=== PATIENT | male | born 1950 | race Asian ===

== ENCOUNTER 2023-08-31 14:56 | Inpatient (IN) | payer OTHER ==
[~2023-08-31] VITALS: Ht 170.2 cm; Wt 110.0 kg
[2023-08-31 16:48] LABS: Basophils # (auto) 0.1 10 ^3/uL (0-0.2); Basophils % (auto) 1.2 % (0.0-2.0); Eosinophils # (auto) 0.1 10 ^3/uL (0-0.8); Eosinophils % (auto) 1.6 % (0.0-7.0); Hematocrit 50.7 % (41.0-53.0); Hemoglobin 16.5 g/dL (13.5-17.5); Lymphocytes # (auto) 0.5 10 ^3/uL (0.4-5.4); Lymphocytes % (auto) 8.1 % (10.0-50.0); Mean Corpuscular Hemoglobin 30.2 pg (28.0-32.0); Mean Corpuscular Hgb Conc. 32.5 g/dL (32.0-36.0); Mean Corpuscular Volume 92.9 fL (80.0-100.0); Monocytes # (auto) 0.5 10 ^3/uL (0-1.3); Monocytes % (auto) 9.2 % (0.0-12.0); Neutrophils # (auto) 4.8 10 ^3/uL (1.6-8.6); Neutrophils % (auto) 79.9 % (37.0-80.0); Nucleated Red Blood Cells % 0.2 %; Red Blood Cells 5.46 10^6/uL (4.5-5.90); Red Cell Distribution Width 17.4 % (11.8-14.3)
[2023-08-31 17:05] LABS: Alanine Aminotransferase < 9 U/L (7-40); Albumin 3.6 g/dL (3.2-4.8); Alkaline Phosphatase 63 U/L (46-116); Anion Gap 4 (5-15); Aspartate Aminotransferase 12 U/L (13-40); BUN/Creatinine Ratio 9.2 (10.0-20.0); Blood Urea Nitrogen 16 mg/dL (9-23); Calcium 8.8 mg/dL (8.7-10.4); Carbon Dioxide 30 mmol/L (20-30); Chloride 107 mmol/L (98-107); Glucose 124 mg/dL (74-106); Lipase 43 U/L (12-53); Potassium 4.4 mmol/L (3.5-5.1); Sodium 141 mmol/L (136-145)
[2023-08-31 17:06] LABS: Bilirubin, Total 3.3 mg/dL (0.2-1.0); Total Protein 6.2 g/dL (5.7-8.2)
[2023-08-31 17:08] LABS: Lactic Acid w/Reflex 2.5 mmol/L (0.4-2.0)
[2023-08-31] MEDS ORDERED: FERR325T20 PO (18:42)
[2023-08-31] MEDS ORDERED: APIX5TAB PO (18:42)
[2023-08-31] MEDS ORDERED: LEVO200T7 PO (18:42)
[2023-08-31] MEDS ORDERED: CARV3.1240 PO (18:42)
[2023-08-31] MEDS ORDERED: ATOR20TA50 PO (18:42)
[2023-08-31] MEDS ORDERED: HYDR25TA87 PO (18:42)
[2023-08-31] MEDS ORDERED: ALLO300T2 PO (18:42)
[2023-08-31] MEDS ORDERED: DOCUSATE SOD 100 MG CAP PO PRN (18:45)
[2023-08-31] MEDS ORDERED: ONDANSETRON HCL 4 MG/2 ML VIAL IV PRN (18:45)
[2023-08-31] MEDS ORDERED: NITROGLYCERIN 0.4 MG SL TAB SL PRN (18:45)
[2023-08-31] MEDS ORDERED: MORPHINE SULFATE INJ 2 MG/ml SYRG IV PRN ×2 (18:45)
[2023-08-31] MEDS ORDERED: ACETAMINOPHEN 325 MG TAB PO PRN (18:45)
[2023-09-01] MEDS: CARVEDILOL 3.125 MG TAB PO SCH (01:05)
[2023-09-01] MEDS: hydrALAZINE HCL 25 MG TAB PO SCH (01:05)
[2023-09-01] MEDS: FUROSEMIDE 40 MG/4 ML VIAL IV ONE (01:06)
[2023-09-01] MEDS: PIPERACILLIN-TAZOB 3.375GM 100 ML IV ONE (01:07)
[2023-09-01] MEDS: CLINDAMYCIN 600MG IV 50 ML IV SCH (01:10)
[2023-09-01] MEDS: SODIUM CHLORIDE 0.9% 1,000 ML IV ONE (04:35)
[2023-09-01 06:06] VITALS: BP 111/60; PULSE 68; PULSE 96; RESP 18; TEMP 98; O2SAT 96
[2023-09-01] MEDS: LEVOTHYROXINE SODIUM 100 MCG TAB PO SCH (06:29)
[2023-09-01] MEDS: FUROSEMIDE 40 MG/4 ML VIAL IV SCH (06:29)
[2023-09-01 08:00] VITALS: BP 109/70; PULSE 61; RESP 17; TEMP 98.2; O2SAT 94
[2023-09-01 08:12] LABS: Basophils # (auto) 0.1 10 ^3/uL (0-0.2); Eosinophils # (auto) 0.1 10 ^3/uL (0-0.8); Eosinophils % (auto) 2.5 % (0.0-7.0); Hemoglobin 16.3 g/dL (13.5-17.5); Lymphocytes # (auto) 0.6 10 ^3/uL (0.4-5.4); Lymphocytes % (auto) 10.4 % (10.0-50.0); Mean Corpuscular Volume 93.7 fL (80.0-100.0); Monocytes # (auto) 0.5 10 ^3/uL (0-1.3); Monocytes % (auto) 8.6 % (0.0-12.0); Neutrophils # (auto) 4.5 10 ^3/uL (1.6-8.6); Neutrophils % (auto) 77.5 % (37.0-80.0); Nucleated Red Blood Cells % 0.2 %; Red Blood Cells 5.44 10^6/uL (4.5-5.90); Red Cell Distribution Width 17.9 % (11.8-14.3); White Blood Cell 5.8 10^3/uL (4.4-10.8)
[2023-09-01 08:26] LABS: Albumin 3.5 g/dL (3.2-4.8); Alkaline Phosphatase 57 U/L (46-116); Anion Gap 6 (5-15); Aspartate Aminotransferase 15 U/L (13-40); BUN/Creatinine Ratio 8.5 (10.0-20.0); Bilirubin, Total 3.1 mg/dL (0.2-1.0); Blood Urea Nitrogen 16 mg/dL (9-23); Calcium 9.2 mg/dL (8.5-10.1); Carbon Dioxide 29 mmol/L (20-30); Chloride 106 mmol/L (98-107); Cholesterol 74 mg/dL (< 200); Glucose 92 mg/dL (74-106); HDL Cholesterol 30 mg/dL (40-59); LDL Cholesterol 27 mg/dL (< 100); Potassium 4.9 mmol/L (3.5-5.1); Sodium 141 mmol/L (136-145); Total Protein 5.9 g/dL (5.7-8.2); Triglycerides 76 mg/dL (< 150)
[2023-09-01 08:29] LABS: INR 1.43 (0.9-1.15); Partial Thromboplastin Time 33.7 SEC (24.5-34.5); Prothrombin Time 14.7 sec (9.3-11.8)
[2023-09-01 08:35] LABS: Alanine Aminotransferase < 9 U/L (7-40)
[2023-09-01 09:00] VITALS: BP 109/70; PULSE 61; RESP 17; TEMP 98.2; O2SAT 94
[2023-09-01] MEDS: FERROUS SULFATE 325mg EC TAB PO SCH (09:23)
[2023-09-01] MEDS: HYDROcodone-ACET 5/325MG TAB PO PRN (09:27)
[2023-09-01] MEDS: ENOXAPARIN SOD 40 MG/0.4 ML SYRINGE SC SCH (09:32)
[2023-09-01 12:42] VITALS: BP 101/62; PULSE 65; RESP 17; TEMP 97.4; O2SAT 90
[2023-09-01 17:30] VITALS: BP 104/55; PULSE 64; TEMP 97.4; O2SAT 94
[2023-09-01] MEDS ORDERED: ATORVASTATIN 20 MG TAB PO SCH (22:00)
[2023-09-01] MEDS: ENOXAPARIN SOD 100 MG/1 ML SYRINGE SC SCH (22:00)
[2023-09-01] MEDS: ATORVASTATIN 20 MG TAB PO SCH (22:05)
[2023-09-02 05:00] VITALS: BP 89/55; PULSE 60; RESP 21; TEMP 97.5; O2SAT 94
[2023-09-02 06:51] LABS: Chloride 101 mmol/L (98-107); Sodium 140 mmol/L (136-145)
[2023-09-02 06:52] LABS: Anion Gap 7 (5-15); Carbon Dioxide 32 mmol/L (20-30)
[2023-09-02 06:57] LABS: Glucose 94 mg/dL (74-106)
[2023-09-02 07:00] LABS: Basophils # (auto) 0 10 ^3/uL (0-0.2); Basophils % (auto) 0.7 % (0.0-2.0); Eosinophils # (auto) 0.2 10 ^3/uL (0-0.8); Eosinophils % (auto) 2.8 % (0.0-7.0); Hematocrit 47.6 % (41.0-53.0); Hemoglobin 15.4 g/dL (13.5-17.5); Lymphocytes # (auto) 0.5 10 ^3/uL (0.4-5.4); Lymphocytes % (auto) 8.8 % (10.0-50.0); Mean Corpuscular Hemoglobin 30.3 pg (28.0-32.0); Mean Corpuscular Hgb Conc. 32.4 g/dL (32.0-36.0); Mean Corpuscular Volume 93.3 fL (80.0-100.0); Monocytes # (auto) 0.6 10 ^3/uL (0-1.3); Monocytes % (auto) 10.3 % (0.0-12.0); Neutrophils # (auto) 4.5 10 ^3/uL (1.6-8.6); Neutrophils % (auto) 77.4 % (37.0-80.0); Nucleated Red Blood Cells % 0.2 %; Red Cell Distribution Width 17.4 % (11.8-14.3); White Blood Cell 5.9 10^3/uL (4.4-10.8)
[2023-09-02 08:00] VITALS: PULSE 61; RESP 17; O2SAT 94
[2023-09-02 08:40] VITALS: BP 98/56; PULSE 61; RESP 18; TEMP 98.3; O2SAT 94
[2023-09-02] MEDS: ASPirin 81 mg TAB PO SCH (09:26)
[2023-09-02] MEDS: EMPAGLIFLOZIN 10 MG TAB PO SCH (09:26)
[2023-09-02] MEDS ORDERED: ERGO1CAP12 PO (11:18)
[2023-09-02 12:45] VITALS: BP 100/66; PULSE 64; RESP 18; TEMP 98.3; O2SAT 96
[2023-09-02 16:40] VITALS: BP 95/56; PULSE 64; RESP 18; TEMP 97.4; O2SAT 97
[2023-09-02 22:00] VITALS: BP 106/68; PULSE 64; RESP 17; TEMP 97.9; O2SAT 97
[2023-09-03] VITALS (8 sets, daily range): BP systolic 95–110; BP diastolic 58–66; PULSE 60–75; RESP 17–20; TEMP 97.2–98.1; O2SAT 91–100
[2023-09-04] VITALS (9 sets, daily range): BP systolic 104–125; BP diastolic 58–76; PULSE 57–69; RESP 17–20; TEMP 97.4–98.8; O2SAT 90–96
[2023-09-04 06:01] LABS: Basophils # (auto) 0.1 10 ^3/uL (0-0.2); Eosinophils # (auto) 0.2 10 ^3/uL (0-0.8); Hematocrit 51.4 % (41.0-53.0); Hemoglobin 16.5 g/dL (13.5-17.5); Lymphocytes # (auto) 0.7 10 ^3/uL (0.4-5.4); Lymphocytes % (auto) 10.1 % (10.0-50.0); Mean Corpuscular Hemoglobin 30.1 pg (28.0-32.0); Monocytes # (auto) 0.6 10 ^3/uL (0-1.3); Monocytes % (auto) 8.6 % (0.0-12.0); Neutrophils # (auto) 5.1 10 ^3/uL (1.6-8.6); Neutrophils % (auto) 77.3 % (37.0-80.0); Nucleated Red Blood Cells % 0.1 %; Red Blood Cells 5.47 10^6/uL (4.5-5.90); Red Cell Distribution Width 17.5 % (11.8-14.3); White Blood Cell 6.7 10^3/uL (4.4-10.8)
[2023-09-04 06:18] LABS: Albumin 3.6 g/dL (3.2-4.8); Alkaline Phosphatase 59 U/L (46-116); Anion Gap 7 (5-15); Aspartate Aminotransferase 12 U/L (13-40); BUN/Creatinine Ratio 12.6 (10.0-20.0); Blood Urea Nitrogen 26 mg/dL (9-23); Carbon Dioxide 34 mmol/L (20-30); Chloride 99 mmol/L (98-107); Glucose 106 mg/dL (74-106); Potassium 3.7 mmol/L (3.5-5.1); Sodium 140 mmol/L (136-145)
[2023-09-04 06:19] LABS: Total Protein 6.5 g/dL (5.7-8.2)
[2023-09-04 06:20] LABS: Alanine Aminotransferase < 9 U/L (7-40)
[2023-09-04 06:21] LABS: Bilirubin, Total 2.1 mg/dL (0.2-1.0)
[2023-09-04] MEDS ORDERED: VANCOMYCIN PER PHARMACY 0 MG IV SCH (10:45)
[2023-09-04] MEDS ORDERED: VANCOMYCIN 1GM/200ML 200 ML IV ONE (12:30)
[2023-09-04] MEDS: LINEZOLID 600MG/300ML 300 ML IV SCH (13:23)
[2023-09-04] MEDS: CALCIUM CARB 500 MG CHEW TAB PO PRN (13:26)
[2023-09-04] MEDS: CEFEPIME 1GM/ 50ML 50 ML IV SCH (16:08)
[2023-09-05] VITALS (7 sets, daily range): BP systolic 93–107; BP diastolic 49–66; PULSE 59–67; RESP 17–20; TEMP 97.3–97.9; O2SAT 92–97
[2023-09-05 06:20] LABS: Basophils # (auto) 0 10 ^3/uL (0-0.2); Basophils % (auto) 0.5 % (0.0-2.0); Eosinophils # (auto) 0 10 ^3/uL (0-0.8); Eosinophils % (auto) 0.4 % (0.0-7.0); Hematocrit 52.7 % (41.0-53.0); Hemoglobin 17.2 g/dL (13.5-17.5); Lymphocytes # (auto) 0.5 10 ^3/uL (0.4-5.4); Mean Corpuscular Hemoglobin 29.9 pg (28.0-32.0); Mean Corpuscular Hgb Conc. 32.7 g/dL (32.0-36.0); Mean Corpuscular Volume 91.6 fL (80.0-100.0); Monocytes # (auto) 0.6 10 ^3/uL (0-1.3); Neutrophils # (auto) 7.8 10 ^3/uL (1.6-8.6); Neutrophils % (auto) 87.1 % (37.0-80.0); Nucleated Red Blood Cells % 0.1 %; Red Blood Cells 5.76 10^6/uL (4.5-5.90); Red Cell Distribution Width 17.2 % (11.8-14.3)
[2023-09-05 06:32] LABS: Albumin 3.1 g/dL (3.2-4.8); Alkaline Phosphatase 52 U/L (46-116); Anion Gap 10 (5-15); Aspartate Aminotransferase 17 U/L (13-40); BUN/Creatinine Ratio 12.3 (10.0-20.0); Bilirubin, Total 3.2 mg/dL (0.2-1.0); Blood Urea Nitrogen 33 mg/dL (9-23); Calcium 8.5 mg/dL (8.7-10.4); Carbon Dioxide 31 mmol/L (20-30); Chloride 99 mmol/L (98-107); Glucose 133 mg/dL (74-106); Potassium 3.8 mmol/L (3.5-5.1); Sodium 140 mmol/L (136-145)
[2023-09-05 06:33] LABS: Total Protein 5.6 g/dL (5.7-8.2)
[2023-09-05 06:42] LABS: Alanine Aminotransferase < 9 U/L (7-40)
[2023-09-05] MEDS: CEFEPIME 1GM/ 50ML 50 ML IV SCH (16:28)
[2023-09-05] MEDS: ENOXAPARIN SOD 80 MG/0.8ML SYRINGE SC SCH (22:00)
[2023-09-06] VITALS (7 sets, daily range): BP systolic 99–117; BP diastolic 46–67; PULSE 59–93; RESP 14–22; TEMP 97.9–98.9; O2SAT 92–100
[2023-09-06 07:08] LABS: Alkaline Phosphatase 49 U/L (46-116); Anion Gap 9 (5-15); Aspartate Aminotransferase 26 U/L (13-40); BUN/Creatinine Ratio 9.8 (10.0-20.0); Blood Urea Nitrogen 36 mg/dL (9-23); Calcium 8.3 mg/dL (8.5-10.1); Carbon Dioxide 28 mmol/L (20-30); Chloride 100 mmol/L (98-107); Glucose 110 mg/dL (74-106); Potassium 4.2 mmol/L (3.5-5.1); Sodium 137 mmol/L (136-145)
[2023-09-06 07:09] LABS: Alanine Aminotransferase < 9 U/L (7-40); Bilirubin, Total 2.7 mg/dL (0.2-1.0); Total Protein 5.2 g/dL (5.7-8.2)
[2023-09-06 16:15] LABS: Magnesium 2.2 mg/dL (1.6-2.6)
[2023-09-06 16:17] LABS: Phosphorus 5.6 mg/dL (2.4-5.1)
[2023-09-06 19:03] LABS: Urine Bacteria NONE SEEN /hpf (None Seen); Urine Blood 3+ /uL (Negative); Urine Clarity Clear (Clear); Urine Color Yellow (Yellow); Urine Hyaline Cast FEW /lpf (0 - 2); Urine Protein, UAD Negative (Negative); Urine Urobilinogen Normal (Negative); Urine WBC 14 /hpf (0 - 3)
[2023-09-06 22:10] LABS: Protein, Urine 9.8 mg/dL (0.0-11.9)
[2023-09-06 22:13] LABS: Creatinine, Urine 54.33 mg/dL (30.0-125.0); Urine Protein/Creatinine Ratio 0.18
[2023-09-07] VITALS (7 sets, daily range): BP systolic 100–106; BP diastolic 54–58; PULSE 56–80; RESP 18–20; TEMP 97.6–98.5; O2SAT 91–99
[2023-09-07 06:47] LABS: Calcium 8.2 mg/dL (8.5-10.1); Chloride 100 mmol/L (98-107); Potassium 3.7 mmol/L (3.5-5.1); Sodium 139 mmol/L (136-145)
[2023-09-07 06:48] LABS: Anion Gap 8 (5-15); Basophils # (auto) 0 10 ^3/uL (0-0.2); Basophils % (auto) 0.7 % (0.0-2.0); Carbon Dioxide 31 mmol/L (20-30); Eosinophils # (auto) 0.2 10 ^3/uL (0-0.8); Eosinophils % (auto) 2.2 % (0.0-7.0); Hematocrit 46.5 % (41.0-53.0); Hemoglobin 15.2 g/dL (13.5-17.5); Lymphocytes # (auto) 0.6 10 ^3/uL (0.4-5.4); Lymphocytes % (auto) 7.8 % (10.0-50.0); Mean Corpuscular Hemoglobin 30.1 pg (28.0-32.0); Mean Corpuscular Hgb Conc. 32.8 g/dL (32.0-36.0); Mean Corpuscular Volume 91.7 fL (80.0-100.0); Monocytes # (auto) 0.6 10 ^3/uL (0-1.3); Monocytes % (auto) 8.1 % (0.0-12.0); Neutrophils # (auto) 5.8 10 ^3/uL (1.6-8.6); Neutrophils % (auto) 81.2 % (37.0-80.0); Nucleated Red Blood Cells % 0.2 %; Red Blood Cells 5.07 10^6/uL (4.5-5.90); Red Cell Distribution Width 17.3 % (11.8-14.3); White Blood Cell 7.2 10^3/uL (4.4-10.8)
[2023-09-07 06:53] LABS: BUN/Creatinine Ratio 10.9 (10.0-20.0); Blood Urea Nitrogen 39 mg/dL (9-23); Glucose 88 mg/dL (74-106)
[2023-09-07] MEDS: FUROSEMIDE 40 MG/4 ML VIAL IV SCH (10:00)
[2023-09-07] MEDS: SULFAMETHOX W/TRIMETH(800/160MG) DS TAB PO ONE (19:01)
[2023-09-08] VITALS (7 sets, daily range): BP systolic 97–116; BP diastolic 42–65; PULSE 60–65; RESP 18–21; TEMP 97.5–98.4; O2SAT 93–100
[2023-09-08 06:05] LABS: Basophils # (auto) 0.1 10 ^3/uL (0-0.2); Basophils % (auto) 0.8 % (0.0-2.0); Eosinophils # (auto) 0.2 10 ^3/uL (0-0.8); Eosinophils % (auto) 3.5 % (0.0-7.0); Hematocrit 46.2 % (41.0-53.0); Lymphocytes # (auto) 0.8 10 ^3/uL (0.4-5.4); Lymphocytes % (auto) 12.3 % (10.0-50.0); Mean Corpuscular Hemoglobin 29.8 pg (28.0-32.0); Mean Corpuscular Hgb Conc. 32.5 g/dL (32.0-36.0); Mean Corpuscular Volume 91.5 fL (80.0-100.0); Monocytes # (auto) 0.5 10 ^3/uL (0-1.3); Monocytes % (auto) 7.6 % (0.0-12.0); Neutrophils # (auto) 4.9 10 ^3/uL (1.6-8.6); Neutrophils % (auto) 75.8 % (37.0-80.0); Nucleated Red Blood Cells % 0.1 %; Red Blood Cells 5.05 10^6/uL (4.5-5.90); White Blood Cell 6.5 10^3/uL (4.4-10.8)
[2023-09-08 06:11] LABS: Chloride 102 mmol/L (98-107); Potassium 3.9 mmol/L (3.5-5.1); Sodium 140 mmol/L (136-145)
[2023-09-08 06:12] LABS: Anion Gap 6 (5-15); Calcium 8.3 mg/dL (8.5-10.1); Carbon Dioxide 32 mmol/L (20-30)
[2023-09-08 06:17] LABS: BUN/Creatinine Ratio 11.6 (10.0-20.0); Blood Urea Nitrogen 33 mg/dL (9-23); Glucose 106 mg/dL (74-106)
[2023-09-08 08:06] LABS: PSA Free 1.08 ng/mL; Prostate Specific Antigen 9.8 ng/mL (0.0-4.0)
[2023-09-08] MEDS: SULFAMETHOX W/TRIMETH(800/160MG) DS TAB PO SCH (10:00)
[2023-09-08] MEDS: METOPROLOL TARTRATE 25 MG TAB PO SCH (21:28)
[2023-09-09] VITALS (7 sets, daily range): BP systolic 95–107; BP diastolic 50–61; PULSE 57–69; RESP 17–67; TEMP 97.6–98.7; O2SAT 91–93
[2023-09-09] MEDS: FUROSEMIDE 40 MG/4 ML VIAL IV SCH (10:00)
[2023-09-09] MEDS ORDERED: LORazepam 2MG/ML-1ML VIAL IV ONE (11:00)
[2023-09-09] MEDS: FUROSEMIDE 20 MG TAB PO SCH (16:46)
[2023-09-10 05:00] VITALS: BP 97/41; PULSE 53; RESP 20; TEMP 98.1; O2SAT 92
[2023-09-10 07:19] LABS: Chloride 104 mmol/L (98-107); Potassium 3.7 mmol/L (3.5-5.1); Sodium 141 mmol/L (136-145)
[2023-09-10 07:20] LABS: Anion Gap 6 (5-15); Carbon Dioxide 31 mmol/L (20-30)
[2023-09-10 07:21] LABS: Basophils # (auto) 0.1 10 ^3/uL (0-0.2); Basophils % (auto) 1.1 % (0.0-2.0); Calcium 8.3 mg/dL (8.7-10.4); Eosinophils # (auto) 0.2 10 ^3/uL (0-0.8); Eosinophils % (auto) 2.7 % (0.0-7.0); Hematocrit 46.3 % (41.0-53.0); Lymphocytes # (auto) 1.1 10 ^3/uL (0.4-5.4); Lymphocytes % (auto) 14.1 % (10.0-50.0); Mean Corpuscular Hemoglobin 29.9 pg (28.0-32.0); Mean Corpuscular Hgb Conc. 32.4 g/dL (32.0-36.0); Mean Corpuscular Volume 92.2 fL (80.0-100.0); Monocytes # (auto) 0.5 10 ^3/uL (0-1.3); Monocytes % (auto) 6.3 % (0.0-12.0); Neutrophils # (auto) 5.7 10 ^3/uL (1.6-8.6); Neutrophils % (auto) 75.8 % (37.0-80.0); Nucleated Red Blood Cells % 0.1 %; Red Blood Cells 5.02 10^6/uL (4.5-5.90); Red Cell Distribution Width 16.9 % (11.8-14.3); White Blood Cell 7.5 10^3/uL (4.4-10.8)
[2023-09-10 07:25] LABS: BUN/Creatinine Ratio 13.5 (10.0-20.0); Blood Urea Nitrogen 25 mg/dL (9-23); Glucose 85 mg/dL (74-106)
[2023-09-10 07:26] LABS: Magnesium 1.9 mg/dL (1.6-2.6)
[2023-09-10 08:00] VITALS: BP 108/67; PULSE 60; PULSE 64; RESP 15; TEMP 98.2
[2023-09-10 08:59] VITALS: BP 108/67; PULSE 61; RESP 15; TEMP 98.2; O2SAT 93
[2023-09-10 12:52] VITALS: BP 100/59; PULSE 60; RESP 17; TEMP 97.8; O2SAT 95
[2023-09-10] MEDS ORDERED: BACDST PO (14:20)
[2023-09-10] MEDS ORDERED: SULFAMETHOX W/TRIMETH(800/160MG) DS TAB PO SCH (22:00)
== END 2023-09-10 16:57 | disposition left against medical advice (07) | DRG 871 ==
LOC: ER 14:56 → OVERFLOW 18:40 → WEST WING 09-01 05:45 → TELE-WESTW 09-01 15:58
PROVIDERS: ADMIT Nurse Practitioner Family; ATTEND Nurse Practitioner Acute Care
DX: A41.9 Sepsis, unspecified organism (principal); I50.43 Acute on chronic combined systolic (congestive) and diastolic (congestive) heart failure; N17.0 Acute kidney failure with tubular necrosis; L03.115 Cellulitis of right lower limb; I13.0 Hypertensive heart and chronic kidney disease with heart failure and stage 1 through stage 4 chronic kidney disease, or unspecified chronic kidney disease; E44.0 Moderate protein-calorie malnutrition; N13.30 Unspecified hydronephrosis; Z59.00 Homelessness unspecified; L03.116 Cellulitis of left lower limb; I48.91 Unspecified atrial fibrillation; E78.5 Hyperlipidemia, unspecified; E66.01 Morbid (severe) obesity due to excess calories; D69.6 Thrombocytopenia, unspecified; D50.9 Iron deficiency anemia, unspecified; E11.22 Type 2 diabetes mellitus with diabetic chronic kidney disease; E11.51 Type 2 diabetes mellitus with diabetic peripheral angiopathy without gangrene; N13.9 Obstructive and reflux uropathy, unspecified; N18.9 Chronic kidney disease, unspecified; E03.9 Hypothyroidism, unspecified; C61 Malignant neoplasm of prostate; N40.1 Benign prostatic hyperplasia with lower urinary tract symptoms; R33.8 Other retention of urine; Z53.29 Procedure and treatment not carried out because of patient's decision for other reasons; R31.9 Hematuria, unspecified; Z95.810 Presence of automatic (implantable) cardiac defibrillator; Z79.01 Long term (current) use of anticoagulants; Z85.850 Personal history of malignant neoplasm of thyroid; Z80.3 Family history of malignant neoplasm of breast; Z68.38 Body mass index [BMI] 38.0-38.9, adult
CPT/HCPCS: 36415; 71045; 71046; 73590; 74176; 76775; 80048; 80053; 80061; 81001; 82306; 82570; 83036; 83605; 83690; 83735; 83880; 83970; 84100; 84154; 84156; 84300; 84443; 84484; 85025; 85610; 85730; 87040; 87077; 87186; 87205; 93005; 93306; 93925; 93970; 97110; 97116; 97163; 97530; G0378; J2543; J3490

== ENCOUNTER 2023-09-12 18:28 | Inpatient (IN) | payer OTHER ==
[~2023-09-12] VITALS: Ht 185.4 cm; Wt 37.5 kg
[~2023-09-12 18:28] MED LIST: ALLO300T2 PO; APIX5TAB PO; ATOR20TA50 PO; BACDST PO; CARV3.1240 PO; ERGO1CAP12 PO; FERR325T20 PO; HYDR25TA87 PO; LEVO200T7 PO
[2023-09-12 19:18] LABS: Basophils # (auto) 0.1 10 ^3/uL (0-0.2); Basophils % (auto) 0.9 % (0.0-2.0); Eosinophils # (auto) 0.2 10 ^3/uL (0-0.8); Hematocrit 46.2 % (41.0-53.0); Hemoglobin 14.9 g/dL (13.5-17.5); Lymphocytes # (auto) 0.8 10 ^3/uL (0.4-5.4); Lymphocytes % (auto) 9.4 % (10.0-50.0); Mean Corpuscular Hemoglobin 29.7 pg (28.0-32.0); Mean Corpuscular Hgb Conc. 32.3 g/dL (32.0-36.0); Monocytes # (auto) 0.4 10 ^3/uL (0-1.3); Monocytes % (auto) 4.7 % (0.0-12.0); Neutrophils # (auto) 7.1 10 ^3/uL (1.6-8.6); Nucleated Red Blood Cells % 0.1 %; Red Blood Cells 5.02 10^6/uL (4.5-5.90); Red Cell Distribution Width 16.9 % (11.8-14.3); White Blood Cell 8.6 10^3/uL (4.4-10.8)
[2023-09-12 19:37] LABS: Alanine Aminotransferase 77 U/L (7-40); Albumin 3.3 g/dL (3.2-4.8); Alkaline Phosphatase 67 U/L (46-116); Anion Gap 7 (5-15); Aspartate Aminotransferase 117 U/L (13-40); Blood Urea Nitrogen 25 mg/dL (9-23); Carbon Dioxide 29 mmol/L (20-30); Chloride 107 mmol/L (98-107); Glucose 161 mg/dL (74-106); Lipase 58 U/L (12-53); Potassium 3.7 mmol/L (3.5-5.1); Sodium 143 mmol/L (136-145)
[2023-09-12 19:38] LABS: Bilirubin, Total 1.9 mg/dL (0.2-1.0); Total Protein 5.6 g/dL (5.7-8.2)
[2023-09-12 19:41] LABS: Lactic Acid w/Reflex 3.2 mmol/L (0.4-2.0)
[2023-09-12 19:49] LABS: CRP High Sensitivity 0.78 mg/dL (<1.0)
[2023-09-12] MEDS: HYDROcodone-ACET 5/325MG TAB PO ONE (21:56)
[2023-09-12] MEDS ORDERED: DEXTROSE (50%) 50ML SYRG IV PRN (22:45)
[2023-09-12] MEDS ORDERED: ONDANSETRON HCL 4 MG/2 ML VIAL IV PRN (22:45)
[2023-09-12] MEDS ORDERED: DOCUSATE SOD 100 MG CAP PO PRN (22:45)
[2023-09-12] MEDS ORDERED: IBUPROFEN 600 MG TAB PO PRN (23:00)
[2023-09-12] MEDS ORDERED: MORPHINE SULFATE INJ 2 MG/ml SYRG IV PRN (23:45)
[2023-09-12] MEDS ORDERED: NITROGLYCERIN 0.4 MG SL TAB SL PRN (23:45)
[2023-09-13 00:47] VITALS: PULSE 67; RESP 27; O2SAT 95
[2023-09-13 03:43] LABS: Basophils # (auto) 0.1 10 ^3/uL (0-0.2); Basophils % (auto) 1.2 % (0.0-2.0); Eosinophils # (auto) 0.3 10 ^3/uL (0-0.8); Eosinophils % (auto) 3.4 % (0.0-7.0); Hematocrit 43.2 % (41.0-53.0); Hemoglobin 14.1 g/dL (13.5-17.5); Lymphocytes # (auto) 1.1 10 ^3/uL (0.4-5.4); Lymphocytes % (auto) 13.3 % (10.0-50.0); Mean Corpuscular Hemoglobin 30.2 pg (28.0-32.0); Mean Corpuscular Hgb Conc. 32.7 g/dL (32.0-36.0); Mean Corpuscular Volume 92.3 fL (80.0-100.0); Monocytes # (auto) 0.6 10 ^3/uL (0-1.3); Monocytes % (auto) 6.7 % (0.0-12.0); Neutrophils # (auto) 6.2 10 ^3/uL (1.6-8.6); Neutrophils % (auto) 75.4 % (37.0-80.0); Nucleated Red Blood Cells % 0.1 %; Red Blood Cells 4.68 10^6/uL (4.5-5.90); Red Cell Distribution Width 16.6 % (11.8-14.3); White Blood Cell 8.2 10^3/uL (4.4-10.8)
[2023-09-13 03:52] LABS: Alanine Aminotransferase 65 U/L (7-40); Alkaline Phosphatase 62 U/L (46-116); Anion Gap 4 (5-15); Aspartate Aminotransferase 82 U/L (13-40); BUN/Creatinine Ratio 13.1 (10.0-20.0); Blood Urea Nitrogen 21 mg/dL (9-23); Calcium 7.9 mg/dL (8.7-10.4); Carbon Dioxide 31 mmol/L (20-30); Chloride 108 mmol/L (98-107); Glucose 96 mg/dL (74-106); Potassium 3.6 mmol/L (3.5-5.1); Sodium 143 mmol/L (136-145)
[2023-09-13 03:53] LABS: Albumin 3.2 g/dL (3.2-4.8); Bilirubin, Total 1.3 mg/dL (0.2-1.0); Total Protein 5.6 g/dL (5.7-8.2)
[2023-09-13] MEDS: SODIUM CHLOR 0.9% PF (SALINE LOCK) 10ML VIAL/SYR IV SCH (06:05)
[2023-09-13] MEDS: InsuLIN REG 1unit/0.01ml Soln (100units/ml) SC SCH ×2 (06:30→21:59)
[2023-09-13] MEDS: ACCU-CHEK COMFORT CURVE STRIP VI SCH (06:30)
[2023-09-13] MEDS: LEVOTHYROXINE SODIUM 50 MCG TAB PO SCH (07:02)
[2023-09-13] MEDS: FUROSEMIDE 40 MG/4 ML VIAL IV SCH (09:13)
[2023-09-13] MEDS: CARVEDILOL 3.125 MG TAB PO SCH (09:13)
[2023-09-13] MEDS: FAMOTIDINE (10MG/ML) 2ML VL IV SCH (09:13)
[2023-09-13] MEDS: APIXABAN 5 MG TAB PO SCH (09:14)
[2023-09-13] MEDS ORDERED: VANCOMYCIN PER PHARMACY 0 MG IV SCH (09:45)
[2023-09-13 09:49] LABS: Phosphorus 2.1 mg/dL (2.4-5.1)
[2023-09-13] MEDS: cefTRIAXone 1GM/50ML D5W 50 ML IV ONE (09:55)
[2023-09-13] MEDS: LEVOTHYROXINE SODIUM 50 MCG TAB PO ONE (09:56)
[2023-09-13 10:05] LABS: INR 1.18 (0.9-1.15); Partial Thromboplastin Time 31.2 SEC (24.5-34.5); Prothrombin Time 12.3 sec (9.3-11.8)
[2023-09-13] MEDS: VANCOMYCIN 1GM/200ML 200 ML IV ONE (10:23)
[2023-09-13 10:32] LABS: Magnesium 1.8 mg/dL (1.6-2.6)
[2023-09-13 10:33] LABS: Free T3 1.42 pg/mL (2.3-4.2); Free T4 (Free Thyroxine) 0.64 ng/dL (0.89-1.76)
[2023-09-13] MEDS ORDERED: ACETAMINOPHEN/CODEINE#3 (300/30mg) TAB PO PRN (16:45)
[2023-09-13 19:40] VITALS: PULSE 63; O2SAT 96
[2023-09-13 20:00] VITALS: PULSE 72
[2023-09-13 22:51] VITALS: PULSE 80; RESP 16; O2SAT 95
[2023-09-13 22:58] VITALS: BP_SYST 109; BP_SYST 132; BP_DIAS 68; BP_DIAS 71; PULSE 60; PULSE 81; PULSE 84; RESP 16; RESP 18; TEMP 98.5; TEMP 98.8; O2SAT 95; O2SAT 96
[2023-09-14] VITALS (7 sets, daily range): BP systolic 96–102; BP diastolic 55–64; PULSE 60–66; RESP 16–20; TEMP 98–98.3; O2SAT 93–100
[2023-09-14] MEDS: VANCOMYCIN 750mg/150ml 150 ML IV SCH (00:08)
[2023-09-14] MEDS: LEVOTHYROXINE SODIUM 100 MCG TAB PO SCH (06:29)
[2023-09-14 07:26] LABS: Anion Gap 4 (5-15); Calcium 7.9 mg/dL (8.5-10.1); Carbon Dioxide 30 mmol/L (20-30); Chloride 109 mmol/L (98-107); Potassium 3.6 mmol/L (3.5-5.1); Sodium 143 mmol/L (136-145)
[2023-09-14 07:31] LABS: Glucose 82 mg/dL (74-106)
[2023-09-14 07:32] LABS: Blood Urea Nitrogen 19 mg/dL (9-23)
[2023-09-14] MEDS ORDERED: cefTRIAXone 1GM/50ML D5W 50 ML IV SCH (09:00)
[2023-09-14] MEDS: FUROSEMIDE 20 MG TAB PO SCH (11:06)
[2023-09-14] MEDS: PANTOPRAZOLE 40 MG TAB PO SCH (11:06)
[2023-09-14] MEDS: levoFLOXacin 500 MG TAB PO SCH (11:06)
[2023-09-14] MEDS: AMPICILLIN & SULBACTAM SODIUM 3 GM in SODIUM CHL 0.9% 100 ML IV SCH ×2 (11:07→22:50)
[2023-09-14 17:44] LABS: Amphetamine Screen, Urine Neg (NEGATIVE); Barbiturate Scree,Urine Neg (NEGATIVE); Benzodiazephine Screen, Urine Neg (NEGATIVE)
[2023-09-14 17:45] LABS: Cocaine Screen, Urine Neg (NEGATIVE)
[2023-09-14 17:46] LABS: Cannabinoid Screen, Urine Neg (NEGATIVE); Opiate Scree,Urine Neg (NEGATIVE); Phencyclidine Screen, Urine Neg (NEGATIVE)
[2023-09-14 18:10] LABS: Urine Bacteria NONE SEEN /hpf (None Seen); Urine Blood 1+ /uL (Negative); Urine Clarity Clear (Clear); Urine Color Colorless (Yellow); Urine Protein, UAD Negative (Negative); Urine Specific Gravity 1.008 (1.001-1.035); Urine Urobilinogen Normal (Negative); Urine WBC 1 /hpf (0 - 3)
[2023-09-15] VITALS (7 sets, daily range): BP systolic 98–111; BP diastolic 60–66; PULSE 60–68; RESP 18–24; TEMP 98.1–98.6; O2SAT 95–98
[2023-09-15] MEDS: CALCIUM GLUC 1,000mg/50ml-NS 50 ML IV ONE (13:53)
[2023-09-16 05:00] VITALS: BP 101/60; PULSE 63; RESP 18; TEMP 98.3; O2SAT 93
[2023-09-16 08:00] VITALS: PULSE 61
[2023-09-16 09:00] VITALS: BP 104/63; PULSE 64; RESP 20; TEMP 97.9; O2SAT 92
[2023-09-16 13:00] VITALS: BP 105/67; PULSE 56; RESP 18; TEMP 98; O2SAT 94
[2023-09-16 17:00] VITALS: BP 102/66; PULSE 62; RESP 20; TEMP 98.3; O2SAT 96
== END 2023-09-16 18:15 | DRG 871 ==
LOC: ER 18:28 → TELE 23:40 → TELE-CENTR 09-13 22:42
PROVIDERS: ADMIT Nurse Practitioner Family; ATTEND Nurse Practitioner Acute Care
DX: A41.9 Sepsis, unspecified organism (principal); I50.23 Acute on chronic systolic (congestive) heart failure; N17.0 Acute kidney failure with tubular necrosis; L03.115 Cellulitis of right lower limb; L03.116 Cellulitis of left lower limb; E44.0 Moderate protein-calorie malnutrition; Z68.1 Body mass index [BMI] 19.9 or less, adult; E87.20 Acidosis, unspecified; R74.01 Elevation of levels of liver transaminase levels; D69.6 Thrombocytopenia, unspecified; C61 Malignant neoplasm of prostate; E66.9 Obesity, unspecified; I48.0 Paroxysmal atrial fibrillation; E78.5 Hyperlipidemia, unspecified; I11.0 Hypertensive heart disease with heart failure; N13.9 Obstructive and reflux uropathy, unspecified; B95.7 Other staphylococcus as the cause of diseases classified elsewhere; Z53.29 Procedure and treatment not carried out because of patient's decision for other reasons; B95.2 Enterococcus as the cause of diseases classified elsewhere; E11.51 Type 2 diabetes mellitus with diabetic peripheral angiopathy without gangrene; Z85.46 Personal history of malignant neoplasm of prostate; Z91.199 Patient's noncompliance with other medical treatment and regimen due to unspecified reason; Z95.810 Presence of automatic (implantable) cardiac defibrillator; Z79.2 Long term (current) use of antibiotics; Z79.899 Other long term (current) drug therapy; Z79.01 Long term (current) use of anticoagulants
CPT/HCPCS: 36415; 71045; 78582; 80048; 80053; 80061; 80202; 80307; 81001; 82306; 82607; 82962; 83605; 83690; 83735; 83880; 84100; 84439; 84443; 84481; 84484; 85025; 85379; 85610; 85730; 86141; 87040; 87086; 87088; 87205; 93970; G0378; J1815; J3490

== ENCOUNTER 2023-09-30 11:06 | Emergency (ER) | payer OTHER ==
[~2023-09-30] VITALS: Ht 170.2 cm; Wt 99.6 kg
[2023-09-30 12:23] VITALS: BP 128/86; PULSE 76; RESP 18; TEMP 97; O2SAT 98
[2023-09-30] MEDS ORDERED: PHEN-922 PO (13:13)
[2023-09-30] MEDS ORDERED: BACDST PO (13:13)
[2023-09-30] MEDS: PHENAZOPYRIDINE HCL 100 MG TAB PO ONE (13:20)
== END 2023-09-30 13:21 | disposition home or self-care (01) ==
LOC: ER 11:06
DX: Z46.6 Encounter for fitting and adjustment of urinary device (principal); N39.0 Urinary tract infection, site not specified; E11.9 Type 2 diabetes mellitus without complications; I50.9 Heart failure, unspecified; Z79.899 Other long term (current) drug therapy
CPT/HCPCS: 81002

== ENCOUNTER 2024-08-05 18:44 | Inpatient (IN) | payer OTHER ==
[~2024-08-05] VITALS: Ht 182.9 cm; Wt 71.0 kg
[~2024-08-05 18:44] MED LIST changes: +AMIO200T13 GT; +APIX2.5T PO; +EMPA1TAB PO; +FURO40TA4 PO; +METO-6 PO; +PHEN-922 PO
[2024-08-05 19:06] VITALS: PULSE 91; RESP 16; O2SAT 96
[2024-08-05] MEDS ORDERED: MORPHINE SULFATE INJ 2 MG/ml SYRG IV ONE (19:15)
[2024-08-05 19:30] VITALS: PULSE 98; RESP 16; O2SAT 96
[2024-08-05] MEDS: SODIUM CHLORIDE 0.9% 1,000 ML IV ONE (19:32)
[2024-08-05] MEDS: cefTRIAXone 1GM/50ML D5W 50 ML IV ONE (19:40)
[2024-08-05 19:46] LABS: Basophils # (auto) 0.1 10 ^3/uL (0-0.2); Basophils % (auto) 0.6 % (0.0-2.0); Eosinophils # (auto) 0 10 ^3/uL (0-0.8); Eosinophils % (auto) 0.1 % (0.0-7.0); Hematocrit 34.5 % (41.0-53.0); Hemoglobin 10.9 g/dL (13.5-17.5); Lymphocytes # (auto) 0.7 10 ^3/uL (0.4-5.4); Lymphocytes % (auto) 3.3 % (10.0-50.0); Mean Corpuscular Hemoglobin 25.8 pg (28.0-32.0); Mean Corpuscular Hgb Conc. 31.6 g/dL (32.0-36.0); Mean Corpuscular Volume 81.8 fL (80.0-100.0); Monocytes % (auto) 4.8 % (0.0-12.0); Neutrophils # (auto) 19.5 10 ^3/uL (1.6-8.6); Neutrophils % (auto) 91.2 % (37.0-80.0); Platelet Count (auto) 191 10^3/uL (140-450); Red Blood Cells 4.21 10^6/uL (4.5-5.90); Red Cell Distribution Width 19.5 % (11.8-14.3); White Blood Cell 21.4 10^3/uL (4.4-10.8)
[2024-08-05 20:02] LABS: INR 1.25 (0.9-1.15); Partial Thromboplastin Time 34.9 SEC (24.5-34.5)
[2024-08-05 20:08] LABS: Albumin 3.2 g/dL (3.2-4.8); Alkaline Phosphatase 65 U/L (46-116); Anion Gap 6 (5-15); BUN/Creatinine Ratio 17.1 (10.0-20.0); Bilirubin, Total 0.9 mg/dL (0.2-1.0); Blood Alcohol 4.5 mg/dL (<10); Carbon Dioxide 30 mmol/L (20-31); Chloride 107 mmol/L (98-107); Sodium 143 mmol/L (136-145); Total Protein 6.2 g/dL (5.7-8.2)
[2024-08-05 20:17] LABS: Aspartate Aminotransferase < 8 U/L (13-40); Blood Urea Nitrogen 26 mg/dL (9-23); Glucose 120 mg/dL (74-106); Potassium 3.1 mmol/L (3.5-5.1)
[2024-08-05 20:18] LABS: Alanine Aminotransferase < 9 U/L (7-40); Calcium 11.1 mg/dL (8.7-10.4)
[2024-08-05 20:24] LABS: Lactic Acid w/Reflex 2.3 mmol/L (0.4-2.0)
--- NOTE | 2024-08-05 20:53 | ED.PDOC ---
History of Present Illness HPI Comments 74 y/o M, with a Hx of CHF, DM, HTN, thyroid disease, UTI's, and pacemaker, is BIBA for c/o ALOC w/confusion and generalized weakness, today. Per EMS report, family called, due to patient getting progressively worse following recent UTI diagnosis 1x week ago. Patient was stated to have been placed on and taking antibiotic treatment since being found with a UTI. On scene and en route, patient was also noted by EMS staff to have been found in bradycardia and V- tach, with family endorsing on that being normal for the patient, lately, amidst Hx of pacemaker. Upon arrival to ED, patient's mental status remained unchanged, with no additional symptoms reported by EMS staff at this time. Patient was slow in responding and family arrives to tell me that the patient had been increasingly altered throat for the past few days. Patient's vital signs were stable on arrival. Chief Complaint: ALOC Time Seen by MD: 18:50 Primary Care Provider: UNKNOWN Reviewed Notes: Nurses Notes, Rn Home Health Notes, Medications, Allergies Allergies: Coded Allergies: NO KNOWN ALLERGIES (Unverified , 08/31/23) Home Meds Active Scripts Amiodarone HCl (Amiodarone HCl) 200 Mg Tab, 200 MG GT DAILY for 30 Days, #30 TAB 1 Refill Prov:LAZARO FLOR DO 10/23/23 Empagliflozin (Jardiance) 10 Mg Tab, 10 MG PO DAILY for 30 Days, #30 TAB 1 Refill Prov:LAZARO FLOR DO 10/23/23 Metoprolol Succinate (Toprol Xl) 50 Mg Tab, 25 MG PO DAILY for 30 Days, #15 TAB 1 Refill Prov:LAZARO FLOR DO 10/23/23 Furosemide (Furosemide) 40 Mg Tab, 40 MG PO DAILY for 30 Days, #30 TAB 1 Refill Prov:LAZARO FLOR DO 10/23/23 Phenazopyridine HCl (Phenazopyridine Hydrochlo) 200 Mg Tab, 200 MG PO TID, #6 TAB Prov:FLORENCIA MENON 09/30/23 Sulfamethoxazole W/Trimethopri (Bactrim Ds Tablet) 1 Tab Tb, 1 TAB PO BID, #20 TAB Prov:FLORENCIA MENON 09/30/23 Sulfamethoxazole W/Trimethopri (Bactrim Ds Tablet) 1 Tab Tb, 10 TAB PO BID for 10 Days, #20 TAB Prov:MIREYA ERICKSON CONE FORMER 09/10/23 Reported Medications Ergocalciferol (Vitamin D) 50,000 Unit Cap, 63999 UNIT PO QWEEKLY 09/02/23 Apixaban Base (ELIQUIS) 5 Mg Tab, 1 TAB PO BID 08/31/23 Ferrous Sulfate (Ferosul) 325 Mg Tab, 1 TAB PO DAILY 08/31/23 Hydralazine HCl (Hydralazine HCl) 25 Mg Tab, 1 TAB PO BID 08/31/23 Atorvastatin Calcium (ATORVASTATIN CALCIUM) 20 Mg Tab, 1 TAB PO DAILY 08/31/23 Carvedilol (Carvedilol) 3.125 Mg Tab, 1 TAB PO BID 08/31/23 Allopurinol (Allopurinol) 300 Mg Tab, 1 TAB PO DAILY 08/31/23 Levothyroxine Sodium (Levothyroxine Sodium) 200 Mcg Tab, 1 TAB PO DAILY 08/31/23 Information Source: Patient, Emergency Med Personnel Mode of Arrival: EMS Severity: Moderate Timing: Days Duration: Since onset 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, 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 Past Medical History PAST MEDICAL HISTORY: CHF, DM, HTN, Thyroid Surgical History: Pacemaker Family History Family History: Reviewed,noncontributory to illness Social History Smoker: Non-Smoker Alcohol: Denies ETOH Use Drugs: Denies Drug Use Lives In: Home Constitutional: reports: fatigue, weakness; denies: chills, diaphoresis, fever, malaise, sweats, others EENTM: denies: blurred vision, double vision, ear bleeding, ear discharge, ear drainage, ear pain, ear ringing, eye pain, eye redness, hearing loss, mouth pain, mouth swelling, nasal discharge, nose bleeding, nose congestion, nose pain, photophobia, tearing, throat pain, throat swelling, voice changes, others Respiratory: denies: cough, hemoptysis, orthopnea, SOB at rest, shortness of breath, SOB with excertion, stridor, wheezing, others Cardiovascular: denies: chest pain, dizzy spells, diaphoresis, Dyspnea on exertion, edema, irregular heart beat, left arm pain, lightheadedness, palpitations, PND, syncope, others Gastrointestinal: denies: abdomen distended, abdominal pain, blood streaked bowels, constipated, diarrhea, dysphagia, difficulty swallowing, hematemesis, melena, nausea, poor appetite, poor fluid intake, rectal bleeding, rectal pain, vomiting, others Genitourinary: denies: burning, dysuria, flank pain, frequency, hematuria, incontinence, penile discharge, penile sore, pain, testicle pain, testicle swelling, urgency, others Neurological: reports: dizziness, weakness, others (ALOC w/confusion ); denies: fainting, headache, left sided numbness, left sided weakness, numbness, paresthesia, pre-existing deficit, right sided numbness, right sided weakness, seizure, speech problems, tingling, tremors Musculoskeletal: denies: back pain, gout, joint pain, joint swelling, muscle pain, muscle stiffness, neck pain, others Integumetry: denies: bruises, change in color, change in hair/nails, dryness, laceration, lesions, lumps, rash, wounds, others Allergic/Immunocompromised: denies: Difficulty Healing, Frequent Infections, Hives, Itching, others Hematologic/Lymphatic: denies: anemia, blood clots, easy bleeding, easy bruising, swollen glands, others Endocrine: denies: excessive hunger, excessive sweating, excessive thirst, excessive urination, flushing, intolerance to cold, intolerance to heat, unexplained weight gain, unexplained weight loss, others Psychiatric: denies: anxiety, bipolar disorder, depression, hopeless, panic disorder, schizophrenia, sleepless, suicidal, others Unable to Obtain due to: Altered Mental Status All Other Systems: Reviewed and Negative (negative unless otherwise stated above or in HPI) Physical Exam Exam Comments Patient appears to be in poor overall health. General Appearance: Moderate Distress (Patient is not necessarily in distress but rather, displays altered mental status and slow response to questioning.), Normal HEENT: Normal ENT Inspection, Pharynx Normal, TMs Normal Neck: Full Range of Motion, Non-Tender, Normal, Normal Inspection Respiratory: Chest Non-Tender, Lungs Clear, No Accessory Muscle Use, No Respiratory Distress, Normal Breath Sounds Cardiovascular: Bradycardia, No Edema, No JVD, No Murmur, No Gallop, Normal Peripheral Pulses Breast Exam: Deferred Gastrointestinal: Non Tender, No Pulsatile Mass, Normal Bowel Sounds, Soft Genitalia: Deferred Pelvic: Deferred Rectal: Deferred Extremities: NOT DONE Neurologic: NOT DONE Cerebellar Function: NOT DONE Reflexes: NOT DONE Skin: Dry, Normal Color, Warm Lymphatic: No Adenopathy Was a procedure done? Was a procedure done?: No EKG EKG : Pulse Rate (adult): 96 Ross: Normal Cardiac Rhythm: NSR, VT Block: RBBB Hypertrophy: None ST: Normal Differential Dx Considerations may include: encephalopathy, electrolyte imbalance, UTI, sepsis X-Ray, Labs, Meds, VS Vital Signs Date Time Temp Pulse Resp B/P (MAP) Pulse Ox O2 Delivery O2 Flow Rate FiO2 08/05/24 20:53 96 08/05/24 20:00 88 08/05/24 19:06 98.5 91 16 141/65 (90) 98 98.5 08/05/24 19:06 91 16 96 Nasal Cannula* 2 28 08/05/24 18:52 98.5 43 27 110/57 (74) 95 08/05/24 18:50 96 Lab Test 08/05/24 21:46 08/05/24 21:08 08/05/24 19:22 08/05/24 19:15 Range/Units Lactic Acid Level 1.3 2.3 *H 0.4-2.0 mmol/L Urine Color Yellow Yellow Urine Clarity Turbid H Clear Urine pH 6.0 5.0-9.0 Urine Specific [place] 1.015 1.001-1.035 Urine Protein 1+ H Negative Urine Ketones Negative Negative Urine Blood 2+ H Negative /uL Urine Nitrite 2+ H Negative Urine Bilirubin Negative Negative Urine Urobilinogen Normal Negative mg/dL Urine Leukocyte Esterase 3+ Negative /uL Urine RBC 57 0 - 3 /hpf Urine WBC 32 0 - 3 /hpf Urine Squamous Epithelial Cells Few <5 /hpf Urine Amorphous Crystals Few None Seen /hpf Urine Bacteria Few H None Seen /hpf Urine Mucus Few None Seen Urine Glucose Normal Normal mg/dL POC Glucose 89 70-106 mg/dl White Blood Count 21.4 H 4.4-10.8 10^3/uL Red Blood Count 4.21 L 4.5-5.90 10^6/uL Hemoglobin 10.9 L 13.5-17.5 g/dL Hematocrit 34.5 L 41.0-53.0 % Mean Corpuscular Volume 81.8 80.0-100.0 fL Mean Corpuscular Hemoglobin 25.8 L 28.0-32.0 pg Mean Corpuscular Hemoglobin Concent 31.6 L 32.0-36.0 g/dL Red Cell Distribution Width 19.5 H 11.8-14.3 % Platelet Count 191 140-450 10^3/uL Mean Platelet Volume 9.7 6.9-10.8 fL Neutrophils (%) (Auto) 91.2 H 37.0-80.0 % Lymphocytes (%) (Auto) 3.3 L 10.0-50.0 % Monocytes (%) (Auto) 4.8 0.0-12.0 % Eosinophils (%) (Auto) 0.1 0.0-7.0 % Basophils (%) (Auto) 0.6 0.0-2.0 % Neutrophils # (Auto) 19.5 H 1.6-8.6 10 ^3/uL Lymphocytes # (Auto) 0.7 0.4-5.4 10 ^3/uL Monocytes # (Auto) 1.0 0-1.3 10 ^3/uL Eosinophils # (Auto) 0 0-0.8 10 ^3/uL Basophils # (Auto) 0.1 0-0.2 10 ^3/uL Nucleated Red Blood Cells 0.0 % Prothrombin Time 13.0 H 9.3-11.8 sec Prothrombin Time INR 1.25 H 0.9-1.15 Activated Partial Thromboplast Time 34.9 H 24.5-34.5 SEC Sodium Level 143 136-145 mmol/L Potassium Level 3.1 L 3.5-5.1 mmol/L Chloride Level 107 98-107 mmol/L Carbon Dioxide Level 30 20-31 mmol/L Anion Gap 6 5-15 Blood Urea Nitrogen 26 H 9-23 mg/dL Creatinine 1.52 H 0.700-1.30 mg/dL Glomerular Filtration Rate Calc 48 >90 mL/min BUN/Creatinine Ratio 17.1 10.0-20.0 Serum Glucose 120 H 74-106 mg/dL Calcium Level 11.1 H 8.7-10.4 mg/dL Total Bilirubin 0.9 0.2-1.0 mg/dL Aspartate Amino Transferase (AST) < 8 L 13-40 U/L Alanine Aminotransferase (ALT) < 9 7-40 U/L Alkaline Phosphatase 65 46-116 U/L Troponin I High Sensitivity 21 </=54 ng/L B-Type Natriuretic Peptide 1251.30 0-100 pg/mL Total Protein 6.2 5.7-8.2 g/dL Albumin 3.2 3.2-4.8 g/dL Plasma/Serum Blood Alcohol 4.5 <10 mg/dL Current Medications Medications (Trade) Dose Ordered Sig/Francisco Route Start Time Stop Time Status Last Admin Ondansetron HCl (Zofran) 4 mg ONCE ONCE IV 08/05/24 19:15 08/05/24 19:16 DC 08/05/24 23:57 Sodium Chloride 1,000 ml @ 150 mls/hr Q6H40M ONCE IV 08/05/24 19:15 08/06/24 01:54 08/05/24 19:32 Ceftriaxone Sodium 50 ml @ 100 mls/hr ONCE ONCE IV 08/05/24 19:15 08/05/24 19:44 DC 08/05/24 19:40 Potassium Bicarbonate (Klor-Con/Ef) 25 meq ONCE ONCE PO 08/05/24 21:15 08/05/24 21:16 DC 08/05/24 22:21 Potassium Chloride 100 ml @ 50 mls/hr Q2H IV 08/05/24 21:15 08/06/24 01:14 08/05/24 23:49 Acetaminophen/ Hydrocodone Bitart ([place] 10/325MG Tab) 1 tab ONCE ONCE PO 08/05/24 23:15 08/05/24 23:16 DC 08/05/24 23:57 Albumin Human 100 ml @ 100 mls/hr ONCE ONCE IV 08/05/24 23:15 08/06/24 00:14 DC 08/05/24 23:58 X-Ray, Labs, Meds, VS Comment All studies performed the ED were reviewed by me personally. [place] [address], mild anemia, mild hypokalemia, acute renal injury, elevated PT and INR as well as a substantial urinary tract infection. Imaging was pending at time of this note. Patient will be admitted for IV antibiotics to address the urinary tract infection, cardiology evaluation as I believe the patient's pacemaker may be malfunctioning as he is bound at between sinus b radycardia and ventricular tachycardia, nephrology evaluation for acute renal concerns and neuro evaluation for the altered mental status. Time of 1ST Reevaluation: 00:28 Reevaluation 1ST: Improved Consultation: PCP, Cardiology Patient Education/Counseling: Diagnosis, Treatment, Other (patient is altered ) Family Education/Counseling: Diagnosis, Treatment, No Family Present Departure 1 Departure Time of Disposition: 00:28 Impression: Primary Impression: Altered mental status Additional Impressions: UTI (urinary tract infection) Anemia Hypokalemia Acute renal injury Acute coronary syndrome Pacemaker complications Disposition: ADMITTED INPATIENT Condition: Fair Discharged With: Self, Relative Critical Care Note Critical Care Time?: No Stability Stability form required: No Heart Score Heart Score: Heart Score Response (Comments) Value History Moderate Suspicious 1 EKG Repolarization Disturb 1 Age >65 2 Risk Factors >3 or Hx ASHD 2 Troponin Normal limit 0 Total 6 I personally scribed for JO VASQUEZ PAC ([email or web address]) on 08/05/24 at 20:53. Electronically submitted by Hipolito Pelayo ([email or web address]). JO VASQUEZ PAC Aug 05, 2024 20:53
[2024-08-05] MEDS: POTASSIUM CHL 20MEQ/100ML 100 ML IV SCH (21:48)
--- NOTE | 2024-08-05 21:48 | DVH ---
EXAM: CT HEAD WITHOUT CONTRAST INDICATION: Altered mental status TECHNIQUE: CT of the head without intravenous contrast. Radiation Dose Information: CT Dose: CTDI volume is 63.09 mGy. Dose-length product is 1243.19 mGy*cm The dose indicators for CT are the volume Computed Tomography (CT) Dose Index (CTDIvol) and the Dose Length Product (DLP), and are measured in units of mGy and mGy-cm, respectively. These indicators are not patient dose, but values generated from the CT scanner acquisition factors. The report includes radiation exposure data for exposures received during this examination. COMPARISON: None FINDINGS: There is no evidence of acute intracranial hemorrhage, extra-axial collection, mass effect, midline s hift, herniation or hydrocephalus. Hypodense area in the mid left parietal lobe consistent with old a eagle of ischemia. The ventricles, sulci and cisterns are age appropriate. The cabello-white differentiation is intact. Patchy periventricular and subcortical white matter hypoattenuation is nonspecific but may be related to small vessel ischemic disease. The visualized paranasal sinuses and mastoid air cells are clear. The surrounding soft tissues and osseous structures are unremarkable. IMPRESSION: 1. No acute intracranial hemorrhage. 2. No CT findings of territorial ischemia. HS:Y
[2024-08-05] MEDS: POTASSIUM EFFERVESENT TAB 25 MEQ PO ONE (22:21)
[2024-08-05 22:53] LABS: Urine Amorphous Crystal FEW /hpf (None Seen); Urine Bacteria FEW /hpf (None Seen); Urine Blood 2+ /uL (Negative); Urine Clarity Turbid (Clear); Urine Color Yellow (Yellow); Urine Mucus FEW (None Seen); Urine Protein, UAD 1+ (Negative); Urine Specific Gravity 1.015 (1.001-1.035); Urine Squamous Epithelial Cell FEW /hpf (<5); Urine Urobilinogen Normal (Negative); Urine WBC 32 /hpf (0 - 3)
[2024-08-05] MEDS: HYDROcodone-ACET 10/325MG TAB PO ONE (23:57)
[2024-08-05] MEDS: ONDANSETRON HCL 4 MG/2 ML VIAL IV ONE (23:57)
[2024-08-05] MEDS: ALBUMIN 25% 100 ML IV ONE ×2 (23:58)
[2024-08-06] MEDS ORDERED: HYDROcodone-ACET 5/325MG TAB PO PRN (01:15)
[2024-08-06] MEDS ORDERED: DOCUSATE SOD 100 MG CAP PO PRN (01:15)
[2024-08-06] MEDS ORDERED: VANCOMYCIN PER PHARMACY 0 MG IV SCH (01:30)
--- NOTE | 2024-08-06 02:52 | DVH ---
Examination: CTCAP CLINICAL INDICATION: Altered COMPARISON: None. CONTRAST USED: None. TECHNIQUE: A plain CT study of the chest , abdomen and pelvis is performed. CT scan done according to ALARA (As Low as Reasonably Achievable). Multiplanar reconstructions were obtained. FINDINGS: A large lobulated iso-to slightly hyperdense mass lesion measuring approximately 5.6 x 4.7 cm is note d in the region of neck or right side of the trachea and extending posterior to the trachea. Right-s ided strap muscles are also thickened. Lungs and pleura: Multiple pulmonary nodules are noted in bilateral upper lobes, largest measuring 1 6 mm in right upper lobe, image 28 series 2. Right lower lobe collapse with consolidation is noted. Moderate left pleural effusion is noted with partial passive collapse of lower lobe. Mediastinum and great vessels: The trachea and the mainstem bronchi are normal. No significant medi astinal lymphadenopathy is detected. The mediastinal vasculature appears normal. Aorta appears unremarkable. Atherosclerotic calcifications are noted along the aorta. Coronary arter y calcifications are noted. No aneurysmal dilatation of the ascending aorta is noted. Cardiomegaly i s noted. Mild pericardial effusion is noted. Osseous structures: Moderate degenerative changes are seen in the thoracic spine. Pacemaker device is noted on left side of chest. CT abdomen: Liver: The liver is normal in size. The portal venous radicles are normal. There is no intrahepatic biliary radicle dilatation. Gallbladder: The gallbladder is normal and reveals no intrinsic abnormality. The common bile duct i s not dilated. Pancreas: The pancreas is normal in size and shape. No focal lesion is seen within. The peripancr eatic fat-planes are normal. Spleen: The spleen is normal in size. A 20 mm hypodense nodule is noted in the upper polar region Retroperitoneum: Both adrenal glands are normal in size and morphology. There is no significant ret roperitoneal lymphadenopathy. The kidneys are normal in size with no hydronephrosis or renal calculi . A complex cystic lesion measuring approximately 8.0 x 6.4 cm noted in the upper polar region of ri ght kidney. A complex mass lesion with irregular margins and measuring approximately 4.3 x 5.0 cm al so noted in the upper polar region of left kidney. A 2 cm sized simple renal cortical cyst is noted in the lower polar region of left kidney. Another small hyperdense cystic lesion measuring approxima tely 9 mm noted in the lower polar region of left kidney. Vessels: Aorta, IVC and the mesenteric vessels could not be commented upon plain study. Diffuse ath erosclerotic calcifications are noted along the aorta and its branches. Stomach and Bowel: The bowel loops are unremarkable. There is no ascites. Skeletal System: Moderate degenerative changes are noted along thoracolumbar spine. CT PELVIS: Appendix: The appendix could not be visualized. Colon: The ascending, transverse, descending, sigmoid colon and rectum are unremarkable. Bladder: Urinary bladder is empty. [place] catheter is seen in place. Pelvic Organs: No prostatic mass lesion/enlargement of prostate seen. No pelvic lymphadenopathy is identified. No abnormal fluid collection is seen. IMPRESSION: 1. Complex mass lesions along the upper polar regions of of bilateral kidneys. Postcontrast study is recommended to rule out neoplastic etiology. 2. A small hyperdense lesion in the upper polar region of spleen, likely splenic cyst/metastatic dep osit. 3. Bilateral upper lobe pulmonary nodules. Further evaluation with contrast. PET CT is recommended. 4. Right lower lobe collapse with consolidation. 5. Moderate left pleural effusion with partial passive collapse of left lower lobe. 6. Cardiomegaly with mild pericardial effusion. 7. Large lobulated mass lesion in the neck along right side of trachea and extending posterior to th e trachea with thickened right-sided strap muscles. Further evaluation with contrast-enhanced CT of neck is recommended to rule out neoplastic etiology. Electronically Signed 08/06/2024 02:51 Elias Ware
[2024-08-06] MEDS ORDERED: VANCOMYCIN 1GM/250ML KIT 250 ML IV SCH (03:00)
[2024-08-06] MEDS: FUROSEMIDE 40 MG/4 ML VIAL IV ONE (03:03)
[2024-08-06] MEDS: VANCOMYCIN 1.25gm/250mL PREMIX or KIT IV ONE (03:04)
--- NOTE | 2024-08-06 04:59 | DVHHP2 ---
History of Present Illness Reason for Visit: Acute exacerbation of congestive heart failure History of Present Illness The patient is a 74-year-old male with past medical history of CHF, DM, thyroid disease, and hypertension who presented to [facility] ED for evaluation of altered level of consciousness. Patient's condition progressively get worse with generalized weakness, fatigue, confusion state, getting worse that prompted this visit. Patient was seen and evaluated in the ED, laboratory data shows WBC 21.4, hemoglobin 10.9, hematocrit 34.5, platelets 191, lactic acid 2.1 trending down to 1.3, sodium 143, potassium 3.1, BUN 26, creatinine 1.52, GFR 48, glucose 120, calcium 11.1, alcohol 4.5, troponin 21, BNP 1251.30, PT 13.0, INR 1.25, APTT 34.9. Urinalysis positive for urinary tract infection. Patient was started on IV antibiotic regimen Zosyn, given IV Lasix, please see medication orders section in the computer. On my assessment, patient remains confused, no diaphoresis, currently on oxygen, no diarrhea, no nausea, no vomiting, no fever, no chills. Patient was admitted for further evaluation and medical management. Past Medical History CHF, DM, HTN, Thyroid, UTIs Past Surgical History Pacemaker Family History Reviewed, noncontributory to the management of this case. Past Social History The patient lives at home, denies smoking, alcohol or illicit drugs abuse. Review of Systems Constitutional: Yes: Weakness, Other (Fatigue); No: Fever, Chills, Sweats, Malaise Eyes: No: Pain, Vision change, Conjunctivae inflammation, Eyelid inflammation, Other, Redness ENT: No: Ear pain, Ear discharge, Nose pain, Nose discharge, Nose congestion, Mouth pain, Mouth swelling, Throat pain, Throat swelling, Other Respiratory: Shortness of breath; No: Cough, Dry, SOB with excertion, Wheezing, Hemoptysis, Pleuritic Pain, Sputum, Wheezing, Other Cardiovascular: No: Chest Pain, Palpitations, Orthopnea, Paroxysmal Noc. Dyspnea, Edema, Lt Headedness, Other Gastrointestinal: No: Nausea, Vomiting, Abdominal Pain, Diarrhea, Constipation, Melena, Hematochezia, Other Genitourinary: No Dysuria, No Frequency, No Incontinence, No Hematuria, No Retention, No Other Musculoskeletal: No: other, neck pain, shoulder pain, arm pain, back pain, hand pain, leg pain, foot pain Skin: No: Rash, Lesions, Jaundice, Bruising, Other Neurological: Weakness, Other (Dizziness); No: Numbness, Incoordination, Change in speech, Confusion, Seizures Allergies: Coded Allergies: NO KNOWN ALLERGIES (Unverified , 08/31/23) Medications Current Medications Medications Dose Ordered Sig/Francisco Route Start Time Stop Time Status Last Admin Dose Admin Levothyroxine Sodium 175 mcg QAM@0600 PO 08/06/24 06:00 Ceftriaxone Sodium 50 ml @ 100 mls/hr DAILY@2100 IV 08/06/24 21:00 Furosemide 40 mg DAILY IV 08/06/24 10:00 Atorvastatin Calcium 20 mg HS PO 08/06/24 22:00 Carvedilol 3.125 mg Q12HR PO 08/06/24 10:00 Aspirin 81 mg DAILY PO 08/06/24 10:00 Diagnostic Test (Pha) 1 strip ACHS 08/06/24 07:00 Insulin Human Regular ACHS SC 08/06/24 07:00 Dextrose 50 ml UD PRN IV 08/06/24 01:15 Sodium Chloride 10 ml Q8HR IV 08/06/24 06:00 Acetaminophen/ Hydrocodone Bitart 1 tab Q4HP PRN PO 08/06/24 01:15 Ondansetron HCl 4 mg Q4HP PRN IV 08/06/24 01:15 Docusate Sodium 100 mg BIDPRN PRN PO 08/06/24 01:15 Acetaminophen 650 mg Q6HP PRN PO 08/06/24 01:15 Vancomycin HCl 0 ml @ 0 mls/hr UD IV 08/06/24 01:30 UNV Exam Vital Signs Vital Signs Date Time Temp Pulse Resp B/P (MAP) Pulse Ox O2 Delivery O2 Flow Rate FiO2 08/06/24 04:00 76 08/06/24 03:03 122/26 08/05/24 23:00 26 100 08/05/24 19:30 98.1 98.1 08/05/24 19:06 Nasal Cannula* 2 28 General Appearance: Alert, Cooperative, No acute distress, Other (Oriented x2) HEENT: Atraumatic, PERRLA, EOMI, Mucous membr. moist/pink Respiratory: Normal air movement, Other (Diminished breath sounds) Cardiovascular: Regular rate, Normal S1, Normal S2, No murmurs Abdominal: Normal bowel sounds, Soft, No tenderness, No hepatospenomegaly, No masses Extremities: No clubbing, No cyanosis, No edema, Normal pulses, No tenderness/swelling Skin: No rashes, No breakdown, No significant lesion Neuro: Normal speech, Normal tone, Sensation intact, Cranial nerves 3-12 NL, Reflexes 2+, Other (Generalized weakness) Psych/Mental Status: Mood NL, Other (Altered mental status) Labs/Xrays Labs Test 08/05/24 21:46 08/05/24 21:08 08/05/24 19:22 08/05/24 19:15 Range/Units Lactic Acid Level 1.3 0.4-2.0 mmol/L Urine Color Yellow Yellow Urine Clarity Turbid H Clear Urine pH 6.0 5.0-9.0 Urine Specific [place] 1.015 1.001-1.035 Urine Protein 1+ H Negative Urine Ketones Negative Negative Urine Blood 2+ H Negative /uL Urine Nitrite 2+ H Negative Urine Bilirubin Negative Negative Urine Urobilinogen Normal Negative mg/dL Urine Leukocyte Esterase 3+ Negative /uL Urine RBC 57 0 - 3 /hpf Urine WBC 32 0 - 3 /hpf Urine Squamous Epithelial Cells Few <5 /hpf Urine Amorphous Crystals Few None Seen /hpf Urine Bacteria Few H None Seen /hpf Urine Mucus Few None Seen Urine Glucose Normal Normal mg/dL POC Glucose 89 70-106 mg/dl White Blood Count 21.4 H 4.4-10.8 10^3/uL Red Blood Count 4.21 L 4.5-5.90 10^6/uL Hemoglobin 10.9 L 13.5-17.5 g/dL Hematocrit 34.5 L 41.0-53.0 % Mean Corpuscular Volume 81.8 80.0-100.0 fL Mean Corpuscular Hemoglobin 25.8 L 28.0-32.0 pg Mean Corpuscular Hemoglobin Concent 31.6 L 32.0-36.0 g/dL Red Cell Distribution Width 19.5 H 11.8-14.3 % Platelet Count 191 140-450 10^3/uL Mean Platelet Volume 9.7 6.9-10.8 fL Neutrophils (%) (Auto) 91.2 H 37.0-80.0 % Lymphocytes (%) (Auto) 3.3 L 10.0-50.0 % Monocytes (%) (Auto) 4.8 0.0-12.0 % Eosinophils (%) (Auto) 0.1 0.0-7.0 % Basophils (%) (Auto) 0.6 0.0-2.0 % Neutrophils # (Auto) 19.5 H 1.6-8.6 10 ^3/uL Lymphocytes # (Auto) 0.7 0.4-5.4 10 ^3/uL Monocytes # (Auto) 1.0 0-1.3 10 ^3/uL Eosinophils # (Auto) 0 0-0.8 10 ^3/uL Basophils # (Auto) 0.1 0-0.2 10 ^3/uL Nucleated Red Blood Cells 0.0 % Prothrombin Time 13.0 H 9.3-11.8 sec Prothrombin Time INR 1.25 H 0.9-1.15 Activated Partial Thromboplast Time 34.9 H 24.5-34.5 SEC Sodium Level 143 136-145 mmol/L Potassium Level 3.1 L 3.5-5.1 mmol/L Chloride Level 107 98-107 mmol/L Carbon Dioxide Level 30 20-31 mmol/L Anion Gap 6 5-15 Blood Urea Nitrogen 26 H 9-23 mg/dL Creatinine 1.52 H 0.700-1.30 mg/dL Glomerular Filtration Rate Calc 48 >90 mL/min BUN/Creatinine Ratio 17.1 10.0-20.0 Serum Glucose 120 H 74-106 mg/dL Calcium Level 11.1 H 8.7-10.4 mg/dL Total Bilirubin 0.9 0.2-1.0 mg/dL Aspartate Amino Transferase (AST) < 8 L 13-40 U/L Alanine Aminotransferase (ALT) < 9 7-40 U/L Alkaline Phosphatase 65 46-116 U/L Troponin I High Sensitivity 21 </=54 ng/L B-Type Natriuretic Peptide 1251.30 0-100 pg/mL Total Protein 6.2 5.7-8.2 g/dL Albumin 3.2 3.2-4.8 g/dL Thyroid Stimulating Hormone (TSH) 6.06 H 0.55-4.78 uIU/mL Plasma/Serum Blood Alcohol 4.5 <10 mg/dL PATIENT: PARKERLUKERENATA [id number] UNIT: [id number] : 1950 LOC: ER ROOM / BED: / AGE / SEX: 74 / M ADM STATUS: REG ER SERVICE 08 ORDERING PHYSICIAN: JO VASQUEZ PAC PROCEDURE(s): CTCAP - CHST AB PEL WO CON-NO IV/ORAL REASON: Altered ORDER NUMBER(s): [id number], ACCESSION NUMBER(s): [id number] Examination: CTCAP CLINICAL INDICATION: Altered COMPARISON: None. CONTRAST USED: None. TECHNIQUE: A plain CT study of the chest, abdomen and pelvis is performed. CT scan done according to ALARA (As Low as Reasonably Achievable). Multiplanar reconstructions were obtained. FINDINGS: A large lobulated iso-to slightly hyperdense mass lesion measuring approximately 5.6 x 4.7 cm is noted in the region of neck or right side of the trachea and extending posterior to the trachea. Right-sided strap muscles are also thickened. Lungs and pleura: Multiple pulmonary nodules are noted in bilateral upper lobes, largest measuring 16 mm in right upper lobe, image 28 series 2. Right lower lobe collapse with consolidation is noted. Moderate left pleural effusion is noted with partial passive collapse of lower lobe. Mediastinum and great vessels: The trachea and the mainstem bronchi are normal. No significant mediastinal lymphadenopathy is detected. The mediastinal vasculature appears normal. Aorta appears unremarkable. Atherosclerotic calcifications are noted along the aorta. Coronary artery calcifications are noted. No aneurysmal dilatation of the ascending aorta is noted. Cardiomegaly is noted. Mild pericardial effusion is noted. Osseous structures: Moderate degenerative changes are seen in the thoracic spine. Pacemaker device is noted on left side of chest. CT abdomen: Liver: The liver is normal in size. The portal venous radicles are normal. There is no intrahepatic biliary radicle dilatation. Gallbladder: The gallbladder is normal and reveals no intrinsic abnormality. The common bile duct is not dilated. Pancreas: The pancreas is normal in size and shape. No focal lesion is seen within. The peripancreatic fat-planes are normal. Spleen: The spleen is normal in size. A 20 mm hypodense nodule is noted in the upper polar region Retroperitoneum: Both adrenal glands are normal in size and morphology. There is no significant retroperitoneal lymphadenopathy. The kidneys are normal in size with no hydronephrosis or renal calculi. A complex cystic lesion measuring approximately 8.0 x 6.4 cm noted in the upper polar region of right kidney. A complex mass lesion with irregular margins and measuring approximately 4.3 x 5.0 cm also noted in the upper polar region of left kidney. A 2 cm sized simple renal cortical cyst is noted in the lower polar region of left kidney. Another small hyperdense cystic lesion measuring approximately 9 mm noted in the lower polar region of left kidney. Vessels: Aorta, IVC and the mesenteric vessels could not be commented upon plain study. Diffuse atherosclerotic calcifications are noted along the aorta and its branches. Stomach and Bowel: The bowel loops are unremarkable. There is no ascites. Skeletal System: Moderate degenerative changes are noted along thoracolumbar spine. CT PELVIS: Appendix: The appendix could not be visualized. Colon: The ascending, transverse, descending, sigmoid colon and rectum are unremarkable. Bladder: Urinary bladder is empty. [place] catheter is seen in place. Pelvic Organs: No prostatic mass lesion/enlargement of prostate seen. No pelvic lymphadenopathy is identified. No abnormal fluid collection is seen. IMPRESSION: 1. Complex mass lesions along the upper polar regions of of bilateral kidneys. Postcontrast study is recommended to rule out neoplastic etiology. 2. A small hyperdense lesion in the upper polar region of spleen, likely splenic cyst/metastatic deposit. 3. Bilateral upper lobe pulmonary nodules. Further evaluation with contrast. PET CT is recommended. 4. Right lower lobe collapse with consolidation. 5. Moderate left pleural effusion with partial passive collapse of left lower lobe. 6. Cardiomegaly with mild pericardial effusion. 7. Large lobulated mass lesion in the neck along right side of trachea and extending posterior to the trachea with thickened right-sided strap muscles. Further evaluation with contrast-enhanced CT of neck is recommended to rule out neoplastic etiology. ORDERING PHYSICIAN: JO VASQUEZ PAC PROCEDURE(s): HWOCT - HEAD WITHOUT CONTRAST REASON: Altered mental status ORDER NUMBER(s): [id number], ACCESSION NUMBER(s): [id number] EXAM: CT HEAD WITHOUT CONTRAST INDICATION: Altered mental status TECHNIQUE: CT of the head without intravenous contrast. Radiation Dose Information: CT Dose: CTDI volume is 63.09 mGy. Dose-length product is 1243.19 mGy*cm The dose indicators for CT are the volume Computed Tomography (CT) Dose Index (CTDIvol) and the Dose Length Product (DLP), and are measured in units of mGy and mGy-cm, respectively. These indicators are not patient dose, but values generated from the CT scanner acquisition factors. The report includes radiation exposure data for exposures received during this examination. COMPARISON: None FINDINGS: There is no evidence of acute intracranial hemorrhage, extra-axial collection, mass effect, midline shift, herniation or hydrocephalus. Hypodense area in the mid left parietal lobe consistent with old area of ischemia. The ventricles, sulci and cisterns are age appropriate. The cabello-white differentiation is intact. Patchy periventricular and subcortical white matter hypoattenuation is nonspecific but may be related to small vessel ischemic disease. The visualized paranasal sinuses and mastoid air cells are clear. The surrounding soft tissues and osseous structures are unremarkable. IMPRESSION: 1. No acute intracranial hemorrhage. 2. No CT findings of territorial ischemia. Assessment/Plan Assessment/Plan Altered mental status UTI (urinary tract infection) Anemia, unspecified Hypokalemia Leukocytosis, unspecified Acute renal injury Acute coronary syndrome Pacemaker complications Acute exacerbation of congestive heart failure Plan 1. Admit to telemetry unit 2. Breathing treatment 3. Pain control management 4. IV antibiotic management 5. Management of fluids and electrolytes 6. Consultation for Cardiology 7. Diagnostic test chest x-ray 8. DVT prophylaxis-on aspirin 9. Repeat labs CBC, CMP in a.m. 10. Home medication reviewed and reconciled 11. Continue with current medical management 12. Treatment plan discussed with patient and RN. Patient will need reinsta tement of information given mental status. Plan discussed with: Patient, Other (RN) My Orders Orders - DENVER OLIVA DNP Procedure Category Date Status Time Levothyroxine Tablet PHA 08/06/24 In Process (Synthroid Tablet) 06:00 Ceftriaxone 1gm/50ml PHA 08/06/24 In Process D5w (Rocephin) 21:00 Furosemide Injection PHA 08/06/24 In Process (Lasix Injection) 10:00 Atorvastatin (Lipitor) PHA 08/06/24 In Process 22:00 Carvedilol Tablet PHA 08/06/24 In Process (Coreg Tablet) 10:00 Aspirin Tablet PHA 08/06/24 In Process 10:00 Glucose Blood PHA 08/06/24 In Process (Accu-Chek Comfort 07:00 Insulin R (Human) PHA 08/06/24 In Process (Insulin R) 07:00 Dextrose 50% Syringe PHA 08/06/24 In Process 01:15 Allergies INNA 08/06/24 In Process 01:09 Code Status CODE 08/06/24 Transmitted 01:09 Sodium Chloride Lock PHA 08/06/24 In Process (Saline Lock Ns) 06:00 Oxygen Per Hour RT 08/06/24 Transmitted 01:09 Hydrocodone-Acet PHA 08/06/24 In Process 5/325mg Tab ([place] 01:15 Ondansetron Hcl PHA 08/06/24 In Process (Zofran) 01:15 Docusate Sodium PHA 08/06/24 In Process Capsule (Colace 01:15 Fall Risk Precautions [facility] 08/06/[address] 01:09 Complete Blood Count LAB 08/07/24 Verified 04:00 Comprehensive LAB 08/07/24 Verified Metabolic Panel 04:00 Echo 2d Mode Cardiac US 08/06/24 Logged DOP 01:09 Condition: Serious INNA 08/06/24 In Process 01:09 Acetaminophen Tablet PHA 08/06/24 In Process (Tylenol Tablet) 01:15 Sequential [facility] 08/06/24 In Process Compression Device * Cardiology Consult CONS 08/06/24 Transmitted 01:23 Vancomycin Per PHA 08/06/24 Pending Pharmacy 01:30 Admit ADMIT 08/06/24 Verified 04:56 Nitroglycerin [facility] 08/06/24 Verified Sublingual (Ntrostat 05:00 Morphine Sulfate [facility] 08/06/24 Verified Injection 05:00 Notify Of Changes [facility] 08/06/24 Verified From Base 04:56 Rod Greaser For [facility] 08/06/24 Verified 24 Hours 04:56 Emergency Dysrhythmia [facility] 08/06/24 Verified Protocol 04:56 Rhythm Strips Once [facility] 08/06/24 Verified Every Shift 04:56 Oxygen By Nasal RT 08/06/24 Verified Cannula 04:56 Problem List: (1) Altered mental status (2) Anemia, unspecified (3) Acute renal injury (4) UTI (urinary tract infection) (5) Pacemaker complications (6) Acute coronary syndrome (7) Hypokalemia (8) Leukocytosis, unspecified (9) Acute exacerbation of congestive heart failure Date of Service: Aug 06, 2024 Billing Provider: DENVER OLIVA DNP Common Visit Codes: 44602-[id number] INP/OBS CARE (HIGH) DENVER OLIVA DNP Aug 06, 2024 04:59
[2024-08-06 05:00] VITALS: PULSE 70; O2SAT 98
[2024-08-06] MEDS ORDERED: NITROGLYCERIN 0.4 MG SL TAB SL PRN (05:00)
[2024-08-06] MEDS: SODIUM CHLOR 0.9% PF (SALINE LOCK) 10ML VIAL/SYR IV SCH (05:54)
[2024-08-06] MEDS: LEVOTHYROXINE SODIUM 50 MCG TAB PO SCH (06:04)
[2024-08-06 06:36] LABS: Basophils # (auto) 0 10 ^3/uL (0-0.2); Basophils % (auto) 0.2 % (0.0-2.0); Hemoglobin 10.4 g/dL (13.5-17.5); Lymphocytes # (auto) 0.8 10 ^3/uL (0.4-5.4); Lymphocytes % (auto) 3.6 % (10.0-50.0); Mean Corpuscular Hemoglobin 25.9 pg (28.0-32.0); Neutrophils # (auto) 19.4 10 ^3/uL (1.6-8.6); White Blood Cell 21.4 10^3/uL (4.4-10.8)
[2024-08-06 06:38] LABS: Eosinophils # (auto) 0 10 ^3/uL (0-0.8); Eosinophils % (auto) 0.1 % (0.0-7.0); Mean Corpuscular Hgb Conc. 30.5 g/dL (32.0-36.0); Monocytes # (auto) 1.2 10 ^3/uL (0-1.3); Monocytes % (auto) 5.5 % (0.0-12.0); Neutrophils % (auto) 90.6 % (37.0-80.0); Nucleated Red Blood Cells % 0.1 %; Platelet Count (auto) 148 10^3/uL (140-450); Red Cell Distribution Width 19.2 % (11.8-14.3)
[2024-08-06 06:40] LABS: Alkaline Phosphatase 58 U/L (46-116); Carbon Dioxide 27 mmol/L (20-31)
[2024-08-06 06:41] LABS: Anion Gap 8 (5-15); BUN/Creatinine Ratio 15.8 (10.0-20.0); Blood Urea Nitrogen 22 mg/dL (9-23); Potassium 3.8 mmol/L (3.5-5.1); Sodium 144 mmol/L (136-145); Total Protein 5.7 g/dL (5.7-8.2)
[2024-08-06 06:51] LABS: Alanine Aminotransferase < 9 U/L (7-40); Aspartate Aminotransferase < 8 U/L (13-40); Calcium 10.8 mg/dL (8.7-10.4); Chloride 109 mmol/L (98-107); Glucose 116 mg/dL (74-106)
[2024-08-06] MEDS: ACCU-CHEK COMFORT CURVE STRIP VI SCH (06:52)
[2024-08-06] MEDS: InsuLIN REG 1unit/0.01ml Soln (100units/ml) SC SCH (06:53)
[2024-08-06 07:45] VITALS: PULSE 68; RESP 22; O2SAT 96
[2024-08-06] MEDS: ASPirin 81 mg TAB PO SCH (09:38)
[2024-08-06] MEDS: CARVEDILOL 3.125 MG TAB PO SCH (09:39)
[2024-08-06] MEDS: FUROSEMIDE 40 MG/4 ML VIAL IV SCH (09:42)
--- NOTE | 2024-08-06 11:32 | DVHINCON2 ---
VIVIAN LESLIE [facility] 08/06/24 1132: Date Seen: Aug 06, 2024 Referring Physician HERVE Willett Reason for Consultation CHF exacerbation History of Present Illness This is a 74-year-old man who presented to the emergency room via EMS with a chief complaint of an altered level of consciousness. The patient is somewhat a poor historian. Information mostly obtained from records in childhood friend at bedside. It appears the patient was found with generalized weakness and an altered level of consciousness for an family to call 911. He was recently diagnosed with a UTI. He has been on hospice care for unspecified metastatic disease for the past eight months. EN route to the hospital the patient was found to be bradycardic and with transient nonsustained ventricular tachycardia events. A 12 lead electrocardiogram revealed a sinus rhythm with IVCD and multiple premature ventricular contractions. Unable to report name of primary desolderer. Significant medical history includes paroxysmal atrial fibrillation on low-dose Eliquis and amiodarone, congestive heart failure, status post automatic implantable cardioverter-defibrillator (Biotronik), unspecified metastatic disease with current hospice care, peripheral arterial disease, hypothyroidism, and GERD. Past Medical History Past medical history reviewed. No other significant than mentioned above. Past Surgical History AICD Family History: Other blood disorders G8 MOTHER, , Cause: Leukemia, Onset:50's - 60 Family History Unable to obtain family history at this time. Social History Unable to obtain social history at this time. Allergies: Coded Allergies: NO KNOWN ALLERGIES (Unverified , 08/31/23) Home Meds Active Scripts Amiodarone HCl (Amiodarone HCl) 200 Mg Tab, 200 MG GT DAILY for 30 Days, #30 TAB 1 Refill Prov:FLORLAZARO Joel DO 10/23/23 Empagliflozin (Jardiance) 10 Mg Tab, 10 MG PO DAILY for 30 Days, #30 TAB 1 Refill Prov:FLORLAZARO Kofi DO 10/23/23 Metoprolol Succinate (Toprol Xl) 50 Mg Tab, 25 MG PO DAILY for 30 Days, #15 TAB 1 Refill Prov:FLORLAZARO Joel Kofi DO 10/23/23 Furosemide (Furosemide) 40 Mg Tab, 40 MG PO DAILY for 30 Days, #30 TAB 1 Refill Prov:FLORLAZARO Kofi DO 10/23/23 Phenazopyridine HCl (Phenazopyridine Hydrochlo) 200 Mg Tab, 200 MG PO TID, #6 TAB Prov:FLORENCIA MENON PA 09/30/23 Sulfamethoxazole W/Trimethopri (Bactrim Ds Tablet) 1 Tab Tb, 1 TAB PO BID, #20 TAB Prov:FLORENCIA MENON PA 09/30/23 Sulfamethoxazole W/Trimethopri (Bactrim Ds Tablet) 1 Tab Tb, 10 TAB PO BID for 10 Days, #20 TAB Prov:MIREYA ERICKSON [employer] 09/10/23 Reported Medications Ergocalciferol (Vitamin D) 50,000 Unit Cap, 73167 UNIT PO QWEEKLY 09/02/23 Apixaban Base (ELIQUIS) 5 Mg Tab, 1 TAB PO BID 08/31/23 Ferrous Sulfate (Ferosul) 325 Mg Tab, 1 TAB PO DAILY 08/31/23 Hydralazine HCl (Hydralazine HCl) 25 Mg Tab, 1 TAB PO BID 08/31/23 Atorvastatin Calcium (ATORVASTATIN CALCIUM) 20 Mg Tab, 1 TAB PO DAILY 08/31/23 Carvedilol (Carvedilol) 3.125 Mg Tab, 1 TAB PO BID 08/31/23 Allopurinol (Allopurinol) 300 Mg Tab, 1 TAB PO DAILY 08/31/23 Levothyroxine Sodium (Levothyroxine Sodium) 200 Mcg Tab, 1 TAB PO DAILY 08/31/23 Home Meds Home medications reviewed. Current Medications Current Medications Medications (Trade) Dose Ordered Sig/Francisco Route PRN Reason Start Time Stop Time Status Last Admin Potassium Chloride 100 ml @ 50 mls/hr Q2H IV 08/05/24 21:15 08/06/24 01:14 DC 08/05/24 23:49 Levothyroxine Sodium (Synthroid Tablet) 175 mcg QAM@0600 PO 08/06/24 06:00 08/06/24 06:04 Ceftriaxone Sodium 50 ml @ 100 mls/hr DAILY@2100 IV 08/06/24 21:00 Furosemide (Lasix Injection) 40 mg DAILY IV 08/06/24 10:00 Atorvastatin Calcium (Lipitor) 20 mg HS PO 08/06/24 22:00 Carvedilol (Coreg Tablet) 3.125 mg Q12HR PO 08/06/24 10:00 08/06/24 09:39 Aspirin 81 mg DAILY PO 08/06/24 10:00 08/06/24 09:38 Diagnostic Test (Pha) (Accu-Chek Comfort Curve T) 1 strip ACHS 08/06/24 07:00 08/06/24 10:51 Insulin Human Regular (InsuLIN R) ACHS SC 08/06/24 07:00 Dextrose 50 ml UD PRN IV Blood Sugar LESS THAN 60 08/06/24 01:15 Sodium Chloride (Saline Lock Ns) 10 ml Q8HR IV 08/06/24 06:00 Acetaminophen/ Hydrocodone Bitart ([place] 5/325MG Tab) 1 tab Q4HP PRN PO MODERATE PAIN (4-6 PAIN SCALE) 08/06/24 01:15 Ondansetron HCl (Zofran) 4 mg Q4HP PRN IV NAUSEA / VOMITING 08/06/24 01:15 Docusate Sodium (Colace Capsule) 100 mg BIDPRN PRN PO FOR CONSTIPATION 08/06/24 01:15 Acetaminophen (Tylenol Tablet) 650 mg Q6HP PRN PO PAIN SCALE 1-3 OR TEMP>100.4 08/06/24 01:15 Vancomycin HCl 0 ml @ 0 mls/hr UD IV 08/06/24 01:30 Nitroglycerin (Ntrostat Sublingual) 0.4 mg Q5MINP PRN SL FOR CHEST PAIN 08/06/24 05:00 Morphine Sulfate 2 mg Q30M PRN IV FOR CHEST PAIN 08/06/24 05:00 Vancomycin HCl 250 ml @ 250 mls/hr Q24H IV 08/06/24 03:00 08/06/24 10:46 DC Vancomycin HCl 250 ml @ 250 mls/hr Q24H IV 08/07/24 03:00 Review of Systems Constitutional: Generalized weakness Ears, Nose, & Throat: No symptom reported Eyes: No symptom reported Neurological: ALOC Pulmonary/Respiratory: No symptom reported Cardiovascular: No symptom reported Gastrointestinal: No symptom reported Genitourinary: No symptom reported Musculoskeletal: No symptom reported Skin: No symptom reported Psychiatric: No symptom reported Endocrine: No symptom reported Hemotologic/Lymphatic: No symptom reported Vital Signs Vital Signs Date Time Temp Pulse Resp B/P (MAP) Pulse Ox O2 Delivery O2 Flow Rate FiO2 08/06/24 11:00 67 23 115/46 (69 94 08/06/24 07:45 Room Air* 0 21 1/19/25 07:45 97.7 97.7 Physical Exam General Appearance: A&O x2. Poor historian. Chronically ill. Cachectic. Head Exam: Normal inspection Neck Exam: Normal inspection. Non-tender. Normal alignment Pulmonary/Respiratory: Chest non-tender. Clear bilateral breath sounds Cardiovascular/Chest: Regular rate and rhythm. S1, S2. Sinus rhythm with IVCD and multiple PVCs. Peripheral Pulses: 2+ Radial (R). 2+ Radial (L). 2+ Pedal (R). 2+ Pedal (L) Abdominal Exam: Normal bowel sounds. Soft. Nontender. No hepatospenomegaly. No masses Ankle Exam: Negative ankle edema Lower extremities: Negative lower extremity edema Neuro/Mental Status: A&O x2. Somewhat confused, alert Thoughts/Psych: Unable to assess at this time Appearance: Chronically ill Skin Exam: Normal inspection. Normal color. Warm. Dry Labs/Diagnostic Data Labs Test 08/06/24 10:49 08/06/24 06:06 08/05/24 21:46 08/05/24 21:08 Range/Units POC Glucose 72 70-106 mg/dl White Blood Count 21.4 H 4.4-10.8 10^3/uL Red Blood Count 4.00 L 4.5-5.90 10^6/uL Hemoglobin 10.4 L 13.5-17.5 g/dL Hematocrit 34.0 L 41.0-53.0 % Mean Corpuscular Volume 85.0 80.0-100.0 fL Mean Corpuscular Hemoglobin 25.9 L 28.0-32.0 pg Mean Corpuscular Hemoglobin Concent 30.5 L 32.0-36.0 g/dL Red Cell Distribution Width 19.2 H 11.8-14.3 % Platelet Count 148 140-450 10^3/uL Mean Platelet Volume 9.5 6.9-10.8 fL Neutrophils (%) (Auto) 90.6 H 37.0-80.0 % Lymphocytes (%) (Auto) 3.6 L 10.0-50.0 % Monocytes (%) (Auto) 5.5 0.0-12.0 % Eosinophils (%) (Auto) 0.1 0.0-7.0 % Basophils (%) (Auto) 0.2 0.0-2.0 % Neutrophils # (Auto) 19.4 H 1.6-8.6 10 ^3/uL Lymphocytes # (Auto) 0.8 0.4-5.4 10 ^3/uL Monocytes # (Auto) 1.2 0-1.3 10 ^3/uL Eosinophils # (Auto) 0 0-0.8 10 ^3/uL Basophils # (Auto) 0 0-0.2 10 ^3/uL Nucleated Red Blood Cells 0.1 % Sodium Level 144 136-145 mmol/L Potassium Level 3.8 3.5-5.1 mmol/L Chloride Level 109 H 98-107 mmol/L Carbon Dioxide Level 27 20-31 mmol/L Anion Gap 8 5-15 Blood Urea Nitrogen 22 9-23 mg/dL Creatinine 1.39 H 0.700-1.30 mg/dL Glomerular Filtration Rate Calc 54 >90 mL/min BUN/Creatinine Ratio 15.8 10.0-20.0 Serum Glucose 116 H 74-106 mg/dL Calcium Level 10.8 H 8.7-10.4 mg/dL Total Bilirubin 1.0 0.2-1.0 mg/dL Aspartate Amino Transferase (AST) < 8 L 13-40 U/L Alanine Aminotransferase (ALT) < 9 7-40 U/L Alkaline Phosphatase 58 46-116 U/L Total Protein 5.7 5.7-8.2 g/dL Albumin 3.0 L 3.2-4.8 g/dL Lactic Acid Level 1.3 0.4-2.0 mmol/L Urine Color Yellow Yellow Urine Clarity Turbid H Clear Urine pH 6.0 5.0-9.0 Urine Specific [place] 1.015 1.001-1.035 Urine Protein 1+ H Negative Urine Ketones Negative Negative Urine Blood 2+ H Negative /uL Urine Nitrite 2+ H Negative Urine Bilirubin Negative Negative Urine Urobilinogen Normal Negative mg/dL Urine Leukocyte Esterase 3+ Negative /uL Urine RBC 57 0 - 3 /hpf Urine WBC 32 0 - 3 /hpf Urine Squamous Epithelial Cells Few <5 /hpf Urine Amorphous Crystals Few None Seen /hpf Urine Bacteria Few H None Seen /hpf Urine Mucus Few None Seen Urine Glucose Normal Normal mg/dL Test 08/05/24 19:15 Range/Units Prothrombin Time 13.0 H 9.3-11.8 sec Prothrombin Time INR 1.25 H 0.9-1.15 Activated Partial Thromboplast Time 34.9 H 24.5-34.5 SEC Troponin I High Sensitivity 21 </=54 ng/L B-Type Natriuretic Peptide 1251.30 0-100 pg/mL Thyroid Stimulating Hormone (TSH) 6.06 H 0.55-4.78 uIU/mL Plasma/Serum Blood Alcohol 4.5 <10 mg/dL Assessment Sepsis with UTI Acute on chronic decompensated HFrEF, NYHA Class IV End-stage cardiomyopathy Paroxysmal atrial fibrillation, on low-dose Eliquis Peripheral arterial disease, severe degree Presence of AICD COCO on CKD Unspecified metastatic disease with hospice care Metabolic encephalopathy Thyroid disease Plan/Recommendation (Dr. Lipscomb) We will continue conservative management for the patient with metastatic disease with hospice care, end-stage cardiomyopathy, and paroxysmal atrial fibrillation. Latest echocardiogram revealed EF 15% with anterior anteroseptal and anteroapical wall akinesia as well as grade 2 diastolic dysfunction. Initiate GDMT for CHF and uptitrate as tolerated. Strict I&Os, daily weight, fluid restrictions. Continue low-dose Eliquis and amiodarone therapy. Antibiotics and thyroid management per primary care team. Monitor ECG changes and notify. Consider reinstitution of hospice care. Thank you for allowing us to participate in this patient's care. Please call if you have any questions or concerns. This medical document was created using an electronic medical record system with voice recognition software and computerized dictation system. Although this document has been carefully reviewed, there might still be some phonetic and typographical errors. Occasional wrong-word or ``sound-alike substitutions may have occurred due to the inherent limitations of voice recognition software. These areas are purely typographical due to imperfections of the software programs and do not reflect any compromise in the patient's medical care. Please read the chart carefully and recognize, using context, where these substitutions have occurred. Plan discussed with: Patient, Other NYHA Physical activity limitations: Class4(Severe)discomfort (w any activit,symptoms at rest) Date of Service: Aug 06, 2024 Billing Provider: [facility] Common Codes: [id number] INP/OBS CARE (High) KARLOS LIPSCOMB MD 08/06/24 0605: Family History: Other blood disorders G8 MOTHER, , Cause: Leukemia, Onset:50's - 60 Allergies: Coded Allergies: NO KNOWN ALLERGIES (Unverified , 08/31/23) Home Meds Active Scripts Amiodarone HCl (Amiodarone HCl) 200 Mg Tab, 200 MG GT DAILY for 30 Days, #30 TAB 1 Refill Prov:LAZARO FLOR DO 10/23/23 Empagliflozin (Jardiance) 10 Mg Tab, 10 MG PO DAILY for 30 Days, #30 TAB 1 Refill Prov:LAZARO FLOR DO 10/23/23 Metoprolol Succinate (Toprol Xl) 50 Mg Tab, 25 MG PO DAILY for 30 Days, #15 TAB 1 Refill Prov:LAZARO FLOR DO 10/23/23 Furosemide (Furosemide) 40 Mg Tab, 40 MG PO DAILY for 30 Days, #30 TAB 1 Refill Prov:LAZARO FLOR DO 10/23/23 Phenazopyridine HCl (Phenazopyridine Hydrochlo) 200 Mg Tab, 200 MG PO TID, #6 TAB Prov:FLORENCIA MENON PA 09/30/23 Sulfamethoxazole W/Trimethopri (Bactrim Ds Tablet) 1 Tab Tb, 1 TAB PO BID, #20 TAB Prov:FLORENCIA MENON PA 09/30/23 Sulfamethoxazole W/Trimethopri (Bactrim Ds Tablet) 1 Tab Tb, 10 TAB PO BID for 10 Days, #20 TAB Prov:MIREYA ERICKSON [employer] 09/10/23 Reported Medications Ergocalciferol (Vitamin D) 50,000 Unit Cap, 60930 UNIT PO QWEEKLY 09/02/23 Apixaban Base (ELIQUIS) 5 Mg Tab, 1 TAB PO BID 08/31/23 Ferrous Sulfate (Ferosul) 325 Mg Tab, 1 TAB PO DAILY 08/31/23 Hydralazine HCl (Hydralazine HCl) 25 Mg Tab, 1 TAB PO BID 08/31/23 Atorvastatin Calcium (ATORVASTATIN CALCIUM) 20 Mg Tab, 1 TAB PO DAILY 08/31/23 Carvedilol (Carvedilol) 3.125 Mg Tab, 1 TAB PO BID 08/31/23 Allopurinol (Allopurinol) 300 Mg Tab, 1 TAB PO DAILY 08/31/23 Levothyroxine Sodium (Levothyroxine Sodium) 200 Mcg Tab, 1 TAB PO DAILY 08/31/23 Plan/Recommendation end stage HF , grim prognosis pt was on hospice conservative management, Plan discussed with: Other (rn) VIVIAN LESLIE Aug 06, 2024 11:32 KARLOS LIPSCOMB MD Aug 06, 2024 14:15
[2024-08-06] MEDS: AMIODARONE HCL 200 MG TAB PO ONE (12:55)
--- NOTE | 2024-08-06 13:39 | DVHPN2 ---
Reviewed: Care Plan, H&P, Labs, Medications, Previous Orders, Radiology Changes from previous H/P or p: No Changes Eyes: No Pain, No Vision change, No Conjunctivae inflammation, No Eyelid inflammation, No Other, No Redness ENT: No Ear pain, No Ear discharge, No Nose pain, No Nose discharge, No Nose congestion, No Mouth pain, No Mouth swelling, No Throat pain, No Throat swelling, No Other Cardiovascular: No Chest Pain, No Palpitations, No Orthopnea, No Paroxysmal Noc. Dyspnea, No Edema, No Lt Headedness, No Other Respiratory: No Cough, No Dry; Shortness of breath; No SOB with excertion, No Wheezing, No Hemoptysis, No Pleuritic Pain, No Sputum, No Other Gastrointestinal: No Nausea, No Vomiting, No Abdominal Pain, No Diarrhea, No Constipation, No Melena, No Hematochezia, No Other Genitourinary: No Dysuria, No Frequency, No Incontinence, No Hematuria, No Retention, No Other Musculoskeletal: No other, No neck pain, No shoulder pain, No arm pain, No back pain, No hand pain, No leg pain, No foot pain Skin: No Rash, No Lesions, No Jaundice, No Bruising, No Other Objective Vitals Vital Signs Date Time Temp Pulse Resp B/P (MAP) Pulse Ox O2 Delivery O2 Flow Rate FiO2 08/06/24 12:09 62 08/06/24 11:00 23 115/46 (69) 94 08/06/24 07:45 Room Air* 0 21 08/06/24 07:45 97.7 97.7 Intake/Output Intake and Output 08/06/24 07:00 Intake Total 700 ml Balance 700 ml Intake IV Total 700 ml Medications Current Medications Medications Dose Ordered Sig/Francisco Route Start Time Stop Time Status Last Admin Dose Admin Levothyroxine Sodium 175 mcg QAM@0600 PO 08/06/24 06:00 08/06/24 06:04 175 MCG Ceftriaxone Sodium 50 ml @ 100 mls/hr DAILY@2100 IV 08/06/24 21:00 Furosemide 40 mg DAILY IV 08/06/24 10:00 Atorvastatin Calcium 20 mg HS PO 08/06/24 22:00 Carvedilol 3.125 mg Q12HR PO 08/06/24 10:00 08/06/24 09:39 3.125 MG Diagnostic Test (Pha) 1 strip ACHS 08/06/24 07:00 08/06/24 10:51 1 STRIP Insulin Human Regular ACHS SC 08/06/24 07:00 Dextrose 50 ml UD PRN IV 08/06/24 01:15 Sodium Chloride 10 ml Q8HR IV 08/06/24 06:00 Acetaminophen/ Hydrocodone Bitart 1 tab Q4HP PRN PO 08/06/24 01:15 Ondansetron HCl 4 mg Q4HP PRN IV 08/06/24 01:15 Docusate Sodium 100 mg BIDPRN PRN PO 08/06/24 01:15 Acetaminophen 650 mg Q6HP PRN PO 08/06/24 01:15 Vancomycin HCl 0 ml @ 0 mls/hr UD IV 08/06/24 01:30 Nitroglycerin 0.4 mg Q5MINP PRN SL 08/06/24 05:00 Morphine Sulfate 2 mg Q30M PRN IV 08/06/24 05:00 Vancomycin HCl 250 ml @ 250 mls/hr Q24H IV 08/07/24 03:00 Apixaban 2.5 mg BID PO 08/06/24 22:00 Amiodarone HCl 200 mg Q12HR PO 08/06/24 22:00 Lisinopril 5 mg DAILY PO 08/07/24 10:00 Spironolactone 12.5 mg DAILY PO 08/07/24 10:00 Laboratory Results Laboratory Tests 08/06/24 06:06 Chemistry Test 08/05/24 19:15 08/06/24 06:06 Albumin 3.2 g/dL (3.2-4.8) 3.0 g/dL (3.2-4.8) L Calcium Level 11.1 mg/dL (8.7-10.4) H 10.8 mg/dL (8.7-10.4) H Total Protein 6.2 g/dL (5.7-8.2) 5.7 g/dL (5.7-8.2) Coagulation Test 08/05/24 19:15 Prothrombin Time 13.0 sec (9.3-11.8) H Prothrombin Time INR 1.25 (0.9-1.15) H Activated Partial Thromboplast Time 34.9 SEC (24.5-34.5) H Cardiac Markers Test 08/05/24 19:15 B-Type Natriuretic Peptide 1251.30 pg/mL (0-100) LFT Test 08/05/24 19:15 08/06/24 06:06 Alanine Aminotransferase (ALT) < 9 U/L (7-40) < 9 U/L (7-40) Alkaline Phosphatase 65 U/L (46-116) 58 U/L (46-116) Aspartate Amino Transferase (AST) < 8 U/L (13-40) L < 8 U/L (13-40) L Total Bilirubin 0.9 mg/dL (0.2-1.0) 1.0 mg/dL (0.2-1.0) HgA1c, TSH Test 08/05/24 19:15 Thyroid Stimulating Hormone (TSH) 6.06 uIU/mL (0.55-4.78) H Urinalysis Test 08/05/24 21:08 Urine Color Yellow (Yellow) Urine Clarity Turbid (Clear) H Urine pH 6.0 (5.0-9.0) Urine Specific [place] 1.015 (1.001-1.035) Urine Protein 1+ (Negative) H Urine Ketones Negative (Negative) Urine Blood 2+ /uL (Negative) H Urine Nitrite 2+ (Negative) H Urine Bilirubin Negative (Negative) Urine Urobilinogen Normal mg/dL (Negative) Urine Leukocyte Esterase 3+ /uL (Negative) Urine RBC 57 /hpf (0 - 3) Urine WBC 32 /hpf (0 - 3) Urine Squamous Epithelial Cells Few /hpf (<5) Urine Amorphous Crystals Few /hpf (None Seen) Urine Bacteria Few /hpf (None Seen) H Urine Mucus Few (None Seen) Urine Glucose Normal mg/dL (Normal) Labs and/or images reviewed: Labs reviewed by me, Image(s) reviewed by me Assessment/Plan Assessment/Plan Septic shock secondary to urinary tract infection: Blood cultures urine cultures Rocephin vancomycin Acute on chronic decompensated systolic congestive heart failure NYHA class IV : Ejection fraction 15 percent, cardiology consult appreciated advised conservative management End-stage cardiomyopathy Paroxysmal atrial fibrillation, on low-dose Eliquis Peripheral arterial disease, severe degree Presence of AICD COCO on CKD Prostate cancer with Mets Acute Metabolic encephalopathy Hypothyroidism Hyperlipidemia Hypertension Patient is hospice revoked Condition serious Time spent 65 minutes Patient is full code Advanced care planning time 20 mts Patient is hospice revoked Plan discussed with: Patient Date of Service: Aug 06, 2024 Billing Provider: MCKINLEY THURMAN MD Common Visit Codes: [id number] CARE 30-74 MIN MCKINLEY THURMNA MD Aug 06, 2024 13:39
--- NOTE | 2024-08-06 14:36 | DVHSR ---
APPROVED REPORT EXAM: Two-dimensional and M-mode echocardiogram with Doppler and color Doppler. Blood Pressure: 106/46 mmHg INDICATION CHF Exacerbation RISK FACTORS Height: 6', Weight: 140 DIMENSIONS LVDd6.2 (3.8-5.7cm)LA (2D)4.5 (1.9-4.0cm)Aortic Root3.5 (2.0-3.7cm) LVDs5.8 (2.5-4.0cm)LA (MM) (1.9-4.0cm)Aortic Cusp Exc2.1 (1.5-2.0cm) EF (%) 13.0 (55-70%)Rt. Atrium4.2 (1.9-4.0cm)Asc. Aorta cm IVSd0.9 (0.7-1.1cm)RV (D) (1.8-2.4cm) PWd1.0 (0.7-1.1cm) Mitral Valve MitralMitral Stenosis E wave0.60m/sMV Mean GR.mmHg A wave0.80m/sMV Peak GR.mmHg E/A ratio0.82D MVAcm2 Aortic Valve Aortic ValveAortic Stenosis V10.50m/Lam Mean GR.5mmHg V21.50m/Lam Peak GR.9mmHg LVOT Diameter2.5 (1.8-2.4cm)Doppler AVA1.64cm2 AI P 1/2 [id number] Pulmonic Valve V20.80m/s Tricuspid Valve TR Velocity2.50m/s [id number] Conclusion dilated LV, severe lv dysfunction LVE F <20% rv pacing lead present moderate MAC pleural effusion noted, L sided small posterior pericardial effusion noted, no hemodynamic compromise
[2024-08-06] MEDS: D5W/SOD CHLO 0.9% 1,000 ML IV SCH (15:32)
[2024-08-06 19:58] VITALS: PULSE 67; RESP 12; O2SAT 98
[2024-08-06] MEDS: cefTRIAXone 1GM/50ML D5W 50 ML IV SCH (20:52)
[2024-08-06] MEDS: AMIODARONE HCL 200 MG TAB PO SCH (21:54)
[2024-08-06] MEDS: APIXABAN 2.5 MG TAB PO SCH (21:58)
[2024-08-06] MEDS: ATORVASTATIN 20 MG TAB PO SCH (21:58)
[2024-08-07] VITALS (19 sets, daily range): BP systolic 84–127; BP diastolic 50–76; PULSE 83–119; RESP 14–32; TEMP 98.4; O2SAT 100
[2024-08-07] MEDS: VANCOMYCIN 1GM/250ML KIT 250 ML IV SCH (02:30)
[2024-08-07 07:56] LABS: Basophils # (auto) 0.1 10 ^3/uL (0-0.2); Basophils % (auto) 0.3 % (0.0-2.0); Eosinophils # (auto) 0.1 10 ^3/uL (0-0.8); Eosinophils % (auto) 0.5 % (0.0-7.0); Hematocrit 37.1 % (41.0-53.0); Hemoglobin 11.5 g/dL (13.5-17.5); Lymphocytes # (auto) 0.6 10 ^3/uL (0.4-5.4); Lymphocytes % (auto) 2.9 % (10.0-50.0); Mean Corpuscular Hemoglobin 25.6 pg (28.0-32.0); Mean Corpuscular Volume 82.8 fL (80.0-100.0); Monocytes # (auto) 0.9 10 ^3/uL (0-1.3); Monocytes % (auto) 4.2 % (0.0-12.0); Neutrophils # (auto) 20.4 10 ^3/uL (1.6-8.6); Neutrophils % (auto) 92.1 % (37.0-80.0); Nucleated Red Blood Cells % 0.1 %; Platelet Count (auto) 167 10^3/uL (140-450); Red Blood Cells 4.47 10^6/uL (4.5-5.90); Red Cell Distribution Width 19.3 % (11.8-14.3); White Blood Cell 22.2 10^3/uL (4.4-10.8)
--- NOTE | 2024-08-07 08:16 | DVHPN2 ---
Reviewed: Care Plan, H&P, Labs, Medications, Previous Orders, Radiology Changes from previous H/P or p: No Changes Eyes: No Pain, No Vision change, No Conjunctivae inflammation, No Eyelid inflammation, No Other, No Redness ENT: No Ear pain, No Ear discharge, No Nose pain, No Nose discharge, No Nose congestion, No Mouth pain, No Mouth swelling, No Throat pain, No Throat swelling, No Other Cardiovascular: No Chest Pain, No Palpitations, No Orthopnea, No Paroxysmal Noc. Dyspnea, No Edema, No Lt Headedness, No Other Respiratory: No Cough, No Dry; Shortness of breath; No SOB with excertion, No Wheezing, No Hemoptysis, No Pleuritic Pain, No Sputum, No Other Gastrointestinal: No Nausea, No Vomiting, No Abdominal Pain, No Diarrhea, No Constipation, No Melena, No Hematochezia, No Other Genitourinary: No Dysuria, No Frequency, No Incontinence, No Hematuria, No Retention, No Other Musculoskeletal: No other, No neck pain, No shoulder pain, No arm pain, No back pain, No hand pain, No leg pain, No foot pain Skin: No Rash, No Lesions, No Jaundice, No Bruising, No Other Objective Vitals Vital Signs Date Time Temp Pulse Resp B/P (MAP) Pulse Ox O2 Delivery O2 Flow Rate FiO2 08/07/24 08:04 77 08/07/24 06:00 97.4 11 118/57 (77) 99 97.4 08/06/24 19:58 Nasal Cannula* 2 28 Intake/Output Intake and Output 08/07/24 07:00 Intake Total 1800 ml Output Total 1450 ml Balance 350 ml Intake IV Total 1800 ml Output Urine Total 1450 ml Medications Current Medications Medications Dose Ordered Sig/Francisco Route Start Time Stop Time Status Last Admin Dose Admin Levothyroxine Sodium 175 mcg QAM@0600 PO 08/06/24 06:00 08/07/24 05:42 175 MCG Ceftriaxone Sodium 50 ml @ 100 mls/hr DAILY@2100 IV 08/06/24 21:00 08/06/24 20:52 100 MLS/HR Furosemide 40 mg DAILY IV 08/06/24 10:00 Atorvastatin Calcium 20 mg HS PO 08/06/24 22:00 08/06/24 21:58 20 MG Carvedilol 3.125 mg Q12HR PO 08/06/24 10:00 08/06/24 09:39 3.125 MG Diagnostic Test (Pha) 1 strip ACHS 08/06/24 07:00 08/07/24 06:57 1 STRIP Insulin Human Regular ACHS SC 08/06/24 07:00 08/07/24 07:07 2 UNITS Dextrose 50 ml UD PRN IV 08/06/24 01:15 Sodium Chloride 10 ml Q8HR IV 08/06/24 06:00 08/07/24 05:39 10 ML Acetaminophen/ Hydrocodone Bitart 1 tab Q4HP PRN PO 08/06/24 01:15 Ondansetron HCl 4 mg Q4HP PRN IV 08/06/24 01:15 Docusate Sodium 100 mg BIDPRN PRN PO 08/06/24 01:15 Acetaminophen 650 mg Q6HP PRN PO 08/06/24 01:15 Vancomycin HCl 0 ml @ 0 mls/hr UD IV 08/06/24 01:30 Nitroglycerin 0.4 mg Q5MINP PRN SL 08/06/24 05:00 Morphine Sulfate 2 mg Q30M PRN IV 08/06/24 05:00 Vancomycin HCl 250 ml @ 250 mls/hr Q24H IV 08/07/24 03:00 08/07/24 02:30 250 MLS/HR Apixaban 2.5 mg BID PO 08/06/24 22:00 08/06/24 21:58 2.5 MG Amiodarone HCl 200 mg Q12HR PO 08/06/24 22:00 Lisinopril 5 mg DAILY PO 08/07/24 10:00 Spironolactone 12.5 mg DAILY PO 08/07/24 10:00 Dextrose/Sodium Chloride 1,000 ml @ 125 mls/hr Q8H IV 08/06/24 14:15 08/07/24 05:54 125 MLS/HR Laboratory Results Laboratory Tests 08/07/24 07:38 Chemistry Test 08/07/24 07:38 Albumin Pending Calcium Level Pending Total Protein Pending LFT Test 08/07/24 07:38 Alanine Aminotransferase (ALT) Pending Alkaline Phosphatase Pending Aspartate Amino Transferase (AST) Pending Total Bilirubin Pending Urinalysis Test 08/05/24 21:08 Urine Color Yellow (Yellow) Urine Clarity Turbid (Clear) H Urine pH 6.0 (5.0-9.0) Urine Specific [place] 1.015 (1.001-1.035) Urine Protein 1+ (Negative) H Urine Ketones Negative (Negative) Urine Blood 2+ /uL (Negative) H Urine Nitrite 2+ (Negative) H Urine Bilirubin Negative (Negative) Urine Urobilinogen Normal mg/dL (Negative) Urine Leukocyte Esterase 3+ /uL (Negative) Urine RBC 57 /hpf (0 - 3) Urine WBC 32 /hpf (0 - 3) Urine Squamous Epithelial Cells Few /hpf (<5) Urine Amorphous Crystals Few /hpf (None Seen) Urine Bacteria Few /hpf (None Seen) H Urine Mucus Few (None Seen) Urine Glucose Normal mg/dL (Normal) Microbiology Microbiology Date/Time Source Procedure Growth Status 08/05/24 19:15 Blood Blood Culture - Preliminary NO GROWTH AFTER 24 HOURS OF INCUBATION. Resulted Labs and/or images reviewed: Labs reviewed by me, Image(s) reviewed by me Assessment/Plan Assessment/Plan Septic shock secondary to urinary tract infection: Blood cultures negative, urine cultures pending, continue Rocephin vancomycin Acute on chronic decompensated systolic congestive heart failure NYHA class IV : Ejection fraction 15 percent, cardiology consult appreciated advised conservative management End-stage cardiomyopathy Paroxysmal atrial fibrillation, on low-dose Eliquis Peripheral arterial disease, severe degree Presence of AICD: Interrogated by campaign associate, shows nonsustained ventricular tachycardia COCO on CKD Prostate cancer with Mets Acute Metabolic encephalopathy Hypothyroidism Hyperlipidemia Hypertension Patient is hospice revoked Condition serious Time spent 65 minutes Patient is full code Patient is hospice revoked; was with [facility] Patient's son Keegan [phone] and his Iliana [phone] were at the bedside on 08-06-24 Spoke with healthcare receptionist Hazel on the phone [phone] and advised the seriousness of the patient's condition Plan discussed with: Patient My Orders Orders - MCKINLEY THURMAN MD Procedure Category Date Status Time * Swallow Request ST 08/06/24 Transmitted 13:43 D5w/Sod Chlo 0.9% PHA 08/06/24 In Process (D5w Ns 0.9%) 14:15 Mechanical Soft Diet DIET 08/06/24 Transmitted Dinner Date of Service: Aug 07, 2024 Billing Provider: MCKINLEY THURMAN MD Common Visit Codes: [id number] CARE 30-74 MIN MCKINLEY THURMAN MD Aug 07, 2024 08:16
[2024-08-07 08:21] LABS: Alkaline Phosphatase 69 U/L (46-116); Anion Gap 8 (5-15); Bilirubin, Total 0.7 mg/dL (0.2-1.0); Blood Urea Nitrogen 23 mg/dL (9-23); Carbon Dioxide 28 mmol/L (20-31); Sodium 143 mmol/L (136-145)
[2024-08-07 08:24] LABS: Alanine Aminotransferase < 9 U/L (7-40); Albumin 3.2 g/dL (3.2-4.8); Aspartate Aminotransferase < 8 U/L (13-40); Calcium 10.5 mg/dL (8.7-10.4); Chloride 107 mmol/L (98-107); Glucose 145 mg/dL (74-106); Potassium 3.5 mmol/L (3.5-5.1)
--- NOTE | 2024-08-07 09:43 | ECG ---
[facility] Test Date: 2024-08-05 Test Time: 18:50:42 Pat Name: RENATA PEREA Department: er Room: [address] [place] [address] A Gender: M Chief Deputy: andrez : 1950 Requested By: JO VASQUEZ Order Number: [id number] Reading MD: Florencio Coronado Measurements Intervals [place] Rate: 96 P: 44 NE: 224 QRS: -121 QRSD: 174 T: 34 QT: 432 QTc: 546 Interpretive Statements Sinus rhythm Ventricular bigeminy Prolonged NE interval Right bundle branch block Electronically Signed On 08-10-2024 15:05:23 PST by Florencio Coronado Please click the below link to view image of tracing.
[2024-08-07] MEDS: LISINOPRIL 5 MG TAB PO SCH (11:09)
[2024-08-07] MEDS: SPIRONOLACTONE 25 MG TAB PO SCH (11:10)
[2024-08-07] MEDS: NOREPINEPHRINE 8 MG/250ML KIT 250 ML IV SCH (15:15)
[2024-08-08] VITALS (76 sets, daily range): BP systolic 70–147; BP diastolic 30–77; PULSE 94–125; RESP 11–33; TEMP 98.2–98.7; O2SAT 94–100
--- NOTE | 2024-08-08 04:24 | ED.PDOC ---
Was a procedure done? 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: Attending Physician, Name of lay out machine operator (Nancy Dey MD) Indication: Hypotension, Inability to obtain IV Room prepared for procedure: Yes Manager Report performed hand hygien: Yes Maximal sterile barrier precau: Mask/Eye shield, Sterlie gloves, Large sterlie drape Skin Preparation: Chlorhexidine gluconate Skin preparation completely dr: Yes Insertion site: Right, Femoral Central line catheter type: [id number] dialysis Number of lumens: 3 Central line exchanged over a: Yes Antiseptic ointment applied to: Yes Post Assessment: Proper placement Informed consent obtained: Yes Risks/benefits/alt described: Yes NANCY DEY MD Aug 08, 2024 04:24
[2024-08-08 05:22] LABS: Mean Corpuscular Hemoglobin 25.6 pg (28.0-32.0); Red Blood Cells 4.58 10^6/uL (4.5-5.90)
[2024-08-08 05:25] LABS: Hematocrit 36.9 % (41.0-53.0); Hemoglobin 11.7 g/dL (13.5-17.5); Mean Corpuscular Hgb Conc. 31.8 g/dL (32.0-36.0); Mean Corpuscular Volume 80.4 fL (80.0-100.0); Platelet Count (auto) 315 10^3/uL (140-450); Red Cell Distribution Width 19.1 % (11.8-14.3)
[2024-08-08 05:33] LABS: Basophils % (manual) 0 (0.0-2.0); Blast Cells 0; Metamyelocytes % 0; Myelocytes % 0; Promyelocytes % 0; Reactive Lymphocytes 0; White Blood Cell 32.4 10^3/uL (4.4-10.8)
[2024-08-08 05:38] LABS: Sodium 143 mmol/L (136-145)
[2024-08-08 05:39] LABS: Anion Gap 5 (5-15); Calcium 9.5 mg/dL (8.7-10.4); Carbon Dioxide 30 mmol/L (20-31)
[2024-08-08 05:44] LABS: BUN/Creatinine Ratio 15.3 (10.0-20.0)
[2024-08-08 05:45] LABS: Blood Urea Nitrogen 23 mg/dL (9-23); Chloride 108 mmol/L (98-107); Glucose 216 mg/dL (74-106)
[2024-08-08 07:40] LABS: Band Neutrophils % (manual) 1; Eosinophils % (manual) 1 (0-7); Lymphocytes % (manual) 3 (10.0-50.0); Monocytes % (manual) 7 (0-12); Platelet Estimate Adequate
--- NOTE | 2024-08-08 08:19 | DVHPN2 ---
Reviewed: Care Plan, H&P, Labs, Medications, Previous Orders, Radiology Changes from previous H/P or p: No Changes Eyes: No Pain, No Vision change, No Conjunctivae inflammation, No Eyelid inflammation, No Other, No Redness ENT: No Ear pain, No Ear discharge, No Nose pain, No Nose discharge, No Nose congestion, No Mouth pain, No Mouth swelling, No Throat pain, No Throat swelling, No Other Cardiovascular: No Chest Pain, No Palpitations, No Orthopnea, No Paroxysmal Noc. Dyspnea, No Edema, No Lt Headedness, No Other Respiratory: No Cough, No Dry; Shortness of breath; No SOB with excertion, No Wheezing, No Hemoptysis, No Pleuritic Pain, No Sputum, No Other Gastrointestinal: No Nausea, No Vomiting, No Abdominal Pain, No Diarrhea, No Constipation, No Melena, No Hematochezia, No Other Genitourinary: No Dysuria, No Frequency, No Incontinence, No Hematuria, No Retention, No Other Musculoskeletal: No other, No neck pain, No shoulder pain, No arm pain, No back pain, No hand pain, No leg pain, No foot pain Skin: No Rash, No Lesions, No Jaundice, No Bruising, No Other Objective Vitals Vital Signs Date Time Temp Pulse Resp B/P (MAP) Pulse Ox O2 Delivery O2 Flow Rate FiO2 08/08/24 06:15 118 18 84/63 (70) 98 08/08/24 06:00 Room Air* 0 21 08/08/24 04:00 98.4 98.4 Intake/Output Intake and Output 08/08/24 07:00 Intake Total 3094.995 ml Output Total 3175 ml Balance -80.005 ml Intake Oral 120 ml IV Total 2974.995 ml Output Urine Total 3175 ml Medications Current Medications Medications Dose Ordered Sig/Francisco Route Start Time Stop Time Status Last Admin Dose Admin Levothyroxine Sodium 175 mcg QAM@0600 PO 08/06/24 06:00 08/08/24 05:58 175 MCG Ceftriaxone Sodium 50 ml @ 100 mls/hr DAILY@2100 IV 08/06/24 21:00 08/07/24 23:03 100 MLS/HR Furosemide 40 mg DAILY IV 08/06/24 10:00 08/07/24 11:08 40 MG Atorvastatin Calcium 20 mg HS PO 08/06/24 22:00 08/07/24 23:04 20 MG Carvedilol 3.125 mg Q12HR PO 08/06/24 10:00 08/07/24 23:10 3.125 MG Diagnostic Test (Pha) 1 strip ACHS 08/06/24 07:00 08/08/24 06:59 1 STRIP Insulin Human Regular ACHS SC 08/06/24 07:00 08/08/24 06:59 3 UNITS Dextrose 50 ml UD PRN IV 08/06/24 01:15 Sodium Chloride 10 ml Q8HR IV 08/06/24 06:00 08/08/24 05:57 10 ML Acetaminophen/ Hydrocodone Bitart 1 tab Q4HP PRN PO 08/06/24 01:15 Ondansetron HCl 4 mg Q4HP PRN IV 08/06/24 01:15 Docusate Sodium 100 mg BIDPRN PRN PO 08/06/24 01:15 Acetaminophen 650 mg Q6HP PRN PO 08/06/24 01:15 Vancomycin HCl 0 ml @ 0 mls/hr UD IV 08/06/24 01:30 Nitroglycerin 0.4 mg Q5MINP PRN SL 08/06/24 05:00 Morphine Sulfate 2 mg Q30M PRN IV 08/06/24 05:00 Vancomycin HCl 250 ml @ 250 mls/hr Q24H IV 08/07/24 03:00 08/08/24 02:49 250 MLS/HR Apixaban 2.5 mg BID PO 08/06/24 22:00 08/07/24 23:09 2.5 MG Amiodarone HCl 200 mg Q12HR PO 08/06/24 22:00 08/07/24 23:04 200 MG Lisinopril 5 mg DAILY PO 08/07/24 10:00 08/07/24 11:09 5 MG Spironolactone 12.5 mg DAILY PO 08/07/24 10:00 08/07/24 11:10 12.5 MG Dextrose/Sodium Chloride 1,000 ml @ 125 mls/hr Q8H IV 08/06/24 14:15 08/08/24 05:59 125 MLS/HR Norepinephrine Bitartrate 250 ml @ 3.75 mls/hr Q24H IV 08/07/24 14:45 08/08/24 06:04 18.75 MLS/HR Laboratory Results Laboratory Tests 08/08/24 05:10 Chemistry Test 08/08/24 05:10 Calcium Level 9.5 mg/dL (8.7-10.4) Magnesium Level 1.9 mg/dL (1.6-2.6) Urinalysis Test 08/05/24 21:08 Urine Color Yellow (Yellow) Urine Clarity Turbid (Clear) H Urine pH 6.0 (5.0-9.0) Urine Specific [place] 1.015 (1.001-1.035) Urine Protein 1+ (Negative) H Urine Ketones Negative (Negative) Urine Blood 2+ /uL (Negative) H Urine Nitrite 2+ (Negative) H Urine Bilirubin Negative (Negative) Urine Urobilinogen Normal mg/dL (Negative) Urine Leukocyte Esterase 3+ /uL (Negative) Urine RBC 57 /hpf (0 - 3) Urine WBC 32 /hpf (0 - 3) Urine Squamous Epithelial Cells Few /hpf (<5) Urine Amorphous Crystals Few /hpf (None Seen) Urine Bacteria Few /hpf (None Seen) H Urine Mucus Few (None Seen) Urine Glucose Normal mg/dL (Normal) Microbiology Microbiology Date/Time Source Procedure Growth Status 08/05/24 21:08 Voided Urine Urine Culture - Preliminary Resulted 08/05/24 19:15 Blood Blood Culture - Preliminary NO GROWTH AFTER 48 HOURS OF INCUBATION. Resulted Labs and/or images reviewed: Labs reviewed by me, Image(s) reviewed by me Assessment/Plan Assessment/Plan Septic shock secondary to urinary tract infection: Blood cultures negative, urine cultures pending, continue Rocephin vancomycin Acute on chronic decompensated systolic congestive heart failure NYHA class IV : Ejection fraction 15 % , cardiology consult appreciated advised conservative management End-stage cardiomyopathy EF 15% Paroxysmal atrial fibrillation, on low-dose Eliquis Severe PAD Presence of AICD: Interrogated by sports therapist, shows nonsustained ventricular tachycardia COCO on CKD Prostate cancer with Mets Acute Metabolic encephalopathy Hypothyroidism Hyperlipidemia Hypertension Hypotension: Levophed drip Patient is hospice revoked Condition serious Time spent 65 minutes Patient is full code Patient is hospice revoked; was with [facility] Patient's son Keegan [phone] and his Iliana [phone] were at the bedside on 08-06-24 Spoke with personal care aide Hazel on the phone [phone] and advised the seriousness of the patient's condition Plan discussed with: Patient My Orders Orders - MCKINLEY THURMAN MD Procedure Category Date Status Time Transfer Orders XFER 08/07/24 Transmitted 08:46 Norepinephrine 8 PHA 08/07/24 In Process Mg/250ml Kit 14:45 Central Line Insertion BD 08/07/24 Transmitted 14:34 Transfer Orders XFER 08/07/24 Transmitted 15:58 Stat Ekg For Chest INNA 08/07/24 In Process Pain 16:58 * Brass Buffer CONS 08/08/24 Transmitted Consult 01:34 Mrsa Screen AL 08/08/24 In Process 02:58 Date of Service: Aug 08, 2024 Billing Provider: MCKINLEY THURMAN MD Common Visit Codes: [id number] CARE 30-74 MIN MCKINLEY THURMAN MD Aug 08, 2024 08:19
[2024-08-08] MEDS ORDERED: ENOXAPARIN SOD 30 MG/0.3 ML SYRINGE SC SCH (10:00)
[2024-08-08] MEDS: ENOXAPARIN SOD 40 MG/0.4 ML SYRINGE SC SCH (10:00)
[2024-08-08] MEDS: POTASSIUM CHL 20MEQ/100ML 100 ML IV SCH (10:27)
[2024-08-08] MEDS: ACETAMINOPHEN 325 MG TAB PO PRN (10:30)
--- NOTE | 2024-08-08 11:30 | ECG ---
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
[2024-08-08] MEDS: Glucerna Carbsteady SHAKE Vanilla 8oz PO SCH (12:00)
--- NOTE | 2024-08-08 13:46 | ECG ---
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
[2024-08-08] MEDS: ERTAPENEM SOD INJ 1 GM in SODIUM CHL 0.9% 50 ML IV ONE (14:53)
[2024-08-08] MEDS: NOREPINEPHRINE 8 MG/250ML KIT 250 ML IV SCH (18:31)
[2024-08-09 05:30] LABS: Hematocrit 37.6 % (41.0-53.0)
[2024-08-09 05:33] LABS: Mean Corpuscular Hemoglobin 25.4 pg (28.0-32.0); Mean Corpuscular Volume 79.4 fL (80.0-100.0); Platelet Count (auto) 363 10^3/uL (140-450); Red Blood Cells 4.73 10^6/uL (4.5-5.90); Red Cell Distribution Width 19.3 % (11.8-14.3)
[2024-08-09 05:49] LABS: Alanine Aminotransferase < 9 U/L (7-40); Alkaline Phosphatase 94 U/L (46-116); Anion Gap 9 (5-15); Aspartate Aminotransferase 12 U/L (13-40); BUN/Creatinine Ratio 16.7 (10.0-20.0); Bilirubin, Total 1.1 mg/dL (0.2-1.0); Blood Urea Nitrogen 25 mg/dL (9-23); Calcium 10.1 mg/dL (8.7-10.4); Carbon Dioxide 28 mmol/L (20-31); Chloride 108 mmol/L (98-107); Glucose 140 mg/dL (74-106); Potassium 3.3 mmol/L (3.5-5.1); Sodium 145 mmol/L (136-145); Total Protein 5.9 g/dL (5.7-8.2)
[2024-08-09 05:52] LABS: White Blood Cell 30.2 10^3/uL (4.4-10.8)
[2024-08-09 05:53] LABS: Band Neutrophils % (manual) 0; Basophils % (manual) 0 (0.0-2.0); Blast Cells 0; Eosinophils % (manual) 0 (0-7); Metamyelocytes % 0; Myelocytes % 0; Promyelocytes % 0; Reactive Lymphocytes 0
[2024-08-09 07:30] VITALS: PULSE 118; RESP 34; O2SAT 99
--- NOTE | 2024-08-09 08:07 | DVHPN2 ---
Reviewed: Care Plan, H&P, Labs, Medications, Previous Orders, Radiology Changes from previous H/P or p: No Changes Eyes: No Pain, No Vision change, No Conjunctivae inflammation, No Eyelid inflammation, No Other, No Redness ENT: No Ear pain, No Ear discharge, No Nose pain, No Nose discharge, No Nose congestion, No Mouth pain, No Mouth swelling, No Throat pain, No Throat swelling, No Other Cardiovascular: No Chest Pain, No Palpitations, No Orthopnea, No Paroxysmal Noc. Dyspnea, No Edema, No Lt Headedness, No Other Respiratory: No Cough, No Dry; Shortness of breath; No SOB with excertion, No Wheezing, No Hemoptysis, No Pleuritic Pain, No Sputum, No Other Gastrointestinal: No Nausea, No Vomiting, No Abdominal Pain, No Diarrhea, No Constipation, No Melena, No Hematochezia, No Other Genitourinary: No Dysuria, No Frequency, No Incontinence, No Hematuria, No Retention, No Other Musculoskeletal: No other, No neck pain, No shoulder pain, No arm pain, No back pain, No hand pain, No leg pain, No foot pain Skin: No Rash, No Lesions, No Jaundice, No Bruising, No Other Objective Vitals Vital Signs Date Time Temp Pulse Resp B/P (MAP) Pulse Ox O2 Delivery O2 Flow Rate FiO2 08/09/24 07:30 103/55 08/09/24 07:00 117 28 98 08/09/24 06:45 98.1 98.1 08/08/24 19:30 Room Air* 0 21 Intake/Output Intake and Output 08/09/24 07:00 Intake Total 1597.680 ml Output Total 1500 ml Balance 97.680 ml Intake Oral 180 ml IV Total 1417.680 ml Output Urine Total 1500 ml Medications Current Medications Medications Dose Ordered Sig/Francisco Route Start Time Stop Time Status Last Admin Dose Admin Levothyroxine Sodium 175 mcg QAM@0600 PO 08/06/24 06:00 08/08/24 05:58 175 MCG Furosemide 40 mg DAILY IV 08/06/24 10:00 08/08/24 10:27 40 MG Atorvastatin Calcium 20 mg HS PO 08/06/24 22:00 08/07/24 23:04 20 MG Carvedilol 3.125 mg Q12HR PO 08/06/24 10:00 08/07/24 23:10 3.125 MG Diagnostic Test (Pha) 1 strip ACHS 08/06/24 07:00 08/09/24 06:56 1 STRIP Insulin Human Regular ACHS SC 08/06/24 07:00 08/08/24 06:59 3 UNITS Dextrose 50 ml UD PRN IV 08/06/24 01:15 Sodium Chloride 10 ml Q8HR IV 08/06/24 06:00 08/09/24 05:30 10 ML Acetaminophen/ Hydrocodone Bitart 1 tab Q4HP PRN PO 08/06/24 01:15 Ondansetron HCl 4 mg Q4HP PRN IV 08/06/24 01:15 Docusate Sodium 100 mg BIDPRN PRN PO 08/06/24 01:15 Acetaminophen 650 mg Q6HP PRN PO 08/06/24 01:15 08/08/24 10:30 650 MG Vancomycin HCl 0 ml @ 0 mls/hr UD IV 08/06/24 01:30 Nitroglycerin 0.4 mg Q5MINP PRN SL 08/06/24 05:00 Morphine Sulfate 2 mg Q30M PRN IV 08/06/24 05:00 Vancomycin HCl 250 ml @ 250 mls/hr Q24H IV 08/07/24 03:00 08/09/24 02:50 250 MLS/HR Apixaban 2.5 mg BID PO 08/06/24 22:00 08/08/24 10:28 2.5 MG Amiodarone HCl 200 mg Q12HR PO 08/06/24 22:00 08/08/24 10:28 200 MG Lisinopril 5 mg DAILY PO 08/07/24 10:00 08/07/24 11:09 5 MG Spironolactone 12.5 mg DAILY PO 08/07/24 10:00 08/08/24 10:28 12.5 MG Enoxaparin Sodium 30 mg DAILY SC 08/08/24 10:00 UNV Enteral Nutritional Formula 240 ml TIDWM PO 08/08/24 12:00 Ertapenem 1 gm/ Sodium Chloride 50 ml @ 100 mls/hr DAILY IV 08/09/24 10:00 Norepinephrine Bitartrate 250 ml @ 1.875 mls/ hr Q24H IV 08/08/24 18:30 08/09/24 04:25 26.25 MLS/HR Potassium Chloride 100 ml @ 50 mls/hr Q2H IV 08/09/24 07:30 08/09/24 11:29 Laboratory Results Laboratory Tests 08/09/24 05:10 Chemistry Test 08/09/24 05:10 Albumin 3.0 g/dL (3.2-4.8) L Calcium Level 10.1 mg/dL (8.7-10.4) Magnesium Level 1.8 mg/dL (1.6-2.6) Total Protein 5.9 g/dL (5.7-8.2) LFT Test 08/09/24 05:10 Alanine Aminotransferase (ALT) < 9 U/L (7-40) Alkaline Phosphatase 94 U/L (46-116) Aspartate Amino Transferase (AST) 12 U/L (13-40) L Total Bilirubin 1.1 mg/dL (0.2-1.0) H Urinalysis Test 08/05/24 21:08 Urine Color Yellow (Yellow) Urine Clarity Turbid (Clear) H Urine pH 6.0 (5.0-9.0) Urine Specific [place] 1.015 (1.001-1.035) Urine Protein 1+ (Negative) H Urine Ketones Negative (Negative) Urine Blood 2+ /uL (Negative) H Urine Nitrite 2+ (Negative) H Urine Bilirubin Negative (Negative) Urine Urobilinogen Normal mg/dL (Negative) Urine Leukocyte Esterase 3+ /uL (Negative) Urine RBC 57 /hpf (0 - 3) Urine WBC 32 /hpf (0 - 3) Urine Squamous Epithelial Cells Few /hpf (<5) Urine Amorphous Crystals Few /hpf (None Seen) Urine Bacteria Few /hpf (None Seen) H Urine Mucus Few (None Seen) Urine Glucose Normal mg/dL (Normal) Microbiology Microbiology Date/Time Source Procedure Growth Status 08/08/24 02:57 Nose MRSA Screen - Final Complete 08/05/24 21:08 Voided Urine Urine Culture - Final Escherichia coli - ESBL Complete 08/05/24 19:15 Blood Blood Culture - Preliminary NO GROWTH AFTER 72 HOURS OF INCUBATION. 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% Paroxysmal atrial fibrillation, on low-dose Eliquis Severe PAD Presence of AICD: Interrogated by lehr stripper, shows nonsustained ventricular tachycardia COCO on CKD Prostate cancer with Mets Acute Metabolic encephalopathy Hypothyroidism Hyperlipidemia Hypertension Hypotension: Levophed drip Patient is hospice revoked Condition serious Prognosis very poor Time spent 65 minutes Patient is full code Patient is hospice revoked; was with [facility] Patient's son Keegan [phone] and his Iliana [phone] were at the bedside on 08-06-24 Spoke with healthcare applications analyst Hazel on the phone [phone] and advised the seriousness of the patient's condition Plan discussed with: Patient My Orders Orders - MCKINLEY THURMAN MD Procedure Category Date Status Time Initiate Vte INNA 08/08/24 In Process Prophylaxis 08:41 Complete Blood Count LAB 08/09/24 In Process 04:00 Mechanical Soft Diet DIET 08/08/24 Transmitted Lunch Nutritional PHA 08/08/24 In Process Supplements (Glucerna 12:00 * Swallow Request ST 08/08/24 Transmitted 11:05 Ertapenem Sod Inj PHA 08/09/24 In Process (Invanz) 10:00 Npo (Nothing By DIET 08/08/24 Transmitted Mouth) Diet Dinner Apply Barrier Cream INNA 08/08/24 In Process 12:00 * Dietary Consult CONS 08/08/24 Transmitted 15:26 Norepinephrine 8 PHA 08/08/24 In Process Mg/250ml Kit 18:30 Manual Differential LAB 08/09/24 In Process 05:10 Date of Service: Aug 09, 2024 Billing Provider: MCKINLEY THURMAN MD Common Visit Codes: [id number] CARE 30-74 MIN MCKINLEY THURMAN MD Aug 09, 2024 08:07
[2024-08-09 08:42] LABS: Lymphocytes % (manual) 4 (10.0-50.0); Monocytes % (manual) 5 (0-12); Ovalocytes FEW
[2024-08-09 08:43] LABS: Platelet Estimate Adequate
[2024-08-09] MEDS: ERTAPENEM SOD INJ 1 GM in SODIUM CHL 0.9% 50 ML IV SCH (10:45)
[2024-08-09] MEDS: POTASSIUM CHL 20MEQ/100ML 100 ML IV SCH (11:06)
[2024-08-09 19:25] VITALS: PULSE 111; RESP 29; O2SAT 99
[2024-08-10] VITALS (20 sets, daily range): BP systolic 93–111; BP diastolic 46–65; PULSE 90–111; RESP 14–46; TEMP 97.9; O2SAT 97–99
[2024-08-10] MEDS: AMIODARONE BOLUS KIT 100 ML IV ONE (01:55)
[2024-08-10] MEDS: AMIODARONE 360mg/200mL PREMIX 200 ML IV SCH ×2 (02:24→08:00)
[2024-08-10 06:46] LABS: Basophils # (auto) 0.1 10 ^3/uL (0-0.2); Basophils % (auto) 0.5 % (0.0-2.0); Eosinophils # (auto) 0.4 10 ^3/uL (0-0.8); Eosinophils % (auto) 1.6 % (0.0-7.0); Hematocrit 34.7 % (41.0-53.0); Hemoglobin 11.1 g/dL (13.5-17.5); Lymphocytes # (auto) 0.5 10 ^3/uL (0.4-5.4); Lymphocytes % (auto) 2.5 % (10.0-50.0); Mean Corpuscular Hemoglobin 25.5 pg (28.0-32.0); Mean Corpuscular Hgb Conc. 31.9 g/dL (32.0-36.0); Monocytes # (auto) 0.5 10 ^3/uL (0-1.3); Monocytes % (auto) 2.3 % (0.0-12.0); Neutrophils % (auto) 93.1 % (37.0-80.0); Platelet Count (auto) 263 10^3/uL (140-450); Red Blood Cells 4.34 10^6/uL (4.5-5.90); Red Cell Distribution Width 19.4 % (11.8-14.3); White Blood Cell 21.5 10^3/uL (4.4-10.8)
[2024-08-10 07:05] LABS: Alkaline Phosphatase 99 U/L (46-116); Anion Gap 10 (5-15); BUN/Creatinine Ratio 18.2 (10.0-20.0); Bilirubin, Total 0.5 mg/dL (0.2-1.0); Calcium 9.4 mg/dL (8.7-10.4); Carbon Dioxide 26 mmol/L (20-31); Sodium 145 mmol/L (136-145)
[2024-08-10 07:07] LABS: Alanine Aminotransferase < 9 U/L (7-40); Albumin 2.8 g/dL (3.2-4.8); Aspartate Aminotransferase 12 U/L (13-40); Blood Urea Nitrogen 30 mg/dL (9-23); Chloride 109 mmol/L (98-107); Glucose 170 mg/dL (74-106); Total Protein 5.4 g/dL (5.7-8.2)
--- NOTE | 2024-08-10 08:10 | DVHPN2 ---
Reviewed: Care Plan, H&P, Labs, Medications, Previous Orders, Radiology Changes from previous H/P or p: No Changes Eyes: No Pain, No Vision change, No Conjunctivae inflammation, No Eyelid inflammation, No Other, No Redness ENT: No Ear pain, No Ear discharge, No Nose pain, No Nose discharge, No Nose congestion, No Mouth pain, No Mouth swelling, No Throat pain, No Throat swelling, No Other Cardiovascular: No Chest Pain, No Palpitations, No Orthopnea, No Paroxysmal Noc. Dyspnea, No Edema, No Lt Headedness, No Other Respiratory: No Cough, No Dry; Shortness of breath; No SOB with excertion, No Wheezing, No Hemoptysis, No Pleuritic Pain, No Sputum, No Other Gastrointestinal: No Nausea, No Vomiting, No Abdominal Pain, No Diarrhea, No Constipation, No Melena, No Hematochezia, No Other Genitourinary: No Dysuria, No Frequency, No Incontinence, No Hematuria, No Retention, No Other Musculoskeletal: No other, No neck pain, No shoulder pain, No arm pain, No back pain, No hand pain, No leg pain, No foot pain Skin: No Rash, No Lesions, No Jaundice, No Bruising, No Other Objective Vitals Vital Signs Date Time Temp Pulse Resp B/P (MAP) Pulse Ox O2 Delivery O2 Flow Rate FiO2 08/10/24 07:00 99/48 08/10/24 07:00 99 29 100 08/09/24 21:00 99.4 99.4 08/09/24 19:25 Nasal Cannula* 1 24 Intake/Output Intake and Output 08/10/24 06:59 Intake Total 777.040 ml Output Total 200 ml Balance 577.040 ml IV Total 777.040 ml Output Urine Total 200 ml Medications Current Medications Medications Dose Ordered Sig/Francisco Route Start Time Stop Time Status Last Admin Dose Admin Levothyroxine Sodium 175 mcg QAM@0600 PO 08/06/24 06:00 08/10/24 06:55 175 MCG Furosemide 40 mg DAILY IV 08/06/24 10:00 08/08/24 10:27 40 MG Atorvastatin Calcium 20 mg HS PO 08/06/24 22:00 08/09/24 21:45 20 MG Carvedilol 3.125 mg Q12HR PO 08/06/24 10:00 08/09/24 21:45 3.125 MG Diagnostic Test (Pha) 1 strip ACHS 08/06/24 07:00 08/10/24 06:46 1 STRIP Insulin Human Regular ACHS SC 08/06/24 07:00 08/10/24 06:48 2 UNITS Dextrose 50 ml UD PRN IV 08/06/24 01:15 Sodium Chloride 10 ml Q8HR IV 08/06/24 06:00 08/10/24 05:47 10 ML Acetaminophen/ Hydrocodone Bitart 1 tab Q4HP PRN PO 08/06/24 01:15 Ondansetron HCl 4 mg Q4HP PRN IV 08/06/24 01:15 Docusate Sodium 100 mg BIDPRN PRN PO 08/06/24 01:15 Acetaminophen 650 mg Q6HP PRN PO 08/06/24 01:15 08/08/24 10:30 650 MG Vancomycin HCl 0 ml @ 0 mls/hr UD IV 08/06/24 01:30 Nitroglycerin 0.4 mg Q5MINP PRN SL 08/06/24 05:00 Morphine Sulfate 2 mg Q30M PRN IV 08/06/24 05:00 Apixaban 2.5 mg BID PO 08/06/24 22:00 08/09/24 21:45 2.5 MG Lisinopril 5 mg DAILY PO 08/07/24 10:00 08/07/24 11:09 5 MG Spironolactone 12.5 mg DAILY PO 08/07/24 10:00 08/08/24 10:28 12.5 MG Enoxaparin Sodium 30 mg DAILY SC 08/08/24 10:00 UNV Enteral Nutritional Formula 240 ml TIDWM PO 08/08/24 12:00 08/09/24 18:00 240 ML Ertapenem 1 gm/ Sodium Chloride 50 ml @ 100 mls/hr DAILY IV 08/09/24 10:00 08/09/24 10:45 100 MLS/HR Norepinephrine Bitartrate 250 ml @ 1.875 mls/ hr Q24H IV 08/08/24 18:30 08/10/24 00:50 24.375 MLS/HR Laboratory Results Laboratory Tests 08/10/24 05:58 Chemistry Test 08/10/24 05:58 Albumin 2.8 g/dL (3.2-4.8) L Calcium Level 9.4 mg/dL (8.7-10.4) Total Protein 5.4 g/dL (5.7-8.2) L LFT Test 08/10/24 05:58 Alanine Aminotransferase (ALT) < 9 U/L (7-40) Alkaline Phosphatase 99 U/L (46-116) Aspartate Amino Transferase (AST) 12 U/L (13-40) L Total Bilirubin 0.5 mg/dL (0.2-1.0) Urinalysis Test 08/05/24 21:08 Urine Color Yellow (Yellow) Urine Clarity Turbid (Clear) H Urine pH 6.0 (5.0-9.0) Urine Specific [place] 1.015 (1.001-1.035) Urine Protein 1+ (Negative) H Urine Ketones Negative (Negative) Urine Blood 2+ /uL (Negative) H Urine Nitrite 2+ (Negative) H Urine Bilirubin Negative (Negative) Urine Urobilinogen Normal mg/dL (Negative) Urine Leukocyte Esterase 3+ /uL (Negative) Urine RBC 57 /hpf (0 - 3) Urine WBC 32 /hpf (0 - 3) Urine Squamous Epithelial Cells Few /hpf (<5) Urine Amorphous Crystals Few /hpf (None Seen) Urine Bacteria Few /hpf (None Seen) H Urine Mucus Few (None Seen) Urine Glucose Normal mg/dL (Normal) Microbiology Microbiology Date/Time Source Procedure Growth Status 08/08/24 02:57 Nose MRSA Screen - Final Complete 08/05/24 21:08 Voided Urine Urine Culture - Final Escherichia coli - ESBL Complete 08/05/24 19:15 Blood Blood Culture - Preliminary NO GROWTH AFTER 72 HOURS OF INCUBATION. 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% Paroxysmal atrial fibrillation, on low-dose Eliquis Severe PAD Presence of AICD: Interrogated by [email or web address] armor crewman, shows nonsustained ventricular tachycardia COCO on CKD improving Prostate cancer with Mets Acute Metabolic encephalopathy Hypothyroidism Hyperlipidemia Hypertension Hypotension: Levophed drip Condition serious Prognosis very poor Time spent 65 minutes Patient is full code Patient is hospice revoked; was with [facility] Patient's son Keegan [phone] and his Iliana [phone] were at the bedside on 08-06-24 Spoke with care center manager Hazel on the phone [phone] and advised the seriousness of the patient's condition PICC line consult placed Plan discussed with: Patient Date of Service: Aug 10, 2024 Billing Provider: MCKINLEY THURMAN MD Common Visit Codes: [id number] CARE 30-74 MIN MCKINLEY THURMAN MD Aug 10, 2024 08:10
[2024-08-10] MEDS: ACETAMINOPHEN 650 MG RECT SUPP PR PRN (09:44)
[2024-08-10] MEDS: NOREPINEPHRINE 8 MG/250ML KIT 250 ML IV SCH (10:30)
--- NOTE | 2024-08-10 10:47 | DVHINCON2 ---
Date of service: Aug 10, [address] Freeman Reason for Consultation Acute kidney injury History of Present Illness Patient is a 74-year-old male with past medical history significant for CHF, DM, HTN, metastatic prostate cancer and hypothyroidism who was in home hospice is admitted for generalized weakness and confusion. On admission patient found to have elevated BUN creatinine nephrology is consulted for acute kidney injury. Past Medical History PAST MEDICAL HISTORY: CHF, DM, HTN, CVA, Thyroid, metastatic prostate cancer Past Surgical History Surgical History: Pacemaker Allergies: Coded Allergies: NO KNOWN ALLERGIES (Unverified , 08/31/23) Home Meds Active Scripts Amiodarone HCl (Amiodarone HCl) 200 Mg Tab, 200 MG GT DAILY for 30 Days, #30 TAB 1 Refill Prov:LAZARO FLOR DO 10/23/23 Metoprolol Succinate (Toprol Xl) 50 Mg Tab, 25 MG PO DAILY for 30 Days, #15 TAB 1 Refill Prov:FLORLAZARO Kofi DO 10/23/23 Furosemide (Furosemide) 40 Mg Tab, 40 MG PO DAILY for 30 Days, #30 TAB 1 Refill Prov:LAZARO FLOR DO 10/23/23 Reported Medications Empagliflozin (Jardiance) 10 Mg Tab, 1 TAB PO DAILY for 30 Days, #30 08/08/24 Apixaban Base (ELIQUIS) 2.5 Mg Tab, 1 TAB PO BID for 30 Days, #60 08/08/24 Ergocalciferol (Vitamin D) 50,000 Unit Cap, 04917 UNIT PO QWEEKLY 09/02/23 Ferrous Sulfate (Ferosul) 325 Mg Tab, 1 TAB PO DAILY 08/31/23 Hydralazine HCl (Hydralazine HCl) 25 Mg Tab, 1 TAB PO BID 08/31/23 Atorvastatin Calcium (ATORVASTATIN CALCIUM) 20 Mg Tab, 1 TAB PO DAILY 08/31/23 Carvedilol (Carvedilol) 3.125 Mg Tab, 1 TAB PO BID 08/31/23 Allopurinol (Allopurinol) 300 Mg Tab, 1 TAB PO DAILY 08/31/23 Levothyroxine Sodium (Levothyroxine Sodium) 200 Mcg Tab, 1 TAB PO DAILY 08/31/23 Discontinued Reported Medications Apixaban Base (ELIQUIS) 5 Mg Tab, 1 TAB PO BID 2/13/24 Current Medications Current Medications Medications (Trade) Dose Ordered Sig/Francisco Route PRN Reason Start Time Stop Time Status Last Admin Acetaminophen (Tylenol Suppository) 650 mg Q6HP PRN DE PAIN SCALE 1-3 OR TEMP>100.4 08/10/24 09:00 08/10/24 09:44 Norepinephrine Bitartrate 250 ml @ 3.75 mls/hr Q24H IV 08/10/24 10:30 08/10/24 10:30 Sodium Chloride 1,000 ml @ 75 mls/hr [id number] IV 08/10/24 13:15 UNV Family History: Other blood disorders G8 MOTHER, , Cause: Leukemia, Onset:50's - 60 Review of Systems Can not be obtained H&P Exam Vital Signs/I&O Vital Sign Date Time Temp Pulse Resp B/P (MAP) Pulse Ox O2 Delivery O2 Flow Rate FiO2 08/10/24 12:51 98 118/52 08/10/24 11:09 99.9 08/10/24 10:00 43 99 08/10/24 07:30 Nasal Cannula* 2 28 Intake and Output 08/09/24 08/10/24 19:00 07:00 Intake Total 224.970 ml 525.820 ml Output Total 200 ml Balance 24.970 ml 525.820 ml IV Total 224.970 ml 525.820 ml Output Urine Total 200 ml Physical Exam Patient lying in bed noncommunicating Lungs clear to auscultation bilaterally Cardiac exam bradycardia GI soft nontender Sheffield catheter Extremity no clubbing cyanosis or edema Neuro patient is altered Labs/Diagnostic Data Labs/Diagnostic Data Laboratory Tests Test 08/10/24 11:52 08/10/24 06:44 08/10/24 05:58 08/09/24 21:51 Range/Units POC Glucose 127 H 136 H 130 H 70-106 mg/dl White Blood Count 21.5 #H 4.4-10.8 10^3/uL Red Blood Count 4.34 L 4.5-5.90 10^6/uL Hemoglobin 11.1 L 13.5-17.5 g/dL Hematocrit 34.7 L 41.0-53.0 % Mean Corpuscular Volume 80.0 80.0-100.0 fL Mean Corpuscular Hemoglobin 25.5 L 28.0-32.0 pg Mean Corpuscular Hemoglobin Concent 31.9 L 32.0-36.0 g/dL Red Cell Distribution Width 19.4 H 11.8-14.3 % Platelet Count 263 140-450 10^3/uL Mean Platelet Volume 8.2 6.9-10.8 fL Neutrophils (%) (Auto) 93.1 H 37.0-80.0 % Lymphocytes (%) (Auto) 2.5 L 10.0-50.0 % Monocytes (%) (Auto) 2.3 0.0-12.0 % Eosinophils (%) (Auto) 1.6 0.0-7.0 % Basophils (%) (Auto) 0.5 0.0-2.0 % Neutrophils # (Auto) 20.0 H 1.6-8.6 10 ^3/uL Lymphocytes # (Auto) 0.5 0.4-5.4 10 ^3/uL Monocytes # (Auto) 0.5 0-1.3 10 ^3/uL Eosinophils # (Auto) 0.4 0-0.8 10 ^3/uL Basophils # (Auto) 0.1 0-0.2 10 ^3/uL Nucleated Red Blood Cells 0.0 % Sodium Level 145 136-145 mmol/L Potassium Level 4.0 3.5-5.1 mmol/L Chloride Level 109 H 98-107 mmol/L Carbon Dioxide Level 26 20-31 mmol/L Anion Gap 10 5-15 Blood Urea Nitrogen 30 H 9-23 mg/dL Creatinine 1.65 H 0.700-1.30 mg/dL Glomerular Filtration Rate Calc 44 >90 mL/min BUN/Creatinine Ratio 18.2 10.0-20.0 Serum Glucose 170 H 74-106 mg/dL Calcium Level 9.4 8.7-10.4 mg/dL Phosphorus Level 2.5 2.4-5.1 mg/dL Magnesium Level 2.0 1.6-2.6 mg/dL Total Bilirubin 0.5 0.2-1.0 mg/dL Aspartate Amino Transferase (AST) 12 L 13-40 U/L Alanine Aminotransferase (ALT) < 9 7-40 U/L Alkaline Phosphatase 99 46-116 U/L Total Protein 5.4 L 5.7-8.2 g/dL Albumin 2.8 L 3.2-4.8 g/dL Vitamin D 25-Hydroxy 209.8 H 30.0-100 ng/mL Parathyroid Hormone (Intact) 7.7 L 18.4-80.1 pg/mL Random Vancomycin Level 22.4 H 5-10 ug/mL Test 08/09/24 16:38 08/09/24 11:39 08/09/24 05:10 08/09/24 02:03 Range/Units POC Glucose 144 H 108 H 70-106 mg/dl White Blood Count 30.2 *H 4.4-10.8 10^3/uL Red Blood Count 4.73 4.5-5.90 10^6/uL Hemoglobin 12.0 L 13.5-17.5 g/dL Hematocrit 37.6 L 41.0-53.0 % Mean Corpuscular Volume 79.4 L 80.0-100.0 fL Mean Corpuscular Hemoglobin 25.4 L 28.0-32.0 pg Mean Corpuscular Hemoglobin Concent 32.0 32.0-36.0 g/dL Red Cell Distribution Width 19.3 H 11.8-14.3 % Platelet Count 363 140-450 10^3/uL Mean Platelet Volume 8.7 6.9-10.8 fL Neutrophils (%) (Auto) 37.0-80.0 % Lymphocytes (%) (Auto) 10.0-50.0 % Monocytes (%) (Auto) 0.0-12.0 % Basophils (%) (Auto) 0.0-2.0 % Neutrophils # (Auto) 1.6-8.6 10 ^3/uL Lymphocytes # (Auto) 0.4-5.4 10 ^3/uL Monocytes # (Auto) 0-1.3 10 ^3/uL Differential Total Cells Counted 100.0 100 Neutrophils % (Manual) 91 H 37.0-80.0 Band Neutrophils % (Manual) 0 Lymphocytes % (Manual) 4 L 10.0-50.0 Monocytes % (Manual) 5 0-12 Eosinophils % (Manual) 0 0-7 Basophils % (Manual) 0 0.0-2.0 Metamyelocytes % (manual) 0 Myelocytes % (Manual) 0 Promyelocytes % (Manual) 0 Blast Cells % (Manual) 0 Reactive Lymphocytes 0 Platelet Estimate Adequate Ovalocytes Few Sodium Level 145 136-145 mmol/L Potassium Level 3.3 L 3.5-5.1 mmol/L Chloride Level 108 H 98-107 mmol/L Carbon Dioxide Level 28 20-31 mmol/L Anion Gap 9 5-15 Blood Urea Nitrogen 25 H 9-23 mg/dL Creatinine 1.50 H 0.700-1.30 mg/dL Glomerular Filtration Rate Calc 49 >90 mL/min BUN/Creatinine Ratio 16.7 10.0-20.0 Serum Glucose 140 H 74-106 mg/dL Calcium Level 10.1 8.7-10.4 mg/dL Magnesium Level 1.8 1.6-2.6 mg/dL Total Bilirubin 1.1 H 0.2-1.0 mg/dL Aspartate Amino Transferase (AST) 12 L 13-40 U/L Alanine Aminotransferase (ALT) < 9 7-40 U/L Alkaline Phosphatase 94 46-116 U/L Total Protein 5.9 5.7-8.2 g/dL Albumin 3.0 L 3.2-4.8 g/dL Vancomycin Level Trough 19.2 H 5-10 ug/mL Test 08/08/24 18:34 08/08/24 12:53 08/08/24 06:56 08/08/24 05:10 Range/Units POC Glucose 105 103 177 H 70-106 mg/dl White Blood Count 32.4 #*H 4.4-10.8 10^3/uL Red Blood Count 4.58 4.5-5.90 10^6/uL Hemoglobin 11.7 L 13.5-17.5 g/dL Hematocrit 36.9 L 41.0-53.0 % Mean Corpuscular Volume 80.4 80.0-100.0 fL Mean Corpuscular Hemoglobin 25.6 L 28.0-32.0 pg Mean Corpuscular Hemoglobin Concent 31.8 L 32.0-36.0 g/dL Red Cell Distribution Width 19.1 H 11.8-14.3 % Platelet Count 315 # 140-450 10^3/uL Mean Platelet Volume 8.7 6.9-10.8 fL Neutrophils (%) (Auto) 37.0-80.0 % Lymphocytes (%) (Auto) 10.0-50.0 % Monocytes (%) (Auto) 0.0-12.0 % Basophils (%) (Auto) 0.0-2.0 % Neutrophils # (Auto) 1.6-8.6 10 ^3/uL Lymphocytes # (Auto) 0.4-5.4 10 ^3/uL Monocytes # (Auto) 0-1.3 10 ^3/uL Differential Total Cells Counted 100.0 100 Neutrophils % (Manual) 88 H 37.0-80.0 Band Neutrophils % (Manual) 1 Lymphocytes % (Manual) 3 L 10.0-50.0 Monocytes % (Manual) 7 0-12 Eosinophils % (Manual) 1 0-7 Basophils % (Manual) 0 0.0-2.0 Metamyelocytes % (manual) 0 Myelocytes % (Manual) 0 Promyelocytes % (Manual) 0 Blast Cells % (Manual) 0 Reactive Lymphocytes 0 Platelet Estimate Adequate Sodium Level 143 136-145 mmol/L Potassium Level 3.0 L 3.5-5.1 mmol/L Chloride Level 108 H 98-107 mmol/L Carbon Dioxide Level 30 20-31 mmol/L Anion Gap 5 5-15 Blood Urea Nitrogen 23 9-23 mg/dL Creatinine 1.50 H 0.700-1.30 mg/dL Glomerular Filtration Rate Calc 49 >90 mL/min BUN/Creatinine Ratio 15.3 10.0-20.0 Serum Glucose 216 H 74-106 mg/dL Calcium Level 9.5 8.7-10.4 mg/dL Magnesium Level 1.9 1.6-2.6 mg/dL Test 08/07/24 22:57 08/07/24 21:55 08/07/24 19:35 08/07/24 18:34 Range/Units POC Glucose 199 H 70-106 mg/dl Troponin I High Sensitivity 27 20 17 </=54 ng/L Test 08/07/24 16:56 08/07/24 07:38 08/07/24 06:56 08/06/24 21:49 Range/Units POC Glucose 122 H 151 H 154 H 70-106 mg/dl White Blood Count 22.2 H 4.4-10.8 10^3/uL Red Blood Count 4.47 L 4.5-5.90 10^6/uL Hemoglobin 11.5 L 13.5-17.5 g/dL Hematocrit 37.1 L 41.0-53.0 % Mean Corpuscular Volume 82.8 80.0-100.0 fL Mean Corpuscular Hemoglobin 25.6 L 28.0-32.0 pg Mean Corpuscular Hemoglobin Concent 31.0 L 32.0-36.0 g/dL Red Cell Distribution Width 19.3 H 11.8-14.3 % Platelet Count 167 140-450 10^3/uL Mean Platelet Volume 9.8 6.9-10.8 fL Neutrophils (%) (Auto) 92.1 H 37.0-80.0 % Lymphocytes (%) (Auto) 2.9 L 10.0-50.0 % Monocytes (%) (Auto) 4.2 0.0-12.0 % Eosinophils (%) (Auto) 0.5 0.0-7.0 % Basophils (%) (Auto) 0.3 0.0-2.0 % Neutrophils # (Auto) 20.4 H 1.6-8.6 10 ^3/uL Lymphocytes # (Auto) 0.6 0.4-5.4 10 ^3/uL Monocytes # (Auto) 0.9 0-1.3 10 ^3/uL Eosinophils # (Auto) 0.1 0-0.8 10 ^3/uL Basophils # (Auto) 0.1 0-0.2 10 ^3/uL Nucleated Red Blood Cells 0.1 % Sodium Level 143 136-145 mmol/L Potassium Level 3.5 3.5-5.1 mmol/L Chloride Level 107 98-107 mmol/L Carbon Dioxide Level 28 20-31 mmol/L Anion Gap 8 5-15 Blood Urea Nitrogen 23 9-23 mg/dL Creatinine 1.53 H 0.700-1.30 mg/dL Glomerular Filtration Rate Calc 48 >90 mL/min BUN/Creatinine Ratio 15.0 10.0-20.0 Serum Glucose 145 H 74-106 mg/dL Calcium Level 10.5 H 8.7-10.4 mg/dL Total Bilirubin 0.7 0.2-1.0 mg/dL Aspartate Amino Transferase (AST) < 8 L 13-40 U/L Alanine Aminotransferase (ALT) < 9 7-40 U/L Alkaline Phosphatase 69 46-116 U/L Total Protein 6.0 5.7-8.2 g/dL Albumin 3.2 3.2-4.8 g/dL Test 08/06/24 17:22 08/06/24 14:56 08/06/24 12:41 08/06/24 10:49 Range/Units POC Glucose 115 H 108 H 82 72 70-106 mg/dl Test 08/06/24 06:41 08/06/24 06:06 08/05/24 21:46 08/05/24 21:08 Range/Units POC Glucose 76 70-106 mg/dl White Blood Count 21.4 H 4.4-10.8 10^3/uL Red Blood Count 4.00 L 4.5-5.90 10^6/uL Hemoglobin 10.4 L 13.5-17.5 g/dL Hematocrit 34.0 L 41.0-53.0 % Mean Corpuscular Volume 85.0 80.0-100.0 fL Mean Corpuscular Hemoglobin 25.9 L 28.0-32.0 pg Mean Corpuscular Hemoglobin Concent 30.5 L 32.0-36.0 g/dL Red Cell Distribution Width 19.2 H 11.8-14.3 % Platelet Count 148 140-450 10^3/uL Mean Platelet Volume 9.5 6.9-10.8 fL Neutrophils (%) (Auto) 90.6 H 37.0-80.0 % Lymphocytes (%) (Auto) 3.6 L 10.0-50.0 % Monocytes (%) (Auto) 5.5 0.0-12.0 % Eosinophils (%) (Auto) 0.1 0.0-7.0 % Basophils (%) (Auto) 0.2 0.0-2.0 % Neutrophils # (Auto) 19.4 H 1.6-8.6 10 ^3/uL Lymphocytes # (Auto) 0.8 0.4-5.4 10 ^3/uL Monocytes # (Auto) 1.2 0-1.3 10 ^3/uL Eosinophils # (Auto) 0 0-0.8 10 ^3/uL Basophils # (Auto) 0 0-0.2 10 ^3/uL Nucleated Red Blood Cells 0.1 % Sodium Level 144 136-145 mmol/L Potassium Level 3.8 3.5-5.1 mmol/L Chloride Level 109 H 98-107 mmol/L Carbon Dioxide Level 27 20-31 mmol/L Anion Gap 8 5-15 Blood Urea Nitrogen 22 9-23 mg/dL Creatinine 1.39 H 0.700-1.30 mg/dL Glomerular Filtration Rate Calc 54 >90 mL/min BUN/Creatinine Ratio 15.8 10.0-20.0 Serum Glucose 116 H 74-106 mg/dL Calcium Level 10.8 H 8.7-10.4 mg/dL Total Bilirubin 1.0 0.2-1.0 mg/dL Aspartate Amino Transferase (AST) < 8 L 13-40 U/L Alanine Aminotransferase (ALT) < 9 7-40 U/L Alkaline Phosphatase 58 46-116 U/L Total Protein 5.7 5.7-8.2 g/dL Albumin 3.0 L 3.2-4.8 g/dL Lactic Acid Level 1.3 0.4-2.0 mmol/L Urine Color Yellow Yellow Urine Clarity Turbid H Clear Urine pH 6.0 5.0-9.0 Urine Specific [place] 1.015 1.001-1.035 Urine Protein 1+ H Negative Urine Ketones Negative Negative Urine Blood 2+ H Negative /uL Urine Nitrite 2+ H Negative Urine Bilirubin Negative Negative Urine Urobilinogen Normal Negative mg/dL Urine Leukocyte Esterase 3+ Negative /uL Urine RBC 57 0 - 3 /hpf Urine WBC 32 0 - 3 /hpf Urine Squamous Epithelial Cells Few <5 /hpf Urine Amorphous Crystals Few None Seen /hpf Urine Bacteria Few H None Seen /hpf Urine Mucus Few None Seen Urine Glucose Normal Normal mg/dL Test 08/05/24 19:22 08/05/24 19:15 Range/Units POC Glucose 89 70-106 mg/dl White Blood Count 21.4 H 4.4-10.8 10^3/uL Red Blood Count 4.21 L 4.5-5.90 10^6/uL Hemoglobin 10.9 L 13.5-17.5 g/dL Hematocrit 34.5 L 41.0-53.0 % Mean Corpuscular Volume 81.8 80.0-100.0 fL Mean Corpuscular Hemoglobin 25.8 L 28.0-32.0 pg Mean Corpuscular Hemoglobin Concent 31.6 L 32.0-36.0 g/dL Red Cell Distribution Width 19.5 H 11.8-14.3 % Platelet Count 191 140-450 10^3/uL Mean Platelet Volume 9.7 6.9-10.8 fL Neutrophils (%) (Auto) 91.2 H 37.0-80.0 % Lymphocytes (%) (Auto) 3.3 L 10.0-50.0 % Monocytes (%) (Auto) 4.8 0.0-12.0 % Eosinophils (%) (Auto) 0.1 0.0-7.0 % Basophils (%) (Auto) 0.6 0.0-2.0 % Neutrophils # (Auto) 19.5 H 1.6-8.6 10 ^3/uL Lymphocytes # (Auto) 0.7 0.4-5.4 10 ^3/uL Monocytes # (Auto) 1.0 0-1.3 10 ^3/uL Eosinophils # (Auto) 0 0-0.8 10 ^3/uL Basophils # (Auto) 0.1 0-0.2 10 ^3/uL Nucleated Red Blood Cells 0.0 % Prothrombin Time 13.0 H 9.3-11.8 sec Prothrombin Time INR 1.25 H 0.9-1.15 Activated Partial Thromboplast Time 34.9 H 24.5-34.5 SEC Sodium Level 143 136-145 mmol/L Potassium Level 3.1 L 3.5-5.1 mmol/L Chloride Level 107 98-107 mmol/L Carbon Dioxide Level 30 20-31 mmol/L Anion Gap 6 5-15 Blood Urea Nitrogen 26 H 9-23 mg/dL Creatinine 1.52 H 0.700-1.30 mg/dL Glomerular Filtration Rate Calc 48 >90 mL/min BUN/Creatinine Ratio 17.1 10.0-20.0 Serum Glucose 120 H 74-106 mg/dL Lactic Acid Level 2.3 *H 0.4-2.0 mmol/L Calcium Level 11.1 H 8.7-10.4 mg/dL Total Bilirubin 0.9 0.2-1.0 mg/dL Aspartate Amino Transferase (AST) < 8 L 13-40 U/L Alanine Aminotransferase (ALT) < 9 7-40 U/L Alkaline Phosphatase 65 46-116 U/L Troponin I High Sensitivity 21 </=54 ng/L B-Type Natriuretic Peptide 1251.30 0-100 pg/mL Total Protein 6.2 5.7-8.2 g/dL Albumin 3.2 3.2-4.8 g/dL Thyroid Stimulating Hormone (TSH) 6.06 H 0.55-4.78 uIU/mL Plasma/Serum Blood Alcohol 4.5 <10 mg/dL Microbiology Date/Time Source Procedure Growth Status 08/08/24 02:57 Nose MRSA Screen - Final Complete 08/05/24 21:08 Voided Urine Urine Culture - Final Escherichia coli - ESBL Complete Assessment Acute kidney injury superimposed Chronic Kidney Disease secondary Generalized weakness Sepsis Urinary tract infection, ESBL Metastatic prostate cancer Congestive heart failure, ejection fraction 20% Bradycardia CVA Hypercalcemia of malignancy Vancomycin toxicity Diabetes mellitus type 2 Anemia of chronic kidney disease Recommendations Closely monitor fluid and electrolytes Avoid nephrotoxic medications Sheffield catheter Strict I&Os DC vancomycin Invanz 1 g IV q.day Check urine electrolytes and urine protein excretion Check kidney ultrasound Check phosphorus 25 hydroxyvitamin D and PTH Cardiology consult Insulin sliding scale We will continue to follow Patient seen and examined by myself. I discussed my plan of care with Dr. Freeman and primary nurse at the bedside I would like to thank Dr. Freeman for the consult, will follow up Plan discussed with: Other (Nurse) DARIN LEROY MD Aug 10, 2024 10:47
[2024-08-10 10:53] LABS: Phosphorus 2.5 mg/dL (2.4-5.1)
--- NOTE | 2024-08-10 11:07 | DVH ---
RENAL ULTRASOUND CLINICAL HISTORY: sohail TECHNIQUE: Multiple ultrasound images of the kidneys and bladder were obtained. COMPARISON: CT abdomen and pelvis 08/05/2024 FINDINGS: The right kidney measures 9.8 cm in length. The left kidney measures 8.1 cm. There is a 6.2 x 5.8 cm complex cystic structure with nodular mural wall thickening in the midpole of the right kidney. Ther e are multiple small benign-appearing cysts in the left kidney, largest in the midpole measuring 2.1 cm there is no sonographic evidence of nephrolithiasis or hydronephrosis. Incidentally noted is a 9.5 x 6.2 cm complex cystic structure in the posterior right hepatic lobe. There is a Sheffield catheter in the bladder which is collapsed. IMPRESSION: 1. 6.2 x 5.8 cm complex cystic structure with nodular mural wall thickening in the midpole of the rig ht kidney. Further evaluation with multiphase CT or MRI abdomen with contrast is recommended. 2. There are small benign-appearing left renal cysts measuring up to 2.1 cm. 3. Incidentally noted is a 9.5 by 6.2 cm complex cystic structure in the posterior right hepatic lobe . This can also be further assessed on postcontrast CT / MRI. HS:Y
--- NOTE | 2024-08-10 13:02 | ECG ---
[facility] Test Date: 2024-08-10 Test Time: 01:23:54 Pat Name: RENATA PEREA Department: ER Room: [address] [place] [address] A Gender: M [employer]: HERVE : 1950 Requested By: JO VASQUEZ Order Number: [id number] Reading MD: Florencio Coronado Measurements Intervals [place] Rate: 144 P: 0 AK: 0 QRS: -100 QRSD: 141 T: 65 QT: 353 QTc: 547 Interpretive Statements Atrial fibrillation, Rapid ventricular response Ventricular premature complex Right bundle branch block Inferior infarct, old Anterolateral infarct, age indeterminate Electronically Signed On 08-11-2024 17:11:54 PST by Florencio Coronado Please click the below link to view image of tracing.
[2024-08-10] MEDS: SODIUM CHLORIDE 0.9% 1,000 ML IV SCH (13:30)
[2024-08-10 16:42] LABS: Protein, Urine 73.7 mg/dL (1-14)
[2024-08-10 16:44] LABS: Creatinine, Urine 93.06 mg/dL (30.0-125.0); Urine Protein/Creatinine Ratio 0.79
[2024-08-10 16:45] LABS: Creatinine, Urine 92.41 mg/dL (30.0-125.0)
[2024-08-10] MEDS: MORPHINE SULFATE INJ 2 MG/ml SYRG IV PRN (18:45)
[2024-08-10] MEDS: ONDANSETRON HCL 4 MG/2 ML VIAL IV PRN (18:47)
[2024-08-11] VITALS (48 sets, daily range): BP systolic 72–120; BP diastolic 36–97; PULSE 81–120; RESP 21–43; TEMP 98.3; O2SAT 80–100
[2024-08-11 05:30] LABS: Eosinophils # (auto) 0.3 10 ^3/uL (0-0.8); Eosinophils % (auto) 1.8 % (0.0-7.0); Monocytes # (auto) 0.5 10 ^3/uL (0-1.3)
[2024-08-11 05:32] LABS: Basophils # (auto) 0.1 10 ^3/uL (0-0.2); Hemoglobin 10.2 g/dL (13.5-17.5); Lymphocytes # (auto) 0.6 10 ^3/uL (0.4-5.4); Lymphocytes % (auto) 3.5 % (10.0-50.0); Mean Corpuscular Hemoglobin 25.3 pg (28.0-32.0); Mean Corpuscular Volume 79.1 fL (80.0-100.0); Monocytes % (auto) 3.5 % (0.0-12.0); Neutrophils # (auto) 14.1 10 ^3/uL (1.6-8.6); Neutrophils % (auto) 90.2 % (37.0-80.0); Platelet Count (auto) 255 10^3/uL (140-450); Red Blood Cells 4.05 10^6/uL (4.5-5.90); Red Cell Distribution Width 19.1 % (11.8-14.3); White Blood Cell 15.7 10^3/uL (4.4-10.8)
[2024-08-11 05:47] LABS: Alkaline Phosphatase 90 U/L (46-116); Anion Gap 8 (5-15); Calcium 9.1 mg/dL (8.7-10.4); Carbon Dioxide 27 mmol/L (20-31)
[2024-08-11 05:48] LABS: Aspartate Aminotransferase 16 U/L (13-40); Bilirubin, Total 0.5 mg/dL (0.2-1.0); Blood Urea Nitrogen 25 mg/dL (9-23); Chloride 111 mmol/L (98-107); Glucose 146 mg/dL (74-106); Potassium 3.4 mmol/L (3.5-5.1); Sodium 146 mmol/L (136-145)
[2024-08-11 05:49] LABS: Alanine Aminotransferase < 9 U/L (7-40); Albumin 2.6 g/dL (3.2-4.8); Total Protein 5.2 g/dL (5.7-8.2)
--- NOTE | 2024-08-11 11:37 | DVHPN2 ---
Reviewed: Care Plan, H&P, Labs, Medications, Previous Orders, Radiology Changes from previous H/P or p: No Changes Eyes: No Pain, No Vision change, No Conjunctivae inflammation, No Eyelid inflammation, No Other, No Redness ENT: No Ear pain, No Ear discharge, No Nose pain, No Nose discharge, No Nose congestion, No Mouth pain, No Mouth swelling, No Throat pain, No Throat swelling, No Other Cardiovascular: No Chest Pain, No Palpitations, No Orthopnea, No Paroxysmal Noc. Dyspnea, No Edema, No Lt Headedness, No Other Respiratory: No Cough, No Dry; Shortness of breath; No SOB with excertion, No Wheezing, No Hemoptysis, No Pleuritic Pain, No Sputum, No Other Gastrointestinal: No Nausea, No Vomiting, No Abdominal Pain, No Diarrhea, No Constipation, No Melena, No Hematochezia, No Other Genitourinary: No Dysuria, No Frequency, No Incontinence, No Hematuria, No Retention, No Other Musculoskeletal: No other, No neck pain, No shoulder pain, No arm pain, No back pain, No hand pain, No leg pain, No foot pain Skin: No Rash, No Lesions, No Jaundice, No Bruising, No Other Objective Vitals Vital Signs Date Time Temp Pulse Resp B/P (MAP) Pulse Ox O2 Delivery O2 Flow Rate FiO2 08/11/24 08:28 83/59 08/11/24 08:00 120 08/11/24 07:00 30 98 08/11/24 02:45 98.8 98.8 08/11/24 02:45 Nasal Cannula* 4 36 Intake/Output Intake and Output 08/11/24 07:00 Intake Total 1988.526 ml Output Total 200 ml Balance 1789.526 ml IV Total 1988.526 ml Output Urine Total 200 ml Medications Current Medications Medications Dose Ordered Sig/Francisco Route Start Time Stop Time Status Last Admin Dose Admin Levothyroxine Sodium 175 mcg QAM@0600 PO 08/06/24 06:00 08/10/24 06:55 175 MCG Furosemide 40 mg DAILY IV 08/06/24 10:00 08/10/24 11:07 40 MG Atorvastatin Calcium 20 mg HS PO 08/06/24 22:00 08/09/24 21:45 20 MG Carvedilol 3.125 mg Q12HR PO 08/06/24 10:00 08/10/24 11:08 3.125 MG Diagnostic Test (Pha) 1 strip ACHS 08/06/24 07:00 08/11/24 06:37 1 STRIP Insulin Human Regular ACHS SC 08/06/24 07:00 08/10/24 06:48 2 UNITS Dextrose 50 ml UD PRN IV 08/06/24 01:15 Sodium Chloride 10 ml Q8HR IV 08/06/24 06:00 08/11/24 06:03 10 ML Acetaminophen/ Hydrocodone Bitart 1 tab Q4HP PRN PO 08/06/24 01:15 Hold Ondansetron HCl 4 mg Q4HP PRN IV 08/06/24 01:15 08/10/24 18:47 4 MG Docusate Sodium 100 mg BIDPRN PRN PO 08/06/24 01:15 Acetaminophen 650 mg Q6HP PRN PO 08/06/24 01:15 Hold 08/08/24 10:30 650 MG Nitroglycerin 0.4 mg Q5MINP PRN SL 08/06/24 05:00 Morphine Sulfate 2 mg Q30M PRN IV 08/06/24 05:00 Apixaban 2.5 mg BID PO 08/06/24 22:00 08/10/24 11:08 2.5 MG Lisinopril 5 mg DAILY PO 08/07/24 10:00 08/10/24 11:07 5 MG Spironolactone 12.5 mg DAILY PO 08/07/24 10:00 08/10/24 11:08 12.5 MG Enoxaparin Sodium 30 mg DAILY SC 08/08/24 10:00 UNV Enteral Nutritional Formula 240 ml TIDWM PO 08/08/24 12:00 08/09/24 18:00 240 ML Ertapenem 1 gm/ Sodium Chloride 50 ml @ 100 mls/hr DAILY IV 08/09/24 10:00 08/11/24 09:44 100 MLS/HR Norepinephrine Bitartrate 250 ml @ 1.875 mls/ hr Q24H IV 08/08/24 18:30 Hold 08/10/24 00:50 24.375 MLS/HR Acetaminophen 650 mg Q6HP PRN [place] 08/10/24 09:00 08/10/24 09:44 650 MG Norepinephrine Bitartrate 250 ml @ 3.75 mls/hr Q24H IV 08/10/24 10:30 08/11/24 08:28 30 MLS/HR Sodium Chloride 1,000 ml @ 75 mls/hr [id number] IV 08/10/24 13:15 08/11/24 03:00 75 MLS/HR Morphine Sulfate 2 mg Q6HPRN PRN IV 08/10/24 18:30 08/10/24 18:45 2 MG Laboratory Results Laboratory Tests 08/11/24 05:05 Chemistry Test 08/11/24 05:05 Albumin 2.6 g/dL (3.2-4.8) L Calcium Level 9.1 mg/dL (8.7-10.4) Total Protein 5.2 g/dL (5.7-8.2) L LFT Test 08/11/24 05:05 Alanine Aminotransferase (ALT) < 9 U/L (7-40) Alkaline Phosphatase 90 U/L (46-116) Aspartate Amino Transferase (AST) 16 U/L (13-40) Total Bilirubin 0.5 mg/dL (0.2-1.0) Urinalysis Test 08/05/24 21:08 08/10/24 16:00 Urine Color Yellow (Yellow) Urine Clarity Turbid (Clear) H Urine pH 6.0 (5.0-9.0) Urine Specific [place] 1.015 (1.001-1.035) Urine Protein 1+ (Negative) H Urine Ketones Negative (Negative) Urine Blood 2+ /uL (Negative) H Urine Nitrite 2+ (Negative) H Urine Bilirubin Negative (Negative) Urine Urobilinogen Normal mg/dL (Negative) Urine Leukocyte Esterase 3+ /uL (Negative) Urine RBC 57 /hpf (0 - 3) Urine WBC 32 /hpf (0 - 3) Urine Squamous Epithelial Cells Few /hpf (<5) Urine Amorphous Crystals Few /hpf (None Seen) Urine Bacteria Few /hpf (None Seen) H Urine Mucus Few (None Seen) Urine Glucose Normal mg/dL (Normal) Urine Creatinine 93.06 mg/dL (30.0-125.0) Urine Protein/Creatinine Ratio 0.79 Urine Sodium 46 mmol/L (40-220) Urine Total Protein 73.7 mg/dL (1-14) H Microbiology Microbiology Date/Time Source Procedure Growth Status 08/08/24 02:57 Nose MRSA Screen - Final Complete 08/05/24 21:08 Voided Urine Urine Culture - Final Escherichia coli - ESBL Complete 08/05/24 19:15 Blood Blood Culture - Final NO GROWTH AFTER 5 DAYS OF INCUBATION. 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% Paroxysmal atrial fibrillation, on low-dose Eliquis Severe PAD Presence of AICD: Interrogated by barrel straightener, shows nonsustained ventricular tachycardia COCO on CKD improving Prostate cancer with Mets Acute Metabolic encephalopathy Hypothyroidism Hyperlipidemia Hypertension Hypotension: Levophed drip Condition serious Prognosis very poor Time spent 65 minutes Patient is full code Patient is hospice revoked; was with [facility] Patient's son Keegan [phone] and his Iliana [phone] were at the bedside on 08-06-24 Spoke with certified caregiver Hazel on the phone [phone] and advised the seriousness of the patient's condition PICC line placed Plan discussed with: Patient My Orders Orders - MCKINLEY THURMAN MD Procedure Category Date Status Time Insert Midline ORDERS 08/10/24 Transmitted 14:52 Communication Order ORDERS 08/10/24 Transmitted 14:52 Date of Service: Aug 11, 2024 Billing Provider: MCKINLEY THURMAN MD Common Visit Codes: [id number] CARE 30-74 MIN MCKINLEY THURMAN MD Aug 11, 2024 11:36
--- NOTE | 2024-08-11 12:14 | DVHPN2 ---
Progress Note Date Seen: Aug 11, 2024 Medical Necessity Reason Pt with a Central, PICC or Fol: No Subjective Review of Systems: NEURO:Abnormal Other Systems: Patient seen and examined by myself today in follow-up patient remained altered noncommunicating Objective vital signs Vital Sign Date Time Temp Pulse Resp B/P (MAP) Pulse Ox O2 Delivery O2 Flow Rate FiO2 08/11/24 08:28 83/59 08/11/24 08:00 120 08/11/24 07:00 30 98 08/11/24 02:45 98.8 98.8 08/11/24 02:45 Nasal Cannula* 4 36 Total Intake and Output 08/10/24 08/10/24 08/11/24 15:00 23:00 07:00 Intake Total 330.370 ml 904.155 ml 755.001 ml Output Total 200 ml Balance 330.370 ml 904.155 ml 555.001 ml medications Current Medications Medications Dose Ordered Sig/Francisco Route Start Time Stop Time Status Last Admin Dose Admin Levothyroxine Sodium 175 mcg QAM@0600 PO 08/06/24 06:00 08/10/24 06:55 175 MCG Furosemide 40 mg DAILY IV 08/06/24 10:00 08/10/24 11:07 40 MG Atorvastatin Calcium 20 mg HS PO 08/06/24 22:00 08/09/24 21:45 20 MG Carvedilol 3.125 mg Q12HR PO 08/06/24 10:00 08/10/24 11:08 3.125 MG Diagnostic Test (Pha) 1 strip ACHS 08/06/24 07:00 08/11/24 11:39 1 STRIP Insulin Human Regular ACHS SC 08/06/24 07:00 08/10/24 06:48 2 UNITS Dextrose 50 ml UD PRN IV 08/06/24 01:15 Sodium Chloride 10 ml Q8HR IV 08/06/24 06:00 08/11/24 06:03 10 ML Acetaminophen/ Hydrocodone Bitart 1 tab Q4HP PRN PO 08/06/24 01:15 Hold Ondansetron HCl 4 mg Q4HP PRN IV 08/06/24 01:15 08/10/24 18:47 4 MG Docusate Sodium 100 mg BIDPRN PRN PO 08/06/24 01:15 Acetaminophen 650 mg Q6HP PRN PO 08/06/24 01:15 Hold 08/08/24 10:30 650 MG Nitroglycerin 0.4 mg Q5MINP PRN SL 08/06/24 05:00 Morphine Sulfate 2 mg Q30M PRN IV 08/06/24 05:00 Apixaban 2.5 mg BID PO 08/06/24 22:00 08/10/24 11:08 2.5 MG Lisinopril 5 mg DAILY PO 08/07/24 10:00 08/10/24 11:07 5 MG Spironolactone 12.5 mg DAILY PO 08/07/24 10:00 08/10/24 11:08 12.5 MG Enoxaparin Sodium 30 mg DAILY SC 08/08/24 10:00 UNV Enteral Nutritional Formula 240 ml TIDWM PO 08/08/24 12:00 08/09/24 18:00 240 ML Ertapenem 1 gm/ Sodium Chloride 50 ml @ 100 mls/hr DAILY IV 08/09/24 10:00 08/11/24 09:44 100 MLS/HR Norepinephrine Bitartrate 250 ml @ 1.875 mls/ hr Q24H IV 08/08/24 18:30 Hold 08/10/24 00:50 24.375 MLS/HR Acetaminophen 650 mg Q6HP PRN [place] 08/10/24 09:00 08/10/24 09:44 650 MG Norepinephrine Bitartrate 250 ml @ 3.75 mls/hr Q24H IV 08/10/24 10:30 08/11/24 08:28 30 MLS/HR Sodium Chloride 1,000 ml @ 75 mls/hr [id number] IV 08/10/24 13:15 08/11/24 03:00 75 MLS/HR Morphine Sulfate 2 mg Q6HPRN PRN IV 08/10/24 18:30 08/10/24 18:45 2 MG Potassium Chloride 100 ml @ 50 mls/hr Q2H IV 08/11/24 11:45 08/11/24 15:44 Examination: LUNGS:Normal, CVS:Normal, MSK:Abnormal laboratory and microbiology Laboratory Tests 08/11/24 05:05 Test 08/11/24 05:05 Range/Units Serum Glucose 146 H 74-106 mg/dL Microbiology Date/Time Source Procedure Growth Status 08/08/24 02:57 Nose MRSA Screen - Final Complete 08/05/24 21:08 Voided Urine Urine Culture - Final Escherichia coli - ESBL Complete 08/05/24 19:15 Blood Blood Culture - Final NO GROWTH AFTER 5 DAYS OF INCUBATION. Complete Problem List/Assessment/Plan Problem List/Assessment/Plan Acute kidney injury superimposed Chronic Kidney Disease secondary Generalized weakness Sepsis Urinary tract infection, ESBL Metastatic prostate cancer Congestive heart failure, ejection fraction 20% Right kidney mass, 6.2 cm Bradycardia CVA Hypercalcemia of malignancy Vancomycin toxicity Diabetes mellitus type 2 Anemia of chronic kidney disease Hyponatremia due to insensible H2O loss Hypokalemia Vitamin-D intoxication Recommendations Closely monitor fluid and electrolytes Avoid nephrotoxic medications [place] catheter Strict I&Os DC vancomycin Invanz 1 g IV q.day IVF half NS at 75 cc/hour KCL replacement kidney ultrasound reported 6 cm mass right kidney Cardiology consult Urology consult Insulin sliding scale We will continue to follow Plan discussed with: Other (Nurse) My Orders My Orders Orders - DARIN LEROY MD Procedure Category Date Status Time Sodium Chloride 0.9% PHA 08/10/24 In Process 13:15 Dietary Evaluation Review Comments: Encourage a 2 gNa CCHO-60 diet with gluccern BID supplementation after off NPO Expected Outcomes/Goals: maintain MARIAA STANLEY HOSAMELDIN H MD Aug 11, 2024 12:14
[2024-08-11] MEDS: POTASSIUM CHL 20MEQ/100ML 100 ML IV SCH (12:20)
[2024-08-11] MEDS: SOD CHL 0.45% 1,000 ML IV SCH (12:45)
--- NOTE | 2024-08-11 13:34 | ECG ---
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
[2024-08-11] MEDS: DEXTROSE (50%) 50ML SYRG IV PRN (16:20)
[2024-08-11] MEDS: D5W/SOD CHL 0.45% 1,000 ML IV SCH (22:35)
[2024-08-12] VITALS (72 sets, daily range): BP systolic 60–136; BP diastolic 19–98; PULSE 96–145; RESP 14–47; TEMP 98.1–100.8; O2SAT 88–100
[2024-08-12] MEDS: MORPHINE SULFATE INJ 2 MG/ml SYRG IV PRN (01:23)
[2024-08-12 05:52] LABS: Basophils # (auto) 0.1 10 ^3/uL (0-0.2); Basophils % (auto) 0.7 % (0.0-2.0); Eosinophils # (auto) 0.1 10 ^3/uL (0-0.8); Eosinophils % (auto) 0.8 % (0.0-7.0); Hematocrit 42.7 % (41.0-53.0); Hemoglobin 12.9 g/dL (13.5-17.5); Mean Corpuscular Hemoglobin 24.9 pg (28.0-32.0); Mean Corpuscular Hgb Conc. 30.2 g/dL (32.0-36.0); Mean Corpuscular Volume 82.4 fL (80.0-100.0); Monocytes # (auto) 0.9 10 ^3/uL (0-1.3); Monocytes % (auto) 5.1 % (0.0-12.0); Neutrophils # (auto) 14.9 10 ^3/uL (1.6-8.6); Neutrophils % (auto) 87.4 % (37.0-80.0); Nucleated Red Blood Cells % 0.1 %; Platelet Count (auto) 275 10^3/uL (140-450); Red Blood Cells 5.19 10^6/uL (4.5-5.90); Red Cell Distribution Width 20.1 % (11.8-14.3)
[2024-08-12 06:02] LABS: Alkaline Phosphatase 84 U/L (46-116); Anion Gap 8 (5-15); Aspartate Aminotransferase 18 U/L (13-40); Blood Urea Nitrogen 20 mg/dL (9-23); Calcium 8.8 mg/dL (8.7-10.4); Sodium 139 mmol/L (136-145)
[2024-08-12 06:03] LABS: Bilirubin, Total 0.5 mg/dL (0.2-1.0)
[2024-08-12 06:05] LABS: Alanine Aminotransferase < 9 U/L (7-40); Albumin 2.6 g/dL (3.2-4.8); Carbon Dioxide 20 mmol/L (20-31); Chloride 111 mmol/L (98-107); Glucose 178 mg/dL (74-106); Total Protein 5.6 g/dL (5.7-8.2)
--- NOTE | 2024-08-12 10:45 | DVHPN2 ---
Reviewed: Care Plan, H&P, Labs, Medications, Previous Orders, Radiology Changes from previous H/P or p: No Changes Eyes: No Pain, No Vision change, No Conjunctivae inflammation, No Eyelid inflammation, No Other, No Redness ENT: No Ear pain, No Ear discharge, No Nose pain, No Nose discharge, No Nose congestion, No Mouth pain, No Mouth swelling, No Throat pain, No Throat swelling, No Other Cardiovascular: No Chest Pain, No Palpitations, No Orthopnea, No Paroxysmal Noc. Dyspnea, No Edema, No Lt Headedness, No Other Respiratory: No Cough, No Dry; Shortness of breath; No SOB with excertion, No Wheezing, No Hemoptysis, No Pleuritic Pain, No Sputum, No Other Gastrointestinal: No Nausea, No Vomiting, No Abdominal Pain, No Diarrhea, No Constipation, No Melena, No Hematochezia, No Other Genitourinary: No Dysuria, No Frequency, No Incontinence, No Hematuria, No Retention, No Other Musculoskeletal: No other, No neck pain, No shoulder pain, No arm pain, No back pain, No hand pain, No leg pain, No foot pain Skin: No Rash, No Lesions, No Jaundice, No Bruising, No Other Objective Vitals Vital Signs Date Time Temp Pulse Resp B/P (MAP) Pulse Ox O2 Delivery O2 Flow Rate FiO2 08/12/24 08:30 113 19 103/64 (77) 93 08/12/24 08:00 98.1 98.1 08/11/24 19:30 Simple Mask* 6 50 Intake/Output Intake and Output 08/12/24 07:00 Intake Total 2198.75 ml Output Total 975 ml Balance 1223.75 ml IV Total 2198.75 ml Output Urine Total 975 ml Medications Current Medications Medications Dose Ordered Sig/Francisco Route Start Time Stop Time Status Last Admin Dose Admin Levothyroxine Sodium 175 mcg QAM@0600 PO 08/06/24 06:00 08/10/24 06:55 175 MCG Furosemide 40 mg DAILY IV 08/06/24 10:00 08/11/24 12:09 40 MG Atorvastatin Calcium 20 mg HS PO 08/06/24 22:00 08/09/24 21:45 20 MG Carvedilol 3.125 mg Q12HR PO 08/06/24 10:00 08/10/24 11:08 3.125 MG Diagnostic Test (Pha) 1 strip ACHS 08/06/24 07:00 08/12/24 06:22 1 STRIP Insulin Human Regular ACHS SC 08/06/24 07:00 08/12/24 06:26 3 UNITS Dextrose 50 ml UD PRN IV 08/06/24 01:15 08/11/24 21:54 50 ML Sodium Chloride 10 ml Q8HR IV 08/06/24 06:00 08/12/24 05:48 10 ML Acetaminophen/ Hydrocodone Bitart 1 tab Q4HP PRN PO 08/06/24 01:15 Hold Ondansetron HCl 4 mg Q4HP PRN IV 08/06/24 01:15 08/10/24 18:47 4 MG Docusate Sodium 100 mg BIDPRN PRN PO 08/06/24 01:15 Acetaminophen 650 mg Q6HP PRN PO 08/06/24 01:15 Hold 08/08/24 10:30 650 MG Nitroglycerin 0.4 mg Q5MINP PRN SL 08/06/24 05:00 Morphine Sulfate 2 mg Q30M PRN IV 08/06/24 05:00 08/12/24 01:23 2 MG Apixaban 2.5 mg BID PO 08/06/24 22:00 08/10/24 11:08 2.5 MG Lisinopril 5 mg DAILY PO 08/07/24 10:00 08/10/24 11:07 5 MG Spironolactone 12.5 mg DAILY PO 08/07/24 10:00 08/10/24 11:08 12.5 MG Enoxaparin Sodium 30 mg DAILY SC 08/08/24 10:00 UNV Enteral Nutritional Formula 240 ml TIDWM PO 08/08/24 12:00 08/09/24 18:00 240 ML Ertapenem 1 gm/ Sodium Chloride 50 ml @ 100 mls/hr DAILY IV 08/09/24 10:00 08/12/24 09:59 100 MLS/HR Norepinephrine Bitartrate 250 ml @ 1.875 mls/ hr Q24H IV 08/08/24 18:30 Hold 08/10/24 00:50 24.375 MLS/HR Acetaminophen 650 mg Q6HP PRN [place] 08/10/24 09:00 08/12/24 06:34 650 MG Norepinephrine Bitartrate 250 ml @ 3.75 mls/hr Q24H IV 08/10/24 10:30 08/11/24 17:28 26.25 MLS/HR Morphine Sulfate 2 mg Q6HPRN PRN IV 08/10/24 18:30 08/11/24 13:37 2 MG Sodium Chloride 1,000 ml @ 50 mls/hr Q20H IV 08/12/24 10:15 Laboratory Results Laboratory Tests 08/12/24 04:51 Chemistry Test 08/12/24 04:51 Albumin 2.6 g/dL (3.2-4.8) L Calcium Level 8.8 mg/dL (8.7-10.4) Total Protein 5.6 g/dL (5.7-8.2) L LFT Test 08/12/24 04:51 Alanine Aminotransferase (ALT) < 9 U/L (7-40) Alkaline Phosphatase 84 U/L (46-116) Aspartate Amino Transferase (AST) 18 U/L (13-40) Total Bilirubin 0.5 mg/dL (0.2-1.0) Urinalysis Test 08/05/24 21:08 08/10/24 16:00 Urine Color Yellow (Yellow) Urine Clarity Turbid (Clear) H Urine pH 6.0 (5.0-9.0) Urine Specific [place] 1.015 (1.001-1.035) Urine Protein 1+ (Negative) H Urine Ketones Negative (Negative) Urine Blood 2+ /uL (Negative) H Urine Nitrite 2+ (Negative) H Urine Bilirubin Negative (Negative) Urine Urobilinogen Normal mg/dL (Negative) Urine Leukocyte Esterase 3+ /uL (Negative) Urine RBC 57 /hpf (0 - 3) Urine WBC 32 /hpf (0 - 3) Urine Squamous Epithelial Cells Few /hpf (<5) Urine Amorphous Crystals Few /hpf (None Seen) Urine Bacteria Few /hpf (None Seen) H Urine Mucus Few (None Seen) Urine Glucose Normal mg/dL (Normal) Urine Creatinine 93.06 mg/dL (30.0-125.0) Urine Protein/Creatinine Ratio 0.79 Urine Sodium 46 mmol/L (40-220) Urine Total Protein 73.7 mg/dL (1-14) H Microbiology Microbiology Date/Time Source Procedure Growth Status 08/08/24 02:57 Nose MRSA Screen - Final Complete 08/05/24 21:08 Voided Urine Urine Culture - Final Escherichia coli - ESBL Complete 08/05/24 19:15 Blood Blood Culture - Final NO GROWTH AFTER 5 DAYS OF INCUBATION. Complete Labs and/or images reviewed: Labs reviewed by me, Image(s) reviewed by me Assessment/Plan Assessment/Plan Septic shock secondary to urinary tract infection: Blood cultures negative, urine cultures growing ESBL E coli, continue Invanz and vancomycin Acute on chronic decompensated systolic congestive heart failure NYHA class IV : Ejection fraction 15 % , cardiology consult appreciated advised conservative management Acute hypoxic respiratory failure: Oxygen by simple mask End-stage cardiomyopathy EF 15% Paroxysmal atrial fibrillation, on low-dose Eliquis Severe PAD Presence of AICD: Interrogated by acid splicer, shows nonsustained ventricular tachycardia COCO on CKD improving Prostate cancer with Mets Acute Metabolic encephalopathy Hypothyroidism Hyperlipidemia Hypertension Hypotension: Levophed drip Condition serious Prognosis very poor Time spent 65 minutes Patient is full code Patient is hospice revoked; was with [facility] Patient's son Keegan [phone] and his Iliana [phone] were at the bedside on 08-06-24 Spoke with complex care nurse practitioner Hazel on the phone [phone] and advised the seriousness of the patient's condition PICC line placed Plan discussed with: Patient Date of Service: Aug 12, 2024 Billing Provider: MCKINLEY THURMAN MD Common Visit Codes: [id number] CARE 30-74 MIN MCKINLEY THURMAN MD Aug 12, 2024 10:45
[2024-08-12] MEDS: SOD CHL 0.45% 1,000 ML IV SCH (11:00)
--- NOTE | 2024-08-12 11:33 | DVHPN2 ---
Progress Note Date Seen: Aug 12, 2024 Medical Necessity Reason Pt with a Central, PICC or Fol: No Subjective Review of Systems: NEURO:Abnormal Other Systems: Patient seen and examined by myself today in follow-up, patient remained altered noncommunicating Objective vital signs Vital Sign Date Time Temp Pulse Resp B/P (MAP) Pulse Ox O2 Delivery O2 Flow Rate FiO2 08/12/24 11:23 102 08/12/24 11:01 127/67 08/12/24 10:46 16 08/12/24 08:30 93 08/12/24 08:00 98.1 98.1 08/11/24 19:30 Simple Mask* 6 50 Total Intake and Output 08/11/24 08/11/24 08/12/24 15:00 23:00 07:00 Intake Total 1032.5 ml 596.25 ml 570.00 ml Output Total 750 ml 225 ml Balance 1032.5 ml -153.75 ml 345.00 ml medications Current Medications Medications Dose Ordered Sig/Francisco Route Start Time Stop Time Status Last Admin Dose Admin Levothyroxine Sodium 175 mcg QAM@0600 PO 08/06/24 06:00 08/10/24 06:55 175 MCG Furosemide 40 mg DAILY IV 08/06/24 10:00 08/12/24 10:46 40 MG Atorvastatin Calcium 20 mg HS PO 08/06/24 22:00 08/09/24 21:45 20 MG Diagnostic Test (Pha) 1 strip ACHS 08/06/24 07:00 08/12/24 06:22 1 STRIP Insulin Human Regular ACHS SC 08/06/24 07:00 08/12/24 06:26 3 UNITS Dextrose 50 ml UD PRN IV 08/06/24 01:15 08/11/24 21:54 50 ML Sodium Chloride 10 ml Q8HR IV 08/06/24 06:00 08/12/24 05:48 10 ML Acetaminophen/ Hydrocodone Bitart 1 tab Q4HP PRN PO 08/06/24 01:15 Hold Ondansetron HCl 4 mg Q4HP PRN IV 08/06/24 01:15 08/10/24 18:47 4 MG Docusate Sodium 100 mg BIDPRN PRN PO 08/06/24 01:15 Acetaminophen 650 mg Q6HP PRN PO 08/06/24 01:15 Hold 08/08/24 10:30 650 MG Nitroglycerin 0.4 mg Q5MINP PRN SL 08/06/24 05:00 Morphine Sulfate 2 mg Q30M PRN IV 08/06/24 05:00 08/12/24 01:23 2 MG Enoxaparin Sodium 30 mg DAILY SC 08/08/24 10:00 UNV Enteral Nutritional Formula 240 ml TIDWM PO 08/08/24 12:00 08/09/24 18:00 240 ML Ertapenem 1 gm/ Sodium Chloride 50 ml @ 100 mls/hr DAILY IV 08/09/24 10:00 08/12/24 09:59 100 MLS/HR Norepinephrine Bitartrate 250 ml @ 1.875 mls/ hr Q24H IV 08/08/24 18:30 Hold 08/10/24 00:50 24.375 MLS/HR Acetaminophen 650 mg Q6HP PRN [place] 08/10/24 09:00 08/12/24 06:34 650 MG Norepinephrine Bitartrate 250 ml @ 3.75 mls/hr Q24H IV 08/10/24 10:30 08/12/24 11:01 33.75 MLS/HR Morphine Sulfate 2 mg Q6HPRN PRN IV 08/10/24 18:30 08/12/24 10:46 2 MG Sodium Chloride 1,000 ml @ 50 mls/hr Q20H IV 08/12/24 10:15 08/12/24 11:00 50 MLS/HR Enoxaparin Sodium 30 mg DAILY SC 08/13/24 10:00 UNV Examination: LUNGS:Normal, CVS:Normal, MSK:Normal laboratory and microbiology Laboratory Tests 08/12/24 04:51 Test 08/12/24 04:51 Range/Units Serum Glucose 178 H 74-106 mg/dL Microbiology Date/Time Source Procedure Growth Status 08/08/24 02:57 Nose MRSA Screen - Final Complete 08/05/24 21:08 Voided Urine Urine Culture - Final Escherichia coli - ESBL Complete 08/05/24 19:15 Blood Blood Culture - Final NO GROWTH AFTER 5 DAYS OF INCUBATION. Complete Problem List/Assessment/Plan Problem List/Assessment/Plan Acute kidney injury superimposed Chronic Kidney Disease secondary Generalized weakness Sepsis Urinary tract infection, ESBL Metastatic prostate cancer Congestive heart failure, ejection fraction 20% Right kidney mass, 6.2 cm Bradycardia CVA Hypercalcemia of malignancy Vancomycin toxicity Diabetes mellitus type 2 Anemia of chronic kidney disease Hyponatremia due to insensible H2O loss Hypokalemia Vitamin-D intoxication Recommendations Kidney function slightly worsened today Increased urine output [place] catheter Strict I&Os DC vancomycin Invanz 1 g IV q.day IVF half NS at 50 cc/hour Furosemide 40 mg IV q.day KCL replacement kidney ultrasound reported 6 cm mass right kidney Cardiology consult Urology consult Insulin sliding scale We will continue to follow Plan discussed with: Other (Nurse) My Orders My Orders Orders - DARIN LEROY MD Procedure Category Date Status Time Sod Chl 0.45% (Sodium PHA 08/12/24 In Process Chloride 0.45% Via 10:15 Dietary Evaluation Review Comments: Encourage a 2 gNa CCHO-60 diet with gluccern BID supplementation after off NPO Expected Outcomes/Goals: maintain MARIAA STANLEY HOSAMELDIN H MD Aug 12, 2024 11:33
--- NOTE | 2024-08-12 12:40 | DVH ---
EXAM: XR Chest, 1 View CLINICAL INDICATION: SOB TECHNIQUE: Frontal view of the chest. COMPARISON: XY CHEST PORTABLE on DOS: 10/19/23, XY CHEST PORTABLE on DOS: 10/18/23, XY CHEST PORTABLE o n DOS: 10/17/23, XY CHEST PORTABLE on DOS: 10/15/23, XY CHEST PORTABLE on DOS: 10/14/23 FINDINGS: LUNGS AND PLEURAL SPACES: Left pleural effusion. HEART: Cardiomegaly with mild congestion. MEDIASTINUM: Unremarkable. Normal mediastinal contour. BONES/JOINTS: Unremarkable. No acute fracture. TUBES, LINES AND DEVICES: Left-sided cardiac pacemaker. OTHER FINDINGS: . IMPRESSION: Cardiomegaly with mild congestion.
[2024-08-12 13:36] LABS: Base Excess -1.8 mmol/L (-2.0-3.0)
[2024-08-12] MEDS ORDERED: TPN PER PHARMACY 0 ML IV SCH (15:00)
--- NOTE | 2024-08-12 15:02 | DVHPN2 ---
Consult Progress Note Subjective Other Systems: No cardiac complaints at time of assessment Objective vital signs Vital Sign Date Time Temp Pulse Resp B/P (MAP) Pulse Ox O2 Delivery O2 Flow Rate FiO2 08/12/24 12:53 117/65 08/12/24 11:23 102 08/12/24 11:16 36 08/12/24 08:30 93 08/12/24 08:00 98.1 98.1 08/12/24 08:00 Simple Mask* 6 50 Total Intake and Output 08/11/24 08/11/24 08/12/24 15:00 23:00 07:00 Intake Total 1032.5 ml 596.25 ml 570.00 ml Output Total 750 ml 225 ml Balance 1032.5 ml -153.75 ml 345.00 ml medications Current Medications Medications Dose Ordered Sig/Francisco Route Start Time Stop Time Status Last Admin Dose Admin Levothyroxine Sodium 175 mcg QAM@0600 PO 08/06/24 06:00 08/10/24 06:55 175 MCG Furosemide 40 mg DAILY IV 08/06/24 10:00 08/12/24 10:46 40 MG Atorvastatin Calcium 20 mg HS PO 08/06/24 22:00 08/09/24 21:45 20 MG Diagnostic Test (Pha) 1 strip ACHS 08/06/24 07:00 08/12/24 11:30 1 STRIP Insulin Human Regular ACHS SC 08/06/24 07:00 08/12/24 06:26 3 UNITS Dextrose 50 ml UD PRN IV 08/06/24 01:15 08/11/24 21:54 50 ML Sodium Chloride 10 ml Q8HR IV 08/06/24 06:00 08/12/24 05:48 10 ML Acetaminophen/ Hydrocodone Bitart 1 tab Q4HP PRN PO 08/06/24 01:15 Hold Ondansetron HCl 4 mg Q4HP PRN IV 08/06/24 01:15 08/10/24 18:47 4 MG Docusate Sodium 100 mg BIDPRN PRN PO 08/06/24 01:15 Acetaminophen 650 mg Q6HP PRN PO 08/06/24 01:15 Hold 08/08/24 10:30 650 MG Nitroglycerin 0.4 mg Q5MINP PRN SL 08/06/24 05:00 Morphine Sulfate 2 mg Q30M PRN IV 08/06/24 05:00 08/12/24 01:23 2 MG Enoxaparin Sodium 30 mg DAILY SC 08/08/24 10:00 UNV Enteral Nutritional Formula 240 ml TIDWM PO 08/08/24 12:00 08/09/24 18:00 240 ML Ertapenem 1 gm/ Sodium Chloride 50 ml @ 100 mls/hr DAILY IV 08/09/24 10:00 08/12/24 09:59 100 MLS/HR Acetaminophen 650 mg Q6HP PRN AL 08/10/24 09:00 08/12/24 06:34 650 MG Morphine Sulfate 2 mg Q6HPRN PRN IV 08/10/24 18:30 08/12/24 10:46 2 MG Sodium Chloride 1,000 ml @ 50 mls/hr Q20H IV 08/12/24 10:15 08/12/24 11:00 50 MLS/HR Enoxaparin Sodium 30 mg DAILY SC 08/13/24 10:00 Norepinephrine Bitartrate 32 mg/ Sodium Chloride 250 ml @ 0.938 mls/ hr Q24H IV 08/12/24 12:15 Pantoprazole Sodium 40 mg DAILY IV 08/13/24 10:00 Examination: GENERAL:Abnormal (Generalized weakness), LUNGS:Abnormal (Coarse throughout), CVS:Normal, NEURO:Abnormal (Confused) laboratory and microbiology Laboratory Tests 08/12/24 04:51 Test 08/12/24 04:51 Range/Units Serum Glucose 178 H 74-106 mg/dL Problem List/Assessment/Plan Problem List/Assessment/Plan Sepsis with UTI Acute on chronic decompensated HFrEF, NYHA Class IV End-stage cardiomyopathy Paroxysmal atrial fibrillation, on low-dose Eliquis Peripheral arterial disease, severe degree Presence of AICD History of hypertension COCO on CKD Unspecified metastatic disease with hospice care Metabolic encephalopathy Thyroid disease Plan/Recommendation (): Patient seen and examined at bedside with . A follow up was requested by primary RN regarding cardiology plan of care. Transthoracic echocardiogram from this admission reveals an EF <20%. Unable to initiate guideline directed medical therapy for CHF at this time given that the patient is on vasopressor therapy. [id number] VASc score: 4 points. The patient takes low- dose Eliquis therapy at home. Patient unable to swallow at this time, we will initiate therapeutic Lovenox in the meantime. Obtain chest x-ray. Change vasopressor to quad concentration. Continue with strict intake and output, daily weights, and maintain fluid restriction. Antibiotics per primary care team. Monitor notify for any ECG changes. Consider goals of care with family. Thank you for allowing us to care for this patient. Please call with any questions or concerns. Critical care time spent: 38 minutes This medical document was created using an electronic medical record system with voice recognition software and computerized dictation system. Although this document has been carefully reviewed, there might still be some phonetic and typographical errors. Occasional wrong-word or ``sound-alike substitutions may have occurred due to the inherent limitations of voice recognition software. These areas are purely typographical due to imperfections of the software programs and do not reflect any compromise in the patient's medical care. Please read the chart carefully and recognize, using context, where these substitutions have occurred. Plan discussed with: Patient, Other (Bedside RN) Dietary Evaluation Review Comments: Encourage a 2 gNa CCHO-60 diet with gluccern BID supplementation after off NPO Expected Outcomes/Goals: maintain BW, Date of Service: Aug 12, 2024 Billing Provider: PATY RODRIGUEZ MD Common Visit Codes: [id number] CARE 30-74 MIN LADAN TOWNSEND Aug 12, 2024 15:01
[2024-08-12] MEDS: NOREPINEPHRINE BITARTRATE 32 MG in SODIUM CHL 0.9% 218 ML IV SCH (15:05)
[2024-08-12] MEDS: PANTOPRAZOLE 40 MG/10 ML VIAL INJ IV ONE (16:34)
[2024-08-12] MEDS: AMINO ACID INFUSION IN D10W 1,000 ML IV SCH (17:07)
[2024-08-12] MEDS: ACCU-CHEK COMFORT CURVE STRIP VI SCH (17:59)
[2024-08-12] MEDS: InsuLIN REG 1unit/0.01ml Soln (100units/ml) SC SCH (17:59)
[2024-08-12] MEDS: AMIODARONE BOLUS KIT 100 ML IV ONE ×2 (21:09→21:10)
[2024-08-12] MEDS: AMIODARONE 360mg/200mL PREMIX 200 ML IV ONE ×2 (21:09→21:24)
[2024-08-12 21:12] LABS: Anion Gap 8 (5-15); Carbon Dioxide 24 mmol/L (20-31); Potassium 3.9 mmol/L (3.5-5.1); Sodium 141 mmol/L (136-145)
[2024-08-12 21:13] LABS: Calcium 8.8 mg/dL (8.7-10.4)
[2024-08-12] MEDS ORDERED: AMIODARONE 360mg/200mL PREMIX 200 ML IV SCH (21:15)
[2024-08-12 21:18] LABS: BUN/Creatinine Ratio 14.6 (10.0-20.0); Magnesium 1.9 mg/dL (1.6-2.6)
[2024-08-12 21:39] LABS: Blood Urea Nitrogen 27 mg/dL (9-23); Chloride 109 mmol/L (98-107); Glucose 147 mg/dL (74-106)
--- NOTE | 2024-08-12 23:06 | DVHINCON2 ---
Date of service: Aug 12, 2024 Referring Physician Bandar Freeman MD Reason for Consultation Acute hypoxic respiratory failure History of Present Illness A 74-year-old man with past medical history of CHF, DM, thyroid disease, and hypertension who presented to ED on 08/06/24 for evaluation of altered level of consciousness. Patient's condition progressively get worse with generalized weakness, fatigue, confusion state, getting worse that prompted this visit. ED workup shows WBC 21.4, hemoglobin 10.9, hematocrit 34.5, platelets 191, lactic acid 2.1 trending down to 1.3, sodium 143, potassium 3.1, BUN 26, creatinine 1.52, GFR 48, glucose 120, calcium 11.1, alcohol 4.5, troponin 21, BNP 1251.30, PT 13.0, INR 1.25, APTT 34.9. Urinalysis positive for urinary tract infection. Patient was admitted for further care and pulmonary consultation is requested for evaluation and management of acute hypoxic respiratory failure. Review of Systems: 14-point review of systems negative unless otherwise noted above. Past Medical History: CHF, DM, HTN, Thyroid, UTIs Past Surgical History: Pacemaker Medications: Reviewed. Allergies: No known drug allergies. Family History: Leukemia. Social History: Nonsmoker. No alcohol or illicit drug use. Family History: Other blood disorders G8 MOTHER, , Cause: Leukemia, Onset:50s - 60 Allergies: Coded Allergies: NO KNOWN ALLERGIES (Unverified , 08/31/23) Home Meds Active Scripts Amiodarone HCl (Amiodarone HCl) 200 Mg Tab, 200 MG GT DAILY for 30 Days, #30 TAB 1 Refill Prov:FLORLAZARO Kofi DO 10/23/23 Metoprolol Succinate (Toprol Xl) 50 Mg Tab, 25 MG PO DAILY for 30 Days, #15 TAB 1 Refill Prov:BACILIO LFORMY Kofi DO 10/23/23 Furosemide (Furosemide) 40 Mg Tab, 40 MG PO DAILY for 30 Days, #30 TAB 1 Refill Prov:BACILIO FLORMY Kofi DO 10/23/23 Reported Medications Empagliflozin (Jardiance) 10 Mg Tab, 1 TAB PO DAILY for 30 Days, #30 08/08/24 Apixaban Base (ELIQUIS) 2.5 Mg Tab, 1 TAB PO BID for 30 Days, #60 08/08/24 Ergocalciferol (Vitamin D) 50,000 Unit Cap, 06964 UNIT PO QWEEKLY 09/02/23 Ferrous Sulfate (Ferosul) 325 Mg Tab, 1 TAB PO DAILY 08/31/23 Hydralazine HCl (Hydralazine HCl) 25 Mg Tab, 1 TAB PO BID 08/31/23 Atorvastatin Calcium (ATORVASTATIN CALCIUM) 20 Mg Tab, 1 TAB PO DAILY 08/31/23 Carvedilol (Carvedilol) 3.125 Mg Tab, 1 TAB PO BID 08/31/23 Allopurinol (Allopurinol) 300 Mg Tab, 1 TAB PO DAILY 08/31/23 Levothyroxine Sodium (Levothyroxine Sodium) 200 Mcg Tab, 1 TAB PO DAILY 08/31/23 Discontinued Reported Medications Apixaban Base (ELIQUIS) 5 Mg Tab, 1 TAB PO BID 08/31/23 Current Medications Current Medications Medications (Trade) Dose Ordered Sig/Francisco Route PRN Reason Start Time Stop Time Status Last Admin Sodium Chloride 1,000 ml @ 50 mls/hr Q20H IV 08/12/24 10:15 08/12/24 19:23 DC 08/12/24 11:00 Enoxaparin Sodium (Lovenox) 30 mg DAILY SC 08/13/24 10:00 Norepinephrine Bitartrate 32 mg/ Sodium Chloride 250 ml @ 0.938 mls/ hr Q24H IV 08/12/24 12:15 08/12/24 15:05 Pantoprazole Sodium (Protonix) 40 mg DAILY IV 08/13/24 10:00 Amino Acids 0 ml @ 0 mls/hr PER PHARMACY IV 08/12/24 15:00 Diagnostic Test (Pha) (Accu-Chek Comfort Curve T) 1 strip Q6HR 08/12/24 18:00 08/12/24 17:59 Insulin Human Regular (InsuLIN R) FOLLOW SLIDING SCALE Q6HR SC 08/12/24 18:00 Dextrose 50 ml UD IV 08/12/24 18:00 Amino Acids/ Electrolytes/ Dextrose 1,000 ml @ 41 mls/hr Q24H IV 08/12/24 15:15 08/13/24 21:59 08/12/24 17:07 Vital Signs Vital Signs Date Time Temp Pulse Resp B/P (MAP) Pulse Ox O2 Delivery O2 Flow Rate FiO2 08/12/24 22:15 125 26 124/98 (107) 88 08/12/24 22:00 Bi-Pap+ 60 60 08/12/24 19:30 99.1 99.1 08/12/24 16:24 6.0 Physical Exam Gen.: Patient lying in bed in no apparent distress. On BiPAP Head: Normocephalic, atraumatic. Eyes: EOMI/PERRLA. Ears: Normal hearing. Normal anatomy. Neck/trachea: Trachea midline, supple. Nose: Normal external anatomy. Mouth: Moist mucous membranes. Chest: Decreased air entry bilaterally. No wheezing or rhonchi. Cardiovascular: Positive S1, positive S2. Regular rate and rhythm. Abdomen: Positive bowel sounds in all 4 quadrants. Soft, non-tender, non- distended. : Deferred. Rectal: Deferred. Skin: Warm, dry. Intact. Extremities: 2+ radial pulses bilaterally. No lower extremity edema. Neuro: Awake, alert, oriented x3. No gross motor or sensory deficits. Cranial nerves II through XII intact. Gait not assessed. Labs/Diagnostic Data Labs Test 08/12/24 20:57 08/12/24 19:52 08/12/24 17:56 08/12/24 13:30 Range/Units Sodium Level 141 136-145 mmol/L Potassium Level 3.9 3.5-5.1 mmol/L Chloride Level 109 H 98-107 mmol/L Carbon Dioxide Level 24 20-31 mmol/L Anion Gap 8 5-15 Blood Urea Nitrogen 27 H 9-23 mg/dL Creatinine 1.85 H 0.700-1.30 mg/dL Glomerular Filtration Rate Calc 38 >90 mL/min BUN/Creatinine Ratio 14.6 10.0-20.0 Serum Glucose 147 H 74-106 mg/dL Calcium Level 8.8 8.7-10.4 mg/dL Magnesium Level 1.9 1.6-2.6 mg/dL Blood Gas Specimen Type Arterial Blood Gas Sample Site Right radial Blood Gas Patient Temperature 37.0 Arterial Blood Date Drawn Arterial Blood pH 7.397 7.350-7.450 Arterial Blood Partial Pressure CO2 37.4 35.0-48.0 mmHg Arterial Blood Partial Pressure O2 75.5 L 83.0-108.0 mmHg Arterial Blood HCO3 22.5 21.0-28.0 mmol/L Arterial Blood Oxygen Saturation 94.1 94.0-98.0 % Arterial Blood Base Excess -2.0 -2.0-3.0 mmol/L Arterial Blood Oxyhemoglobin 93.3 L 94.0-98.0 % Arterial Blood Carboxyhemoglobin 0.6 0.5-1.5 % Arterial Blood Methemoglobin 0.2 0.0-1.5 % Phu Test Modified Blood Gas Total Hemoglobin 12.40 L 13.5-17.5 g/dL Blood Gas Set Respiration Rate 12.0 Blood Gas Modality Mask - bipap Blood Gas Spontaneous Rate 33 FiO2 % 60.0 Blood Gas Spontaneous Tidal Volume 403 Blood Gas EPAP 5 Blood Gas IPAP 12 Specimen Drawn By Kera ward rt POC Glucose 95 70-106 mg/dl Blood Gas Liter Flow 6.00 Test 08/12/24 04:51 08/10/24 16:00 08/10/24 05:58 08/09/24 05:10 Range/Units White Blood Count 17.0 H 4.4-10.8 10^3/uL Red Blood Count 5.19 4.5-5.90 10^6/uL Hemoglobin 12.9 #L 13.5-17.5 g/dL Hematocrit 42.7 # 41.0-53.0 % Mean Corpuscular Volume 82.4 # 80.0-100.0 fL Mean Corpuscular Hemoglobin 24.9 L 28.0-32.0 pg Mean Corpuscular Hemoglobin Concent 30.2 L 32.0-36.0 g/dL Red Cell Distribution Width 20.1 H 11.8-14.3 % Platelet Count 275 140-450 10^3/uL Mean Platelet Volume 8.4 6.9-10.8 fL Neutrophils (%) (Auto) 87.4 H 37.0-80.0 % Lymphocytes (%) (Auto) 6.0 L 10.0-50.0 % Monocytes (%) (Auto) 5.1 0.0-12.0 % Eosinophils (%) (Auto) 0.8 0.0-7.0 % Basophils (%) (Auto) 0.7 0.0-2.0 % Neutrophils # (Auto) 14.9 H 1.6-8.6 10 ^3/uL Lymphocytes # (Auto) 1.0 0.4-5.4 10 ^3/uL Monocytes # (Auto) 0.9 0-1.3 10 ^3/uL Eosinophils # (Auto) 0.1 0-0.8 10 ^3/uL Basophils # (Auto) 0.1 0-0.2 10 ^3/uL Nucleated Red Blood Cells 0.1 % Total Bilirubin 0.5 0.2-1.0 mg/dL Aspartate Amino Transferase (AST) 18 13-40 U/L Alanine Aminotransferase (ALT) < 9 7-40 U/L Alkaline Phosphatase 84 46-116 U/L Total Protein 5.6 L 5.7-8.2 g/dL Albumin 2.6 L 3.2-4.8 g/dL Urine Creatinine 93.06 30.0-125.0 mg/dL Urine Protein/Creatinine Ratio 0.79 Urine Sodium 46 40-220 mmol/L Urine Total Protein 73.7 H 1-14 mg/dL Phosphorus Level 2.5 2.4-5.1 mg/dL Vitamin D 25-Hydroxy 209.8 H 30.0-100 ng/mL Parathyroid Hormone (Intact) 7.7 L 18.4-80.1 pg/mL Random Vancomycin Level 22.4 H 5-10 ug/mL Differential Total Cells Counted 100.0 100 Neutrophils % (Manual) 91 H 37.0-80.0 Band Neutrophils % (Manual) 0 Lymphocytes % (Manual) 4 L 10.0-50.0 Monocytes % (Manual) 5 0-12 Eosinophils % (Manual) 0 0-7 Basophils % (Manual) 0 0.0-2.0 Metamyelocytes % (manual) 0 Myelocytes % (Manual) 0 Promyelocytes % (Manual) 0 Blast Cells % (Manual) 0 Reactive Lymphocytes 0 Platelet Estimate Adequate Ovalocytes Few Test 08/09/24 02:03 08/07/24 21:55 08/05/24 21:46 08/05/24 21:08 Range/Units Vancomycin Level Trough 19.2 H 5-10 ug/mL Troponin I High Sensitivity 27 </=54 ng/L Lactic Acid Level 1.3 0.4-2.0 mmol/L Urine Color Yellow Yellow Urine Clarity Turbid H Clear Urine pH 6.0 5.0-9.0 Urine Specific [place] 1.015 1.001-1.035 Urine Protein 1+ H Negative Urine Ketones Negative Negative Urine Blood 2+ H Negative /uL Urine Nitrite 2+ H Negative Urine Bilirubin Negative Negative Urine Urobilinogen Normal Negative mg/dL Urine Leukocyte Esterase 3+ Negative /uL Urine RBC 57 0 - 3 /hpf Urine WBC 32 0 - 3 /hpf Urine Squamous Epithelial Cells Few <5 /hpf Urine Amorphous Crystals Few None Seen /hpf Urine Bacteria Few H None Seen /hpf Urine Mucus Few None Seen Urine Glucose Normal Normal mg/dL Test 08/05/24 19:15 Range/Units Prothrombin Time 13.0 H 9.3-11.8 sec Prothrombin Time INR 1.25 H 0.9-1.15 Activated Partial Thromboplast Time 34.9 H 24.5-34.5 SEC B-Type Natriuretic Peptide 1251.30 0-100 pg/mL Thyroid Stimulating Hormone (TSH) 6.06 H 0.55-4.78 uIU/mL Plasma/Serum Blood Alcohol 4.5 <10 mg/dL Microbiology Date/Time Source Procedure Growth Status 08/08/24 02:57 Nose MRSA Screen - Final Complete 08/05/24 21:08 Voided Urine Urine Culture - Final Escherichia coli - ESBL Complete 08/05/24 19:15 Blood Blood Culture - Final NO GROWTH AFTER 5 DAYS OF INCUBATION. Complete Assessment Impression: Acute hypoxic respiratory failure Shock Congestive heart failure Coronary artery disease S/p AICD Prostate cancer with mets Bradycardia Sepsis Acute metabolic encephalopathy Plan: On BiPAP /w IPAP 12, EPAP 5, FiO2 60% Titrate to keep O2 sats above 92%. Consult Cardiology On pressors for hemodynamic support Levophed 21.9 mcg/min Titrate to keep mean arterial pressure greater than 65 mmHg. ABG reviewed, compensated. Stop IV fluids Continue antibiotics Pain control Avoid oversedation Diurese as tolerated w/ Lasix Monitor renal function. Monitor electrolytes. Supplement as necessary. Monitor ins and outs. DVT prophylaxis. Poor prognosis. Monitor respiratory status closely Patient may require emergent intubation. Prognosis: Poor given patient's multiple co-morbidities. Condition: Critical Rest of plan per hospitalist and other consultants. A total of 35 minutes of critical care time was spent reviewing the patient record, examining the patient, making a diagnostic and therapeutic plan, discussing this plan with the medical personnel, following up on diagnostic studies and following the patient for clinical stability excluding any and all procedures. At least 50% of this time was spent in direct, [id number] conta ct. Thank you Dr. Freeman for allowing me to participate in this patient's care. Further recommendations will depend on the patient's clinical course. Please do not hesitate to contact me if you have any questions or concerns. This medical document was created using an electronic medical record system with [employer] dictation system. Although these documentations are being carefully reviewed, there may still be some phonetic and typographical changes. The errors are purely typographical, due to imperfection on the software program, and do not reflect any compromise in the patient's medical care. Plan discussed with: Patient, Other (CHATO Branham/MD Freeman) MAYA GÓMEZ MD Aug 12, 2024 23:06
[2024-08-12] MEDS: DEXTROSE (50%) 50ML SYRG IV SCH (23:40)
[2024-08-12] MEDS: DEXTROSE 50% SYRINGE 50 ML IV ONE (23:40)
[2024-08-13] VITALS (103 sets, daily range): BP systolic 85–128; BP diastolic 49–75; PULSE 90–104; RESP 17–36; TEMP 97.9–100; O2SAT 90–100
[2024-08-13] MEDS: AMIODARONE 360mg/200mL PREMIX 200 ML IV SCH (03:12)
[2024-08-13 06:13] LABS: Hematocrit 37.1 % (41.0-53.0); Hemoglobin 11.4 g/dL (13.5-17.5); Mean Corpuscular Hemoglobin 24.7 pg (28.0-32.0); Mean Corpuscular Hgb Conc. 30.7 g/dL (32.0-36.0); Mean Corpuscular Volume 80.3 fL (80.0-100.0); Platelet Count (auto) 263 10^3/uL (140-450); Red Blood Cells 4.62 10^6/uL (4.5-5.90); Red Cell Distribution Width 19.8 % (11.8-14.3)
[2024-08-13 06:17] LABS: Band Neutrophils % (manual) 0; Basophils % (manual) 0 (0.0-2.0); Blast Cells 0; Eosinophils % (manual) 0 (0-7); Metamyelocytes % 0; Myelocytes % 0; Promyelocytes % 0; Reactive Lymphocytes 0
[2024-08-13 06:26] LABS: Alkaline Phosphatase 85 U/L (46-116); Anion Gap 9 (5-15); Aspartate Aminotransferase 17 U/L (13-40); BUN/Creatinine Ratio 12.2 (10.0-20.0); Calcium 8.7 mg/dL (8.7-10.4); Carbon Dioxide 23 mmol/L (20-31); Chloride 107 mmol/L (98-107); Magnesium 1.9 mg/dL (1.6-2.6); Potassium 3.9 mmol/L (3.5-5.1); Sodium 139 mmol/L (136-145)
[2024-08-13 06:27] LABS: Alanine Aminotransferase < 9 U/L (7-40); Albumin 2.7 g/dL (3.2-4.8); Bilirubin, Total 0.4 mg/dL (0.2-1.0); Blood Urea Nitrogen 23 mg/dL (9-23); Glucose 218 mg/dL (74-106); Phosphorus 2.6 mg/dL (2.4-5.1); Total Protein 5.6 g/dL (5.7-8.2); Triglycerides 175 mg/dL (< 150)
[2024-08-13 06:47] LABS: Lymphocytes % (manual) 3 (10.0-50.0); Monocytes % (manual) 1 (0-12); Platelet Estimate Adequate
--- NOTE | 2024-08-13 08:21 | DVHPN2 ---
Reviewed: Care Plan, H&P, Labs, Medications, Previous Orders, Radiology Changes from previous H/P or p: No Changes Eyes: No Pain, No Vision change, No Conjunctivae inflammation, No Eyelid inflammation, No Other, No Redness ENT: No Ear pain, No Ear discharge, No Nose pain, No Nose discharge, No Nose congestion, No Mouth pain, No Mouth swelling, No Throat pain, No Throat swelling, No Other Cardiovascular: No Chest Pain, No Palpitations, No Orthopnea, No Paroxysmal Noc. Dyspnea, No Edema, No Lt Headedness, No Other Respiratory: No Cough, No Dry; Shortness of breath; No SOB with excertion, No Wheezing, No Hemoptysis, No Pleuritic Pain, No Sputum, No Other Gastrointestinal: No Nausea, No Vomiting, No Abdominal Pain, No Diarrhea, No Constipation, No Melena, No Hematochezia, No Other Genitourinary: No Dysuria, No Frequency, No Incontinence, No Hematuria, No Retention, No Other Musculoskeletal: No other, No neck pain, No shoulder pain, No arm pain, No back pain, No hand pain, No leg pain, No foot pain Skin: No Rash, No Lesions, No Jaundice, No Bruising, No Other Objective Vitals Vital Signs Date Time Temp Pulse Resp B/P (MAP) Pulse Ox O2 Delivery O2 Flow Rate FiO2 08/13/24 06:45 93 24 114/57 (76) 93 08/13/24 06:39 Facial BiPAP Mask 30 08/13/24 04:00 99.8 99.8 08/12/24 16:24 6.0 Intake/Output Intake and Output 08/13/24 07:00 Intake Total 1501.939 ml Output Total 975 ml Balance 526.939 ml Intake Oral 0 ml IV Total 1501.939 ml Output Urine Total 975 ml Medications Current Medications Medications Dose Ordered Sig/Francisco Route Start Time Stop Time Status Last Admin Dose Admin Levothyroxine Sodium 175 mcg QAM@0600 PO 08/06/24 06:00 08/10/24 06:55 175 MCG Furosemide 40 mg DAILY IV 08/06/24 10:00 08/12/24 10:46 40 MG Atorvastatin Calcium 20 mg HS PO 08/06/24 22:00 08/09/24 21:45 20 MG Sodium Chloride 10 ml Q8HR IV 08/06/24 06:00 08/13/24 06:00 10 ML Acetaminophen/ Hydrocodone Bitart 1 tab Q4HP PRN PO 08/06/24 01:15 Hold Ondansetron HCl 4 mg Q4HP PRN IV 08/06/24 01:15 08/10/24 18:47 4 MG Docusate Sodium 100 mg BIDPRN PRN PO 08/06/24 01:15 Acetaminophen 650 mg Q6HP PRN PO 08/06/24 01:15 Hold 08/08/24 10:30 650 MG Nitroglycerin 0.4 mg Q5MINP PRN SL 08/06/24 05:00 Morphine Sulfate 2 mg Q30M PRN IV 08/06/24 05:00 08/12/24 01:23 2 MG Enoxaparin Sodium 30 mg DAILY SC 08/08/24 10:00 UNV Enteral Nutritional Formula 240 ml TIDWM PO 08/08/24 12:00 08/09/24 18:00 240 ML Ertapenem 1 gm/ Sodium Chloride 50 ml @ 100 mls/hr DAILY IV 08/09/24 10:00 08/12/24 09:59 100 MLS/HR Acetaminophen 650 mg Q6HP PRN KS 08/10/24 09:00 08/12/24 16:17 650 MG Morphine Sulfate 2 mg Q6HPRN PRN IV 08/10/24 18:30 08/13/24 01:01 2 MG Enoxaparin Sodium 30 mg DAILY SC 08/13/24 10:00 Norepinephrine Bitartrate 32 mg/ Sodium Chloride 250 ml @ 0.938 mls/ hr Q24H IV 08/12/24 12:15 08/12/24 15:05 6.563 MLS/HR Pantoprazole Sodium 40 mg DAILY IV 08/13/24 10:00 Amino Acids 0 ml @ 0 mls/hr PER PHARMACY IV 08/12/24 15:00 Diagnostic Test (Pha) 1 strip Q6HR 08/12/24 18:00 08/13/24 06:00 1 STRIP Insulin Human Regular FOLLOW SLIDING SCALE Q6HR SC 08/12/24 18:00 Dextrose 50 ml UD IV 08/12/24 18:00 08/12/24 23:40 50 ML Amino Acids/ Electrolytes/ Dextrose 1,000 ml @ 41 mls/hr Q24H IV 08/12/24 15:15 08/13/24 21:59 08/12/24 17:07 41 MLS/HR Laboratory Results Laboratory Tests 08/13/24 05:37 Chemistry Test 08/12/24 20:57 08/13/24 05:37 Calcium Level 8.8 mg/dL (8.7-10.4) 8.7 mg/dL (8.7-10.4) Magnesium Level 1.9 mg/dL (1.6-2.6) 1.9 mg/dL (1.6-2.6) Albumin 2.7 g/dL (3.2-4.8) L Phosphorus Level 2.6 mg/dL (2.4-5.1) Total Protein 5.6 g/dL (5.7-8.2) L Lipid panel Test 08/13/24 05:37 Triglycerides Level 175 mg/dL (< 150) H LFT Test 08/13/24 05:37 Alanine Aminotransferase (ALT) < 9 U/L (7-40) Alkaline Phosphatase 85 U/L (46-116) Aspartate Amino Transferase (AST) 17 U/L (13-40) Total Bilirubin 0.4 mg/dL (0.2-1.0) Urinalysis Test 08/05/24 21:08 08/10/24 16:00 Urine Color Yellow (Yellow) Urine Clarity Turbid (Clear) H Urine pH 6.0 (5.0-9.0) Urine Specific [place] 1.015 (1.001-1.035) Urine Protein 1+ (Negative) H Urine Ketones Negative (Negative) Urine Blood 2+ /uL (Negative) H Urine Nitrite 2+ (Negative) H Urine Bilirubin Negative (Negative) Urine Urobilinogen Normal mg/dL (Negative) Urine Leukocyte Esterase 3+ /uL (Negative) Urine RBC 57 /hpf (0 - 3) Urine WBC 32 /hpf (0 - 3) Urine Squamous Epithelial Cells Few /hpf (<5) Urine Amorphous Crystals Few /hpf (None Seen) Urine Bacteria Few /hpf (None Seen) H Urine Mucus Few (None Seen) Urine Glucose Normal mg/dL (Normal) Urine Creatinine 93.06 mg/dL (30.0-125.0) Urine Protein/Creatinine Ratio 0.79 Urine Sodium 46 mmol/L (40-220) Urine Total Protein 73.7 mg/dL (1-14) H Blood Gas Results Test 08/12/24 13:30 08/12/24 19:52 Arterial Blood pH 7.386 (7.350-7.450) 7.397 (7.350-7.450) FiO2 % 40.0 60.0 Microbiology Microbiology Date/Time Source Procedure Growth Status 08/08/24 02:57 Nose MRSA Screen - Final Complete 08/05/24 21:08 Voided Urine Urine Culture - Final Escherichia coli - ESBL Complete 08/05/24 19:15 Blood Blood Culture - Final NO GROWTH AFTER 5 DAYS OF INCUBATION. Complete Labs and/or images reviewed: Labs reviewed by me, Image(s) reviewed by me Assessment/Plan Assessment/Plan Septic shock secondary to urinary tract infection: Blood cultures negative, urine cultures growing ESBL E coli, continue Invanz Acute on chronic decompensated systolic congestive heart failure NYHA class IV : Ejection fraction 15 % , cardiology consult appreciated advised conservative management Acute hypoxic respiratory failure: Oxygen by simple mask 30 percent FiO2, pulmonary consult by Dr. Santos appreciated End-stage cardiomyopathy EF 15% Paroxysmal atrial fibrillation, on low-dose Eliquis at home, placed on Lovenox Severe PAD Presence of AICD: Interrogated by selling underwriter, shows nonsustained ventricular tachycardia COCO on CKD improving Prostate cancer with Mets: Consult for Oncology Dr. Jo 6 Cm mass right kidney: Consult for Urology Acute Metabolic encephalopathy Hypothyroidism Hyperlipidemia Hypertension Hypotension: Levophed drip Condition serious Prognosis very poor Time spent 65 minutes Patient is full code Patient is hospice revoked; was with [facility] Patient's son Keegan [phone] and his Iliana [phone] were at the bedside on 08-12-24 Spoke with skin care consultant Hazel on the phone [phone] and advised the seriousness of the patient's condition PICC line placed Discussed with the family about discharge the patient back to hospice because of very poor prognosis Family requesting full code including intubation if necessary Plan discussed with: Patient My Orders Orders - MCKINLEY THURMAN MD Procedure Category Date Status Time Clinimix Per Pharmacy [facility] 08/12/24 In Process 11:03 Enoxaparin Sodium [facility] 08/13/24 In Process (Lovenox) 10:00 Abg W/ Co-Ox RT 08/12/24 Logged 12:30 * Wound Consult CONS 08/12/24 Transmitted Pantoprazole [facility] 08/13/24 In Process (Protonix) 10:00 Tpn Per Pharmacy [facility] 08/12/24 In Process 14:10 * Hematology/Oncology CONS 08/12/24 Transmitted Consult 14:10 *Consult CONS 08/12/24 Transmitted / 14:10 Tpn Per Pharmacy [facility] 08/12/24 In Process 15:00 Glucose Blood [facility] 08/12/24 In Process (Accu-Chek Comfort 18:00 Insulin R (Human) [facility] 08/12/24 In Process (Insulin R) 18:00 Dextrose 50% Syringe [facility] 08/12/24 In Process 18:00 Amino Acid Infusion [facility] 08/12/24 In Process In D10w (Clinimix 4. 15:15 * Urology Consult CONS 08/13/24 Transmitted 08:16 Date of Service: Aug 13, 2024 Billing Provider: MCKINLEY THURMAN MD Common Visit Codes: [id number] CARE 30-74 MIN MCKINLEY THURMAN MD Aug 13, 2024 08:20
[2024-08-13 08:56] LABS: Base Excess -1.6 mmol/L (-2.0-3.0)
[2024-08-13] MEDS: MAGNESIUM SULFATE 1GM/100ML 100 ML IV ONE (10:22)
[2024-08-13] MEDS: ENOXAPARIN SOD 30 MG/0.3 ML SYRINGE SC SCH (10:23)
[2024-08-13] MEDS: PANTOPRAZOLE 40 MG/10 ML VIAL INJ IV SCH (10:23)
--- NOTE | 2024-08-13 10:43 | DVHPN2 ---
Progress Note Date Seen: Aug 13, 2024 Medical Necessity Reason Pt with a Central, PICC or Fol: No Subjective Review of Systems: RESPIRATORY:Abnormal Other Systems: Patient seen and examined by myself today in follow-up Patient transferred to the ICU on BiPAP Objective vital signs Vital Sign Date Time Temp Pulse Resp B/P (MAP) Pulse Ox O2 Delivery O2 Flow Rate FiO2 08/13/24 10:23 112/62 08/13/24 10:22 96 95 Facial BiPAP Mask 30 08/13/24 06:45 24 08/13/24 04:00 99.8 99.8 08/12/24 16:24 6.0 Total Intake and Output 08/12/24 08/12/24 08/13/24 15:00 23:00 07:00 Intake Total 470.00 ml 395.039 ml 636.9 ml Output Total 600 ml 375 ml Balance 470.00 ml -204.961 ml 261.9 ml medications Current Medications Medications Dose Ordered Sig/Francisco Route Start Time Stop Time Status Last Admin Dose Admin Levothyroxine Sodium 175 mcg QAM@0600 PO 08/06/24 06:00 08/10/24 06:55 175 MCG Furosemide 40 mg DAILY IV 08/06/24 10:00 08/13/24 10:23 40 MG Atorvastatin Calcium 20 mg HS PO 08/06/24 22:00 08/09/24 21:45 20 MG Sodium Chloride 10 ml Q8HR IV 08/06/24 06:00 08/13/24 06:00 10 ML Acetaminophen/ Hydrocodone Bitart 1 tab Q4HP PRN PO 08/06/24 01:15 Hold Ondansetron HCl 4 mg Q4HP PRN IV 08/06/24 01:15 08/10/24 18:47 4 MG Docusate Sodium 100 mg BIDPRN PRN PO 08/06/24 01:15 Acetaminophen 650 mg Q6HP PRN PO 08/06/24 01:15 Hold 08/08/24 10:30 650 MG Nitroglycerin 0.4 mg Q5MINP PRN SL 08/06/24 05:00 Morphine Sulfate 2 mg Q30M PRN IV 08/06/24 05:00 08/12/24 01:23 2 MG Enoxaparin Sodium 30 mg DAILY SC 08/08/24 10:00 UNV Enteral Nutritional Formula 240 ml TIDWM PO 08/08/24 12:00 08/09/24 18:00 240 ML Ertapenem 1 gm/ Sodium Chloride 50 ml @ 100 mls/hr DAILY IV 08/09/24 10:00 08/13/24 10:25 100 MLS/HR Acetaminophen 650 mg Q6HP PRN MA 08/10/24 09:00 08/12/24 16:17 650 MG Morphine Sulfate 2 mg Q6HPRN PRN IV 08/10/24 18:30 08/13/24 01:01 2 MG Enoxaparin Sodium 30 mg DAILY SC 08/13/24 10:00 08/13/24 10:23 30 MG Norepinephrine Bitartrate 32 mg/ Sodium Chloride 250 ml @ 0.938 mls/ hr Q24H IV 08/12/24 12:15 08/12/24 15:05 6.563 MLS/HR Pantoprazole Sodium 40 mg DAILY IV 08/13/24 10:00 08/13/24 10:23 40 MG Amino Acids 0 ml @ 0 mls/hr PER PHARMACY IV 08/12/24 15:00 Diagnostic Test (Pha) 1 strip Q6HR 08/12/24 18:00 08/13/24 06:00 1 STRIP Insulin Human Regular FOLLOW SLIDING SCALE Q6HR SC 08/12/24 18:00 Dextrose 50 ml UD IV 08/12/24 18:00 08/12/24 23:40 50 ML Amino Acids/ Electrolytes/ Dextrose 1,000 ml @ 41 mls/hr Q24H IV 08/12/24 15:15 08/13/24 21:59 08/12/24 17:07 41 MLS/HR Fat Emulsion Intravenous 50 ml/ Sodium Acetate 20 meq/Potassium Acetate 20 meq/ Potassium Phosphate 44 meq/ Magnesium Sulfate 8 meq/ Multivitamins 10 ml/Chromium/ Copper/Manganese/ Zinc 1 ml/Amino Acids/Dextrose 1,093 ml @ 45 mls/hr [id number] IV 08/13/24 22:00 08/14/24 21:59 Examination: LUNGS:Normal, CVS:Normal, MSK:Normal laboratory and microbiology Laboratory Tests 08/13/24 05:37 Test 08/13/24 05:37 Range/Units Serum Glucose 218 H 74-106 mg/dL Microbiology Date/Time Source Procedure Growth Status 08/08/24 02:57 Nose MRSA Screen - Final Complete 08/05/24 21:08 Voided Urine Urine Culture - Final Escherichia coli - ESBL Complete 08/05/24 19:15 Blood Blood Culture - Final NO GROWTH AFTER 5 DAYS OF INCUBATION. Complete Problem List/Assessment/Plan Problem List/Assessment/Plan Acute kidney injury superimposed Chronic Kidney Disease secondary to ATN, FeNa > 2% Acute respiratory failure, on BiPAP Generalized weakness Sepsis Urinary tract infection, ESBL Metastatic prostate cancer Congestive heart failure, ejection fraction 20% Right kidney mass, 6.2 cm Bradycardia CVA Hypercalcemia of malignancy Vancomycin toxicity Diabetes mellitus type 2 Anemia of chronic kidney disease Hyponatremia due to insensible H2O loss Hypokalemia Vitamin-D intoxication Recommendations Kidney function slightly worsened today Increased urine output [place] catheter Strict I&Os DC vancomycin Invanz 1 g IV q.day IVF half NS at 50 cc/hour Furosemide 40 mg IV q.day KCL replacement kidney ultrasound reported 6 cm mass right kidney Cardiology consult Urology consult Insulin sliding scale We will continue to follow Plan discussed with: Patient, Other Dietary Evaluation Review Comments: Encourage a 2 gNa CCHO-60 diet with gluccern BID supplementation after off NPO Expected Outcomes/Goals: maintain BW, DARIN LEROY MD Aug 13, 2024 10:42
--- NOTE | 2024-08-13 11:09 | DVH ---
CHEST RADIOGRAPH Indication: re evaluate chest congestion Technique: Single frontal view of the chest was obtained COMPARISON: XY CHEST PORTABLE on DOS: 08/12/24, XY CHEST PORTABLE on DOS: 10/19/23, XY CHEST PORTABLE on DOS: 10/18/23, XY CHEST PORTABLE on DOS: 10/17/23, XY CHEST PORTABLE on DOS: 10/15/23 FINDINGS: Lines and Tubes: Left chest wall AICD Lungs: Low lung volumes. Bilateral airspace opacities. Pleura: Trace left pleural effusion. No pneumothorax. Cardiomediastinal contours: Unremarkable Bones: Unremarkable IMPRESSION: Low lung volumes. Patchy bilateral airspace disease. Trace left pleural effusion.
--- NOTE | 2024-08-13 17:22 | DVHPN2 ---
Consult Progress Note Subjective Other Systems: Patient in normal sinus rhythm with PVCs on child monitor. Patient on BiPAP at time of assessment. Objective vital signs Vital Sign Date Time Temp Pulse Resp B/P (MAP) Pulse Ox O2 Delivery O2 Flow Rate FiO2 08/13/24 16:13 96 99/59 95 Facial BiPAP Mask 30 08/13/24 14:30 98.9 24 98.9 08/12/24 16:24 6.0 Total Intake and Output 08/12/24 08/12/24 08/13/24 15:00 23:00 07:00 Intake Total 470.00 ml 395.039 ml 636.9 ml Output Total 600 ml 375 ml Balance 470.00 ml -204.961 ml 261.9 ml medications Current Medications Medications Dose Ordered Sig/Francisco Route Start Time Stop Time Status Last Admin Dose Admin Levothyroxine Sodium 175 mcg QAM@0600 PO 08/06/24 06:00 08/10/24 06:55 175 MCG Furosemide 40 mg DAILY IV 08/06/24 10:00 08/13/24 10:23 40 MG Atorvastatin Calcium 20 mg HS PO 08/06/24 22:00 08/09/24 21:45 20 MG Sodium Chloride 10 ml Q8HR IV 08/06/24 06:00 08/13/24 13:09 10 ML Acetaminophen/ Hydrocodone Bitart 1 tab Q4HP PRN PO 08/06/24 01:15 Hold Ondansetron HCl 4 mg Q4HP PRN IV 08/06/24 01:15 08/10/24 18:47 4 MG Docusate Sodium 100 mg BIDPRN PRN PO 08/06/24 01:15 Acetaminophen 650 mg Q6HP PRN PO 08/06/24 01:15 Hold 08/08/24 10:30 650 MG Nitroglycerin 0.4 mg Q5MINP PRN SL 08/06/24 05:00 Morphine Sulfate 2 mg Q30M PRN IV 08/06/24 05:00 08/12/24 01:23 2 MG Enoxaparin Sodium 30 mg DAILY SC 08/08/24 10:00 UNV Enteral Nutritional Formula 240 ml TIDWM PO 08/08/24 12:00 08/09/24 18:00 240 ML Ertapenem 1 gm/ Sodium Chloride 50 ml @ 100 mls/hr DAILY IV 08/09/24 10:00 08/13/24 10:25 100 MLS/HR Acetaminophen 650 mg Q6HP PRN [place] 08/10/24 09:00 08/12/24 16:17 650 MG Morphine Sulfate 2 mg Q6HPRN PRN IV 08/10/24 18:30 08/13/24 12:26 2 MG Enoxaparin Sodium 30 mg DAILY SC 08/13/24 10:00 08/13/24 10:23 30 MG Norepinephrine Bitartrate 32 mg/ Sodium Chloride 250 ml @ 0.938 mls/ hr Q24H IV 08/12/24 12:15 08/13/24 13:09 10.313 MLS/HR Pantoprazole Sodium 40 mg DAILY IV 08/13/24 10:00 08/13/24 10:23 40 MG Amino Acids 0 ml @ 0 mls/hr PER PHARMACY IV 08/12/24 15:00 Diagnostic Test (Pha) 1 strip Q6HR 08/12/24 18:00 08/13/24 12:00 1 STRIP Insulin Human Regular FOLLOW SLIDING SCALE Q6HR SC 08/12/24 18:00 08/13/24 12:39 4 UNITS Dextrose 50 ml UD IV 08/12/24 18:00 08/12/24 23:40 50 ML Amino Acids/ Electrolytes/ Dextrose 1,000 ml @ 41 mls/hr Q24H IV 08/12/24 15:15 08/13/24 21:59 08/12/24 17:07 41 MLS/HR Fat Emulsion Intravenous 50 ml/ Sodium Acetate 20 meq/Potassium Acetate 20 meq/ Potassium Phosphate 44 meq/ Magnesium Sulfate 8 meq/ Multivitamins 10 ml/Chromium/ Copper/Manganese/ Zinc 1 ml/Amino Acids/Dextrose 1,093 ml @ 45 mls/hr [id number] IV 08/13/24 22:00 08/14/24 21:59 Examination: GENERAL:Abnormal (Generalized weakness), LUNGS:Abnormal (Diminished bilateral bases), CVS:Normal, NEURO:Abnormal (Confused) laboratory and microbiology Laboratory Tests 08/13/24 05:37 Test 08/13/24 05:37 Range/Units Serum Glucose 218 H 74-106 mg/dL Problem List/Assessment/Plan Problem List/Assessment/Plan Sepsis with UTI Acute on chronic decompensated HFrEF, NYHA Class IV End-stage cardiomyopathy Paroxysmal atrial fibrillation, on low-dose Eliquis Peripheral arterial disease, severe degree Presence of AICD History of hypertension COCO on CKD Unspecified metastatic disease with hospice care Right renal mass Metabolic encephalopathy Thyroid disease Plan/Recommendation (): Case discussed with with . Overnight, the patient was noted to go into arrhythmias by primary RN. A device interrogation was ordered and obtained. Per [employer] system support technician, the patient was having multiple episodes of atrial fibrillation overnight. No episodes of V-tach captured overnight on (08/12/24). At time of assessment, patient now on amiodarone drip. alarm security or surveillance monitor shows patient in normal sinus rhythm with PVCs. Transthoracic echocardiogram from this admission reveals an EF <20%. Unable to initiate guideline directed medical therapy for CHF at this time given that the patient is on vasopressor therapy. Continue with strict intake and output, daily weights, and maintain fluid restriction. [id number] VASc score: 4 points. The patient takes low-dose Eliquis therapy at home. Patient unable to swallow at this time. Continue with daily Lovenox given poor renal function/low GFR. Continue amiodarone drip for the time being. Monitor notify for any ECG changes. Consider goals of care with family. Thank you for allowing us to care for this patient. Please call with any questions or concerns. Critical care time spent: 38 minutes This medical document was created using an electronic medical record system with voice recognition software and computerized dictation system. Although this document has been carefully reviewed, there might still be some phonetic and typographical errors. Occasional wrong-word or ``sound-alike substitutions may have occurred due to the inherent limitations of voice recognition software. These areas are purely typographical due to imperfections of the software programs and do not reflect any compromise in the patient's medical care. Please read the chart carefully and recognize, using context, where these substitutions have occurred. Plan discussed with: Other (Bedside RN) Dietary Evaluation Review Recommendations by RD: Increase Calorie Intake, PPN/TPN Comments: 1. Increase TPN rate to provide at least 75% of daily estimated energy needs. 2. Monitor I&O, weight, and labs. 3. Advance to when CCHO 60g cardiac diet medically feasible, pending [employer] MACHINE approval. Expected Outcomes/Goals: 1. Increase TPN rate to provide at least 75% of daily estimated energy needs. 2. Monitor I&O, weight, and labs. 3. Advance to when CCHO 60g cardiac diet medically feasible, pending [employer] MACH[employer] approval. Date of Service: Aug 13, 2024 Billing Provider: PATY RODRIGUEZ MD Common Visit Codes: [id number] CARE 30-74 MIN LADAN TOWNSEND Aug 13, 2024 17:22
[2024-08-13] MEDS: MORPHINE SULFATE INJ 2 MG/ml SYRG IV PRN (17:30)
[2024-08-13] MEDS: TPN PER PHARMACY IV NR (21:34)
--- NOTE | 2024-08-13 23:00 | DVHPN2 ---
Progress Note - Dictate Date Seen: Aug 13, 2024 Medical Necessity Reason Pt with a Central, PICC or Fol: Yes The following are medically ne: Chang Catheter Reason for chang catheter: Strict I&O Subjective Patient seen and examined at bedside. Remains on BiPAP Overnight events reviewed. vital signs Vital Sign Date Time Temp Pulse Resp B/P (MAP) Pulse Ox O2 Delivery O2 Flow Rate FiO2 08/13/24 22:30 98 31 122/71 (88) 95 08/13/24 22:00 Bi-Pap+ 30 30 08/13/24 19:45 100.0 100.0 08/12/24 16:24 6.0 Total Intake and Output 08/12/24 08/12/24 08/13/24 15:00 23:00 07:00 Intake Total 470.00 ml 395.039 ml 636.9 ml Output Total 600 ml 375 ml Balance 470.00 ml -204.961 ml 261.9 ml medications Current Medications Medications Dose Ordered Sig/Francisco Route Start Time Stop Time Status Last Admin Dose Admin Levothyroxine Sodium 175 mcg QAM@0600 PO 08/06/24 06:00 08/10/24 06:55 175 MCG Furosemide 40 mg DAILY IV 08/06/24 10:00 08/13/24 10:23 40 MG Atorvastatin Calcium 20 mg HS PO 08/06/24 22:00 08/09/24 21:45 20 MG Sodium Chloride 10 ml Q8HR IV 08/06/24 06:00 08/13/24 21:41 10 ML Acetaminophen/ Hydrocodone Bitart 1 tab Q4HP PRN PO 08/06/24 01:15 Hold Ondansetron HCl 4 mg Q4HP PRN IV 08/06/24 01:15 08/10/24 18:47 4 MG Docusate Sodium 100 mg BIDPRN PRN PO 08/06/24 01:15 Acetaminophen 650 mg Q6HP PRN PO 08/06/24 01:15 Hold 08/08/24 10:30 650 MG Nitroglycerin 0.4 mg Q5MINP PRN SL 08/06/24 05:00 Morphine Sulfate 2 mg Q30M PRN IV 08/06/24 05:00 08/12/24 01:23 2 MG Enoxaparin Sodium 30 mg DAILY SC 08/08/24 10:00 UNV Enteral Nutritional Formula 240 ml TIDWM PO 08/08/24 12:00 08/09/24 18:00 240 ML Ertapenem 1 gm/ Sodium Chloride 50 ml @ 100 mls/hr DAILY IV 08/09/24 10:00 08/13/24 10:25 100 MLS/HR Acetaminophen 650 mg Q6HP PRN [place] 08/10/24 09:00 08/12/24 16:17 650 MG Enoxaparin Sodium 30 mg DAILY SC 08/13/24 10:00 08/13/24 10:23 30 MG Norepinephrine Bitartrate 32 mg/ Sodium Chloride 250 ml @ 0.938 mls/ hr Q24H IV 08/12/24 12:15 08/13/24 13:09 10.313 MLS/HR Pantoprazole Sodium 40 mg DAILY IV 08/13/24 10:00 08/13/24 10:23 40 MG Amino Acids 0 ml @ 0 mls/hr PER PHARMACY IV 08/12/24 15:00 Diagnostic Test (Pha) 1 strip Q6HR 08/12/24 18:00 08/13/24 17:31 1 STRIP Insulin Human Regular FOLLOW SLIDING SCALE Q6HR SC 08/12/24 18:00 08/13/24 12:39 4 UNITS Dextrose 50 ml UD IV 08/12/24 18:00 08/12/24 23:40 50 ML Fat Emulsion Intravenous 50 ml/ Sodium Acetate 20 meq/Potassium Acetate 20 meq/ Potassium Phosphate 44 meq/ Magnesium Sulfate 8 meq/ Multivitamins 10 ml/Chromium/ Copper/Manganese/ Zinc 1 ml/Amino Acids/Dextrose 1,093 ml @ 45 mls/hr [id number] IV 08/13/24 22:00 08/14/24 21:59 08/13/24 21:34 45 MLS/HR Morphine Sulfate 2 mg Q4HPRN PRN IV 08/13/24 17:15 08/13/24 21:32 2 MG objective Gen.: Patient lying in bed in no apparent distress. On BiPAP Head: Normocephalic, atraumatic. Eyes: EOMI/PERRLA. Ears: Normal hearing. Normal anatomy. Neck/trachea: Trachea midline, supple. Nose: Normal external anatomy. Mouth: Moist mucous membranes. Chest: Decreased air entry bilaterally. No wheezing or rhonchi. Cardiovascular: Positive S1, positive S2. Regular rate and rhythm. Abdomen: Positive bowel sounds in all 4 quadrants. Soft, non-tender, non- distended. : Deferred. Rectal: Deferred. Skin: Warm, dry. Intact. Extremities: 2+ radial pulses bilaterally. No lower extremity edema. Neuro: Awake, alert, oriented x3. No gross motor or sensory deficits. Cranial nerves II through XII intact. Gait not assessed. laboratory and microbiology Laboratory Tests 08/13/24 05:37 Test 08/13/24 05:37 Range/Units Serum Glucose 218 H 74-106 mg/dL Assessment/Plan Impression: Acute hypoxic respiratory failure Shock Congestive heart failure Coronary artery disease S/p AICD Prostate cancer with mets Bradycardia Sepsis Acute metabolic encephalopathy Plan: On BiPAP /w IPAP 12, EPAP 5, FiO2 60 -->30% Titrate to keep O2 sats above 92%. CXR demonstrates pulmonary edema, improving. Cardiology recs appreciated Amio drip AFib - interrogated AICD On pressors for hemodynamic support Levophed 22 mcg/min Titrate to keep mean arterial pressure greater than 65 mmHg. Monitor respiratory status closely - high risk of requiring mechanical vent. HOB elevation Aspiration precautions Continue antibiotics F/u cultures ESBL in urine Pain control Avoid oversedation Diurese as tolerated w/ Lasix Monitor renal function. Monitor electrolytes. Supplement as necessary. Monitor ins and outs. Clinimix for nutritional support DVT prophylaxis. Poor prognosis. Monitor respiratory status closely Patient may require emergent intubation. Prognosis: Poor given patient's multiple co-morbidities. Condition: Critical Rest of plan per hospitalist and other consultants. A total of 35 minutes of critical care time was spent reviewing the patient record, examining the patient, making a diagnostic and therapeutic plan, discussing this plan with the medical personnel, following up on diagnostic studies and following the patient for clinical stability excluding any and all procedures. At least 50% of this time was spent in direct, [id number] contact. Thank you Dr. Freeman for allowing me to participate in this patient's care. Further recommendations will depend on the patient's clinical course. Please do not hesitate to contact me if you have any questions or concerns. This medical document was created using an electronic medical record system with [employer] system. Although these documentations are being carefully reviewed, there may still be some phonetic and typographical changes. The errors are purely typographical, due to imperfection on the software program, and do not reflect any compromise in the patient's medical care. Dietary Evaluation Review Recommendations by RD: Increase Calorie Intake, PPN/TPN Comments: 1. Increase TPN rate to provide at least 75% of daily estimated energy needs. 2. Monitor I&O, weight, and labs. 3. Advance to when CCHO 60g cardiac diet medically feasible, pending [employer] approval. Expected Outcomes/Goals: 1. Increase TPN rate to provide at least 75% of daily estimated energy needs. 2. Monitor I&O, weight, and labs. 3. Advance to when CCHO 60g cardiac diet medically feasible, pending [employer]CH[employer] approval. Plan discussed with: Other (CHATO Sánchez/Bee) Critical Care Time(min): 35 MAYA GÓMEZ MD Aug 13, 2024 23:00
[2024-08-14] VITALS (107 sets, daily range): BP systolic 82–130; BP diastolic 46–90; PULSE 78–114; RESP 14–91; TEMP 97.7–100.1; O2SAT 90–100
[2024-08-14 03:46] LABS: Basophils # (auto) 0.1 10 ^3/uL (0-0.2); Basophils % (auto) 0.4 % (0.0-2.0); Eosinophils # (auto) 0.1 10 ^3/uL (0-0.8); Eosinophils % (auto) 0.5 % (0.0-7.0); Hematocrit 31.7 % (41.0-53.0); Hemoglobin 10.2 g/dL (13.5-17.5); Lymphocytes # (auto) 0.9 10 ^3/uL (0.4-5.4); Lymphocytes % (auto) 4.5 % (10.0-50.0); Mean Corpuscular Hemoglobin 24.7 pg (28.0-32.0); Mean Corpuscular Hgb Conc. 32.2 g/dL (32.0-36.0); Mean Corpuscular Volume 76.8 fL (80.0-100.0); Monocytes # (auto) 0.5 10 ^3/uL (0-1.3); Monocytes % (auto) 2.4 % (0.0-12.0); Neutrophils # (auto) 18.2 10 ^3/uL (1.6-8.6); Neutrophils % (auto) 92.2 % (37.0-80.0); Platelet Count (auto) 207 10^3/uL (140-450); Red Blood Cells 4.12 10^6/uL (4.5-5.90); Red Cell Distribution Width 19.7 % (11.8-14.3); White Blood Cell 19.8 10^3/uL (4.4-10.8)
[2024-08-14 04:14] LABS: Alkaline Phosphatase 75 U/L (46-116); Anion Gap 11 (5-15); Bilirubin, Total 0.4 mg/dL (0.2-1.0); Calcium 8.8 mg/dL (8.7-10.4); Carbon Dioxide 25 mmol/L (20-31); Chloride 105 mmol/L (98-107); Magnesium 1.9 mg/dL (1.6-2.6); Potassium 3.5 mmol/L (3.5-5.1); Sodium 141 mmol/L (136-145)
[2024-08-14 04:22] LABS: Aspartate Aminotransferase 18 U/L (13-40)
[2024-08-14 04:28] LABS: Alanine Aminotransferase < 9 U/L (7-40); Blood Urea Nitrogen 32 mg/dL (9-23); Glucose 190 mg/dL (74-106)
[2024-08-14 04:29] LABS: Albumin 2.6 g/dL (3.2-4.8); Total Protein 5.4 g/dL (5.7-8.2)
--- NOTE | 2024-08-14 05:28 | DVH ---
EXAM: XR Chest, 1 View CLINICAL INDICATION: per protocol TECHNIQUE: Frontal view of the chest. COMPARISON: XY CHEST PORTABLE on DOS: 08/13/24, XY CHEST PORTABLE on DOS: 08/12/24, XY CHEST PORTABLE on DOS: 10/19/23, XY CHEST PORTABLE on DOS: 10/18/23, XY CHEST PORTABLE on DOS: 10/17/23 FINDINGS: LUNGS AND PLEURAL SPACES: See below. HEART: Cardiomegaly with pulmonary congestion and edema. Superimposed pneumonia cannot be excluded. MEDIASTINUM: Unremarkable. Normal mediastinal contour. BONES/JOINTS: Unremarkable. No acute fracture. TUBES, LINES AND DEVICES: Left-sided cardiac pacemaker. OTHER FINDINGS: . . IMPRESSION: Cardiomegaly with pulmonary congestion and edema. Superimposed pneumonia cannot be excluded.
[2024-08-14 08:18] LABS: Base Excess -2.3 mmol/L (-2.0-3.0)
--- NOTE | 2024-08-14 08:31 | DVHPN2 ---
Reviewed: Care Plan, H&P, Labs, Medications, Previous Orders, Radiology Changes from previous H/P or p: No Changes Eyes: No Pain, No Vision change, No Conjunctivae inflammation, No Eyelid inflammation, No Other, No Redness ENT: No Ear pain, No Ear discharge, No Nose pain, No Nose discharge, No Nose congestion, No Mouth pain, No Mouth swelling, No Throat pain, No Throat swelling, No Other Cardiovascular: No Chest Pain, No Palpitations, No Orthopnea, No Paroxysmal Noc. Dyspnea, No Edema, No Lt Headedness, No Other Respiratory: No Cough, No Dry; Shortness of breath; No SOB with excertion, No Wheezing, No Hemoptysis, No Pleuritic Pain, No Sputum, No Other Gastrointestinal: No Nausea, No Vomiting, No Abdominal Pain, No Diarrhea, No Constipation, No Melena, No Hematochezia, No Other Genitourinary: No Dysuria, No Frequency, No Incontinence, No Hematuria, No Retention, No Other Musculoskeletal: No other, No neck pain, No shoulder pain, No arm pain, No back pain, No hand pain, No leg pain, No foot pain Skin: No Rash, No Lesions, No Jaundice, No Bruising, No Other Objective Vitals Vital Signs Date Time Temp Pulse Resp B/P (MAP) Pulse Ox O2 Delivery O2 Flow Rate FiO2 08/14/24 07:39 92 109/64 99 Facial BiPAP Mask 30 08/14/24 07:15 28 08/14/24 04:30 100.0 100.0 08/12/24 16:24 6.0 Intake/Output Intake and Output 08/14/24 07:00 Intake Total 1581.016 ml Output Total 1700 ml Balance -118.984 ml Intake Oral 0 ml IV Total 1581.016 ml Output Urine Total 1700 ml Medications Current Medications Medications Dose Ordered Sig/Francisco Route Start Time Stop Time Status Last Admin Dose Admin Levothyroxine Sodium 175 mcg QAM@0600 PO 08/06/24 06:00 08/10/24 06:55 175 MCG Furosemide 40 mg DAILY IV 08/06/24 10:00 08/13/24 10:23 40 MG Atorvastatin Calcium 20 mg HS PO 08/06/24 22:00 08/09/24 21:45 20 MG Sodium Chloride 10 ml Q8HR IV 08/06/24 06:00 08/14/24 05:31 10 ML Acetaminophen/ Hydrocodone Bitart 1 tab Q4HP PRN PO 08/06/24 01:15 Hold Ondansetron HCl 4 mg Q4HP PRN IV 08/06/24 01:15 08/10/24 18:47 4 MG Docusate Sodium 100 mg BIDPRN PRN PO 08/06/24 01:15 Acetaminophen 650 mg Q6HP PRN PO 08/06/24 01:15 Hold 08/08/24 10:30 650 MG Nitroglycerin 0.4 mg Q5MINP PRN SL 08/06/24 05:00 Morphine Sulfate 2 mg Q30M PRN IV 08/06/24 05:00 08/12/24 01:23 2 MG Enoxaparin Sodium 30 mg DAILY SC 08/08/24 10:00 UNV Enteral Nutritional Formula 240 ml TIDWM PO 08/08/24 12:00 08/09/24 18:00 240 ML Ertapenem 1 gm/ Sodium Chloride 50 ml @ 100 mls/hr DAILY IV 08/09/24 10:00 08/13/24 10:25 100 MLS/HR Acetaminophen [address] 08/10/24 09:00 08/12/24 16:17 650 MG Enoxaparin Sodium 30 mg DAILY SC 08/13/24 10:00 08/13/24 10:23 30 MG Norepinephrine Bitartrate 32 mg/ Sodium Chloride 250 ml @ 0.938 mls/ hr Q24H IV 08/12/24 12:15 08/13/24 13:09 10.313 MLS/HR Pantoprazole Sodium 40 mg DAILY IV 08/13/24 10:00 08/13/24 10:23 40 MG Amino Acids 0 ml @ 0 mls/hr PER PHARMACY IV 08/12/24 15:00 Diagnostic Test (Pha) 1 strip Q6HR 08/12/24 18:00 08/14/24 05:36 1 STRIP Insulin Human Regular FOLLOW SLIDING SCALE Q6HR SC 08/12/24 18:00 08/13/24 12:39 4 UNITS Dextrose 50 ml UD IV 08/12/24 18:00 08/12/24 23:40 50 ML Fat Emulsion Intravenous 50 ml/ Sodium Acetate 20 meq/Potassium Acetate 20 meq/ Potassium Phosphate 44 meq/ Magnesium Sulfate 8 meq/ Multivitamins 10 ml/Chromium/ Copper/Manganese/ Zinc 1 ml/Amino Acids/Dextrose 1,093 ml @ 45 mls/hr [id number] IV 08/13/24 22:00 08/14/24 21:59 08/13/24 21:34 45 MLS/HR Morphine Sulfate 2 mg Q4HPRN PRN IV 08/13/24 17:15 08/14/24 05:37 2 MG Laboratory Results Laboratory Tests 08/14/24 03:15 Chemistry Test 08/14/24 03:15 Albumin 2.6 g/dL (3.2-4.8) L Calcium Level 8.8 mg/dL (8.7-10.4) Magnesium Level 1.9 mg/dL (1.6-2.6) Phosphorus Level 2.0 mg/dL (2.4-5.1) L Total Protein 5.4 g/dL (5.7-8.2) L LFT Test 08/14/24 03:15 Alanine Aminotransferase (ALT) < 9 U/L (7-40) Alkaline Phosphatase 75 U/L (46-116) Aspartate Amino Transferase (AST) 18 U/L (13-40) Total Bilirubin 0.4 mg/dL (0.2-1.0) Urinalysis Test 08/05/24 21:08 08/10/24 16:00 Urine Color Yellow (Yellow) Urine Clarity Turbid (Clear) H Urine pH 6.0 (5.0-9.0) Urine Specific [place] 1.015 (1.001-1.035) Urine Protein 1+ (Negative) H Urine Ketones Negative (Negative) Urine Blood 2+ /uL (Negative) H Urine Nitrite 2+ (Negative) H Urine Bilirubin Negative (Negative) Urine Urobilinogen Normal mg/dL (Negative) Urine Leukocyte Esterase 3+ /uL (Negative) Urine RBC 57 /hpf (0 - 3) Urine WBC 32 /hpf (0 - 3) Urine Squamous Epithelial Cells Few /hpf (<5) Urine Amorphous Crystals Few /hpf (None Seen) Urine Bacteria Few /hpf (None Seen) H Urine Mucus Few (None Seen) Urine Glucose Normal mg/dL (Normal) Urine Creatinine 93.06 mg/dL (30.0-125.0) Urine Protein/Creatinine Ratio 0.79 Urine Sodium 46 mmol/L (40-220) Urine Total Protein 73.7 mg/dL (1-14) H Blood Gas Results Test 08/13/24 08:48 08/14/24 07:50 Arterial Blood pH 7.394 (7.350-7.450) 7.428 (7.350-7.450) FiO2 % 30.0 30.0 Microbiology Microbiology Date/Time Source Procedure Growth Status 08/08/24 02:57 Nose MRSA Screen - Final Complete 08/05/24 21:08 Voided Urine Urine Culture - Final Escherichia coli - ESBL Complete 08/05/24 19:15 Blood Blood Culture - Final NO GROWTH AFTER 5 DAYS OF INCUBATION. Complete Labs and/or images reviewed: Labs reviewed by me, Image(s) reviewed by me Assessment/Plan Assessment/Plan Septic shock secondary to urinary tract infection: Blood cultures negative, urine cultures growing ESBL E coli, continue Invanz Acute on chronic decompensated systolic congestive heart failure NYHA class IV : Ejection fraction 15 % , cardiology consult appreciated advised conservative management Acute hypoxic respiratory failure: Oxygen by simple mask 30 percent FiO2, pulmonary consult by Dr. 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 Jo 6 Cm mass right kidney: Consult for Urology Acute Metabolic encephalopathy Hypothyroidism Hyperlipidemia Hypertension Hypotension: Levophed drip Condition serious Prognosis very poor Time spent 65 minutes Patient is full code Patient is hospice revoked; was with [facility] Patient's son Keegan [phone] and his Iliana [phone] were at the bedside on 08-12-24 Spoke with progressive care manager Hazel on the phone [phone] and advised the seriousness of the patient's condition PICC line placed Discussed with the family about discharge the patient back to hospice because of very poor prognosis Family requesting full code including intubation if necessary PATIENT IS SEEN IN ICU BED 11. Plan discussed with: Patient My Orders Orders - MCKINLEY THURMAN MD Procedure Category Date Status Time Mrsa Screen AL 08/13/24 In Process 08:51 Amino Acid PHA 08/13/24 In Process Infusion... W/Fat 22:00 Tpn Per Pharmacy [facility] 08/13/24 In Process 22:00 Notify Provider NOTICE 08/13/24 Transmitted Malnutrition 11:01 Increase Calorie NOURISH 08/13/24 Transmitted Intake 11:01 Abg W/ Co-Ox RT 08/14/24 Logged 04:00 Chest Portable XY 08/14/24 Resulted 04:00 * Urology Consult CONS 08/13/24 Transmitted 20:26 Date of Service: Aug 14, 2024 Billing Provider: MCKINLEY THURMAN MD Common Visit Codes: 22817-[id number] CARE 30-74 MIN MCKINLEY THURMAN MD Aug 14, 2024 08:30
--- NOTE | 2024-08-14 09:08 | DVHINCON2 ---
Date of service: Aug 14, 2024 Referring Physician Hospitalist Reason for Consultation renal mass History of Present Illness History Source: Old Records HPI 74 yo male know to urology service for prostate cancer (alphonse 6) dx 2019. Pt has not followed up with our office since. Apparently he has metastatic prostate cancer and is on home hospice. additional past medical history of CHF, DM, thyroid disease, and hypertension. He presented to ED on 08/06/24 for evaluation of altered level of consciousness. Patient's condition progressively get worse with generalized weakness, fatigue, confusion state, getting worse that prompted this visit. Urology consulted for renal mass vs complex cysts. Home Meds Active Scripts Amiodarone HCl (Amiodarone HCl) 200 Mg Tab, 200 MG GT DAILY for 30 Days, #30 TAB 1 Refill Prov:FLORLAZARO Kofi DO 10/23/23 Metoprolol Succinate (Toprol Xl) 50 Mg Tab, 25 MG PO DAILY for 30 Days, #15 TAB 1 Refill Prov:FLORBACILIOLAZARO Kofi DO 10/23/23 Furosemide (Furosemide) 40 Mg Tab, 40 MG PO DAILY for 30 Days, #30 TAB 1 Refill Prov:LAZARO FLOR Kofi DO 10/23/23 Reported Medications Baer's Yeast (Saccharomyces Boulardii) 250 Mg Cap, 250 MG PO DAILY, CAP 08/16/24 Pantoprazole Sodium (PANTOPRAZOLE SODIUM) 40 Mg Inj, 40 MG PO DAILY, INJ 08/16/24 Senna (Senokot) 8.6 Mg Tab, 8.6 MG PO HS, TAB 08/16/24 Morphine Sulfate (Morphine Sulfate Er) 60 Mg Tab, 15 MG PO BID, TAB 08/16/24 Melatonin (KP MELATONIN) 3 Mg Tab, 5 MG PO QHSP PRN for FOR INSOMNIA, TAB 08/16/24 Lactulose (Lactulose) 10 Gm Mukesh, 10 GM PO TID, PACK 08/16/24 Empagliflozin (Jardiance) 10 Mg Tab, 10 MG PO DAILY, TAB 08/16/24 Hydrocodone-Acetaminophen (Hydrocodone Bitartrate/AC 10-325 mg) 1 Tab Tab, 1 TAB PO Q6HPRN PRN for PAIN SCALE 7 THRU 10, TAB 08/16/24 Cyclobenzaprine Hcl (Cyclobenzaprine Hcl) 10 Mg Tab, 10 MG PO BID for 30 Days, MG 08/16/24 Docusate Sodium (Colace) 100 Mg Cap, 1 CAP PO TID, #30 CAP 08/16/24 Bisacodyl (Dulcolax) 10 Mg Sup, 10 MG RE q3days PRN for FOR CONSTIPATION, SUPP 08/16/24 Lisinopril (Lisinopril) 5 Mg Tab, 5 MG PO DAILY for 30 Days, MG 08/16/24 Ergocalciferol (VITAMIN D2) 400 Unit Tab, 1.25 MG PO DAILY, TAB 08/16/24 Empagliflozin (Jardiance) 10 Mg Tab, 1 TAB PO DAILY for 30 Days, #30 08/08/24 Apixaban Base (ELIQUIS) 2.5 Mg Tab, 1 TAB PO BID for 30 Days, #60 08/08/24 Ergocalciferol (Vitamin D) 50,000 Unit Cap, 56964 UNIT PO QWEEKLY 09/02/23 Ferrous Sulfate (Ferosul) 325 Mg Tab, 1 TAB PO DAILY 08/31/23 Hydralazine HCl (Hydralazine HCl) 25 Mg Tab, 1 TAB PO BID 08/31/23 Atorvastatin Calcium (ATORVASTATIN CALCIUM) 20 Mg Tab, 1 TAB PO DAILY 08/31/23 Carvedilol (Carvedilol) 3.125 Mg Tab, 1 TAB PO BID 08/31/23 Allopurinol (Allopurinol) 300 Mg Tab, 1 TAB PO DAILY 08/31/23 Levothyroxine Sodium (Levothyroxine Sodium) 200 Mcg Tab, 1 TAB PO DAILY 08/31/23 Past Medical History Renal/: Prostate cancer Patient Family History: Other blood disorders G8 MOTHER, , Cause: Leukemia, Onset:50's - 60 Review of Systems Constitutional: Weakness Pulmonary/Respiratory: Dyspnea H&P Exam Vital Signs Vital Signs Date Time Temp Pulse Resp B/P (MAP) Pulse Ox O2 Delivery O2 Flow Rate FiO2 08/14/24 07:39 92 109/64 99 Facial BiPAP Mask 30 08/14/24 07:15 28 08/14/24 04:30 100.0 100.0 08/12/24 16:24 6.0 Labs/Xrays [address] [address] Ph: [phone] DIAGNOSTIC IMAGING Diagnostic Imaging Report : [id number] Signed PATIENT: RENATA PEREAACCT: [id number] UNIT: [id number] : 1950 LOC: ER ROOM / BED: / AGE / SEX: 74 / M ADM STATUS: REG ER SERVICE 08 ORDERING PHYSICIAN: JO VASQUEZ PAC PROCEDURE(s): CTCAP - CHST AB PEL WO CON-NO IV/ORAL REASON: Altered ORDER NUMBER(s): [id number], ACCESSION NUMBER(s): [id number] Examination: CTCAP CLINICAL INDICATION: Altered COMPARISON: None. CONTRAST USED: None. TECHNIQUE: A plain CT study of the chest , abdomen and pelvis is performed. CT scan done according to ALARA (As Low as Reasonably Achievable). Multiplanar reconstructions were obtained. FINDINGS: A large lobulated iso-to slightly hyperdense mass lesion measuring approximately 5.6 x 4.7 cm is noted in the region of neck or right side of the trachea and extending posterior to the trachea. Right-sided strap muscles are also thickened. Lungs and pleura: Multiple pulmonary nodules are noted in bilateral upper lobes, largest measuring 16 mm in right upper lobe, image 28 series 2. Right lower lobe collapse with consolidation is noted. Moderate left pleural effusion is noted with partial passive collapse of lower lobe. Mediastinum and great vessels: The trachea and the mainstem bronchi are normal. No significant mediastinal lymphadenopathy is detected. The mediastinal vasculature appears normal. Aorta appears unremarkable. Atherosclerotic calcifications are noted along the aorta. Coronary artery calcifications are noted. No aneurysmal dilatation of the ascending aorta is noted. Cardiomegaly is noted. Mild pericardial effusion is noted. Osseous structures: Moderate degenerative changes are seen in the thoracic spine. Pacemaker device is noted on left side of chest. CT abdomen: Liver: The liver is normal in size. The portal venous radicles are normal. There is no intrahepatic biliary radicle dilatation. Gallbladder: The gallbladder is normal and reveals no intrinsic abnormality. The common bile duct is not dilated. Pancreas: The pancreas is normal in size and shape. No focal lesion is seen within. The peripancreatic fat-planes are normal. Spleen: The spleen is normal in size. A 20 mm hypodense nodule is noted in the upper polar region Retroperitoneum: Both adrenal glands are normal in size and morphology. There is no significant retroperitoneal lymphadenopathy. The kidneys are normal in size with no hydronephrosis or renal calculi. A complex cystic lesion measuring approximately 8.0 x 6.4 cm noted in the upper polar region of right kidney. A complex mass lesion with irregular margins and measuring approximately 4.3 x 5.0 cm also noted in the upper polar region of left kidney. A 2 cm sized simple renal cortical cyst is noted in the lower polar region of left kidney. Another small hyperdense cystic lesion measuring approximately 9 mm noted in the lower polar region of left kidney. Vessels: Aorta, IVC and the mesenteric vessels could not be commented upon plain study. Diffuse atherosclerotic calcifications are noted along the aorta and its branches. Stomach and Bowel: The bowel loops are unremarkable. There is no ascites. Skeletal System: Moderate degenerative changes are noted along thoracolumbar spine. CT PELVIS: Appendix: The appendix could not be visualized. Colon: The ascending, transverse, descending, sigmoid colon and rectum are unremarkable. Bladder: Urinary bladder is empty. [place] catheter is seen in place. Pelvic Organs: No prostatic mass lesion/enlargement of prostate seen. No pelvic lymphadenopathy is identified. No abnormal fluid collection is seen. IMPRESSION: 1. Complex mass lesions along the upper polar regions of of bilateral kidneys. Postcontrast study is recommended to rule out neoplastic etiology. 2. A small hyperdense lesion in the upper polar region of spleen, likely splenic cyst/metastatic deposit. 3. Bilateral upper lobe pulmonary nodules. Further evaluation with contrast. PET CT is recommended. 4. Right lower lobe collapse with consolidation. 5. Moderate left pleural effusion with partial passive collapse of left lower lobe. 6. Cardiomegaly with mild pericardial effusion. 7. Large lobulated mass lesion in the neck along right side of trachea and extending posterior to the trachea with thickened right-sided strap muscles. Further evaluation with contrast-enhanced CT of neck is recommended to rule out neoplastic etiology. Electronically Signed 08/06/2024 02:51 Elias Ware ATED BY: YOLANDA BURNS MD DICTATED DATE/TIME: 08/06/24250 SIGNED BY: YOLANDA BURNS MD SIGNED DATE/TIME: 08/06/24250 CC: [place] [id number] Ph: [phone] DIAGNOSTIC IMAGING Diagnostic Imaging Report : [id number] Signed PATIENT: RENATA PEREAACCT: [id number] UNIT: [id number] : 1950 LOC: [facility] ROOM / BED: [address] [place] [address] AGE / SEX: 74 / M ADM STATUS: ADM IN SERVICE 1007 ORDERING PHYSICIAN: DARIN LEROY MD PROCEDURE(s): KIDUS - KIDNEY REASON: sohail ORDER NUMBER(s): [id number], ACCESSION NUMBER(s): [id number] RENAL ULTRASOUND CLINICAL HISTORY: sohail TECHNIQUE: Multiple ultrasound images of the kidneys and bladder were obtained. COMPARISON: CT abdomen and pelvis 08/05/2024 FINDINGS: The right kidney measures 9.8 cm in length. The left kidney measures 8.1 cm. There is a 6.2 x 5.8 cm complex cystic structure with nodular mural wall th ickening in the midpole of the right kidney. There are multiple small benign- appearing cysts in the left kidney, largest in the midpole measuring 2.1 cm there is no sonographic evidence of nephrolithiasis or hydronephrosis. Incidentally noted is a 9.5 x 6.2 cm complex cystic structure in the posterior right hepatic lobe. There is a Sheffield catheter in the bladder which is collapsed. IMPRESSION: 1. 6.2 x 5.8 cm complex cystic structure with nodular mural wall thickening in the midpole of the right kidney. Further evaluation with multiphase CT or MRI abdomen with contrast is recommended. 2. There are small benign-appearing left renal cysts measuring up to 2.1 cm. 3. Incidentally noted is a 9.5 by 6.2 cm complex cystic structure in the posterior right hepatic lobe. This can also be further assessed on postcontrast CT / MRI. HS:Y ATED BY: YEFRI GARCIA MD DICTATED DATE/TIME: 08/10/24 110 SIGNED BY: YEFRI GARCIA MD SIGNED DATE/TIME: 08/10/24 1105 CC: Labs Test 08/14/24 07:50 08/14/24 05:35 08/14/24 03:15 08/13/24 05:37 Range/Units Blood Gas Specimen Type Arterial Blood Gas Sample Site Right radial Blood Gas Patient Temperature 37.0 Arterial Blood Date Drawn [id number] Arterial Blood pH 7.428 7.350-7.450 Arterial Blood Partial Pressure CO2 33.1 L 35.0-48.0 mmHg Arterial Blood Partial Pressure O2 58.5 L 83.0-108.0 mmHg Arterial Blood HCO3 21.4 21.0-28.0 mmol/L Arterial Blood Oxygen Saturation 90.0 L 94.0-98.0 % Arterial Blood Base Excess -2.3 L -2.0-3.0 mmol/L Arterial Blood Oxyhemoglobin 89.4 L 94.0-98.0 % Arterial Blood Carboxyhemoglobin 0.3 L 0.5-1.5 % Arterial Blood Methemoglobin 0.4 0.0-1.5 % Phu Test Yes Blood Gas Total Hemoglobin 12.20 L 13.5-17.5 g/dL Blood Gas Set Respiration Rate 12.0 Blood Gas Modality Mask - bipap Blood Gas Spontaneous Rate 20 FiO2 % 30.0 Blood Gas Spontaneous Tidal Volume 400 Blood Gas EPAP 5 Blood Gas IPAP 12 POC Glucose 91 70-106 mg/dl White Blood Count 19.8 #H 4.4-10.8 10^3/uL Red Blood Count 4.12 L 4.5-5.90 10^6/uL Hemoglobin 10.2 L 13.5-17.5 g/dL Hematocrit 31.7 #L 41.0-53.0 % Mean Corpuscular Volume 76.8 #L 80.0-100.0 fL Mean Corpuscular Hemoglobin 24.7 L 28.0-32.0 pg Mean Corpuscular Hemoglobin Concent 32.2 32.0-36.0 g/dL Red Cell Distribution Width 19.7 H 11.8-14.3 % Platelet Count 207 140-450 10^3/uL Mean Platelet Volume 8.5 6.9-10.8 fL Neutrophils (%) (Auto) 92.2 H 37.0-80.0 % Lymphocytes (%) (Auto) 4.5 L 10.0-50.0 % Monocytes (%) (Auto) 2.4 0.0-12.0 % Eosinophils (%) (Auto) 0.5 0.0-7.0 % Basophils (%) (Auto) 0.4 0.0-2.0 % Neutrophils # (Auto) 18.2 H 1.6-8.6 10 ^3/uL Lymphocytes # (Auto) 0.9 0.4-5.4 10 ^3/uL Monocytes # (Auto) 0.5 0-1.3 10 ^3/uL Eosinophils # (Auto) 0.1 0-0.8 10 ^3/uL Basophils # (Auto) 0.1 0-0.2 10 ^3/uL Nucleated Red Blood Cells 0.0 % Sodium Level 141 136-145 mmol/L Potassium Level 3.5 3.5-5.1 mmol/L Chloride Level 105 98-107 mmol/L Carbon Dioxide Level 25 20-31 mmol/L Anion Gap 11 5-15 Blood Urea Nitrogen 32 H 9-23 mg/dL Creatinine 1.78 H 0.700-1.30 mg/dL Glomerular Filtration Rate Calc 40 >90 mL/min BUN/Creatinine Ratio 18.0 10.0-20.0 Serum Glucose 190 H 74-106 mg/dL Calcium Level 8.8 8.7-10.4 mg/dL Phosphorus Level 2.0 L 2.4-5.1 mg/dL Magnesium Level 1.9 1.6-2.6 mg/dL Total Bilirubin 0.4 0.2-1.0 mg/dL Aspartate Amino Transferase (AST) 18 13-40 U/L Alanine Aminotransferase (ALT) < 9 7-40 U/L Alkaline Phosphatase 75 46-116 U/L Total Protein 5.4 L 5.7-8.2 g/dL Albumin 2.6 L 3.2-4.8 g/dL Differential Total Cells Counted 100.0 100 Neutrophils % (Manual) 96 H 37.0-80.0 Band Neutrophils % (Manual) 0 Lymphocytes % (Manual) 3 L 10.0-50.0 Monocytes % (Manual) 1 0-12 Eosinophils % (Manual) 0 0-7 Basophils % (Manual) 0 0.0-2.0 Metamyelocytes % (manual) 0 Myelocytes % (Manual) 0 Promyelocytes % (Manual) 0 Blast Cells % (Manual) 0 Reactive Lymphocytes 0 Platelet Estimate Adequate Triglycerides Level 175 H < 150 mg/dL Test 08/12/24 19:52 08/12/24 13:30 08/10/24 16:00 08/10/24 05:58 Range/Units Specimen Drawn By Kera ward rt Blood Gas Liter Flow 6.00 Urine Creatinine 93.06 30.0-125.0 mg/dL Urine Protein/Creatinine Ratio 0.79 Urine Sodium 46 40-220 mmol/L Urine Total Protein 73.7 H 1-14 mg/dL Vitamin D 25-Hydroxy 209.8 H 30.0-100 ng/mL Parathyroid Hormone (Intact) 7.7 L 18.4-80.1 pg/mL Random Vancomycin Level 22.4 H 5-10 ug/mL Test 08/09/24 05:10 08/09/24 02:03 08/07/24 21:55 08/05/24 21:46 Range/Units Ovalocytes Few Vancomycin Level Trough 19.2 H 5-10 ug/mL Troponin I High Sensitivity 27 </=54 ng/L Lactic Acid Level 1.3 0.4-2.0 mmol/L Test 08/05/24 21:08 08/05/24 19:15 Range/Units Urine Color Yellow Yellow Urine Clarity Turbid H Clear Urine pH 6.0 5.0-9.0 Urine Specific [place] 1.015 1.001-1.035 Urine Protein 1+ H Negative Urine Ketones Negative Negative Urine Blood 2+ H Negative /uL Urine Nitrite 2+ H Negative Urine Bilirubin Negative Negative Urine Urobilinogen Normal Negative mg/dL Urine Leukocyte Esterase 3+ Negative /uL Urine RBC 57 0 - 3 /hpf Urine WBC 32 0 - 3 /hpf Urine Squamous Epithelial Cells Few <5 /hpf Urine Amorphous Crystals Few None Seen /hpf Urine Bacteria Few H None Seen /hpf Urine Mucus Few None Seen Urine Glucose Normal Normal mg/dL Prothrombin Time 13.0 H 9.3-11.8 sec Prothrombin Time INR 1.25 H 0.9-1.15 Activated Partial Thromboplast Time 34.9 H 24.5-34.5 SEC B-Type Natriuretic Peptide 1251.30 0-100 pg/mL Thyroid Stimulating Hormone (TSH) 6.06 H 0.55-4.78 uIU/mL Plasma/Serum Blood Alcohol 4.5 <10 mg/dL Microbiology Date/Time Source Procedure Growth Status 08/08/24 02:57 Nose MRSA Screen - Final Complete 08/05/24 21:08 Voided Urine Urine Culture - Final Escherichia coli - ESBL Complete 08/05/24 19:15 Blood Blood Culture - Final NO GROWTH AFTER 5 DAYS OF INCUBATION. Complete Assessment/Plan Problem List: (1) Altered mental status (2) Prostate cancer (3) Acute renal injury (4) Renal mass Plan palliative care/hospice care Plan discussed with: CHINMAY Ryan NP Aug 14, 2024 09:07
[2024-08-14] MEDS: POTASSIUM PHOSPHATE 26.4 MEQ in SODIUM CHL 0.9% 100 ML IV ONE (10:33)
--- NOTE | 2024-08-14 12:11 | DVHPN2 ---
Progress Note Date Seen: Aug 14, 2024 Medical Necessity Reason Pt with a Central, PICC or Fol: Yes The following are medically ne: Chang Catheter Reason for chang catheter: Strict I&O Subjective Patient reports: Feels worse Review of Systems: RESPIRATORY:Abnormal Objective vital signs Vital Sign Date Time Temp Pulse Resp B/P (MAP) Pulse Ox O2 Delivery O2 Flow Rate FiO2 08/14/24 10:42 88 109/64 99 Facial BiPAP Mask 30 08/14/24 10:29 19 08/14/24 04:30 100.0 100.0 08/12/24 16:24 6.0 Total Intake and Output 08/13/24 08/13/24 08/14/24 15:00 23:00 07:00 Intake Total 593.364 ml 475.343 ml 512.309 ml Output Total 950 ml 750 ml Balance 593.364 ml -474.657 ml -237.691 ml medications Current Medications Medications Dose Ordered Sig/Francisco Route Start Time Stop Time Status Last Admin Dose Admin Levothyroxine Sodium 175 mcg QAM@0600 PO 08/06/24 06:00 08/10/24 06:55 175 MCG Furosemide 40 mg DAILY IV 08/06/24 10:00 08/14/24 09:35 40 MG Atorvastatin Calcium 20 mg HS PO 08/06/24 22:00 08/09/24 21:45 20 MG Sodium Chloride 10 ml Q8HR IV 08/06/24 06:00 08/14/24 05:31 10 ML Acetaminophen/ Hydrocodone Bitart 1 tab Q4HP PRN PO 08/06/24 01:15 Hold Ondansetron HCl 4 mg Q4HP PRN IV 08/06/24 01:15 08/10/24 18:47 4 MG Docusate Sodium 100 mg BIDPRN PRN PO 08/06/24 01:15 Acetaminophen 650 mg Q6HP PRN PO 08/06/24 01:15 Hold 08/08/24 10:30 650 MG Nitroglycerin 0.4 mg Q5MINP PRN SL 08/06/24 05:00 Morphine Sulfate 2 mg Q30M PRN IV 08/06/24 05:00 08/14/24 09:59 2 MG Enoxaparin Sodium 30 mg DAILY SC 08/08/24 10:00 UNV Ertapenem 1 gm/ Sodium Chloride 50 ml @ 100 mls/hr DAILY IV 08/09/24 10:00 08/14/24 09:37 100 MLS/HR Acetaminophen 650 mg Q6HP PRN AL 08/10/24 09:00 08/12/24 16:17 650 MG Enoxaparin Sodium 30 mg DAILY SC 08/13/24 10:00 08/14/24 09:40 30 MG Norepinephrine Bitartrate 32 mg/ Sodium Chloride 250 ml @ 0.938 mls/ hr Q24H IV 08/12/24 12:15 08/13/24 13:09 10.313 MLS/HR Pantoprazole Sodium 40 mg DAILY IV 08/13/24 10:00 08/14/24 09:34 40 MG Amino Acids 0 ml @ 0 mls/hr PER PHARMACY IV 08/12/24 15:00 Diagnostic Test (Pha) 1 strip Q6HR 08/12/24 18:00 08/14/24 11:57 1 STRIP Insulin Human Regular FOLLOW SLIDING SCALE Q6HR SC 08/12/24 18:00 08/13/24 12:39 4 UNITS Dextrose 50 ml UD IV 08/12/24 18:00 08/12/24 23:40 50 ML Fat Emulsion Intravenous 50 ml/ Sodium Acetate 20 meq/Potassium Acetate 20 meq/ Potassium Phosphate 44 meq/ Magnesium Sulfate 8 meq/ Multivitamins 10 ml/Chromium/ Copper/Manganese/ Zinc 1 ml/Amino Acids/Dextrose 1,093 ml @ 45 mls/hr [id number] IV 08/13/24 22:00 08/14/24 21:59 08/13/24 21:34 45 MLS/HR Morphine Sulfate 2 mg Q4HPRN PRN IV 08/13/24 17:15 08/14/24 05:37 2 MG Fat Emulsion Intravenous 50 ml/ Sodium Acetate 20 meq/Potassium Acetate 30 meq/ Potassium Phosphate 52.8 meq/Magnesium Sulfate 12 meq/ Multivitamins 10 ml/Chromium/ Copper/Manganese/ Zinc 1 ml/Amino Acids/Dextrose/ Purified Water 1,301 ml @ 54 mls/hr Q24H6M IV 08/14/24 22:00 08/15/24 21:59 Examination: GENERAL:Abnormal, LUNGS:Abnormal, ABDOMEN:Abnormal laboratory and microbiology Laboratory Tests 08/14/24 03:15 Test 08/14/24 03:15 Range/Units Serum Glucose 190 H 74-106 mg/dL Microbiology Date/Time Source Procedure Growth Status 08/08/24 02:57 Nose MRSA Screen - Final Complete 08/05/24 21:08 Voided Urine Urine Culture - Final Escherichia coli - ESBL Complete 08/05/24 19:15 Blood Blood Culture - Final NO GROWTH AFTER 5 DAYS OF INCUBATION. Complete Problem List/Assessment/Plan Problem List/Assessment/Plan Acute kidney injury superimposed Chronic Kidney Disease secondary to ATN, FeNa > 2% Acute respiratory failure, on BiPAP Sepsis Urinary tract infection, ESBL Metastatic prostate cancer Congestive heart failure, ejection fraction 20% Right kidney mass, 6.2 cm CVA Hypercalcemia of malignancy Vancomycin toxicity Anemia of chronic kidney disease Chang catheter Strict I&Os Invanz 1 g IV q.day Furosemide 40 mg IV q.day KCL replacement kidney ultrasound reported 6 cm mass right kidney Cardiology consult Urology consult Insulin sliding scale Plan discussed with: Patient Dietary Evaluation Review Recommendations by RD: Increase Calorie Intake, PPN/TPN Comments: 1. Increase TPN rate to provide at least 75% of daily estimated energy needs. 2. Monitor I&O, weight, and labs. 3. Advance to when CCHO 60g cardiac diet medically feasible, pending FISH HATCHERY ASSISTANT approval. Expected Outcomes/Goals: 1. Increase TPN rate to provide at least 75% of daily estimated energy needs. 2. Monitor I&O, weight, and labs. 3. Advance to when CCHO 60g cardiac diet medically feasible, pending FISH HATCHERY ASSISTANT approval. SWAPNIL MELTON MD Aug 14, 2024 12:11
--- NOTE | 2024-08-14 13:18 | DVHPN2 ---
Consult Progress Note Date Seen: Aug 14, 2024 Objective vital signs Vital Sign Date Time Temp Pulse Resp B/P (MAP) Pulse Ox O2 Delivery O2 Flow Rate FiO2 08/14/24 12:00 22 97 Nasal Cannula* 4 36 08/14/24 12:00 87 08/14/24 10:42 109/64 08/14/24 04:30 100.0 100.0 Total Intake and Output 08/13/24 08/13/24 08/14/24 14:59 22:59 06:59 Intake Total 593.291 ml 470.656 ml 584.969 ml Output Total 950 ml 750 ml Balance 593.291 ml -479.344 ml -165.031 ml medications Current Medications Medications Dose Ordered Sig/Francisco Route Start Time Stop Time Status Last Admin Dose Admin Levothyroxine Sodium 175 mcg QAM@0600 PO 08/06/24 06:00 08/10/24 06:55 175 MCG Atorvastatin Calcium 20 mg HS PO 08/06/24 22:00 08/09/24 21:45 20 MG Sodium Chloride 10 ml Q8HR IV 08/06/24 06:00 08/14/24 12:33 10 ML Acetaminophen/ Hydrocodone Bitart 1 tab Q4HP PRN PO 08/06/24 01:15 Hold Ondansetron HCl 4 mg Q4HP PRN IV 08/06/24 01:15 08/10/24 18:47 4 MG Docusate Sodium 100 mg BIDPRN PRN PO 08/06/24 01:15 Acetaminophen 650 mg Q6HP PRN PO 08/06/24 01:15 Hold 08/08/24 10:30 650 MG Nitroglycerin 0.4 mg Q5MINP PRN SL 08/06/24 05:00 Morphine Sulfate 2 mg Q30M PRN IV 08/06/24 05:00 08/14/24 09:59 2 MG Enoxaparin Sodium 30 mg DAILY SC 08/08/24 10:00 UNV Ertapenem 1 gm/ Sodium Chloride 50 ml @ 100 mls/hr DAILY IV 08/09/24 10:00 08/14/24 09:37 100 MLS/HR Acetaminophen 650 mg Q6HP PRN [place] 08/10/24 09:00 08/12/24 16:17 650 MG Enoxaparin Sodium 30 mg DAILY SC 08/13/24 10:00 08/14/24 09:40 30 MG Norepinephrine Bitartrate 32 mg/ Sodium Chloride 250 ml @ 0.938 mls/ hr Q24H IV 08/12/24 12:15 08/14/24 12:32 7.5 MLS/HR Pantoprazole Sodium 40 mg DAILY IV 08/13/24 10:00 08/14/24 09:34 40 MG Amino Acids 0 ml @ 0 mls/hr PER PHARMACY IV 08/12/24 15:00 Diagnostic Test (Pha) 1 strip Q6HR 08/12/24 18:00 08/14/24 11:57 1 STRIP Insulin Human Regular FOLLOW SLIDING SCALE Q6HR SC 08/12/24 18:00 08/13/24 12:39 4 UNITS Dextrose 50 ml UD IV 08/12/24 18:00 08/12/24 23:40 50 ML Fat Emulsion Intravenous 50 ml/ Sodium Acetate 20 meq/Potassium Acetate 20 meq/ Potassium Phosphate 44 meq/ Magnesium Sulfate 8 meq/ Multivitamins 10 ml/Chromium/ Copper/Manganese/ Zinc 1 ml/Amino Acids/Dextrose 1,093 ml @ 45 mls/hr [id number] IV 08/13/24 22:00 08/14/24 21:59 08/13/24 21:34 45 MLS/HR Morphine Sulfate 2 mg Q4HPRN PRN IV 08/13/24 17:15 08/14/24 05:37 2 MG Fat Emulsion Intravenous 50 ml/ Sodium Acetate 20 meq/Potassium Acetate 30 meq/ Potassium Phosphate 52.8 meq/Magnesium Sulfate 12 meq/ Multivitamins 10 ml/Chromium/ Copper/Manganese/ Zinc 1 ml/Amino Acids/Dextrose/ Purified Water 1,301 ml @ 54 mls/hr Q24H6M IV 08/14/24 22:00 08/15/24 21:59 Furosemide 40 mg BIDD IV 08/14/24 18:00 Examination: GENERAL:Abnormal, LUNGS:Abnormal, CVS:Abnormal, NEURO:Abnormal laboratory and microbiology Laboratory Tests 08/14/24 03:15 Test 08/14/24 03:15 Range/Units Serum Glucose 190 H 74-106 mg/dL Problem List/Assessment/Plan Problem List/Assessment/Plan Sepsis with UTI Acute on chronic decompensated HFrEF, NYHA Class IV End-stage cardiomyopathy Paroxysmal atrial fibrillation, on low-dose Eliquis Peripheral arterial disease, severe degree Presence of AICD (Biotronik) COCO on CKD Prostate CA with METS and recent hospice care Metabolic encephalopathy Thyroid disease Plan/Recommendation () Transthoracic echocardiogram from this admission reveals an EF <20%. Unable to initiate guideline directed medical therapy for CHF at this time given that the patient is on vasopressor therapy. Continue strict intake and output, daily weights, and maintain fluid restriction. On low-dose Eliquis therapy at home ([id number] VASc score: 4 points). Patient unable to swallow, continue daily Lovenox given poor renal function/low GFR. Continue amiodarone drip and transition to oral form once patient able to swallow. ICD interrogated x 2 revealing episodes of atrial fibrillation and NSVT. Consider goals of care with family. Strongly recommended for an ethic committee evaluation given the patient's very poor prognosis. Please call if in need to re-consult. Thank you for allowing us to care for this patient. Critical care time: 30 min. This medical document was created using an electronic medical record system with voice recognition software and computerized dictation system. Although this document has been carefully reviewed, there might still be some phonetic and typographical errors. Occasional wrong-word or ``sound-alike substitutions may have occurred due to the inherent limitations of voice recognition software. These areas are purely typographical due to imperfections of the software programs and do not reflect any compromise in the patient's medical care. Please read the chart carefully and recognize, using context, where these substitutions have occurred. Plan discussed with: Other Dietary Evaluation Review Recommendations by RD: Increase Calorie Intake, PPN/TPN Comments: 1. Increase TPN rate to provide at least 75% of daily estimated energy needs. 2. Monitor I&O, weight, and labs. 3. Advance to when CCHO 60g cardiac diet medically feasible, pending ELECTRICIAN TECHNICIAN approval. Expected Outcomes/Goals: 1. Increase TPN rate to provide at least 75% of daily estimated energy needs. 2. Monitor I&O, weight, and labs. 3. Advance to when CCHO 60g cardiac diet medically feasible, pending ELECTRICIAN TECHNICIAN approval. Date of Service: Aug 14, 2024 Billing Provider: VIVIAN LESLIE Cardiology Common Codes: 88915-YBPBFPKV CARE 30-74 MIN VIVIAN LESLIE Aug 14, 2024 13:18
[2024-08-14] MEDS: FUROSEMIDE 40 MG/4 ML VIAL IV SCH (18:06)
[2024-08-14 20:40] LABS: Potassium 3.8 mmol/L (3.5-5.1)
[2024-08-14 20:49] LABS: Phosphorus 3.5 mg/dL (2.4-5.1)
[2024-08-14] MEDS: TPN PER PHARMACY IV NR (21:32)
--- NOTE | 2024-08-14 23:41 | DVHPN2 ---
Progress Note - Dictate Date Seen: Aug 14, 2024 Medical Necessity Reason Pt with a Central, PICC or Fol: Yes The following are medically ne: Chang Catheter Reason for chang catheter: Strict I&O Subjective Patient seen and examined at bedside. Remains on BiPAP alternating with high flow oxygen Overnight events reviewed. vital signs Vital Sign Date Time Temp Pulse Resp B/P (MAP) Pulse Ox O2 Delivery O2 Flow Rate FiO2 08/14/24 22:11 83 22 94 20.0 21 08/14/24 21:33 110/55 08/14/24 20:00 Bi-Pap+ 08/14/24 16:00 97.7 97.7 Total Intake and Output 08/13/24 08/13/24 08/14/24 15:00 23:00 07:00 Intake Total 593.364 ml 475.343 ml 582.407 ml Output Total 950 ml 750 ml Balance 593.364 ml -474.657 ml -167.593 ml medications Current Medications Medications Dose Ordered Sig/Francisco Route Start Time Stop Time Status Last Admin Dose Admin Levothyroxine Sodium 175 mcg QAM@0600 PO 08/06/24 06:00 08/10/24 06:55 175 MCG Atorvastatin Calcium 20 mg HS PO 08/06/24 22:00 08/09/24 21:45 20 MG Sodium Chloride 10 ml Q8HR IV 08/06/24 06:00 08/14/24 21:47 10 ML Acetaminophen/ Hydrocodone Bitart 1 tab Q4HP PRN PO 08/06/24 01:15 Hold Ondansetron HCl 4 mg Q4HP PRN IV 08/06/24 01:15 08/10/24 18:47 4 MG Docusate Sodium 100 mg BIDPRN PRN PO 08/06/24 01:15 Acetaminophen 650 mg Q6HP PRN PO 08/06/24 01:15 Hold 08/08/24 10:30 650 MG Nitroglycerin 0.4 mg Q5MINP PRN SL 08/06/24 05:00 Morphine Sulfate 2 mg Q30M PRN IV 08/06/24 05:00 08/14/24 09:59 2 MG Enoxaparin Sodium 30 mg DAILY SC 08/08/24 10:00 UNV Ertapenem 1 gm/ Sodium Chloride 50 ml @ 100 mls/hr DAILY IV 08/09/24 10:00 08/14/24 09:37 100 MLS/HR Acetaminophen 650 mg Q6HP PRN ID 08/10/24 09:00 08/12/24 16:17 650 MG Enoxaparin Sodium 30 mg DAILY SC 08/13/24 10:00 08/14/24 09:40 30 MG Norepinephrine Bitartrate 32 mg/ Sodium Chloride 250 ml @ 0.938 mls/ hr Q24H IV 08/12/24 12:15 08/14/24 12:32 7.5 MLS/HR Pantoprazole Sodium 40 mg DAILY IV 08/13/24 10:00 08/14/24 09:34 40 MG Amino Acids 0 ml @ 0 mls/hr PER PHARMACY IV 08/12/24 15:00 Diagnostic Test (Pha) 1 strip Q6HR 08/12/24 18:00 08/14/24 18:22 1 STRIP Insulin Human Regular FOLLOW SLIDING SCALE Q6HR SC 08/12/24 18:00 08/13/24 12:39 4 UNITS Dextrose 50 ml UD IV 08/12/24 18:00 08/12/24 23:40 50 ML Morphine Sulfate 2 mg Q4HPRN PRN IV 08/13/24 17:15 08/14/24 21:33 2 MG Fat Emulsion Intravenous 50 ml/ Sodium Acetate 20 meq/Potassium Acetate 30 meq/ Potassium Phosphate 52.8 meq/Magnesium Sulfate 12 meq/ Multivitamins 10 ml/Chromium/ Copper/Manganese/ Zinc 1 ml/Amino Acids/Dextrose/ Purified Water 1,301 ml @ 54 mls/hr Q24H6M IV 08/14/24 22:00 08/15/24 21:59 08/14/24 21:32 54 MLS/HR Furosemide 40 mg BIDD IV 08/14/24 18:00 08/14/24 18:06 40 MG objective Gen.: Patient lying in bed in no apparent distress. On BiPAP alternating with high flow o2 Head: Normocephalic, atraumatic. Eyes: EOMI/PERRLA. Ears: Normal hearing. Normal anatomy. Neck/trachea: Trachea midline, supple. Nose: Normal external anatomy. Mouth: Moist mucous membranes. Chest: Decreased air entry bilaterally. No wheezing or rhonchi. Cardiovascular: Positive S1, positive S2. Regular rate and rhythm. Abdomen: Positive bowel sounds in all 4 quadrants. Soft, non-tender, non- distended. : Deferred. Rectal: Deferred. Skin: Warm, dry. Intact. Extremities: 2+ radial pulses bilaterally. No lower extremity edema. Neuro: Awake, alert, oriented x3. No gross motor or sensory deficits. Cranial nerves II through XII intact. Gait not assessed. laboratory and microbiology Laboratory Tests 08/14/24 20:10 08/14/24 03:15 Test 08/14/24 03:15 Range/Units Serum Glucose 190 H 74-106 mg/dL Assessment/Plan Impression: Acute hypoxic respiratory failure Shock Congestive heart failure Coronary artery disease S/p AICD Prostate cancer with mets Bradycardia Sepsis Acute metabolic encephalopathy Events: Alternating between BiPAP and high flow oxygen HFO2 with flow rate 40 LPM, FiO2 30% Taper O2 as tolerated On pressors for hemodynamic support Levophed 14 mcg/min Titrate to keep mean arterial pressure greater than 65 mmHg. Improving pressor requirements HOB elevation Aspiration precautions Oncology eval. Pain control Avoid oversedation Amiodarone drip Continue antibiotics TPN for nutritional support Diurese w/ Lasix as tolerated Monitor renal function. Monitor electrolytes. Supplement as necessary. K/phos supplementation Labs and imaging reviewed. Rest of plan as noted below. Plan: Alternating between BiPAP and high flow oxygen HFO2 with flow rate 40 LPM, FiO2 30% Titrate to keep O2 sats above 92%. CXR demonstrates pulmonary edema, improving. Cardiology recs appreciated Amio drip AFib - interrogated AICD On pressors for hemodynamic support Titrate to keep mean arterial pressure greater than 65 mmHg. Monitor respiratory status closely - high risk of requiring mechanical vent. HOB elevation Aspiration precautions Continue antibiotics F/u cultures ESBL in urine Pain control Avoid oversedation Diurese as tolerated w/ Lasix Monitor renal function. Monitor electrolytes. Supplement as necessary. Monitor ins and outs. Clinimix for nutritional support DVT prophylaxis. Poor prognosis. Monitor respiratory status closely Patient may require emergent intubation. Prognosis: Poor given patient's multiple co-morbidities. Condition: Critical Rest of plan per hospitalist and other consultants. A total of 35 minutes of critical care time was spent reviewing the patient record, examining the patient, making a diagnostic and therapeutic plan, discussing this plan with the medical personnel, following up on diagnostic studies and following the patient for clinical stability excluding any and all procedures. At least 50% of this time was spent in direct, [id number] contact. Thank you Dr. Freeman for allowing me to participate in this patient's care. Further recommendations will depend on the patient's clinical course. Please do not hesitate to contact me if you have any questions or concerns. This medical document was created using an electronic medical record system with AddThis dictation system. Although these documentations are being carefully reviewed, there may still be some phonetic and typographical changes. The errors are purely typographical, due to imperfection on the software program, and do not reflect any compromise in the patient's medical care. Dietary Evaluation Review Recommendations by RD: Increase Calorie Intake, PPN/TPN Comments: 1. Increase TPN rate to provide at least 75% of daily estimated energy needs. 2. Monitor I&O, weight, and labs. 3. Advance to when CCHO 60g cardiac diet medically feasible, pending MAINTENANCE CHIEF approval. Expected Outcomes/Goals: 1. Increase TPN rate to provide at least 75% of daily estimated energy needs. 2. Monitor I&O, weight, and labs. 3. Advance to when CCHO 60g cardiac diet medically feasible, pending MAINTENANCE CHIEF approval. Plan discussed with: Other (CHATO Arteaga) Critical Care Time(min): 35 MAYA GÓMEZ MD Aug 14, 2024 23:41
[2024-08-15] VITALS (98 sets, daily range): BP systolic 72–127; BP diastolic 44–72; PULSE 76–98; RESP 13–37; TEMP 97.7–98.4; O2SAT 85–100
[2024-08-15 04:07] LABS: Alkaline Phosphatase 69 U/L (46-116); Anion Gap 11 (5-15); Aspartate Aminotransferase 22 U/L (13-40); BUN/Creatinine Ratio 21.7 (10.0-20.0); Calcium 8.8 mg/dL (8.7-10.4); Carbon Dioxide 28 mmol/L (20-31); Chloride 103 mmol/L (98-107); Potassium 3.6 mmol/L (3.5-5.1); Sodium 142 mmol/L (136-145)
[2024-08-15 04:08] LABS: Bilirubin, Total 0.3 mg/dL (0.2-1.0); Phosphorus 3.3 mg/dL (2.4-5.1)
[2024-08-15 04:12] LABS: Alanine Aminotransferase < 9 U/L (7-40); Albumin 2.6 g/dL (3.2-4.8); Blood Urea Nitrogen 35 mg/dL (9-23); Glucose 191 mg/dL (74-106); Total Protein 5.6 g/dL (5.7-8.2)
[2024-08-15 07:24] LABS: Basophils # (auto) 0.1 10 ^3/uL (0-0.2); Eosinophils # (auto) 0.3 10 ^3/uL (0-0.8); Hemoglobin 9.8 g/dL (13.5-17.5); Lymphocytes # (auto) 1.1 10 ^3/uL (0.4-5.4); Monocytes # (auto) 0.4 10 ^3/uL (0-1.3); Neutrophils # (auto) 14.5 10 ^3/uL (1.6-8.6); Nucleated Red Blood Cells % 0.1 %; Red Blood Cells 3.93 10^6/uL (4.5-5.90); White Blood Cell 16.4 10^3/uL (4.4-10.8)
[2024-08-15 07:26] LABS: Basophils % (auto) 0.6 % (0.0-2.0); Eosinophils % (auto) 2.1 % (0.0-7.0); Hematocrit 29.7 % (41.0-53.0); Lymphocytes % (auto) 6.4 % (10.0-50.0); Mean Corpuscular Hemoglobin 24.8 pg (28.0-32.0); Mean Corpuscular Hgb Conc. 32.8 g/dL (32.0-36.0); Mean Corpuscular Volume 75.6 fL (80.0-100.0); Monocytes % (auto) 2.4 % (0.0-12.0); Neutrophils % (auto) 88.5 % (37.0-80.0); Platelet Count (auto) 210 10^3/uL (140-450); Red Cell Distribution Width 19.1 % (11.8-14.3)
--- NOTE | 2024-08-15 11:24 | DVHPN2 ---
Progress Note Date Seen: Aug 15, 2024 Medical Necessity Reason Pt with a Central, PICC or Fol: Yes The following are medically ne: Chang Catheter Reason for chang catheter: Strict I&O Subjective Patient reports: No new complaints Objective vital signs Vital Sign Date Time Temp Pulse Resp B/P (MAP) Pulse Ox O2 Delivery O2 Flow Rate FiO2 08/15/24 10:00 22 100 Nasal Cannula* 3 32 08/15/24 10:00 87 08/15/24 07:45 111/59 (76) 08/15/24 06:00 98.0 98.0 Total Intake and Output 08/14/24 08/14/24 08/15/24 15:00 23:00 07:00 Intake Total 778.442 ml 465.669 ml 701.223 ml Output Total 1760 ml 1800 ml Balance 778.442 ml -1294.331 ml -1098.777 ml medications Current Medications Medications Dose Ordered Sig/Francisco Route Start Time Stop Time Status Last Admin Dose Admin Levothyroxine Sodium 175 mcg QAM@0600 PO 08/06/24 06:00 08/10/24 06:55 175 MCG Atorvastatin Calcium 20 mg HS PO 08/06/24 22:00 08/09/24 21:45 20 MG Sodium Chloride 10 ml Q8HR IV 08/06/24 06:00 08/15/24 06:04 10 ML Acetaminophen/ Hydrocodone Bitart 1 tab Q4HP PRN PO 08/06/24 01:15 Hold Ondansetron HCl 4 mg Q4HP PRN IV 08/06/24 01:15 08/10/24 18:47 4 MG Docusate Sodium 100 mg BIDPRN PRN PO 08/06/24 01:15 Acetaminophen 650 mg Q6HP PRN PO 08/06/24 01:15 Hold 08/08/24 10:30 650 MG Nitroglycerin 0.4 mg Q5MINP PRN SL 08/06/24 05:00 Morphine Sulfate 2 mg Q30M PRN IV 08/06/24 05:00 08/14/24 09:59 2 MG Enoxaparin Sodium 30 mg DAILY SC 08/08/24 10:00 UNV Ertapenem 1 gm/ Sodium Chloride 50 ml @ 100 mls/hr DAILY IV 08/09/24 10:00 08/15/24 09:31 100 MLS/HR Acetaminophen 650 mg Q6HP PRN DC 08/10/24 09:00 08/12/24 16:17 650 MG Enoxaparin Sodium 30 mg DAILY SC 08/13/24 10:00 08/15/24 09:31 30 MG Norepinephrine Bitartrate 32 mg/ Sodium Chloride 250 ml @ 0.938 mls/ hr Q24H IV 08/12/24 12:15 08/14/24 12:32 7.5 MLS/HR Pantoprazole Sodium 40 mg DAILY IV 08/13/24 10:00 08/15/24 09:30 40 MG Amino Acids 0 ml @ 0 mls/hr PER PHARMACY IV 08/12/24 15:00 Diagnostic Test (Pha) 1 strip Q6HR 08/12/24 18:00 08/15/24 05:20 1 STRIP Insulin Human Regular FOLLOW SLIDING SCALE Q6HR SC 08/12/24 18:00 08/15/24 05:23 2 UNITS Dextrose 50 ml UD IV 08/12/24 18:00 08/12/24 23:40 50 ML Morphine Sulfate 2 mg Q4HPRN PRN IV 08/13/24 17:15 08/15/24 03:20 2 MG Fat Emulsion Intravenous 50 ml/ Sodium Acetate 20 meq/Potassium Acetate 30 meq/ Potassium Phosphate 52.8 meq/Magnesium Sulfate 12 meq/ Multivitamins 10 ml/Chromium/ Copper/Manganese/ Zinc 1 ml/Amino Acids/Dextrose/ Purified Water 1,301 ml @ 54 mls/hr Q24H6M IV 08/14/24 22:00 08/15/24 21:59 08/14/24 21:32 54 MLS/HR Furosemide 40 mg BIDD IV 08/14/24 18:00 08/15/24 05:20 40 MG Fat Emulsion Intravenous 50 ml/ Sodium Phosphate 20 meq/Potassium Chloride 50 meq/ Potassium Acetate 10 meq/Potassium Phosphate 22 meq/ Magnesium Sulfate 16 meq/ Multivitamins 10 ml/Chromium/ Copper/Manganese/ Zinc 1 ml/Amino Acids/Dextrose/ Purified Water 1,455 ml @ 60 mls/hr [id number] IV 08/15/24 22:00 08/16/24 21:59 laboratory and microbiology Laboratory Tests 08/15/24 03:00 Test 08/15/24 03:00 Range/Units Serum Glucose 191 H 74-106 mg/dL Microbiology Date/Time Source Procedure Growth Status 08/13/24 08:10 Nose MRSA Screen - Final Complete 08/05/24 21:08 Voided Urine Urine Culture - Final Escherichia coli - ESBL Complete 08/05/24 19:15 Blood Blood Culture - Final NO GROWTH AFTER 5 DAYS OF INCUBATION. Complete Problem List/Assessment/Plan Problem List/Assessment/Plan Acute kidney injury superimposed Chronic Kidney Disease secondary to ATN, FeNa > 2% Acute respiratory failure, on BiPAP Sepsis Urinary tract infection, ESBL Metastatic prostate cancer Congestive heart failure, ejection fraction 20% Right kidney mass, 6.2 cm CVA Hypercalcemia of malignancy Vancomycin toxicity Anemia of chronic kidney disease Chang catheter Strict I&Os Invanz 1 g IV q.day Furosemide 40 mg IV q 12 tolerated well KCL replacement kidney ultrasound reported 6 cm mass right kidney Cardiology consult Urology consult Insulin sliding scale no new renal recs at this time. prison goals per primary team Plan discussed with: Patient My Orders My Orders Orders - SWAPNIL MELTON MD Procedure Category Date Status Time Furosemide Injection PHA 08/14/24 In Process (Lasix Injection) 18:00 Dietary Evaluation Review Recommendations by RD: Increase Calorie Intake, PPN/TPN Comments: 1. Increase TPN rate to provide at least 75% of daily estimated energy needs. 2. Monitor I&O, weight, and labs. 3. Advance to when CCHO 60g cardiac diet medically feasible, pending AGENCY SERVICE REPRESENTATIVE approval. Expected Outcomes/Goals: 1. Increase TPN rate to provide at least 75% of daily estimated energy needs. 2. Monitor I&O, weight, and labs. 3. Advance to when CCHO 60g cardiac diet medically feasible, pending AGENCY SERVICE REPRESENTATIVE approval. SWAPNIL MELTON MD Aug 15, 2024 11:24
[2024-08-15] MEDS: POTASSIUM CHL 20MEQ/100ML 100 ML IV ONE (12:05)
--- NOTE | 2024-08-15 12:13 | DVH ---
EXAM: XY CHEST PORTABLE Indication: sob Technique: Single frontal view of the chest was obtained Comparison: XY CHEST PORTABLE on DOS: 08/14/24, XY CHEST PORTABLE on DOS: 08/13/24, XY CHEST PORTABLE o n DOS: 08/12/24, XY CHEST PORTABLE on DOS: 10/19/23, XY CHEST PORTABLE on DOS: 10/18/23 FINDINGS: Lines and Tubes: Cardiac pacemaker projects over left chest wall. Lungs: Multifocal consolidative opacities. Low lung volumes. Pleura: No effusion. No pneumothorax. Cardiomediastinal contours: Cardiomegaly. Bones: No acute osseous abnormality. IMPRESSION: Low lung volumes with multifocal consolidative opacities.
[2024-08-15 12:21] LABS: Lactic Acid w/Reflex 2.5 mmol/L (0.4-2.0)
[2024-08-15 12:22] LABS: % Iron Saturation 16.4 % (20-55)
[2024-08-15 12:37] LABS: Free T4 (Free Thyroxine) 0.3 ng/dL (0.89-1.76); T3 Total 0.29 ng/mL (0.60-1.81)
[2024-08-15 12:41] LABS: Urine Bacteria FEW /hpf (None Seen); Urine Blood Negative /uL (Negative); Urine Clarity Clear (Clear); Urine Color Colorless (Yellow); Urine Protein, UAD Negative (Negative); Urine Specific Gravity 1.009 (1.001-1.035); Urine Squamous Epithelial Cell None Seen /hpf (<5); Urine Urobilinogen Normal (Negative); Urine WBC 10 /HPF (0-3); Urine pH 6.5 (5.0-9.0)
[2024-08-15 13:13] LABS: Folate (Folic Acid) 19.67 ng/mL (>5.38)
[2024-08-15 13:25] LABS: Base Excess 4.8 mmol/L (-2.0-3.0)
[2024-08-15 13:36] LABS: Rapid Influenza A Positive (Negative); Rapid Influenza B Negative (Negative)
[2024-08-15 13:37] LABS: COVID19 ANTIGEN SOFIA FIA NEGATIVE (NEGATIVE)
[2024-08-15] MEDS: DOXYCYCLINE 100MG/100ML 100 ML IV SCH (13:37)
[2024-08-15 14:46] LABS: INR 1.18 (0.9-1.15); Partial Thromboplastin Time 44.4 SEC (24.5-34.5); Prothrombin Time 12.3 sec (9.3-11.8)
[2024-08-15] MEDS: LIDOCAINE 1% (LOCAL ANESTH.) PF 5ml SDV ID ONE (15:15)
--- NOTE | 2024-08-15 16:06 | DVH ---
EXAM: XY CHEST PORTABLE TECHNIQUE: Single frontal chest radiograph CLINICAL HISTORY: FOR PICC TIP PLACEMENT COMPARISON: XY CHEST PORTABLE on DOS: 08/15/24, XY CHEST PORTABLE on DOS: 08/14/24, XY CHEST PORTABLE o n DOS: 08/13/24 Findings/Impression: Frontal chest radiograph demonstrates no acute osseous or superficial soft tissue abnormalities. Left chest wall dual chamber ICD. Right upper extremity PICC terminates near the superior cavoatrial junction. The trachea is midline. The cardiac silhouette and mediastinum are within normal limits. Multifocal pneumonia, similar to prior. No pneumothorax or pleural effusions.
--- NOTE | 2024-08-15 17:24 | DVHPNRES ---
Progress Note Date Seen: Aug 15, 2024 Resident Creating Document: ZELDA ROACH RESIDENT Medical Necessity Reason Pt with a Central, PICC or Fol: Yes The following are medically ne: PICC Line, Chang Catheter Reason for chang catheter: Strict I&O Subjective Review of Systems RENATA PEREA is a 74-year-old man With a PMH of paroxysmal atrial fibrillation on low-dose Eliquis and amiodarone, congestive heart failure, status post automatic implantable cardioverter-defibrillator (Biotronik), unspecified metastatic disease with current hospice care, peripheral arterial disease, hypothyroidism, and GERD, who presented to the emergency room via EMS with a chief complaint of an altered level of consciousness. The patient is somewhat a poor historian. Information mostly obtained from records in childhood friend at bedside. It appears the patient was found with generalized weakness and an altered level of consciousness for an family to call 911. He was recently diagnosed with a UTI. He has been on hospice care for unspecified metastatic disease for the past eight months. EN route to the hospital the patient was found to be bradycardic and with transient nonsustained ventricular tachycardia events. Patient was initially on BiPAP, switched to high-flow and currently on 2 L NC Patient seen and examined at the bedside. Patient reported no new complaints. Continuously monitoring, downgraded to ABIODUN. Patient reports: Feels better Objective vital signs Vital Sign Date Time Temp Pulse Resp B/P (MAP) Pulse Ox O2 Delivery O2 Flow Rate FiO2 08/15/24 16:45 88 32 115/67 (83) 99 08/15/24 16:01 98.4 98.4 08/15/24 16:00 Nasal Cannula* 5 40 Total Intake and Output 08/14/24 08/14/24 08/15/24 15:00 23:00 07:00 Intake Total 778.442 ml 465.669 ml 701.223 ml Output Total 1760 ml 1800 ml Balance 778.442 ml -1294.331 ml -1098.777 ml medications Current Medications Medications Dose Ordered Sig/Francisco Route Start Time Stop Time Status Last Admin Dose Admin Levothyroxine Sodium 175 mcg QAM@0600 PO 08/06/24 06:00 08/10/24 06:55 175 MCG Sodium Chloride 10 ml Q8HR IV 08/06/24 06:00 08/15/24 12:05 10 ML Acetaminophen/ Hydrocodone Bitart 1 tab Q4HP PRN PO 08/06/24 01:15 Hold Ondansetron HCl 4 mg Q4HP PRN IV 08/06/24 01:15 08/10/24 18:47 4 MG Acetaminophen 650 mg Q6HP PRN PO 08/06/24 01:15 Hold 08/08/24 10:30 650 MG Enoxaparin Sodium 30 mg DAILY SC 08/08/24 10:00 UNV Ertapenem 1 gm/ Sodium Chloride 50 ml @ 100 mls/hr DAILY IV 08/09/24 10:00 08/15/24 09:31 100 MLS/HR Acetaminophen 650 mg Q6HP PRN GA 08/10/24 09:00 08/12/24 16:17 650 MG Enoxaparin Sodium 30 mg DAILY SC 08/13/24 10:00 08/15/24 09:31 30 MG Norepinephrine Bitartrate 32 mg/ Sodium Chloride 250 ml @ 0.938 mls/ hr Q24H IV 08/12/24 12:15 08/14/24 12:32 7.5 MLS/HR Pantoprazole Sodium 40 mg DAILY IV 08/13/24 10:00 08/15/24 09:30 40 MG Diagnostic Test (Pha) 1 strip Q6HR 08/12/24 18:00 08/15/24 17:10 1 STRIP Insulin Human Regular FOLLOW SLIDING SCALE Q6HR SC 08/12/24 18:00 08/15/24 12:24 2 UNITS Dextrose 50 ml UD IV 08/12/24 18:00 08/12/24 23:40 50 ML Doxycycline Hyclate 100 ml @ 50 mls/hr Q12H IV 08/15/24 11:45 08/15/24 13:37 50 MLS/HR Morphine Sulfate 2 mg Q4HPRN PRN IV 08/15/24 12:00 Sodium Chloride 10 ml QSHIFT@10,22 IV 08/15/24 22:00 Furosemide 40 mg DAILY IV 08/16/24 10:00 Examination Pt is lying on bed General Appearance: Alert, Oriented X2, Cooperative, following commands HEENT: Atraumatic, Mucous membranes dry Respiratory: Clear to auscultation, Normal air movement, on NC 2 L Cardiovascular: Regular rate, Normal S1, Normal S2, Abdominal: Active bowel sounds, Soft, no distention, no tenderness Extremities: 1+ edema BLE, weak pulses BLE, Skin: stress 3 sacral decubitus ulcer. skin discoloration in BLE likely due to vascular disorders Neuro: Normal speech, sensorimotor deficits none Psych/Mental Status: Mental status NL, Mood NL Nurse was there as sharperone during examination laboratory and microbiology Laboratory Tests 08/15/24 03:00 Test 08/15/24 03:00 Range/Units Serum Glucose 191 H 74-106 mg/dL Microbiology Date/Time Source Procedure Growth Status 08/13/24 08:10 Nose MRSA Screen - Final Complete 08/05/24 21:08 Voided Urine Urine Culture - Final Escherichia coli - ESBL Complete 08/05/24 19:15 Blood Blood Culture - Final NO GROWTH AFTER 5 DAYS OF INCUBATION. Complete Labs and/or images reviewed: Labs reviewed by me, Image(s) reviewed by me Problem List/Assessment/Plan Problem List/Assessment/Plan NEUROLOGY # acute metabolic or toxic encephalopathy # history of CVA - CT showed no acute changes CARDIOLOGY # acute on chronic HFrEF EF less than 20% with AICD NYHA 4 # end-stage cardiomyopathy # Paroxysmal atrial fibrillation, on low-dose Eliquis # Peripheral arterial disease, severe degree # Presence of AICD (Biotronik) # septic shock likely due to UTI - EF showed less than 20% - cardiology on board - currently on Lasix 40 daily - amiodarone drip for AFib - monitor continuously - reviewed EKG RESPIRATORY # Acute hypoxic respiratory failure likely due to heart failure # possible aspiration pneumonia # multiple pulmonary nodules likely Mets # pleural effusion - Downgrade to ABIODUN - currently on oxygen NC 2 L (initially on BiPAP and high-flow) - ordered pancultures - currently on Invanz and doxycycline - continuously monitoring # influenza type A - currently on Tamiflu GI/LIVER # GERD - Protonix /KIDNEY/METABOLIC # COCO on CKD stage 3 A/B - continuously monitoring # acute complicated UTI ESBL - evident on urinalysis - and cultures growing ESBL - currently on Invanz # prostatic cancer with possible metastasis - following up with the Urology # Right kidney mass - evident on CT abdominal pelvis # hypercalcemia likely due to malignancy- resolved # hyponatremia- resolved # Hypokalemia - Repleting - Monitor lab ENDO # uncontrolled type 2 diabetes mellitus - Accu-Cheks and sliding scale # hypothyroidism - currently on levothyroxine MSK # Severe PAD # Severe right knee osteoarthritis - Pain management as needed - No surgical intervention for now - Monitoring HEME # Anemia of chronic disease likely due to malignancy - monitor lab ID # acute complicated UTI ESBL # septic shock due to UTI - evident on urinalysis - and cultures growing ESBL - currently on Invanz SKIN # stage III sacral decubitus ulcer - wound consult LINES Right femoral vein catheter DC 08/15 PICC 08/15 Chang catheter DRIPS Currently Off from Levophed 08/15 NUTRITION JEVITY 30ml/hr PUD prophylaxis: Pantoprazole DVT prophylaxis: Lovenox Goals of care has been discussed with the son for more than 27 minutes, full code status Critical care time including chart review, discussing with the patient's family excluding procedures: 54 minutes Case discussed with Dr. Raymond Plan discussed with: Patient, Son My Orders My Orders Orders - ZELDA ROACH Procedure Category Date Status Time Furosemide Injection PHA 08/16/24 In Process (Lasix Injection) 10:00 Transfer Orders XFER 08/15/24 Transmitted 17:05 Place Ng ORDERS 08/15/24 Transmitted 17:05 Thyroid Stimulating LAB 08/16/24 Verified Hormone 04:00 Magnesium LAB 08/16/24 Verified 04:00 Complete Blood Count LAB 08/16/24 Verified 04:00 Comprehensive LAB 08/16/24 Verified Metabolic Panel 04:00 Oseltamivir 75mg PHA 08/15/24 Verified Capsule (Tamiflu 75mg 22:00 Dietary Evaluation Review Recommendations by RD: Increase Calorie Intake, PPN/TPN Comments: 1. Increase TPN rate to provide at least 75% of daily estimated energy needs. 2. Monitor I&O, weight, and labs. 3. Advance to when CCHO 60g cardiac diet medically feasible, pending LACQUERER approval. Expected Outcomes/Goals: 1. Increase TPN rate to provide at least 75% of daily estimated energy needs. 2. Monitor I&O, weight, and labs. 3. Advance to when CCHO 60g cardiac diet medically feasible, pending LACQUERER approval. Date of Service: Aug 15, 2024 Billing Provider: PATRICAI RAYMOND MD Common Visit Codes: [id number] CARE 30-74 MIN ZELDA ROACH Aug 15, 2024 17:24 PATRICIA RAYMOND MD Aug 16, 2024 16:15
[2024-08-15] MEDS ORDERED: Jevity 1.2 Cal/Fiber 1 Liter GT SCH (18:00)
[2024-08-15] MEDS: OSELTAMIVIR 30 MG CAP PO SCH (20:00)
[2024-08-15] MEDS: MORPHINE SULFATE INJ 2 MG/ml SYRG IV PRN (20:02)
[2024-08-15] MEDS: SODIUM CHLOR 0.9% PF (SALINE LOCK) 10ML VIAL/SYR IV SCH (21:57)
[2024-08-15] MEDS ORDERED: TPN PER PHARMACY IV NR (22:00)
[2024-08-16] VITALS (93 sets, daily range): BP systolic 87–119; BP diastolic 50–76; PULSE 78–123; RESP 13–31; TEMP 97.5–98.9; O2SAT 83–100
[2024-08-16 04:05] LABS: Basophils # (auto) 0.1 10 ^3/uL (0-0.2); Basophils % (auto) 0.7 % (0.0-2.0); Eosinophils # (auto) 0.3 10 ^3/uL (0-0.8); Eosinophils % (auto) 2.6 % (0.0-7.0); Hematocrit 29.9 % (41.0-53.0); Hemoglobin 9.8 g/dL (13.5-17.5); Lymphocytes # (auto) 1.2 10 ^3/uL (0.4-5.4); Lymphocytes % (auto) 9.3 % (10.0-50.0); Mean Corpuscular Hgb Conc. 32.7 g/dL (32.0-36.0); Mean Corpuscular Volume 76.5 fL (80.0-100.0); Monocytes # (auto) 0.5 10 ^3/uL (0-1.3); Monocytes % (auto) 3.6 % (0.0-12.0); Neutrophils # (auto) 10.7 10 ^3/uL (1.6-8.6); Neutrophils % (auto) 83.8 % (37.0-80.0); Platelet Count (auto) 235 10^3/uL (140-450); Red Cell Distribution Width 19.4 % (11.8-14.3); White Blood Cell 12.7 10^3/uL (4.4-10.8)
[2024-08-16 04:24] LABS: Alkaline Phosphatase 74 U/L (46-116); Anion Gap 11 (5-15); Aspartate Aminotransferase 30 U/L (13-40); Bilirubin, Total 0.6 mg/dL (0.2-1.0); Calcium 9.2 mg/dL (8.7-10.4); Carbon Dioxide 29 mmol/L (20-31); Chloride 102 mmol/L (98-107); Glucose 92 mg/dL (74-106); Magnesium 1.9 mg/dL (1.6-2.6); Potassium 3.8 mmol/L (3.5-5.1); Sodium 142 mmol/L (136-145)
[2024-08-16 04:30] LABS: Alanine Aminotransferase < 9 U/L (7-40); Albumin 2.7 g/dL (3.2-4.8); Blood Urea Nitrogen 36 mg/dL (9-23)
--- NOTE | 2024-08-16 05:11 | DVH ---
CHEST RADIOGRAPH Indication: PROTOCOL Technique: Single frontal view of the chest was obtained COMPARISON: XY CHEST PORTABLE on DOS: 08/15/24, XY CHEST PORTABLE on DOS: 08/15/24, XY CHEST PORTABLE o n DOS: 08/14/24, XY CHEST PORTABLE on DOS: 08/13/24, XY CHEST PORTABLE on DOS: 08/12/24 FINDINGS: Lines and Tubes: Enteric catheter and right PICC in satisfactory position. Left chest wall AICD. Lungs: Patchy bilateral airspace disease. Pleura: No effusion. No pneumothorax. Cardiomediastinal contours: Cardiomegaly Bones: Unremarkable IMPRESSION: Lines and tubes in satisfactory position. No significant interval change.
[2024-08-16] MEDS: FUROSEMIDE 40 MG/4 ML VIAL IV SCH (08:43)
--- NOTE | 2024-08-16 10:18 | DVHPN2 ---
Progress Note Date Seen: Aug 16, 2024 Medical Necessity Reason Pt with a Central, PICC or Fol: Yes The following are medically ne: PICC Line, Chang Catheter Reason for chang catheter: Strict I&O Subjective Review of Systems: RESPIRATORY:Abnormal Objective vital signs Vital Sign Date Time Temp Pulse Resp B/P (MAP) Pulse Ox O2 Delivery O2 Flow Rate FiO2 08/16/24 09:18 82 22 102/63 08/16/24 06:15 96 08/16/24 06:00 Nasal Cannula* 4 36 08/16/24 02:00 98.9 98.9 Total Intake and Output 08/15/24 08/15/24 08/16/24 15:00 23:00 07:00 Intake Total 505.784 ml 288.892 ml 498 ml Output Total 2000 ml 1600 ml Balance 505.784 ml -1711.108 ml -1102 ml medications Current Medications Medications Dose Ordered Sig/Francisco Route Start Time Stop Time Status Last Admin Dose Admin Levothyroxine Sodium 175 mcg QAM@0600 PO 08/06/24 06:00 08/16/24 05:18 175 MCG Sodium Chloride 10 ml Q8HR IV 08/06/24 06:00 08/16/24 05:19 10 ML Acetaminophen/ Hydrocodone Bitart 1 tab Q4HP PRN PO 08/06/24 01:15 Hold Ondansetron HCl 4 mg Q4HP PRN IV 08/06/24 01:15 08/10/24 18:47 4 MG Acetaminophen 650 mg Q6HP PRN PO 08/06/24 01:15 Hold 08/08/24 10:30 650 MG Enoxaparin Sodium 30 mg DAILY SC 08/08/24 10:00 UNV Ertapenem 1 gm/ Sodium Chloride 50 ml @ 100 mls/hr DAILY IV 08/09/24 10:00 08/16/24 08:47 100 MLS/HR Acetaminophen 650 mg Q6HP PRN [place] 08/10/24 09:00 08/12/24 16:17 650 MG Enoxaparin Sodium 30 mg DAILY SC 08/13/24 10:00 08/16/24 08:42 30 MG Norepinephrine Bitartrate 32 mg/ Sodium Chloride 250 ml @ 0.938 mls/ hr Q24H IV 08/12/24 12:15 08/15/24 20:02 6.563 MLS/HR Pantoprazole Sodium 40 mg DAILY IV 08/13/24 10:00 08/16/24 08:43 40 MG Diagnostic Test (Pha) 1 strip Q6HR 08/12/24 18:00 08/16/24 05:19 1 STRIP Insulin Human Regular FOLLOW SLIDING SCALE Q6HR SC 08/12/24 18:00 08/15/24 12:24 2 UNITS Dextrose 50 ml UD IV 08/12/24 18:00 08/12/24 23:40 50 ML Doxycycline Hyclate 100 ml @ 50 mls/hr Q12H IV 08/15/24 11:45 08/15/24 23:33 50 MLS/HR Morphine Sulfate 2 mg Q4HPRN PRN IV 08/15/24 12:00 08/16/24 08:44 2 MG Sodium Chloride 10 ml QSHIFT@10,22 IV 08/15/24 22:00 08/16/24 08:48 10 ML Furosemide 40 mg DAILY IV 08/16/24 10:00 08/16/24 08:43 40 MG Oseltamivir Phosphate 30 mg Q12H PO 08/15/24 20:00 08/20/24 08:01 08/16/24 08:00 30 MG Enteral Nutritional Formula 1,000 ml 40ML/HR GT 08/15/24 18:00 Examination: GENERAL:Abnormal, LUNGS:Abnormal, ABDOMEN:Abnormal laboratory and microbiology Laboratory Tests 08/16/24 03:00 Test 08/16/24 03:00 Range/Units Serum Glucose 92 74-106 mg/dL Microbiology Date/Time Source Procedure Growth Status 08/13/24 08:10 Nose MRSA Screen - Final Complete 08/05/24 21:08 Voided Urine Urine Culture - Final Escherichia coli - ESBL Complete 08/05/24 19:15 Blood Blood Culture - Final NO GROWTH AFTER 5 DAYS OF INCUBATION. Complete Problem List/Assessment/Plan Problem List/Assessment/Plan Acute kidney injury superimposed Chronic Kidney Disease secondary to ATN, FeNa > 2% Acute respiratory failure, on BiPAP Sepsis Urinary tract infection, ESBL Metastatic prostate cancer Congestive heart failure, ejection fraction 20% Right kidney mass, 6.2 cm CVA Hypercalcemia of malignancy Vancomycin toxicity Anemia of chronic kidney disease influenza A Chang catheter Strict I&Os Invanz 1 g IV q.day Furosemide 40 mg IV q 12 tolerated well KCL replacement kidney ultrasound reported 6 cm mass right kidney Cardiology consult Urology consult Insulin sliding scale no new renal recs at this time. skilled nursing goals per primary team will sign case tomorrow after lab review if no further issues from renal standpoint Plan discussed with: Patient Dietary Evaluation Review Recommendations by RD: Increase Calorie Intake, PPN/TPN Comments: 1. Increase TPN rate to provide at least 75% of daily estimated energy needs. 2. Monitor I&O, weight, and labs. 3. Advance to when CCHO 60g cardiac diet medically feasible, pending SE[employer]BE ROLLER approval. Expected Outcomes/Goals: 1. Increase TPN rate to provide at least 75% of daily estimated energy needs. 2. Monitor I&O, weight, and labs. 3. Advance to when CCHO 60g cardiac diet medically feasible, pending SE[employer]ESS TUBE ROLLER approval. SWAPNIL MELTON MD Aug 16, 2024 10:18
[2024-08-16] MEDS: AMIODARONE HCL 200 MG TAB PO ONE (12:30)
--- NOTE | 2024-08-16 15:07 | DVHPNRES ---
Progress Note Date Seen: Aug 16, 2024 Resident Creating Document: ZELDA ROACH RESIDENT Medical Necessity Reason Pt with a Central, PICC or Fol: Yes The following are medically ne: PICC Line, Chang Catheter Reason for chang catheter: Strict I&O Subjective Review of Systems Patient seen and examined at the bedside. Patient is not fully oriented, reported abdominal discomfort and generalized body pain likely due to cancer.. Continuously monitoring, . Patient has been given Decadron, Silas for pain. Patient reports: No new complaints, Feels better Objective vital signs Vital Sign Date Time Temp Pulse Resp B/P (MAP) Pulse Ox O2 Delivery O2 Flow Rate FiO2 08/16/24 14:20 82 20 105/60 08/16/24 12:00 100 Nasal Cannula* 4 36 08/16/24 02:00 98.9 98.9 Total Intake and Output 08/15/24 08/15/24 08/16/24 15:00 23:00 07:00 Intake Total 505.784 ml 288.892 ml 498 ml Output Total 2000 ml 1600 ml Balance 505.784 ml -1711.108 ml -1102 ml medications Current Medications Medications Dose Ordered Sig/Francisco Route Start Time Stop Time Status Last Admin Dose Admin Levothyroxine Sodium 175 mcg QAM@0600 PO 08/06/24 06:00 08/16/24 05:18 175 MCG Sodium Chloride 10 ml Q8HR IV 08/06/24 06:00 08/16/24 14:17 10 ML Acetaminophen/ Hydrocodone Bitart 1 tab Q4HP PRN PO 08/06/24 01:15 Hold Ondansetron HCl 4 mg Q4HP PRN IV 08/06/24 01:15 08/10/24 18:47 4 MG Acetaminophen 650 mg Q6HP PRN PO 08/06/24 01:15 Hold 08/08/24 10:30 650 MG Enoxaparin Sodium 30 mg DAILY SC 08/08/24 10:00 UNV Ertapenem 1 gm/ Sodium Chloride 50 ml @ 100 mls/hr DAILY IV 08/09/24 10:00 08/16/24 08:47 100 MLS/HR Acetaminophen 650 mg Q6HP PRN [place] 08/10/24 09:00 08/12/24 16:17 650 MG Enoxaparin Sodium 30 mg DAILY SC 08/13/24 10:00 08/16/24 08:42 30 MG Norepinephrine Bitartrate 32 mg/ Sodium Chloride 250 ml @ 0.938 mls/ hr Q24H IV 08/12/24 12:15 08/15/24 20:02 6.563 MLS/HR Pantoprazole Sodium 40 mg DAILY IV 08/13/24 10:00 08/16/24 08:43 40 MG Diagnostic Test (Pha) 1 strip Q6HR 08/12/24 18:00 08/16/24 12:27 1 STRIP Insulin Human Regular FOLLOW SLIDING SCALE Q6HR SC 08/12/24 18:00 08/16/24 12:00 2 UNITS Dextrose 50 ml UD IV 08/12/24 18:00 08/12/24 23:40 50 ML Doxycycline Hyclate 100 ml @ 50 mls/hr Q12H IV 08/15/24 11:45 08/16/24 10:30 50 MLS/HR Morphine Sulfate 2 mg Q4HPRN PRN IV 08/15/24 12:00 08/16/24 14:20 2 MG Sodium Chloride 10 ml QSHIFT@10,22 IV 08/15/24 22:00 08/16/24 08:48 10 ML Furosemide 40 mg DAILY IV 08/16/24 10:00 08/16/24 08:43 40 MG Oseltamivir Phosphate 30 mg Q12H PO 08/15/24 20:00 08/20/24 08:01 08/16/24 08:00 30 MG Enteral Nutritional Formula 1,000 ml 40ML/HR GT 08/15/24 18:00 Amiodarone HCl 200 mg BID PO 08/16/24 22:00 Examination Pt is lying on bed General Appearance: Alert, Oriented X2, Cooperative, following commands HEENT: Atraumatic, Mucous membranes dry Respiratory: Clear to auscultation, Normal air movement, on NC 4 L Cardiovascular: Regular rate, Normal S1, Normal S2, Abdominal: Active bowel sounds, Soft, no distention, no tenderness Extremities: 1+ edema BLE, weak pulses BLE, Tenderness in BLE Skin: stage 3 sacral decubitus ulcer. skin discoloration in BLE likely due to vascular disorders Neuro: Normal speech, sensorimotor deficits none Psych/Mental Status: Mental status NL, Mood NL Nurse was there as sharperone during examination laboratory and microbiology Laboratory Tests 08/16/24 03:00 Test 08/16/24 03:00 Range/Units Serum Glucose 92 74-106 mg/dL Microbiology Date/Time Source Procedure Growth Status 08/15/24 13:53 Blood Blood Culture - Preliminary NO GROWTH AFTER 24 HOURS OF INCUBATION. Resulted 08/15/24 11:55 Voided Urine Urine Culture - Preliminary Resulted 08/13/24 08:10 Nose MRSA Screen - Final Complete Problem List/Assessment/Plan Problem List/Assessment/Plan NEUROLOGY # acute metabolic or toxic encephalopathy # history of CVA - CT showed no acute changes CARDIOLOGY # acute on chronic HFrEF EF less than 20% with AICD NYHA 4 # end-stage cardiomyopathy # Paroxysmal atrial fibrillation, on low-dose Eliquis # Peripheral arterial disease, severe degree # Presence of AICD (Biotronik) # septic shock likely due to UTI - EF showed less than 20% - cardiology on board - currently on Lasix 40 daily - levophed drip on going - amiodarone drip for AFib - on therapeutic Lovenox - monitor continuously - reviewed EKG RESPIRATORY # Acute hypoxic respiratory failure likely due to heart failure # possible aspiration pneumonia # multiple pulmonary nodules likely Mets # pleural effusion - currently on oxygen NC 2 L (initially on BiPAP and high-flow) - ordered pancultures - currently on Invanz and doxycycline - continuously monitoring # influenza type A - currently on Tamiflu GI/LIVER # GERD - Protonix /KIDNEY/METABOLIC # COCO on CKD stage 3 A/B - continuously monitoring # acute complicated UTI ESBL - evident on urinalysis - and cultures growing ESBL - currently on Invanz # prostatic cancer with possible metastasis - following up with the Urology # Right kidney mass - evident on CT abdominal pelvis # hypercalcemia likely due to malignancy- resolved # hyponatremia- resolved # Hypokalemia - Repleting - Monitor lab ENDO # uncontrolled type 2 diabetes mellitus - Accu-Cheks and sliding scale # hypothyroidism - currently on levothyroxine MSK # Severe PAD # Severe right knee osteoarthritis - Pain management as needed - No surgical intervention for now - Monitoring # widespread musculoskeletal pain likely due to cancer mets -currently giving Decadron, Silas, morphine HEME # Anemia of chronic disease likely due to malignancy - monitor lab ID # acute complicated UTI ESBL # septic shock due to UTI - evident on urinalysis - and cultures growing ESBL - currently on Invanz SKIN # stage III sacral decubitus ulcer - wound consult LINES Right femoral vein catheter DC 08/15 PICC 08/15 Chang catheter DRIPS Levophed NUTRITION JEVITY 30ml/hr PUD prophylaxis: Pantoprazole DVT prophylaxis: Therapeutic Lovenox Goals of care has been discussed with the for more than 27 minutes, full code status Critical care time including chart review, discussing with the patient's family excluding procedures: 43 minutes Case discussed with Dr. Raymond Plan discussed with: Patient, Son My Orders My Orders Orders - ZELDA ROACH Procedure Category Date Status Time Furosemide Injection PHA 08/16/24 In Process (Lasix Injection) 10:00 Transfer Orders XFER 08/15/24 Transmitted 17:05 Place Ng ORDERS 08/15/24 Transmitted 17:05 Oseltamivir 30mg PHA 08/15/24 In Process Capsule (Tamiflu 30mg 20:00 Pharmacy [facility] 08/15/24 In Process Clarification: 17:55 Transfer Orders XFER 08/16/24 Transmitted 05:14 Amiodarone Tablet PHA 08/16/24 In Process (Cordarone Tablet) 22:00 Communication Order ORDERS 08/16/24 Transmitted 11:00 Dietary Evaluation Review Recommendations by RD: Increase Calorie Intake, PPN/TPN Comments: 1. Increase TPN rate to provide at least 75% of daily estimated energy needs. 2. Monitor I&O, weight, and labs. 3. Advance to when CCHO 60g cardiac diet medically feasible, pending [employer]AD[employer]IC VICE PRESIDENT approval. Expected Outcomes/Goals: 1. Increase TPN rate to provide at least 75% of daily estimated energy needs. 2. Monitor I&O, weight, and labs. 3. Advance to when CCHO 60g cardiac diet medically feasible, pending [employer]AD[employer] VICE PRESIDENT approval. Date of Service: Aug 16, 2024 Billing Provider: PATRICIA RAYMOND MD Common Visit Codes: [id number] CARE 30-74 MIN ZELDA ROACH Aug 16, 2024 15:07 PATRICIA RAYMOND MD Aug 17, 2024 12:31
[2024-08-16] MEDS: AMIODARONE 360mg/200mL PREMIX 200 ML IV SCH (16:30)
[2024-08-16] MEDS ORDERED: HYDROcodone-ACET 5/325MG TAB PO PRN (16:30)
[2024-08-16] MEDS: DexAMETHasone SOD PHOS 4 MG/1ML SDV INJ IV ONE (16:37)
[2024-08-16] MEDS ORDERED: ENOXAPARIN SOD 80 MG/0.8ML SYRINGE SC ONE (18:15)
[2024-08-16] MEDS: ENOXAPARIN SOD 40 MG/0.4 ML SYRINGE SC ONE (18:39)
[2024-08-16] MEDS ORDERED: LISI-275 PO (18:53)
[2024-08-16] MEDS ORDERED: ERGO400T PO (18:53)
[2024-08-16] MEDS ORDERED: BISA10SU45 RE (18:57)
[2024-08-16] MEDS ORDERED: DOCU-94 PO (18:58)
[2024-08-16] MEDS ORDERED: CYCL-839 PO (18:58)
[2024-08-16] MEDS ORDERED: HYDR-4798 PO (19:02)
[2024-08-16] MEDS ORDERED: LACT10PA2 PO (19:09)
[2024-08-16] MEDS ORDERED: MELA3TAB27 PO (19:10)
[2024-08-16] MEDS ORDERED: MORP1TAB14 PO (19:11)
[2024-08-16] MEDS ORDERED: SENN-58 PO (19:12)
[2024-08-16] MEDS ORDERED: SACC250C15 PO (19:14)
[2024-08-16] MEDS ORDERED: PANT1INJ3 PO (19:14)
[2024-08-16] MEDS: DexAMETHasone SOD PHOS 4 MG/1ML SDV INJ IV SCH (21:51)
[2024-08-16] MEDS ORDERED: AMIODARONE HCL 200 MG TAB PO SCH (22:00)
[2024-08-16] MEDS: MORPHINE SULFATE INJ 2 MG/ml SYRG IV PRN (23:09)
[2024-08-17] VITALS (96 sets, daily range): BP systolic 84–119; BP diastolic 37–78; PULSE 72–123; RESP 12–28; TEMP 96.9–98.5; O2SAT 94–100
[2024-08-17 01:44] LABS: Basophils # (auto) 0.2 10 ^3/uL (0-0.2); Basophils % (auto) 1.2 % (0.0-2.0); Eosinophils # (auto) 0.1 10 ^3/uL (0-0.8); Eosinophils % (auto) 0.9 % (0.0-7.0); Lymphocytes # (auto) 0.6 10 ^3/uL (0.4-5.4); Lymphocytes % (auto) 4.6 % (10.0-50.0); Mean Corpuscular Hemoglobin 24.4 pg (28.0-32.0); Mean Corpuscular Hgb Conc. 32.1 g/dL (32.0-36.0); Mean Corpuscular Volume 75.9 fL (80.0-100.0); Monocytes # (auto) 0.2 10 ^3/uL (0-1.3); Monocytes % (auto) 1.9 % (0.0-12.0); Neutrophils # (auto) 11.4 10 ^3/uL (1.6-8.6); Neutrophils % (auto) 91.4 % (37.0-80.0); Platelet Count (auto) 279 10^3/uL (140-450); Red Blood Cells 4.08 10^6/uL (4.5-5.90); Red Cell Distribution Width 19.7 % (11.8-14.3); White Blood Cell 12.5 10^3/uL (4.4-10.8)
[2024-08-17] MEDS: AMIODARONE 360mg/200mL PREMIX 200 ML IV ONE (02:00)
[2024-08-17 02:17] LABS: Alanine Aminotransferase 15 U/L (7-40); Alkaline Phosphatase 86 U/L (46-116); Anion Gap 9 (5-15); BUN/Creatinine Ratio 19.3 (10.0-20.0); Carbon Dioxide 29 mmol/L (20-31); Chloride 102 mmol/L (98-107); Magnesium 2.1 mg/dL (1.6-2.6); Potassium 4.1 mmol/L (3.5-5.1); Sodium 140 mmol/L (136-145)
[2024-08-17 02:18] LABS: Bilirubin, Total 0.5 mg/dL (0.2-1.0); Total Protein 6.4 g/dL (5.7-8.2)
[2024-08-17 02:28] LABS: Aspartate Aminotransferase 58 U/L (13-40); Blood Urea Nitrogen 36 mg/dL (9-23); Calcium 8.6 mg/dL (8.7-10.4); Glucose 157 mg/dL (74-106)
[2024-08-17 02:29] LABS: Albumin 2.9 g/dL (3.2-4.8)
[2024-08-17] MEDS: ENOXAPARIN SOD 80 MG/0.8ML SYRINGE SC SCH ×2 (08:57→10:04)
[2024-08-17] MEDS: FUROSEMIDE 40 MG/4 ML VIAL IV SCH (10:00)
--- NOTE | 2024-08-17 10:20 | ECG ---
[facility] Test Date: 2024-08-12 Test Time: 11:23:28 Pat Name: RENATA PEREA Department: ER Room: [address] [place] [address] A Gender: M Artists' Model: HERVE : 1950 Requested By: JO VASQUEZ Order Number: [id number] Reading MD: Florencio Coronado Measurements Intervals [place] Rate: 102 P: 0 IA: 71 QRS: -108 QRSD: 117 T: 73 QT: 362 QTc: 472 Interpretive Statements Sinus tachycardia Ventricular premature complex Aberrant conduction of SV complex(es) Incomplete right bundle branch block Inferior infarct, old Probable anterolateral infarct, recent Electronically Signed On 08-18-2024 10:17:25 PST by Florencio Coronado Please click the below link to view image of tracing.
--- NOTE | 2024-08-17 10:31 | DVHPNRES ---
Progress Note Date Seen: Aug 17, 2024 Resident Creating Document: ZELDA ROACH RESIDENT Medical Necessity Reason Pt with a Central, PICC or Fol: Yes The following are medically ne: PICC Line, Chang Catheter Reason for chang catheter: Strict I&O Subjective Review of Systems Patient seen and examined at the bedside. Patient is not fully oriented, reported no new complaints. Continuously monitoring, . Patient has been given Decadron, Bybee for pain. overnight events reviewed, patient developed sustained V-tach, AICD delivered shock. Cardiology on board. Objective vital signs Vital Sign Date Time Temp Pulse Resp B/P (MAP) Pulse Ox O2 Delivery O2 Flow Rate FiO2 08/17/24 10:00 84 08/17/24 10:00 21 100 Nasal Cannula* 2 28 08/17/24 08:56 99/55 08/17/24 04:00 98.5 98.5 Total Intake and Output 08/16/24 08/16/24 08/17/24 15:00 23:00 07:00 Intake Total 317.248 ml 551.28 ml 487.152 ml Output Total 1200 ml 800 ml Balance 317.248 ml -648.72 ml -312.848 ml medications Current Medications Medications Dose Ordered Sig/Francisco Route Start Time Stop Time Status Last Admin Dose Admin Levothyroxine Sodium 175 mcg QAM@0600 PO 08/06/24 06:00 08/17/24 05:39 175 MCG Sodium Chloride 10 ml Q8HR IV 08/06/24 06:00 08/17/24 05:39 10 ML Ondansetron HCl 4 mg Q4HP PRN IV 08/06/24 01:15 08/16/24 23:09 4 MG Acetaminophen 650 mg Q6HP PRN PO 08/06/24 01:15 Hold 08/08/24 10:30 650 MG Enoxaparin Sodium 30 mg DAILY SC 08/08/24 10:00 UNV Ertapenem 1 gm/ Sodium Chloride 50 ml @ 100 mls/hr DAILY IV 08/09/24 10:00 08/17/24 08:55 100 MLS/HR Acetaminophen 650 mg Q6HP PRN [place] 08/10/24 09:00 08/12/24 16:17 650 MG Norepinephrine Bitartrate 32 mg/ Sodium Chloride 250 ml @ 0.938 mls/ hr Q24H IV 08/12/24 12:15 08/17/24 01:17 6.563 MLS/HR Diagnostic Test (Pha) 1 strip Q6HR 08/12/24 18:00 08/17/24 05:39 1 STRIP Insulin Human Regular FOLLOW SLIDING SCALE Q6HR SC 08/12/24 18:00 08/17/24 05:55 4 UNITS Dextrose 50 ml UD IV 08/12/24 18:00 08/12/24 23:40 50 ML Doxycycline Hyclate 100 ml @ 50 mls/hr Q12H IV 08/15/24 11:45 08/16/24 23:38 50 MLS/HR Sodium Chloride 10 ml QSHIFT@10,22 IV 08/15/24 22:00 08/17/24 08:56 10 ML Oseltamivir Phosphate 30 mg Q12H PO 08/15/24 20:00 08/20/24 08:01 08/17/24 08:56 30 MG Enteral Nutritional Formula 1,000 ml 40ML/HR GT 08/15/24 18:00 Dexamethasone Sodium Phosphate 2 mg BID IV 08/16/24 22:00 08/17/24 08:55 2 MG Morphine Sulfate 2 mg Q4HPRN PRN IV 08/16/24 16:30 08/17/24 08:55 2 MG Acetaminophen/ Hydrocodone Bitart 1 tab Q6HP PRN PO 08/17/24 09:00 Furosemide 20 mg DAILY IV 08/17/24 10:00 Enoxaparin Sodium 70 mg Q12HR SC 08/17/24 10:04 Pantoprazole Sodium 40 mg DAILY@0600 PO 08/18/24 06:00 Examination Pt is lying on bed General Appearance: Alert, Oriented X2, Cooperative, following commands HEENT: Atraumatic, Mucous membranes dry Respiratory: Clear to auscultation, Normal air movement, on NC 4 L Cardiovascular: Regular rate, Normal S1, Normal S2, Abdominal: Active bowel sounds, Soft, no distention, no tenderness Extremities: 1+ edema BLE, weak pulses BLE, Tenderness in BLE Skin: stage 3 sacral decubitus ulcer. skin discoloration in BLE likely due to vascular disorders Neuro: Normal speech, sensorimotor deficits none Psych/Mental Status: Mental status NL, Mood NL Nurse was there as sharperone during examination laboratory and microbiology Laboratory Tests 08/17/24 01:37 Test 08/17/24 01:37 Range/Units Serum Glucose 157 H 74-106 mg/dL Microbiology Date/Time Source Procedure Growth Status 08/15/24 16:20 Blood Blood Culture - Preliminary NO GROWTH AFTER 24 HOURS OF INCUBATION. Resulted 08/15/24 11:55 Voided Urine Urine Culture - Final Complete 08/13/24 08:10 Nose MRSA Screen - Final Complete Labs and/or images reviewed: Labs reviewed by me, Image(s) reviewed by me Problem List/Assessment/Plan Problem List/Assessment/Plan NEUROLOGY # acute metabolic or toxic encephalopathy # history of CVA - CT showed no acute changes CARDIOLOGY # acute on chronic HFrEF EF less than 20% with AICD NYHA 4 # end-stage cardiomyopathy # Paroxysmal atrial fibrillation, on low-dose Eliquis # Peripheral arterial disease, severe degree # Presence of AICD (Biotronik) # septic shock likely due to UTI # Sustained V-tach - EF showed less than 20% - cardiology on board - currently on Lasix 40 daily - levophed drip on going - amiodarone drip for AFib - on therapeutic Lovenox - monitor continuously - reviewed EKG -go down on vasopressors, add fluids if needed RESPIRATORY # Acute hypoxic respiratory failure likely due to heart failure # possible aspiration pneumonia # multiple pulmonary nodules likely Mets # pleural effusion - currently on oxygen NC 2 L (initially on BiPAP and high-flow) - ordered pancultures - currently on Invanz and doxycycline - continuously monitoring # influenza type A - currently on Tamiflu GI/LIVER # GERD - Protonix /KIDNEY/METABOLIC # COCO on CKD stage 3 A/B - continuously monitoring # acute complicated UTI ESBL - evident on urinalysis - and cultures growing ESBL - currently on Invanz # prostatic cancer with possible metastasis - following up with the Urology # Right kidney mass - evident on CT abdominal pelvis # hypercalcemia likely due to malignancy- resolved # hyponatremia- resolved # Hypokalemia - Repleting - Monitor lab ENDO # uncontrolled type 2 diabetes mellitus - Accu-Cheks and sliding scale # hypothyroidism - currently on levothyroxine MSK # Severe PAD # Severe right knee osteoarthritis - Pain management as needed - No surgical intervention for now - Monitoring # widespread musculoskeletal pain likely due to cancer mets -currently giving Decadron, Bybee, morphine HEME # Anemia of chronic disease likely due to malignancy - monitor lab ID # acute complicated UTI ESBL # septic shock due to UTI - evident on urinalysis - and cultures growing ESBL - currently on Invanz SKIN # stage III sacral decubitus ulcer - wound consult LINES Right femoral vein catheter DC 08/15 PICC 08/15 Chang catheter DRIPS Levophed NUTRITION JEVITY 30ml/hr PUD prophylaxis: Pantoprazole DVT prophylaxis: Therapeutic Lovenox Goals of care has been discussed with the for more than 27 minutes, full code status Critical care time including chart review, discussing with the patient's family excluding procedures: 63 minutes Spoken with daughter in-law on phone, explained patient's situation and all the details, answered all questions, advised son and [id number] to schedule a meeting in hospital to discuss further plan. Case discussed with Dr. Raymond Plan discussed with: Son My Orders My Orders Orders - ZELDA ROACH Procedure Category Date Status Time Communication Order ORDERS 08/16/24 Transmitted 11:00 Morphine Sulfate PHA 08/16/24 In Process Injection 16:30 Enoxaparin Sodium PHA 08/17/24 In Process (Lovenox) 10:04 Pantoprazole Tablet PHA 08/18/24 In Process (Protonix Tablet) 06:00 Abg W/ Co-Ox RT 08/17/24 Logged 10:04 Dietary Evaluation Review Recommendations by RD: Increase Calorie Intake, PPN/TPN Comments: 1. Increase TPN rate to provide at least 75% of daily estimated energy needs. 2. Monitor I&O, weight, and labs. 3. Advance to when CCHO 60g cardiac diet medically feasible, pending METAL BONDING PRESS OPERATOR approval. Expected Outcomes/Goals: 1. Increase TPN rate to provide at least 75% of daily estimated energy needs. 2. Monitor I&O, weight, and labs. 3. Advance to when CCHO 60g cardiac diet medically feasible, pending METAL BONDING PRESS OPERATOR approval. Date of Service: Aug 17, 2024 Billing Provider: PATRICIA RAYMOND MD Common Visit Codes: [id number] CARE 30-74 MIN ZELDA ROACH Aug 17, 2024 10:31 PATRICIA RAYMOND MD Aug 20, 2024 15:33
[2024-08-17] MEDS: HYDROcodone-ACET 10/325MG TAB PO PRN (10:33)
[2024-08-17] MEDS: NOREPINEPHRINE BITARTRATE 32 MG in SODIUM CHL 0.9% 218 ML IV SCH (12:30)
[2024-08-17] MEDS: SODIUM CHLORIDE 0.9% 1,000 ML IV PRN (12:30)
[2024-08-17 12:46] LABS: Base Excess 2.2 mmol/L (-2.0-3.0)
--- NOTE | 2024-08-17 14:05 | DVHPN2 ---
Consult Progress Note Subjective Other Systems: Cardiology called to assess patient regarding episodes of V-tach overnight. Objective vital signs Vital Sign Date Time Temp Pulse Resp B/P (MAP) Pulse Ox O2 Delivery O2 Flow Rate FiO2 08/17/24 12:00 84 08/17/24 12:00 24 97 Nasal Cannula* 4 36 08/17/24 10:33 98/64 08/17/24 04:00 98.5 98.5 Total Intake and Output 08/16/24 08/16/24 08/17/24 15:00 23:00 07:00 Intake Total 317.248 ml 551.28 ml 493.652 ml Output Total 1200 ml 800 ml Balance 317.248 ml -648.72 ml -306.348 ml medications Current Medications Medications Dose Ordered Sig/Francisco Route Start Time Stop Time Status Last Admin Dose Admin Levothyroxine Sodium 175 mcg QAM@0600 PO 08/06/24 06:00 08/17/24 05:39 175 MCG Ondansetron HCl 4 mg Q4HP PRN IV 08/06/24 01:15 08/16/24 23:09 4 MG Acetaminophen 650 mg Q6HP PRN PO 08/06/24 01:15 Hold 08/08/24 10:30 650 MG Enoxaparin Sodium 30 mg DAILY SC 08/08/24 10:00 UNV Ertapenem 1 gm/ Sodium Chloride 50 ml @ 100 mls/hr DAILY IV 08/09/24 10:00 08/17/24 08:55 100 MLS/HR Acetaminophen 650 mg Q6HP PRN SC 08/10/24 09:00 08/12/24 16:17 650 MG Diagnostic Test (Pha) 1 strip Q6HR 08/12/24 18:00 08/17/24 12:00 1 STRIP Insulin Human Regular FOLLOW SLIDING SCALE Q6HR SC 08/12/24 18:00 08/17/24 05:55 4 UNITS Dextrose 50 ml UD IV 08/12/24 18:00 08/12/24 23:40 50 ML Doxycycline Hyclate 100 ml @ 50 mls/hr Q12H IV 08/15/24 11:45 08/17/24 11:09 50 MLS/HR Sodium Chloride 10 ml QSHIFT@,22 IV 08/15/24 22:00 08/17/24 08:56 10 ML Oseltamivir Phosphate 30 mg Q12H PO 08/15/24 20:00 08/20/24 08:01 08/17/24 08:56 30 MG Enteral Nutritional Formula 1,000 ml 40ML/HR GT 08/15/24 18:00 Dexamethasone Sodium Phosphate 2 mg BID IV 08/16/24 22:00 08/17/24 08:55 2 MG Acetaminophen/ Hydrocodone Bitart 1 tab Q6HP PRN PO 08/17/24 09:00 08/17/24 10:33 1 TAB Enoxaparin Sodium 70 mg Q12HR SC 08/17/24 10:04 Pantoprazole Sodium 40 mg DAILY@0600 PO 08/18/24 06:00 Norepinephrine Bitartrate 32 mg/ Sodium Chloride 250 ml @ 0.938 mls/ hr Q24H IV 08/17/24 12:30 Morphine Sulfate 4 mg Q4HPRN PRN IV 08/17/24 12:45 Examination: GENERAL:Abnormal (Generalized weakness), LUNGS:Normal, CVS:Abnormal, NEURO:Abnormal (Confused) laboratory and microbiology Laboratory Tests 08/17/24 01:37 Test 08/17/24 01:37 Range/Units Serum Glucose 157 H 74-106 mg/dL Problem List/Assessment/Plan Problem List/Assessment/Plan Sepsis with UTI Acute on chronic decompensated HFrEF, NYHA Class IV End-stage cardiomyopathy Paroxysmal atrial fibrillation, on low-dose Eliquis Peripheral arterial disease, severe degree Presence of AICD (Biotronik) COCO on CKD Prostate CA with METS and recent hospice care Metabolic encephalopathy Thyroid disease Plan/Recommendation () The patient seen and evaluated at bedside with . Transthoracic echocardiogram from this admission reveals an EF <20%. Unable to initiate guideline directed medical therapy for CHF at this time given that the patient is on vasopressor therapy. We will recommend to slowly titrate the patient off vasopressor therapy as tolerated. Continue strict intake and output, daily weights, and maintain fluid restriction. The patient is on low-dose Eliquis therapy at home ([id number] VASc score: 4 points). Patient unable to swallow, continue Lovenox therapy while inpatient. Amiodarone drip was discontinued given prolonged QTc interval, which could cause arrhythmias. We will recommend to avoid amiodarone at this time. ICD interrogated x 2 revealing episodes of atrial fibrillation and NSVT. Monitor and replete electrolytes as needed, keep potassium greater than four and magnesium greater than two. Consider goals of care with family. Strongly recommended for an ethic committee evaluation given the patient's very poor prognosis. Thank you for allowing us to care for this patient. Critical care time: 30 min. This medical document was created using an electronic medical record system with voice recognition software and computerized dictation system. Although this document has been carefully reviewed, there might still be some phonetic and typographical errors. Occasional wrong-word or ``sound-alike substitutions may have occurred due to the inherent limitations of voice recognition software. These areas are purely typographical due to imperfections of the software programs and do not reflect any compromise in the patient's medical care. Please read the chart carefully and recognize, using context, where these substitutions have occurred. Plan discussed with: Other (Bedside RN) Dietary Evaluation Review Recommendations by RD: Increase Calorie Intake, PPN/TPN Comments: 1. Increase TPN rate to provide at least 75% of daily estimated energy needs. 2. Monitor I&O, weight, and labs. 3. Advance to when CCHO 60g cardiac diet medically feasible, pending PERSONNEL ARBITRATOR approval. Expected Outcomes/Goals: 1. Increase TPN rate to provide at least 75% of daily estimated energy needs. 2. Monitor I&O, weight, and labs. 3. Advance to when CCHO 60g cardiac diet medically feasible, pending PERSONNEL ARBITRATOR approval. Date of Service: Aug 17, 2024 Billing Provider: PATY RODRIGUEZ MD Common Visit Codes: [id number] CARE 30-74 MIN LADAN TOWNSEND Aug 17, 2024 14:05
--- NOTE | 2024-08-17 15:43 | DVHPN2 ---
Progress Note Date Seen: Aug 17, 2024 Medical Necessity Reason Pt with a Central, PICC or Fol: Yes The following are medically ne: PICC Line, Chang Catheter Reason for chang catheter: Strict I&O Subjective Review of Systems: RESPIRATORY:Abnormal Objective vital signs Vital Sign Date Time Temp Pulse Resp B/P (MAP) Pulse Ox O2 Delivery O2 Flow Rate FiO2 08/17/24 14:00 27 100 Nasal Cannula* 4 36 08/17/24 14:00 79 08/17/24 11:45 113/63 (80) 08/17/24 08:00 96.9 96.9 Total Intake and Output 08/16/24 08/16/24 08/17/24 15:00 23:00 07:00 Intake Total 317.248 ml 551.28 ml 510.312 ml Output Total 1200 ml 800 ml Balance 317.248 ml -648.72 ml -289.688 ml medications Current Medications Medications Dose Ordered Sig/Francisco Route Start Time Stop Time Status Last Admin Dose Admin Ondansetron HCl 4 mg Q4HP PRN IV 08/06/24 01:15 08/16/24 23:09 4 MG Acetaminophen 650 mg Q6HP PRN PO 08/06/24 01:15 Hold 08/08/24 10:30 650 MG Enoxaparin Sodium 30 mg DAILY SC 08/08/24 10:00 UNV Ertapenem 1 gm/ Sodium Chloride 50 ml @ 100 mls/hr DAILY IV 08/09/24 10:00 08/17/24 08:55 100 MLS/HR Acetaminophen 650 mg Q6HP PRN [place] 08/10/24 09:00 08/12/24 16:17 650 MG Diagnostic Test (Pha) 1 strip Q6HR 08/12/24 18:00 08/17/24 12:00 1 STRIP Insulin Human Regular FOLLOW SLIDING SCALE Q6HR SC 08/12/24 18:00 08/17/24 05:55 4 UNITS Dextrose 50 ml UD IV 08/12/24 18:00 08/12/24 23:40 50 ML Doxycycline Hyclate 100 ml @ 50 mls/hr Q12H IV 08/15/24 11:45 08/17/24 11:09 50 MLS/HR Sodium Chloride 10 ml QSHIFT@ IV 08/15/24 22:00 08/17/24 08:56 10 ML Oseltamivir Phosphate 30 mg Q12H PO 08/15/24 20:00 08/20/24 08:01 08/17/24 08:56 30 MG Enteral Nutritional Formula 1,000 ml 40ML/HR GT 08/15/24 18:00 Dexamethasone Sodium Phosphate 2 mg BID IV 08/16/24 22:00 08/17/24 08:55 2 MG Acetaminophen/ Hydrocodone Bitart 1 tab Q6HP PRN PO 08/17/24 09:00 08/17/24 10:33 1 TAB Enoxaparin Sodium 70 mg Q12HR SC 08/17/24 10:04 Pantoprazole Sodium 40 mg DAILY@0600 PO 08/18/24 06:00 Norepinephrine Bitartrate 32 mg/ Sodium Chloride 250 ml @ 0.938 mls/ hr Q24H IV 08/17/24 12:30 08/17/24 12:30 4.688 MLS/HR Morphine Sulfate 4 mg Q4HPRN PRN IV 08/17/24 12:45 Levothyroxine Sodium 200 mcg QAM@0600 PO 08/18/24 06:00 Sodium Chloride 1,000 ml @ 250 mls/hr Q4H PRN IV 08/17/24 12:30 Examination: GENERAL:Abnormal, LUNGS:Abnormal, ABDOMEN:Abnormal laboratory and microbiology Laboratory Tests 08/17/24 01:37 Test 08/17/24 01:37 Range/Units Serum Glucose 157 H 74-106 mg/dL Microbiology Date/Time Source Procedure Growth Status 08/15/24 16:20 Blood Blood Culture - Preliminary NO GROWTH AFTER 24 HOURS OF INCUBATION. Resulted 08/15/24 11:55 Voided Urine Urine Culture - Final Complete 08/13/24 08:10 Nose MRSA Screen - Final Complete Problem List/Assessment/Plan Problem List/Assessment/Plan Acute kidney injury superimposed Chronic Kidney Disease secondary to ATN, FeNa > 2% Acute respiratory failure, on BiPAP Sepsis Urinary tract infection, ESBL Metastatic prostate cancer Congestive heart failure, ejection fraction 20% Right kidney mass, 6.2 cm CVA Hypercalcemia of malignancy Vancomycin toxicity Anemia of chronic kidney disease influenza A Chang catheter Strict I&Os Invanz 1 g IV q.day Furosemide 40 mg IV q 12 tolerated well KCL replacement kidney ultrasound reported 6 cm mass right kidney Cardiology consult Urology consult Insulin sliding scale Plan discussed with: Patient Dietary Evaluation Review Recommendations by RD: Increase Calorie Intake, PPN/TPN Comments: 1. Increase TPN rate to provide at least 75% of daily estimated energy needs. 2. Monitor I&O, weight, and labs. 3. Advance to when CCHO 60g cardiac diet medically feasible, pending BALE PILER approval. Expected Outcomes/Goals: 1. Increase TPN rate to provide at least 75% of daily estimated energy needs. 2. Monitor I&O, weight, and labs. 3. Advance to when CCHO 60g cardiac diet medically feasible, pending BALE PILER approval. SWAPNIL MELTON MD Aug 17, 2024 15:43
[2024-08-17] MEDS: MORPHINE SULFATE 4 MG/ML SYR/VIAL IV PRN (16:23)
--- NOTE | 2024-08-17 16:40 | DVH ---
XY CHEST XRAY 1 VIEW, HISTORY: verify NG-Tube placement COMPARISON: XY CHEST PORTABLE on DOS: 08/16/24, XY CHEST PORTABLE on DOS: 08/15/24, XY CHEST PORTABLE o n DOS: 08/15/24 XY CHEST PORTABLE on DOS: 08/16/24, XY CHEST PORTABLE on DOS: 08/15/24, XY CHEST PORTABLE on DOS: TECHNICAL DATA: 1 view of the chest was obtained. FINDINGS: Lines and tubes: NG in the stomach. Right arm Picc is seen. Cardiomediastinal silhouette: Enlarged. Pacer is noted Pulmonary vasculature: normal Lung expansion: low Lung airspace: Left upper lobe consolidation. Lung interstitium: normal Pleura: normal Pneumothorax: no Bones: Unremarkable Other: no IMPRESSION: NG in the stomach. Left upper lobe consolidation. Cardiomegaly.
[2024-08-18] VITALS (96 sets, daily range): BP systolic 87–109; BP diastolic 45–64; PULSE 66–82; RESP 15–27; TEMP 97.3–97.8; O2SAT 94–100
[2024-08-18 04:06] LABS: Basophils # (auto) 0 10 ^3/uL (0-0.2); Basophils % (auto) 0.1 % (0.0-2.0); Eosinophils # (auto) 0 10 ^3/uL (0-0.8); Eosinophils % (auto) 0.1 % (0.0-7.0); Hematocrit 29.5 % (41.0-53.0); Hemoglobin 9.5 g/dL (13.5-17.5); Lymphocytes # (auto) 0.8 10 ^3/uL (0.4-5.4); Lymphocytes % (auto) 5.1 % (10.0-50.0); Mean Corpuscular Hemoglobin 24.6 pg (28.0-32.0); Mean Corpuscular Hgb Conc. 32.3 g/dL (32.0-36.0); Monocytes # (auto) 0.3 10 ^3/uL (0-1.3); Monocytes % (auto) 2.2 % (0.0-12.0); Neutrophils # (auto) 14.4 10 ^3/uL (1.6-8.6); Neutrophils % (auto) 92.5 % (37.0-80.0); Platelet Count (auto) 317 10^3/uL (140-450); Red Blood Cells 3.88 10^6/uL (4.5-5.90); Red Cell Distribution Width 19.3 % (11.8-14.3); White Blood Cell 15.6 10^3/uL (4.4-10.8)
[2024-08-18 04:22] LABS: Alanine Aminotransferase 12 U/L (7-40); Alkaline Phosphatase 78 U/L (46-116); Anion Gap 10 (5-15); BUN/Creatinine Ratio 19.6 (10.0-20.0); Calcium 8.8 mg/dL (8.7-10.4); Carbon Dioxide 30 mmol/L (20-31); Chloride 102 mmol/L (98-107); Magnesium 2.3 mg/dL (1.6-2.6); Potassium 4.1 mmol/L (3.5-5.1); Sodium 142 mmol/L (136-145)
[2024-08-18 04:23] LABS: Aspartate Aminotransferase 33 U/L (13-40)
[2024-08-18 04:24] LABS: Bilirubin, Total 0.4 mg/dL (0.2-1.0); Total Protein 6.2 g/dL (5.7-8.2)
[2024-08-18 04:26] LABS: Albumin 2.8 g/dL (3.2-4.8); Blood Urea Nitrogen 40 mg/dL (9-23); Glucose 140 mg/dL (74-106)
--- NOTE | 2024-08-18 05:30 | DVH ---
EXAM: XR Chest, 1 View CLINICAL INDICATION: PROTOCOL TECHNIQUE: Frontal view of the chest. COMPARISON: XY CHEST XRAY 1 VIEW on DOS: 08/17/24, XY CHEST PORTABLE on DOS: 08/16/24, XY CHEST DARIUS BLE on DOS: 08/15/24, XY CHEST PORTABLE on DOS: 08/15/24, XY CHEST PORTABLE on DOS: 08/14/24 FINDINGS: LUNGS AND PLEURAL SPACES: Patchy airspace disease of the left upper lung field, unchanged. No cons olidation. No pneumothorax. HEART: Unremarkable. No cardiomegaly. MEDIASTINUM: Unremarkable. Normal mediastinal contour. BONES/JOINTS: Unremarkable. No acute fracture. TUBES, LINES AND DEVICES: Left-sided cardiac pacemaker. Enteric tube tip in the stomach. OTHER FINDINGS: . . IMPRESSION: Patchy airspace disease of the left upper lung field, unchanged.
[2024-08-18] MEDS: PANTOPRAZOLE 40 MG TAB PO SCH (05:46)
[2024-08-18] MEDS: LEVOTHYROXINE SODIUM 50 MCG TAB PO SCH (05:46)
--- NOTE | 2024-08-18 12:50 | DVHPNRES ---
Progress Note Date Seen: Aug 18, 2024 Resident Creating Document: ZELDA ROACH RESIDENT Medical Necessity Reason Pt with a Central, PICC or Fol: Yes The following are medically ne: PICC Line, Chang Catheter Reason for chang catheter: Strict I&O Subjective Review of Systems Patient seen and examined at the bedside. Patient is not fully oriented, reported no new complaints. Continuously monitoring, . Patient has been receiving pain management as needed. overnight events reviewed, Monitoring. Patient reports: No new complaints Changes from previous H/P or p: No Changes Objective vital signs Vital Sign Date Time Temp Pulse Resp B/P (MAP) Pulse Ox O2 Delivery O2 Flow Rate FiO2 08/18/24 12:00 20 100 Nasal Cannula* 2 28 08/18/24 12:00 72 08/18/24 10:00 97/52 (67) 08/18/24 08:00 97.3 97.3 Total Intake and Output 08/17/24 08/17/24 08/18/24 15:00 23:00 07:00 Intake Total 478.071 ml 486.659 ml 311.095 ml Output Total 550 ml 300 ml Balance 478.071 ml -63.341 ml 11.095 ml medications Current Medications Medications Dose Ordered Sig/Francisco Route Start Time Stop Time Status Last Admin Dose Admin Ondansetron HCl 4 mg Q4HP PRN IV 08/06/24 01:15 08/16/24 23:09 4 MG Acetaminophen 650 mg Q6HP PRN PO 08/06/24 01:15 Hold 08/08/24 10:30 650 MG Enoxaparin Sodium 30 mg DAILY SC 08/08/24 10:00 UNV Ertapenem 1 gm/ Sodium Chloride 50 ml @ 100 mls/hr DAILY IV 08/09/24 10:00 08/18/24 08:06 100 MLS/HR Acetaminophen 650 mg Q6HP PRN NM 08/10/24 09:00 08/12/24 16:17 650 MG Diagnostic Test (Pha) 1 strip Q6HR 08/12/24 18:00 08/18/24 11:56 1 STRIP Insulin Human Regular FOLLOW SLIDING SCALE Q6HR SC 08/12/24 18:00 08/18/24 12:04 2 UNITS Dextrose 50 ml UD IV 08/12/24 18:00 08/12/24 23:40 50 ML Doxycycline Hyclate 100 ml @ 50 mls/hr Q12H IV 08/15/24 11:45 08/18/24 10:12 50 MLS/HR Sodium Chloride 10 ml QSHIFT@10,22 IV 08/15/24 22:00 08/18/24 08:07 10 ML Oseltamivir Phosphate 30 mg Q12H PO 08/15/24 20:00 08/20/24 08:01 08/18/24 08:05 30 MG Enteral Nutritional Formula 1,000 ml 40ML/HR GT 08/15/24 18:00 Dexamethasone Sodium Phosphate 2 mg BID IV 08/16/24 22:00 08/18/24 08:06 2 MG Acetaminophen/ Hydrocodone Bitart 1 tab Q6HP PRN PO 08/17/24 09:00 08/18/24 10:57 1 TAB Enoxaparin Sodium 70 mg Q12HR SC 08/17/24 10:04 08/18/24 08:06 70 MG Pantoprazole Sodium 40 mg DAILY@0600 PO 08/18/24 06:00 08/18/24 05:46 40 MG Norepinephrine Bitartrate 32 mg/ Sodium Chloride 250 ml @ 0.938 mls/ hr Q24H IV 08/17/24 12:30 08/17/24 12:30 4.688 MLS/HR Morphine Sulfate 4 mg Q4HPRN PRN IV 08/17/24 12:45 08/17/24 16:23 4 MG Levothyroxine Sodium 200 mcg QAM@0600 PO 08/18/24 06:00 08/18/24 05:46 200 MCG Sodium Chloride 1,000 ml @ 250 mls/hr Q4H PRN IV 08/17/24 12:30 08/18/24 08:30 250 MLS/HR Examination Pt is lying on bed General Appearance: Alert, Oriented X2, Cooperative, following commands HEENT: Atraumatic, Mucous membranes dry Respiratory: Clear to auscultation, Normal air movement, on NC 4 L Cardiovascular: Regular rate, Normal S1, Normal S2, Abdominal: Active bowel sounds, Soft, no distention, no tenderness Extremities: 1+ edema BLE, weak pulses BLE, Tenderness in BLE Skin: stage 3 sacral decubitus ulcer. skin discoloration in BLE likely due to vascular disorders Neuro: Normal speech, sensorimotor deficits none Psych/Mental Status: Mental status NL, Mood NL Nurse was there as sharperone during examination laboratory and microbiology Laboratory Tests 08/18/24 03:20 Test 08/18/24 03:20 Range/Units Serum Glucose 140 H 74-106 mg/dL Microbiology Date/Time Source Procedure Growth Status 08/15/24 16:20 Blood Blood Culture - Preliminary NO GROWTH AFTER 48 HOURS OF INCUBATION. Resulted 08/15/24 11:55 Voided Urine Urine Culture - Final Complete 08/13/24 08:10 Nose MRSA Screen - Final Complete Labs and/or images reviewed: Labs reviewed by me, Image(s) reviewed by me Problem List/Assessment/Plan Problem List/Assessment/Plan NEUROLOGY # acute metabolic or toxic encephalopathy # history of CVA - CT showed no acute changes CARDIOLOGY # acute on chronic HFrEF EF less than 20% with AICD NYHA 4 # end-stage cardiomyopathy # Paroxysmal atrial fibrillation, on low-dose Eliquis # Peripheral arterial disease, severe degree # Presence of AICD (Biotronik) # septic shock likely due to UTI # Sustained V-tach - EF showed less than 20% - cardiology on board - currently on Lasix 40 daily - levophed drip on going - amiodarone - hold - on therapeutic Lovenox - monitor continuously - reviewed EKG -go down on vasopressors, add fluids if needed RESPIRATORY # Acute hypoxic respiratory failure likely due to heart failure # possible aspiration pneumonia # multiple pulmonary nodules likely Mets # pleural effusion - currently on oxygen NC 2 L (initially on BiPAP and high-flow) - ordered pancultures - currently on Invanz and doxycycline - continuously monitoring # influenza type A - currently on Tamiflu GI/LIVER # GERD - Protonix /KIDNEY/METABOLIC # COCO on CKD stage 3 A/B - continuously monitoring # acute complicated UTI ESBL - evident on urinalysis - and cultures growing ESBL - currently on Invanz # prostatic cancer with possible metastasis - following up with the Urology # Right kidney mass - evident on CT abdominal pelvis # hypercalcemia likely due to malignancy- resolved # hyponatremia- resolved # Hypokalemia - Repleting - Monitor lab ENDO # uncontrolled type 2 diabetes mellitus - Accu-Cheks and sliding scale # hypothyroidism - currently on levothyroxine MSK # Severe PAD # Severe right knee osteoarthritis - Pain management as needed - No surgical intervention for now - Monitoring # widespread musculoskeletal pain likely due to cancer mets -currently giving Decadron, [place], morphine HEME # Anemia of chronic disease likely due to malignancy - monitor lab ID # acute complicated UTI ESBL # septic shock due to UTI - evident on urinalysis - and cultures growing ESBL - currently on Invanz SKIN # stage III sacral decubitus ulcer - wound consult LINES Right femoral vein catheter DC 08/15 PICC 08/15 Chang catheter DRIPS Levophed NUTRITION JEVITY 30ml/hr PUD prophylaxis: Pantoprazole DVT prophylaxis: Therapeutic Lovenox Goals of care has been discussed with the for more than 27 minutes, full code status Critical care time including chart review, discussing with the patient's family excluding procedures: 73 minutes Spoken with daughter in-law on phone, explained patient's situation and all the details, answered all questions, advised son and [id number] to schedule a meeting in hospital to discuss further plan. Today patient is alert, oriented x3, so discussed goals regarding further care, provided answers to all questions, patient told he is going to discuss with family tomorrow regarding further. Case discussed with Plan discussed with: Son My Orders My Orders Orders - ZELDA ROACH RESIDENT Procedure Category Date Status Time Levothyroxine Tablet PHA 08/18/24 In Process (Synthroid Tablet) 06:00 Dietary Evaluation Review Recommendations by RD: Increase Calorie Intake, PPN/TPN Comments: 1. Increase TPN rate to provide at least 75% of daily estimated energy needs. 2. Monitor I&O, weight, and labs. 3. Advance to when CCHO 60g cardiac diet medically feasible, pending UNEMPLOYMENT INSPECTOR approval. Expected Outcomes/Goals: 1. Increase TPN rate to provide at least 75% of daily estimated energy needs. 2. Monitor I&O, weight, and labs. 3. Advance to when CCHO 60g cardiac diet medically feasible, pending UNEMPLOYMENT INSPECTOR approval. Date of Service: Aug 18, 2024 Billing Provider: ZORAIDA MORALES MD Common Visit Codes: [id number] INP/OBS CARE(HIGH) ZELDA ROACH RESIDENT Aug 18, 2024 12:50 ZORAIDA MORALES MD Aug 22, 2024 09:25
--- NOTE | 2024-08-18 15:13 | DVHPN2 ---
Consult Progress Note Subjective Other Systems: Patient remains on Levophed therapy. No overnight events of V-tach seen on monitor. Objective vital signs Vital Sign Date Time Temp Pulse Resp B/P (MAP) Pulse Ox O2 Delivery O2 Flow Rate FiO2 08/18/24 14:30 72 22 94/52 (66) 97 08/18/24 14:00 Nasal Cannula* 2 28 08/18/24 12:00 97.8 97.8 Total Intake and Output 08/17/24 08/17/24 08/18/24 15:00 23:00 07:00 Intake Total 478.071 ml 486.659 ml 311.095 ml Output Total 550 ml 300 ml Balance 478.071 ml -63.341 ml 11.095 ml medications Current Medications Medications Dose Ordered Sig/Francisco Route Start Time Stop Time Status Last Admin Dose Admin Ondansetron HCl 4 mg Q4HP PRN IV 08/06/24 01:15 08/16/24 23:09 4 MG Acetaminophen 650 mg Q6HP PRN PO 08/06/24 01:15 Hold 08/08/24 10:30 650 MG Enoxaparin Sodium 30 mg DAILY SC 08/08/24 10:00 UNV Ertapenem 1 gm/ Sodium Chloride 50 ml @ 100 mls/hr DAILY IV 08/09/24 10:00 08/18/24 08:06 100 MLS/HR Acetaminophen 650 mg Q6HP PRN MS 08/10/24 09:00 08/12/24 16:17 650 MG Diagnostic Test (Pha) 1 strip Q6HR 08/12/24 18:00 08/18/24 11:56 1 STRIP Insulin Human Regular FOLLOW SLIDING SCALE Q6HR SC 08/12/24 18:00 08/18/24 12:04 2 UNITS Dextrose 50 ml UD IV 08/12/24 18:00 08/12/24 23:40 50 ML Doxycycline Hyclate 100 ml @ 50 mls/hr Q12H IV 08/15/24 11:45 08/18/24 10:12 50 MLS/HR Sodium Chloride 10 ml QSHIFT@10,22 IV 08/15/24 22:00 08/18/24 08:07 10 ML Oseltamivir Phosphate 30 mg Q12H PO 08/15/24 20:00 08/20/24 08:01 08/18/24 08:05 30 MG Enteral Nutritional Formula 1,000 ml 40ML/HR GT 08/15/24 18:00 Dexamethasone Sodium Phosphate 2 mg BID IV 08/16/24 22:00 08/18/24 08:06 2 MG Acetaminophen/ Hydrocodone Bitart 1 tab Q6HP PRN PO 08/17/24 09:00 08/18/24 10:57 1 TAB Enoxaparin Sodium 70 mg Q12HR SC 08/17/24 10:04 08/18/24 08:06 70 MG Pantoprazole Sodium 40 mg DAILY@0600 PO 08/18/24 06:00 08/18/24 05:46 40 MG Norepinephrine Bitartrate 32 mg/ Sodium Chloride 250 ml @ 0.938 mls/ hr Q24H IV 08/17/24 12:30 08/18/24 14:41 2.813 MLS/HR Morphine Sulfate 4 mg Q4HPRN PRN IV 08/17/24 12:45 08/17/24 16:23 4 MG Levothyroxine Sodium 200 mcg QAM@0600 PO 08/18/24 06:00 08/18/24 05:46 200 MCG Sodium Chloride 1,000 ml @ 250 mls/hr Q4H PRN IV 08/17/24 12:30 08/18/24 08:30 250 MLS/HR Examination: GENERAL:Abnormal, LUNGS:Normal, CVS:Normal, NEURO:Abnormal (Confusion) laboratory and microbiology Laboratory Tests 08/18/24 03:20 Test 08/18/24 03:20 Range/Units Serum Glucose 140 H 74-106 mg/dL Problem List/Assessment/Plan Problem List/Assessment/Plan Sepsis with UTI Acute on chronic decompensated HFrEF, NYHA Class IV End-stage cardiomyopathy Paroxysmal atrial fibrillation, on low-dose Eliquis Peripheral arterial disease, severe degree Presence of AICD (Biotronik) COCO on CKD Prostate CA with METS and recent hospice care Metabolic encephalopathy Thyroid disease Plan/Recommendation () The patient seen and evaluated at bedside with . Transthoracic echocardiogram from this admission reveals an EF <20%. Unable to initiate guideline directed medical therapy for CHF at this time given that the patient is on vasopressor therapy. We will recommend to slowly titrate the patient off vasopressor therapy as tolerated. Continue strict intake and output, daily weights, and maintain fluid restriction. The patient is on low-dose Eliquis therapy at home ([id number] VASc score: 4 points). Patient unable to swallow, continue Lovenox therapy while inpatient. Amiodarone drip was discontinued given prolonged QTc interval. Repeat EKG done today (08/18/24), shows improved QTc interval <500 as calculated by MD. Consider initiating oral Amiodarone. ICD interrogated x 2 revealing episodes of atrial fibrillation and NSVT. Monitor and replete electrolytes as needed, keep potassium greater than four and magnesium greater than two. Consider goals of care with family. Strongly recommended for an ethic committee evaluation given the patient's very poor prognosis. There is no further inpatient cardiac workup indicated at this time. Please reconsult if needed. Thank you for allowing us to care for this patient. Critical care time: 30 min. This medical document was created using an electronic medical record system with voice recognition software and computerized dictation system. Although this document has been carefully reviewed, there might still be some phonetic and typographical errors. Occasional wrong-word or ``sound-alike substitutions may have occurred due to the inherent limitations of voice recognition software. These areas are purely typographical due to imperfections of the software programs and do not reflect any compromise in the patient's medical care. Please read the chart carefully and recognize, using context, where these substitutions have occurred. Plan discussed with: Other (Bedside RN) Dietary Evaluation Review Recommendations by RD: Increase Calorie Intake, PPN/TPN Comments: 1. Increase TPN rate to provide at least 75% of daily estimated energy needs. 2. Monitor I&O, weight, and labs. 3. Advance to when CCHO 60g cardiac diet medically feasible, pending CORRECTION OFFICER REFORMATORY approval. Expected Outcomes/Goals: 1. Increase TPN rate to provide at least 75% of daily estimated energy needs. 2. Monitor I&O, weight, and labs. 3. Advance to when CCHO 60g cardiac diet medically feasible, pending CORRECTION OFFICER REFORMATORY approval. Date of Service: Aug 18, 2024 Billing Provider: LADAN TOWNSEND Common Visit Codes: [id number] CARE 30-74 MIN LADAN TOWNSEND Aug 18, 2024 15:13
--- NOTE | 2024-08-18 18:45 | DVHPN2 ---
Progress Note Date Seen: Aug 18, 2024 Medical Necessity Reason Pt with a Central, PICC or Fol: Yes The following are medically ne: PICC Line, Chang Catheter Reason for chang catheter: Strict I&O Subjective Review of Systems: RESPIRATORY:Abnormal Objective vital signs Vital Sign Date Time Temp Pulse Resp B/P (MAP) Pulse Ox O2 Delivery O2 Flow Rate FiO2 08/18/24 17:00 74 19 100/58 (72) 97 08/18/24 16:00 97.3 97.3 08/18/24 16:00 Nasal Cannula* 2 28 Total Intake and Output 08/17/24 08/17/24 08/18/24 15:00 23:00 07:00 Intake Total 478.071 ml 486.659 ml 311.095 ml Output Total 550 ml 300 ml Balance 478.071 ml -63.341 ml 11.095 ml medications Current Medications Medications Dose Ordered Sig/Francisco Route Start Time Stop Time Status Last Admin Dose Admin Acetaminophen 650 mg Q6HP PRN PO 08/06/24 01:15 Hold 08/08/24 10:30 650 MG Enoxaparin Sodium 30 mg DAILY SC 08/08/24 10:00 UNV Ertapenem 1 gm/ Sodium Chloride 50 ml @ 100 mls/hr DAILY IV 08/09/24 10:00 08/18/24 08:06 100 MLS/HR Acetaminophen 650 mg Q6HP PRN KS 08/10/24 09:00 08/12/24 16:17 650 MG Diagnostic Test (Pha) 1 strip Q6HR 08/12/24 18:00 08/18/24 18:19 1 STRIP Insulin Human Regular FOLLOW SLIDING SCALE Q6HR SC 08/12/24 18:00 08/18/24 12:04 2 UNITS Dextrose 50 ml UD IV 08/12/24 18:00 08/12/24 23:40 50 ML Doxycycline Hyclate 100 ml @ 50 mls/hr Q12H IV 08/15/24 11:45 08/18/24 10:12 50 MLS/HR Sodium Chloride 10 ml QSHIFT@10,22 IV 08/15/24 22:00 08/18/24 08:07 10 ML Oseltamivir Phosphate 30 mg Q12H PO 08/15/24 20:00 08/20/24 08:01 08/18/24 08:05 30 MG Enteral Nutritional Formula 1,000 ml 40ML/HR GT 08/15/24 18:00 Dexamethasone Sodium Phosphate 2 mg BID IV 08/16/24 22:00 08/18/24 08:06 2 MG Acetaminophen/ Hydrocodone Bitart 1 tab Q6HP PRN PO 08/17/24 09:00 08/18/24 10:57 1 TAB Enoxaparin Sodium 70 mg Q12HR SC 08/17/24 10:04 08/18/24 08:06 70 MG Pantoprazole Sodium 40 mg DAILY@0600 PO 08/18/24 06:00 08/18/24 05:46 40 MG Norepinephrine Bitartrate 32 mg/ Sodium Chloride 250 ml @ 0.938 mls/ hr Q24H IV 08/17/24 12:30 08/18/24 14:41 2.813 MLS/HR Morphine Sulfate 4 mg Q4HPRN PRN IV 08/17/24 12:45 08/17/24 16:23 4 MG Levothyroxine Sodium 200 mcg QAM@0600 PO 08/18/24 06:00 08/18/24 05:46 200 MCG Sodium Chloride 1,000 ml @ 250 mls/hr Q4H PRN IV 08/17/24 12:30 08/18/24 08:30 250 MLS/HR Docusate Sodium 100 mg BID GT 08/18/24 22:00 Examination: GENERAL:Abnormal, LUNGS:Abnormal, ABDOMEN:Abnormal, :Abnormal laboratory and microbiology Laboratory Tests 08/18/24 03:20 Test 08/18/24 03:20 Range/Units Serum Glucose 140 H 74-106 mg/dL Microbiology Date/Time Source Procedure Growth Status 08/15/24 16:20 Blood Blood Culture - Preliminary NO GROWTH AFTER 72 HOURS OF INCUBATION. Resulted 08/15/24 11:55 Voided Urine Urine Culture - Final Complete 08/13/24 08:10 Nose MRSA Screen - Final Complete Problem List/Assessment/Plan Problem List/Assessment/Plan Acute kidney injury superimposed Chronic Kidney Disease secondary to ATN, FeNa > 2% Acute respiratory failure, on BiPAP Sepsis Urinary tract infection, ESBL Metastatic prostate cancer Congestive heart failure, ejection fraction 20% Right kidney mass, 6.2 cm CVA Hypercalcemia of malignancy Vancomycin toxicity Anemia of chronic kidney disease influenza A Chang catheter Strict I&Os Invanz 1 g IV q.day Furosemide completed today UOP has been 1-2 L per day kidney ultrasound reported 6 cm mass right kidney Cardiology consult Urology consult Insulin sliding scale Plan discussed with: Patient Dietary Evaluation Review Recommendations by RD: Increase Calorie Intake, PPN/TPN Comments: 1. Increase TPN rate to provide at least 75% of daily estimated energy needs. 2. Monitor I&O, weight, and labs. 3. Advance to when CCHO 60g cardiac diet medically feasible, pending DOOR TO DOOR SELLING DISTRIBUTOR approval. Expected Outcomes/Goals: 1. Increase TPN rate to provide at least 75% of daily estimated energy needs. 2. Monitor I&O, weight, and labs. 3. Advance to when CCHO 60g cardiac diet medically feasible, pending DOOR TO DOOR SELLING DISTRIBUTOR approval. Critical Care Time (mins): 33 SWAPNIL MELTON MD Aug 18, 2024 18:45
[2024-08-18] MEDS: DOCUSATE ORAL LIQUID 100 MG/10 ML UD GT SCH (22:27)
[2024-08-19] VITALS (94 sets, daily range): BP systolic 91–110; BP diastolic 36–63; PULSE 60–77; RESP 12–26; TEMP 96.9–97.7; O2SAT 91–100
[2024-08-19 04:00] LABS: Basophils # (auto) 0 10 ^3/uL (0-0.2); Basophils % (auto) 0.2 % (0.0-2.0); Eosinophils # (auto) 0 10 ^3/uL (0-0.8); Hematocrit 27.8 % (41.0-53.0); Hemoglobin 8.9 g/dL (13.5-17.5); Lymphocytes # (auto) 0.4 10 ^3/uL (0.4-5.4); Lymphocytes % (auto) 2.9 % (10.0-50.0); Mean Corpuscular Hemoglobin 24.6 pg (28.0-32.0); Mean Corpuscular Hgb Conc. 32.1 g/dL (32.0-36.0); Mean Corpuscular Volume 76.8 fL (80.0-100.0); Monocytes # (auto) 0.3 10 ^3/uL (0-1.3); Monocytes % (auto) 1.7 % (0.0-12.0); Neutrophils % (auto) 95.2 % (37.0-80.0); Platelet Count (auto) 264 10^3/uL (140-450); Red Blood Cells 3.62 10^6/uL (4.5-5.90); Red Cell Distribution Width 19.7 % (11.8-14.3); White Blood Cell 14.7 10^3/uL (4.4-10.8)
[2024-08-19 04:19] LABS: Alanine Aminotransferase 12 U/L (7-40); Alkaline Phosphatase 72 U/L (46-116); Anion Gap 8 (5-15); Aspartate Aminotransferase 25 U/L (13-40); BUN/Creatinine Ratio 21.7 (10.0-20.0); Calcium 8.8 mg/dL (8.7-10.4); Carbon Dioxide 31 mmol/L (20-31); Chloride 105 mmol/L (98-107); Magnesium 2.4 mg/dL (1.6-2.6); Sodium 144 mmol/L (136-145)
[2024-08-19 04:20] LABS: Bilirubin, Total 0.3 mg/dL (0.2-1.0); Total Protein 5.8 g/dL (5.7-8.2)
[2024-08-19 04:24] LABS: Albumin 2.6 g/dL (3.2-4.8); Blood Urea Nitrogen 43 mg/dL (9-23); Glucose 136 mg/dL (74-106)
[2024-08-19] MEDS: ENOXAPARIN SOD 80 MG/0.8ML SYRINGE SC SCH (09:31)
--- NOTE | 2024-08-19 09:58 | DVH ---
EXAM: XR Chest, 1 View CLINICAL INDICATION: CHF exacerbation TECHNIQUE: Frontal view of the chest. COMPARISON: XY CHEST PORTABLE on DOS: 08/18/24, XY CHEST XRAY 1 VIEW on DOS: 08/17/24, XY CHEST DARIUS BLE on DOS: 08/16/24, XY CHEST PORTABLE on DOS: 08/15/24, XY CHEST PORTABLE on DOS: 08/15/24 FINDINGS: LUNGS AND PLEURAL SPACES: See below. HEART: Cardiomegaly with pulmonary congestion and edema. Superimposed pneumonia cannot be excluded. MEDIASTINUM: Unremarkable. Normal mediastinal contour. BONES/JOINTS: Unremarkable osseous structures. No acute fracture. TUBES, LINES AND DEVICES: Removal ETT. Stable lines and other tubes. Left-sided cardiac pacemaker . OTHER FINDINGS: . . IMPRESSION: Cardiomegaly with pulmonary congestion and edema. Superimposed pneumonia cannot be excluded.
[2024-08-19] MEDS: ERTAPENEM SOD INJ 0.5 GM in SODIUM CHL 0.9% 50 ML IV SCH (10:34)
--- NOTE | 2024-08-19 11:12 | DVHPN2 ---
Subjective /- A&O times 1-2, he was redirectable to time but not to place. Mostly oriented to person. Colace to weaned off vasopressors. Which has been difficult. Currently on Levophed five. X-ray shows pulmonary vascular congestion. A blood no leg edema but has rales/rhonchi. Has a sacral ulcer RN in his trending q.2h and applying preventive measure with foam dressing and Ointment. We will continue antibiotics O2 planum and doxycycline. O2 control pain with [place]. We will stop morphine and IV steroids. We will start midodrine and fludrocortisone. Holding off boluses due to poor lung sounds. Patient has very poor prognosis given history of advanced prostate cancer. Patient was was in inpatient hospice before arriving to the hospital. Need goals of care discussion with family has been resistant. Reviewed: Care Plan, H&P, Labs, Medications, Previous Orders, Radiology Changes from previous H/P or p: No Changes Eyes: No Pain, No Vision change, No Conjunctivae inflammation, No Eyelid inflammation, No Other, No Redness ENT: No Ear pain, No Ear discharge, No Nose pain, No Nose discharge, No Nose congestion, No Mouth pain, No Mouth swelling, No Throat pain, No Throat swelling, No Other Cardiovascular: No Chest Pain, No Palpitations, No Orthopnea, No Paroxysmal Noc. Dyspnea, No Edema, No Lt Headedness, No Other Respiratory: No Cough, No Dry; Shortness of breath; No SOB with excertion, No Wheezing, No Hemoptysis, No Pleuritic Pain, No Sputum, No Other Gastrointestinal: No Nausea, No Vomiting, No Abdominal Pain, No Diarrhea, No Constipation, No Melena, No Hematochezia, No Other Genitourinary: No Dysuria, No Frequency, No Incontinence, No Hematuria, No Retention, No Other Musculoskeletal: No other, No neck pain, No shoulder pain, No arm pain, No back pain, No hand pain, No leg pain, No foot pain Skin: No Rash, No Lesions, No Jaundice, No Bruising, No Other Objective Vitals Vital Signs Date Time Temp Pulse Resp B/P (MAP) Pulse Ox O2 Delivery O2 Flow Rate FiO2 08/19/24 08:00 68 08/19/24 06:45 19 104/61 (75) 100 08/19/24 06:00 Nasal Cannula* 2 28 08/19/24 04:00 97.4 97.4 Intake/Output Intake and Output 08/19/24 07:00 Intake Total 1216.069 ml Output Total 825 ml Balance 391.069 ml Intake Oral 200 ml IV Total 811.069 ml Tube Feeding 205 ml Output Urine Total 825 ml Exam Rales rhonchi, no pitting edema. Anal times 1-2. No FND. Bowel sounds hypoactive. Patient was alert. Medications Current Medications Medications Dose Ordered Sig/Francisco Route Start Time Stop Time Status Last Admin Dose Admin Acetaminophen 650 mg Q6HP PRN PO 08/06/24 01:15 Hold 08/08/24 10:30 650 MG Enoxaparin Sodium 30 mg DAILY SC 08/08/24 10:00 UNV Acetaminophen 650 mg Q6HP PRN [place] 08/10/24 09:00 08/12/24 16:17 650 MG Diagnostic Test (Pha) 1 strip Q6HR 08/12/24 18:00 08/19/24 05:49 1 STRIP Insulin Human Regular FOLLOW SLIDING SCALE Q6HR SC 08/12/24 18:00 08/18/24 12:04 2 UNITS Dextrose 50 ml UD IV 08/12/24 18:00 08/12/24 23:40 50 ML Doxycycline Hyclate 100 ml @ 50 mls/hr Q12H IV 08/15/24 11:45 08/18/24 23:45 50 MLS/HR Sodium Chloride 10 ml QSHIFT@10,22 IV 08/15/24 22:00 08/19/24 09:31 10 ML Oseltamivir Phosphate 30 mg Q12H PO 08/15/24 20:00 08/20/24 08:01 08/19/24 09:30 30 MG Enteral Nutritional Formula 1,000 ml 40ML/HR GT 08/15/24 18:00 Dexamethasone Sodium Phosphate 2 mg BID IV 08/16/24 22:00 08/19/24 09:30 2 MG Acetaminophen/ Hydrocodone Bitart 1 tab Q6HP PRN PO 08/17/24 09:00 08/19/24 09:30 1 TAB Pantoprazole Sodium 40 mg DAILY@0600 PO 08/18/24 06:00 08/18/24 05:46 40 MG Norepinephrine Bitartrate 32 mg/ Sodium Chloride 250 ml @ 0.938 mls/ hr Q24H IV 08/17/24 12:30 08/18/24 14:41 2.813 MLS/HR Morphine Sulfate 4 mg Q4HPRN PRN IV 08/17/24 12:45 08/17/24 16:23 4 MG Levothyroxine Sodium 200 mcg QAM@0600 PO 08/18/24 06:00 08/19/24 05:22 200 MCG Sodium Chloride 1,000 ml @ 250 mls/hr Q4H PRN IV 08/17/24 12:30 08/18/24 08:30 250 MLS/HR Docusate Sodium 100 mg BID GT 08/18/24 22:00 08/19/24 10:34 100 MG Enoxaparin Sodium 70 mg DAILY SC 08/19/24 10:00 08/19/24 09:31 70 MG Ertapenem 0.5 gm/ Sodium Chloride 50 ml @ 100 mls/hr DAILY IV 08/19/24 10:00 08/19/24 10:34 100 MLS/HR Laboratory Results Laboratory Tests 08/19/24 03:10 Chemistry Test 08/19/24 03:10 Albumin 2.6 g/dL (3.2-4.8) L Calcium Level 8.8 mg/dL (8.7-10.4) Magnesium Level 2.4 mg/dL (1.6-2.6) Total Protein 5.8 g/dL (5.7-8.2) LFT Test 08/19/24 03:10 Alanine Aminotransferase (ALT) 12 U/L (7-40) Alkaline Phosphatase 72 U/L (46-116) Aspartate Amino Transferase (AST) 25 U/L (13-40) Total Bilirubin 0.3 mg/dL (0.2-1.0) Urinalysis Test 08/05/24 21:08 08/10/24 16:00 08/15/24 11:55 Urine WBC 32 /hpf (0 - 3) Urine Amorphous Crystals Few /hpf (None Seen) Urine Mucus Few (None Seen) Urine Creatinine 93.06 mg/dL (30.0-125.0) Urine Protein/Creatinine Ratio 0.79 Urine Sodium 46 mmol/L (40-220) Urine Total Protein 73.7 mg/dL (1-14) H Urine Color Colorless (Yellow) Urine Clarity Clear (Clear) Urine pH 6.5 (5.0-9.0) Urine Specific [place] 1.009 (1.001-1.035) Urine Protein Negative (Negative) Urine Ketones Negative (Negative) Urine Blood Negative /uL (Negative) Urine Nitrite Negative (Negative) Urine Bilirubin Negative (Negative) Urine Urobilinogen Normal mg/dL (Negative) Urine Leukocyte Esterase Trace /uL (Negative) Urine RBC 3 /hpf (0 - 3) Urine Microscopic WBC 10 /HPF (0-3) H Urine Squamous Epithelial Cells None seen /hpf (<5) Urine Bacteria Few /hpf (None Seen) H Urine Glucose Normal mg/dL (Normal) Microbiology Microbiology Date/Time Source Procedure Growth Status 08/15/24 16:20 Blood Blood Culture - Preliminary NO GROWTH AFTER 72 HOURS OF INCUBATION. Resulted 08/15/24 11:55 Voided Urine Urine Culture - Final Complete 08/13/24 08:10 Nose MRSA Screen - Final Complete Labs and/or images reviewed: Labs reviewed by me, Image(s) reviewed by me Assessment/Plan Assessment/Plan 2/- A&O times 1-2, he was redirectable to time but not to place. Mostly oriented to person. Colace to weaned off vasopressors. Which has been difficult. Currently on Levophed five. X-ray shows pulmonary vascular congestion. A blood no leg edema but has rales/rhonchi. Has a sacral ulcer RN in his trending q.2h and applying preventive measure with foam dressing and Ointment. We will continue antibiotics O2 planum and doxycycline. O2 control pain with [place]. We will stop morphine and IV steroids. We will start midodrine and fludrocortisone. Holding off boluses due to poor lung sounds. Patient has very poor prognosis given history of advanced prostate cancer. Patient was was in inpatient hospice before arriving to the hospital. Need goals of care discussion with family has been resistant. NEUROLOGY # acute metabolic or toxic encephalopathy # history of CVA - CT showed no acute changes CARDIOLOGY # acute on chronic HFrEF EF less than 20% with AICD NYHA 4 # end-stage cardiomyopathy # Paroxysmal atrial fibrillation, on home low-dose Eliquis # Peripheral arterial disease, severe degree # Presence of AICD (Biotronik) # septic shock likely due to UTI # Sustained V-tach - EF showed less than 20% - cardiology on board - hold Lasix 40 daily - levophed drip on going- -weaning - amiodarone - hold - on therapeutic Lovenox for AFib - monitor continuously - reviewed EKG -go down on vasopressors, add fluids only as needed RESPIRATORY # Acute hypoxic respiratory failure likely due to heart failure # possible aspiration pneumonia # multiple pulmonary nodules likely Mets # pleural effusion - currently on oxygen NC (initially on BiPAP and high-flow) - ordered pancultures - currently on Invanz and doxycycline - continuously monitoring # influenza type A - currently on Tamiflu GI/LIVER # GERD - Protonix /KIDNEY/METABOLIC # COCO on CKD stage 3 A/B - continuously monitoring # acute complicated UTI ESBL - evident on urinalysis - and cultures growing ESBL - currently on Invanz/doxy # prostatic cancer with possible metastasis - following up with the Urology # Right kidney mass - evident on CT abdominal pelvis # hypercalcemia likely due to malignancy- resolved # hyponatremia- resolved # Hypokalemia - Repleting - Monitor lab ENDO # uncontrolled type 2 diabetes mellitus - Accu-Cheks and sliding scale # hypothyroidism - currently on levothyroxine MSK # Severe PAD # Severe right knee osteoarthritis - Pain management as needed - No surgical intervention for now - Monitoring # widespread musculoskeletal pain likely due to cancer mets -currently giving Decadron, [place], morphine HEME # Anemia of chronic disease likely due to malignancy - monitor lab ID # acute complicated UTI ESBL # septic shock due to UTI, likely source # sacral decubitus ulcer possible source - evident on urinalysis - and cultures growing ESBL - currently on Invanz/doxy SKIN # stage III sacral decubitus ulcer - wound consult LINES Right femoral vein catheter DC 08/15 PICC 08/15 [place] catheter DRIPS Levophed NUTRITION JEVITY 30ml/hr PUD prophylaxis: Pantoprazole DVT prophylaxis: Therapeutic Lovenox Goals of care has been discussed with the for more than 27 minutes, full code status Critical care time including chart review, discussing with the patient's family excluding procedures: 73 minutes Plan discussed with: Other My Orders Orders - MERLIN STEWART MD Procedure Category Date Status Time Midodrine Tablet PHA 08/19/24 Transmitted (Proamatine Tablet) 12:00 Fludrocortisone PHA 08/20/24 Transmitted Tablet (Florinef 10:00 Fludrocortisone PHA 08/19/24 Transmitted Tablet (Florinef 11:15 Date of Service: Aug 19, 2024 Billing Provider: MERLIN STEWART MD Common Visit Codes: 06068-TILVLATM CARE-EACH +30MIN MERLIN STEWART MD Aug 19, 2024 11:12
[2024-08-19] MEDS: MIDODRINE HCL 10 MG TAB PO SCH (11:46)
--- NOTE | 2024-08-19 11:58 | DVHPN2 ---
Progress Note Date Seen: Aug 19, 2024 Medical Necessity Reason Pt with a Central, PICC or Fol: Yes The following are medically ne: PICC Line, Chang Catheter Reason for chang catheter: Strict I&O Subjective Review of Systems: RESPIRATORY:Abnormal Objective vital signs Vital Sign Date Time Temp Pulse Resp B/P (MAP) Pulse Ox O2 Delivery O2 Flow Rate FiO2 08/19/24 11:00 67 20 100/54 (69) 100 08/19/24 10:00 97.0 97.0 08/19/24 10:00 Nasal Cannula* 2 28 Total Intake and Output 08/18/24 08/18/24 08/19/24 15:00 23:00 07:00 Intake Total 423.908 ml 212.753 ml 581.752 ml Output Total 400 ml 425 ml Balance 423.908 ml -187.247 ml 156.752 ml medications Current Medications Medications Dose Ordered Sig/Francisco Route Start Time Stop Time Status Last Admin Dose Admin Acetaminophen 650 mg Q6HP PRN PO 08/06/24 01:15 Hold 08/08/24 10:30 650 MG Enoxaparin Sodium 30 mg DAILY SC 08/08/24 10:00 UNV Acetaminophen [address] 08/10/24 09:00 08/12/24 16:17 650 MG Diagnostic Test (Pha) 1 strip Q6HR 08/12/24 18:00 08/19/24 11:46 1 STRIP Insulin Human Regular FOLLOW SLIDING SCALE Q6HR SC 08/12/24 18:00 08/18/24 12:04 2 UNITS Dextrose 50 ml UD IV 08/12/24 18:00 08/12/24 23:40 50 ML Doxycycline Hyclate 100 ml @ 50 mls/hr Q12H IV 08/15/24 11:45 08/18/24 23:45 50 MLS/HR Sodium Chloride 10 ml QSHIFT@10,22 IV 08/15/24 22:00 08/19/24 09:31 10 ML Oseltamivir Phosphate 30 mg Q12H PO 08/15/24 20:00 08/20/24 08:01 08/19/24 09:30 30 MG Enteral Nutritional Formula 1,000 ml 40ML/HR GT 08/15/24 18:00 Acetaminophen/ Hydrocodone Bitart 1 tab Q6HP PRN PO 08/17/24 09:00 08/19/24 09:30 1 TAB Pantoprazole Sodium 40 mg DAILY@0600 PO 08/18/24 06:00 08/18/24 05:46 40 MG Norepinephrine Bitartrate 32 mg/ Sodium Chloride 250 ml @ 0.938 mls/ hr Q24H IV 08/17/24 12:30 08/18/24 14:41 2.813 MLS/HR Morphine Sulfate 4 mg Q4HPRN PRN IV 08/17/24 12:45 08/17/24 16:23 4 MG Levothyroxine Sodium 200 mcg QAM@0600 PO 08/18/24 06:00 08/19/24 05:22 200 MCG Sodium Chloride 1,000 ml @ 250 mls/hr Q4H PRN IV 08/17/24 12:30 08/18/24 08:30 250 MLS/HR Docusate Sodium 100 mg BID GT 08/18/24 22:00 08/19/24 10:34 100 MG Enoxaparin Sodium 70 mg DAILY SC 08/19/24 10:00 08/19/24 09:31 70 MG Ertapenem 0.5 gm/ Sodium Chloride 50 ml @ 100 mls/hr DAILY IV 08/19/24 10:00 08/19/24 10:34 100 MLS/HR Midodrine 10 mg TID@0600,1200,1800 PO 08/19/24 12:00 08/19/24 11:46 10 MG Fludrocortisone Acetate 0.05 mg DAILY PO 08/20/24 10:00 Examination: GENERAL:Abnormal, CVS:Abnormal, ABDOMEN:Abnormal, SKIN:Abnormal laboratory and microbiology Laboratory Tests 08/19/24 03:10 Test 08/19/24 03:10 Range/Units Serum Glucose 136 H 74-106 mg/dL Microbiology Date/Time Source Procedure Growth Status 08/15/24 16:20 Blood Blood Culture - Preliminary NO GROWTH AFTER 72 HOURS OF INCUBATION. Resulted 08/15/24 11:55 Voided Urine Urine Culture - Final Complete 08/13/24 08:10 Nose MRSA Screen - Final Complete Problem List/Assessment/Plan Problem List/Assessment/Plan Acute kidney injury superimposed Chronic Kidney Disease secondary to ATN, FeNa > 2% Acute respiratory failure, on BiPAP Sepsis Urinary tract infection, ESBL Metastatic prostate cancer Congestive heart failure, ejection fraction 20% Right kidney mass, 6.2 cm CVA Hypercalcemia of malignancy Vancomycin toxicity Anemia of chronic kidney disease influenza A supportive care Chang catheter Strict I&Os Invanz 1 g IV q.day kidney ultrasound reported 6 cm mass right kidney Cardiology consult Urology consult Insulin sliding scale Plan discussed with: Patient Dietary Evaluation Review Recommendations by RD: Increase Calorie Intake, PPN/TPN Comments: 1. Increase TPN rate to provide at least 75% of daily estimated energy needs. 2. Monitor I&O, weight, and labs. 3. Advance to when CCHO 60g cardiac diet medically feasible, pending PINION SORTER approval. Expected Outcomes/Goals: 1. Increase TPN rate to provide at least 75% of daily estimated energy needs. 2. Monitor I&O, weight, and labs. 3. Advance to when CCHO 60g cardiac diet medically feasible, pending PINION SORTER approval. SWAPNIL MELTON MD Aug 19, 2024 11:58
[2024-08-19] MEDS: FLUDROCORTISONE ACETATE 0.1 MG TAB PO ONE (11:59)
--- NOTE | 2024-08-19 23:32 | DVHPN2 ---
Progress Note - Dictate Date Seen: Aug 19, 2024 Medical Necessity Reason Pt with a Central, PICC or Fol: Yes The following are medically ne: PICC Line, Chang Catheter Reason for chang catheter: Strict I&O Subjective Patient seen and examined at bedside. On supplemental oxygen Overnight events reviewed. vital signs Vital Sign Date Time Temp Pulse Resp B/P (MAP) Pulse Ox O2 Delivery O2 Flow Rate FiO2 08/19/24 22:30 77 18 102/57 (72) 96 08/19/24 22:00 Nasal Cannula* 2 08/19/24 20:00 97.7 97.7 Total Intake and Output 08/18/24 08/18/24 08/19/24 15:00 23:00 07:00 Intake Total 423.908 ml 212.753 ml 581.752 ml Output Total 400 ml 425 ml Balance 423.908 ml -187.247 ml 156.752 ml medications Current Medications Medications Dose Ordered Sig/Francisco Route Start Time Stop Time Status Last Admin Dose Admin Acetaminophen 650 mg Q6HP PRN PO 08/06/24 01:15 Hold 08/08/24 10:30 650 MG Enoxaparin Sodium 30 mg DAILY SC 08/08/24 10:00 UNV Acetaminophen 650 mg Q6HP PRN [place] 08/10/24 09:00 08/12/24 16:17 650 MG Diagnostic Test (Pha) 1 strip Q6HR 08/12/24 18:00 08/19/24 17:56 1 STRIP Insulin Human Regular FOLLOW SLIDING SCALE Q6HR SC 08/12/24 18:00 08/19/24 12:02 2 UNITS Dextrose 50 ml UD IV 08/12/24 18:00 08/12/24 23:40 50 ML Doxycycline Hyclate 100 ml @ 50 mls/hr Q12H IV 08/15/24 11:45 08/19/24 11:59 50 MLS/HR Sodium Chloride 10 ml QSHIFT@10,22 IV 08/15/24 22:00 08/19/24 22:03 10 ML Oseltamivir Phosphate 30 mg Q12H PO 08/15/24 20:00 08/20/24 08:01 08/19/24 20:38 30 MG Enteral Nutritional Formula 1,000 ml 40ML/HR GT 08/15/24 18:00 Acetaminophen/ Hydrocodone Bitart 1 tab Q6HP PRN PO 08/17/24 09:00 08/19/24 17:56 1 TAB Pantoprazole Sodium 40 mg DAILY@0600 PO 08/18/24 06:00 08/18/24 05:46 40 MG Norepinephrine Bitartrate 32 mg/ Sodium Chloride 250 ml @ 0.938 mls/ hr Q24H IV 08/17/24 12:30 08/18/24 14:41 2.813 MLS/HR Morphine Sulfate 4 mg Q4HPRN PRN IV 08/17/24 12:45 08/17/24 16:23 4 MG Levothyroxine Sodium 200 mcg QAM@0600 PO 08/18/24 06:00 08/19/24 05:22 200 MCG Sodium Chloride 1,000 ml @ 250 mls/hr Q4H PRN IV 08/17/24 12:30 Hold 08/18/24 08:30 250 MLS/HR Docusate Sodium 100 mg BID GT 08/18/24 22:00 08/19/24 22:04 100 MG Enoxaparin Sodium 70 mg DAILY SC 08/19/24 10:00 08/19/24 09:31 70 MG Ertapenem 0.5 gm/ Sodium Chloride 50 ml @ 100 mls/hr DAILY IV 08/19/24 10:00 08/19/24 10:34 100 MLS/HR Midodrine 10 mg TID@0600,1200,1800 PO 08/19/24 12:00 08/19/24 17:56 10 MG Fludrocortisone Acetate 0.05 mg DAILY PO 08/20/24 10:00 objective Gen.: Patient lying in bed in no apparent distress. On supplemental oxygen Head: Normocephalic, atraumatic. Eyes: EOMI/PERRLA. Ears: Normal hearing. Normal anatomy. Neck/trachea: Trachea midline, supple. Nose: Normal external anatomy. Mouth: Moist mucous membranes. Chest: Decreased air entry bilaterally. No wheezing or rhonchi. Cardiovascular: Positive S1, positive S2. Regular rate and rhythm. Abdomen: Positive bowel sounds in all 4 quadrants. Soft, non-tender, non- distended. : Deferred. Rectal: Deferred. Skin: Warm, dry. Intact. Extremities: 2+ radial pulses bilaterally. No lower extremity edema. Neuro: Awake, alert, oriented x3. No gross motor or sensory deficits. Cranial nerves II through XII intact. Gait not assessed. laboratory and microbiology Laboratory Tests 08/19/24 03:10 Test 08/19/24 03:10 Range/Units Serum Glucose 136 H 74-106 mg/dL Assessment/Plan Impression: Acute hypoxic respiratory failure Shock Congestive heart failure Coronary artery disease S/p AICD Prostate cancer with mets Bradycardia Sepsis Acute metabolic encephalopathy Events: On supplemental O2 at 2 LPM NC Taper O2 as tolerated On pressors for hemodynamic support Levophed 4 mcg/min Titrate to keep mean arterial pressure greater than 65 mmHg. HOB elevation Aspiration precautions Oncology eval. Pain control Avoid oversedation Continue antibiotics TPN for nutritional support Monitor renal function. Monitor electrolytes. Supplement as necessary. Awaiting family meeting for goals of care. Labs and imaging reviewed. Rest of plan as noted below. Plan: Continue supplemental oxygen Titrate to keep O2 sats above 92%. Cardiology recs appreciated AFib - interrogated AICD On pressors for hemodynamic support Titrate to keep mean arterial pressure greater than 65 mmHg. Monitor respiratory status closely - high risk of requiring mechanical vent. HOB elevation Aspiration precautions Continue antibiotics F/u cultures ESBL in urine Pain control Avoid oversedation Monitor renal function. Monitor electrolytes. Supplement as necessary. Monitor ins and outs. Clinimix for nutritional support DVT prophylaxis. Poor prognosis. Monitor respiratory status closely Patient may require emergent intubation. Prognosis: Poor given patient's multiple co-morbidities. Condition: Critical Rest of plan per hospitalist and other consultants. A total of 35 minutes of critical care time was spent reviewing the patient record, examining the patient, making a diagnostic and therapeutic plan, discussing this plan with the medical personnel, following up on diagnostic studies and following the patient for clinical stability excluding any and all procedures. At least 50% of this time was spent in direct, [id number] contact. Thank you Dr. Freeman for allowing me to participate in this patient's care. Further recommendations will depend on the patient's clinical course. Please do not hesitate to contact me if you have any questions or concerns. This medical document was created using an electronic medical record system with [employer] system. Although these documentations are being carefully reviewed, there may still be some phonetic and typographical changes. The errors are purely typographical, due to imperfection on the software program, and do not reflect any compromise in the patient's medical care. Dietary Evaluation Review Recommendations by RD: Increase Calorie Intake, PPN/TPN Comments: 1. Increase TPN rate to provide at least 75% of daily estimated energy needs. 2. Monitor I&O, weight, and labs. 3. Advance to when CCHO 60g cardiac diet medically feasible, pending BUS ATTENDANT approval. Expected Outcomes/Goals: 1. Increase TPN rate to provide at least 75% of daily estimated energy needs. 2. Monitor I&O, weight, and labs. 3. Advance to when CCHO 60g cardiac diet medically feasible, pending BUS ATTENDANT approval. Plan discussed with: Other (CHATO Escobar) Critical Care Time(min): 35 MAYA GÓMEZ MD Aug 19, 2024 23:32
[2024-08-20] VITALS (99 sets, daily range): BP systolic 85–117; BP diastolic 41–73; PULSE 60–89; RESP 10–28; TEMP 97.4–98.3; O2SAT 80–100
[2024-08-20 03:44] LABS: Basophils # (auto) 0 10 ^3/uL (0-0.2); Basophils % (auto) 0.1 % (0.0-2.0); Eosinophils # (auto) 0 10 ^3/uL (0-0.8); Hematocrit 25.5 % (41.0-53.0); Hemoglobin 8.2 g/dL (13.5-17.5); Lymphocytes # (auto) 0.7 10 ^3/uL (0.4-5.4); Neutrophils # (auto) 8.6 10 ^3/uL (1.6-8.6); White Blood Cell 9.8 10^3/uL (4.4-10.8)
[2024-08-20 03:47] LABS: Lymphocytes % (auto) 6.8 % (10.0-50.0); Mean Corpuscular Hemoglobin 24.8 pg (28.0-32.0); Mean Corpuscular Hgb Conc. 32.1 g/dL (32.0-36.0); Mean Corpuscular Volume 77.4 fL (80.0-100.0); Monocytes # (auto) 0.5 10 ^3/uL (0-1.3); Neutrophils % (auto) 88.1 % (37.0-80.0); Platelet Count (auto) 236 10^3/uL (140-450); Red Blood Cells 3.29 10^6/uL (4.5-5.90); Red Cell Distribution Width 19.3 % (11.8-14.3)
[2024-08-20 03:54] LABS: Anion Gap 6 (5-15); Carbon Dioxide 31 mmol/L (20-31); Potassium 3.5 mmol/L (3.5-5.1)
[2024-08-20 03:55] LABS: Calcium 8.8 mg/dL (8.7-10.4)
[2024-08-20 04:00] LABS: BUN/Creatinine Ratio 22.8 (10.0-20.0); Glucose 98 mg/dL (74-106)
[2024-08-20 04:17] LABS: Blood Urea Nitrogen 43 mg/dL (9-23); Chloride 108 mmol/L (98-107); Sodium 145 mmol/L (136-145)
--- NOTE | 2024-08-20 06:39 | DVH ---
EXAM: XY CHEST PORTABLE HISTORY: CHF exacerbation COMPARISON: XY CHEST PORTABLE on DOS: 08/19/24, XY CHEST PORTABLE on DOS: 08/18/24, XY CHEST XRAY 1 VIEW on DOS: 08/17/24, XY CHEST PORTABLE on DOS: 08/16/24, XY CHEST PORTABLE on DOS: 08/15/24, CT scan of th e chest dated 08/05/2024 TECHNIQUE: Portable AP view of the chest was performed. FINDINGS: Lung volumes are low. There are increased interstitial opacities throughout the right lung. Left upp er lobe infiltrate is re-identified. Bilateral pleural effusions, larger on the left. No pneumothorax . The heart is enlarged. Left chest pacemaker, right upper extremity PICC line, and NG tube are re- identified. IMPRESSION: 1. Increased right lung interstitial infiltrate. 2. Stable left upper lobe infiltrate and bilateral pleural effusions. 3. Cardiomegaly and left chest pacemaker re-identified.
[2024-08-20] MEDS: FLUDROCORTISONE ACETATE 0.1 MG TAB PO SCH (09:59)
--- NOTE | 2024-08-20 10:58 | DVHPN2 ---
Subjective update 08/20 08/19- A&O times 1-2, he was redirectable to time but not to place. Mostly oriented to person. Colace to weaned off vasopressors. Which has been difficult. Currently on Levophed five. X-ray shows pulmonary vascular congestion. A blood no leg edema but has rales/rhonchi. Has a sacral ulcer RN in his trending q.2h and applying preventive measure with foam dressing and Ointment. We will continue antibiotics O2 planum and doxycycline. O2 control pain with Williams. We will stop morphine and IV steroids. We will start midodrine and fludrocortisone. Holding off boluses due to poor lung sounds. Patient has very poor prognosis given history of advanced prostate cancer. Patient was was in inpatient hospice before arriving to the hospital. Need goals of care discussion with family has been resistant. 08/20- A&O times 1-2, he was redirectable to time but not to place. Mostly oriented to person. yest 08/19 started mido and fludro but still on levo 5. turning for sacral ulcer. giving norco for pain. cont ABx. holding lasix. dBP improved 50s (prior 30s). Holding off boluses due to poor lung sounds. Patient has very poor prognosis given history of advanced prostate cancer. very poor prognosis, needs hospice discussion with family. Reviewed: Care Plan, H&P, Labs, Medications, Previous Orders, Radiology Changes from previous H/P or p: No Changes General: Per HPI Objective Vitals Vital Signs Date Time Temp Pulse Resp B/P (MAP) Pulse Ox O2 Delivery O2 Flow Rate FiO2 08/20/24 10:01 73 12 111/63 (79) 98 08/20/24 10:00 Nasal Cannula* 2 28 08/20/24 08:02 97.7 97.7 Intake/Output Intake and Output 08/20/24 07:00 Intake Total 681.845 ml Output Total 875 ml Balance -193.155 ml Intake Oral 150 ml IV Total 292.845 ml Tube Feeding 239 ml Output Urine Total 875 ml Exam Rales rhonchi, no pitting edema. Anal times 1-2. No FND. Bowel sounds hypoactive. Patient was alert. Medications Current Medications Medications Dose Ordered Sig/Francisco Route Start Time Stop Time Status Last Admin Dose Admin Acetaminophen 650 mg Q6HP PRN PO 08/06/24 01:15 Hold 08/08/24 10:30 650 MG Enoxaparin Sodium 30 mg DAILY SC 08/08/24 10:00 UNV Acetaminophen 650 mg Q6HP PRN TX 08/10/24 09:00 08/12/24 16:17 650 MG Diagnostic Test (Pha) 1 strip Q6HR 08/12/24 18:00 08/20/24 05:33 1 STRIP Insulin Human Regular FOLLOW SLIDING SCALE Q6HR SC 08/12/24 18:00 08/19/24 12:02 2 UNITS Dextrose 50 ml UD IV 08/12/24 18:00 08/12/24 23:40 50 ML Doxycycline Hyclate 100 ml @ 50 mls/hr Q12H IV 08/15/24 11:45 08/19/24 23:30 50 MLS/HR Sodium Chloride 10 ml QSHIFT@10,22 IV 08/15/24 22:00 08/20/24 09:59 10 ML Enteral Nutritional Formula 1,000 ml 40ML/HR GT 08/15/24 18:00 Acetaminophen/ Hydrocodone Bitart 1 tab Q6HP PRN PO 08/17/24 09:00 08/20/24 08:50 1 TAB Pantoprazole Sodium 40 mg DAILY@0600 PO 08/18/24 06:00 08/18/24 05:46 40 MG Norepinephrine Bitartrate 32 mg/ Sodium Chloride 250 ml @ 0.938 mls/ hr Q24H IV 08/17/24 12:30 08/18/24 14:41 2.813 MLS/HR Morphine Sulfate 4 mg Q4HPRN PRN IV 08/17/24 12:45 08/17/24 16:23 4 MG Levothyroxine Sodium 200 mcg QAM@0600 PO 08/18/24 06:00 08/20/24 05:33 200 MCG Sodium Chloride 1,000 ml @ 250 mls/hr Q4H PRN IV 08/17/24 12:30 Hold 08/18/24 08:30 250 MLS/HR Docusate Sodium 100 mg BID GT 08/18/24 22:00 08/20/24 09:59 100 MG Enoxaparin Sodium 70 mg DAILY SC 08/19/24 10:00 08/20/24 09:59 70 MG Ertapenem 0.5 gm/ Sodium Chloride 50 ml @ 100 mls/hr DAILY IV 08/19/24 10:00 08/20/24 09:59 100 MLS/HR Midodrine 10 mg TID@0600,1200,1800 PO 08/19/24 12:00 08/20/24 06:31 10 MG Fludrocortisone Acetate 0.05 mg DAILY PO 08/20/24 10:00 08/20/24 09:59 0.05 MG Laboratory Results Laboratory Tests 08/20/24 03:08 Chemistry Test 08/20/24 03:08 Calcium Level 8.8 mg/dL (8.7-10.4) Urinalysis Test 08/05/24 21:08 08/10/24 16:00 08/15/24 11:55 Urine WBC 32 /hpf (0 - 3) Urine Amorphous Crystals Few /hpf (None Seen) Urine Mucus Few (None Seen) Urine Creatinine 93.06 mg/dL (30.0-125.0) Urine Protein/Creatinine Ratio 0.79 Urine Sodium 46 mmol/L (40-220) Urine Total Protein 73.7 mg/dL (1-14) H Urine Color Colorless (Yellow) Urine Clarity Clear (Clear) Urine pH 6.5 (5.0-9.0) Urine Specific Sweeny 1.009 (1.001-1.035) Urine Protein Negative (Negative) Urine Ketones Negative (Negative) Urine Blood Negative /uL (Negative) Urine Nitrite Negative (Negative) Urine Bilirubin Negative (Negative) Urine Urobilinogen Normal mg/dL (Negative) Urine Leukocyte Esterase Trace /uL (Negative) Urine RBC 3 /hpf (0 - 3) Urine Microscopic WBC 10 /HPF (0-3) H Urine Squamous Epithelial Cells None seen /hpf (<5) Urine Bacteria Few /hpf (None Seen) H Urine Glucose Normal mg/dL (Normal) Microbiology Microbiology Date/Time Source Procedure Growth Status 08/15/24 16:20 Blood Blood Culture - Preliminary NO GROWTH AFTER 72 HOURS OF INCUBATION. Resulted 08/15/24 11:55 Voided Urine Urine Culture - Final Complete 08/13/24 08:10 Nose MRSA Screen - Final Complete Labs and/or images reviewed: Labs reviewed by me, Image(s) reviewed by me Assessment/Plan Assessment/Plan 2/2- A&O times 1-2, he was redirectable to time but not to place. Mostly oriented to person. yest 2/ started mido and fludro but still on levo 5. turning for sacral ulcer. giving norco for pain. cont ABx. holding lasix. dBP improved 50s (prior 30s). Holding off boluses due to poor lung sounds. Patient has very poor prognosis given history of advanced prostate cancer. very poor prognosis, needs hospice discussion with family. NEUROLOGY # acute metabolic or toxic encephalopathy # history of CVA - CT showed no acute changes CARDIOLOGY # acute on chronic HFrEF EF less than 20% with AICD NYHA 4 # end-stage cardiomyopathy # Paroxysmal atrial fibrillation, on home low-dose Eliquis # Peripheral arterial disease, severe degree # Presence of AICD (Biotronik) # septic shock likely due to UTI # Sustained V-tach - EF showed less than 20% - cardiology on board - hold Lasix 40 daily - levophed drip on going- -weaning trial midodrine+fludro - amiodarone - hold - on therapeutic Lovenox for AFib - monitor continuously - reviewed EKG -go down on vasopressors, add fluids only as needed RESPIRATORY # Acute hypoxic respiratory failure likely due to heart failure # possible aspiration pneumonia # multiple pulmonary nodules likely Mets # pleural effusion - currently on oxygen NC (initially on BiPAP and high-flow) - ordered pancultures - currently on Invanz and doxycycline - continuously monitoring # influenza type A - currently on Tamiflu (ends 08/20) GI/LIVER # GERD - Protonix /KIDNEY/METABOLIC # COCO on CKD stage 3 A/B - continuously monitoring # acute complicated UTI ESBL - evident on urinalysis - and cultures growing ESBL - currently on Invanz/doxy # prostatic cancer with possible metastasis - following up with the Urology # Right kidney mass - evident on CT abdominal pelvis # hypercalcemia likely due to malignancy- resolved # hyponatremia- resolved # Hypokalemia - Repleting - Monitor lab ENDO # uncontrolled type 2 diabetes mellitus - Accu-Cheks and sliding scale # hypothyroidism - currently on levothyroxine MSK # Severe PAD # Severe right knee osteoarthritis - Pain management as needed - No surgical intervention for now - Monitoring # widespread musculoskeletal pain likely due to cancer mets -currently giving Decadron, Williams, morphine HEME # Anemia of chronic disease likely due to malignancy - monitor lab ID # acute complicated UTI ESBL # septic shock due to UTI, likely source # sacral decubitus ulcer possible source - evident on urinalysis - and cultures growing ESBL - currently on Invanz/doxy SKIN # stage III sacral decubitus ulcer - wound consult LINES Right femoral vein catheter DC 08/15 PICC 08/15 [place] catheter DRIPS Levophed NUTRITION JEVITY 30ml/hr PUD prophylaxis: Pantoprazole DVT prophylaxis: Therapeutic Lovenox Goals of care has been discussed with the for more than 27 minutes, full code status Critical care time including chart review, discussing with the patient's family excluding procedures: 73 minutes Plan discussed with: Patient My Orders Orders - MERLIN STEWART MD Procedure Category Date Status Time Midodrine Tablet PHA 08/19/24 In Process (Proamatine Tablet) 12:00 Fludrocortisone PHA 08/20/24 In Process Tablet (Florinef 10:00 Chest Portable XY 08/20/24 Resulted 04:00 Date of Service: Aug 20, 2024 Billing Provider: MERLIN STEWART MD Common Visit Codes: 60726-[id number] CARE-EACH +30MIN MERLIN STEWART MD Aug 20, 2024 10:58
--- NOTE | 2024-08-20 18:56 | DVHPN2 ---
Progress Note Date Seen: Aug 20, 2024 Medical Necessity Reason Pt with a Central, PICC or Fol: Yes The following are medically ne: PICC Line, Chang Catheter Reason for chang catheter: Strict I&O Subjective Review of Systems: RESPIRATORY:Abnormal Objective vital signs Vital Sign Date Time Temp Pulse Resp B/P (MAP) Pulse Ox O2 Delivery O2 Flow Rate FiO2 08/20/24 18:00 14 99 Nasal Cannula* 2 08/20/24 18:00 73 08/20/24 18:00 111/63 (79) 08/20/24 16:00 98.0 98.0 Total Intake and Output 08/19/24 08/19/24 08/20/24 15:00 23:00 07:00 Intake Total 166.407 ml 175.000 ml 340.438 ml Output Total 450 ml 425 ml Balance 166.407 ml -275.000 ml -84.562 ml medications Current Medications Medications Dose Ordered Sig/Francisco Route Start Time Stop Time Status Last Admin Dose Admin Acetaminophen 650 mg Q6HP PRN PO 08/06/24 01:15 Hold 08/08/24 10:30 650 MG Enoxaparin Sodium 30 mg DAILY SC 08/08/24 10:00 UNV Acetaminophen 650 mg Q6HP PRN SD 08/10/24 09:00 08/12/24 16:17 650 MG Diagnostic Test (Pha) 1 strip Q6HR 08/12/24 18:00 08/20/24 17:33 1 STRIP Insulin Human Regular FOLLOW SLIDING SCALE Q6HR SC 08/12/24 18:00 08/19/24 12:02 2 UNITS Dextrose 50 ml UD IV 08/12/24 18:00 08/12/24 23:40 50 ML Doxycycline Hyclate 100 ml @ 50 mls/hr Q12H IV 08/15/24 11:45 08/20/24 11:29 50 MLS/HR Sodium Chloride 10 ml QSHIFT@10,22 IV 08/15/24 22:00 08/20/24 09:59 10 ML Enteral Nutritional Formula 1,000 ml 40ML/HR GT 08/15/24 18:00 Acetaminophen/ Hydrocodone Bitart 1 tab Q6HP PRN PO 08/17/24 09:00 08/20/24 15:08 1 TAB Pantoprazole Sodium 40 mg DAILY@0600 PO 08/18/24 06:00 08/18/24 05:46 40 MG Norepinephrine Bitartrate 32 mg/ Sodium Chloride 250 ml @ 0.938 mls/ hr Q24H IV 08/17/24 12:30 08/20/24 12:32 2.344 MLS/HR Morphine Sulfate 4 mg Q4HPRN PRN IV 08/17/24 12:45 08/17/24 16:23 4 MG Levothyroxine Sodium 200 mcg QAM@0600 PO 08/18/24 06:00 08/20/24 05:33 200 MCG Sodium Chloride 1,000 ml @ 250 mls/hr Q4H PRN IV 08/17/24 12:30 Hold 08/18/24 08:30 250 MLS/HR Docusate Sodium 100 mg BID GT 08/18/24 22:00 08/20/24 09:59 100 MG Enoxaparin Sodium 70 mg DAILY SC 08/19/24 10:00 08/20/24 09:59 70 MG Ertapenem 0.5 gm/ Sodium Chloride 50 ml @ 100 mls/hr DAILY IV 08/19/24 10:00 08/20/24 09:59 100 MLS/HR Midodrine 10 mg TID@0600,1200,1800 PO 08/19/24 12:00 08/20/24 17:15 10 MG Fludrocortisone Acetate 0.05 mg DAILY PO 08/20/24 10:00 08/20/24 09:59 0.05 MG Examination: GENERAL:Abnormal, LUNGS:Abnormal, ABDOMEN:Abnormal, SKIN:Abnormal laboratory and microbiology Laboratory Tests 08/20/24 03:08 Test 08/20/24 03:08 Range/Units Serum Glucose 98 74-106 mg/dL Microbiology Date/Time Source Procedure Growth Status 08/15/24 16:20 Blood Blood Culture - Final NO GROWTH AFTER 5 DAYS OF INCUBATION. Complete 08/15/24 11:55 Voided Urine Urine Culture - Final Complete 08/13/24 08:10 Nose MRSA Screen - Final Complete Problem List/Assessment/Plan Problem List/Assessment/Plan Acute kidney injury superimposed Chronic Kidney Disease secondary to ATN, FeNa > 2% Acute respiratory failure, on BiPAP Sepsis Urinary tract infection, ESBL Metastatic prostate cancer Congestive heart failure, ejection fraction 20% Right kidney mass, 6.2 cm CVA Hypercalcemia of malignancy Vancomycin toxicity Anemia of chronic kidney disease influenza A supportive care Chang catheter Strict I&Os Invanz 1 g IV q.day kidney ultrasound reported 6 cm mass right kidney Cardiology consult Urology consult Insulin sliding scale hospice appropriate Plan discussed with: Patient Dietary Evaluation Review Recommendations by RD: Increase Calorie Intake, PPN/TPN Comments: 1. Increase TPN rate to provide at least 75% of daily estimated energy needs. 2. Monitor I&O, weight, and labs. 3. Advance to when CCHO 60g cardiac diet medically feasible, pending [employer] approval. Expected Outcomes/Goals: 1. Increase TPN rate to provide at least 75% of daily estimated energy needs. 2. Monitor I&O, weight, and labs. 3. Advance to when CCHO 60g cardiac diet medically feasible, pending [employer] approval. SWAPNIL MELTON MD Aug 20, 2024 18:56
--- NOTE | 2024-08-20 21:19 | DVHPN2 ---
Progress Note - Dictate Date Seen: Aug 20, 2024 Medical Necessity Reason Pt with a Central, PICC or Fol: Yes The following are medically ne: PICC Line, Chang Catheter Reason for chang catheter: Strict I&O Subjective Patient seen and examined at bedside. On supplemental oxygen Overnight events reviewed. vital signs Vital Sign Date Time Temp Pulse Resp B/P (MAP) Pulse Ox O2 Delivery O2 Flow Rate FiO2 08/20/24 19:00 77 24 115/59 (77) 98 08/20/24 18:00 Nasal Cannula* 09 1508/20/24 16:00 98.0 98.0 Total Intake and Output 08/19/24 08/19/24 08/20/24 15:00 23:00 07:00 Intake Total 166.407 ml 175.000 ml 340.438 ml Output Total 450 ml 425 ml Balance 166.407 ml -275.000 ml -84.562 ml medications Current Medications Medications Dose Ordered Sig/Francisco Route Start Time Stop Time Status Last Admin Dose Admin Acetaminophen 650 mg Q6HP PRN PO 08/06/24 01:15 Hold 08/08/24 10:30 650 MG Enoxaparin Sodium 30 mg DAILY SC 08/08/24 10:00 UNV Acetaminophen 650 mg Q6HP PRN DE 08/10/24 09:00 08/12/24 16:17 650 MG Diagnostic Test (Pha) 1 strip Q6HR 08/12/24 18:00 08/20/24 17:33 1 STRIP Insulin Human Regular FOLLOW SLIDING SCALE Q6HR SC 08/12/24 18:00 08/19/24 12:02 2 UNITS Dextrose 50 ml UD IV 08/12/24 18:00 08/12/24 23:40 50 ML Doxycycline Hyclate 100 ml @ 50 mls/hr Q12H IV 08/15/24 11:45 08/20/24 11:29 50 MLS/HR Sodium Chloride 10 ml QSHIFT@10,22 IV 08/15/24 22:00 08/20/24 09:59 10 ML Enteral Nutritional Formula 1,000 ml 40ML/HR GT 08/15/24 18:00 Acetaminophen/ Hydrocodone Bitart 1 tab Q6HP PRN PO 08/17/24 09:00 08/20/24 15:08 1 TAB Pantoprazole Sodium 40 mg DAILY@0600 PO 08/18/24 06:00 1/31/25 05:46 40 MG Norepinephrine Bitartrate 32 mg/ Sodium Chloride 250 ml @ 0.938 mls/ hr Q24H IV 08/17/24 12:30 08/20/24 12:32 2.344 MLS/HR Morphine Sulfate 4 mg Q4HPRN PRN IV 08/17/24 12:45 08/17/24 16:23 4 MG Levothyroxine Sodium 200 mcg QAM@0600 PO 08/18/24 06:00 08/20/24 05:33 200 MCG Sodium Chloride 1,000 ml @ 250 mls/hr Q4H PRN IV 08/17/24 12:30 Hold 08/18/24 08:30 250 MLS/HR Docusate Sodium 100 mg BID GT 08/18/24 22:00 08/20/24 09:59 100 MG Enoxaparin Sodium 70 mg DAILY SC 08/19/24 10:00 08/20/24 09:59 70 MG Ertapenem 0.5 gm/ Sodium Chloride 50 ml @ 100 mls/hr DAILY IV 08/19/24 10:00 08/20/24 09:59 100 MLS/HR Midodrine 10 mg TID@0600,1200,1800 PO 08/19/24 12:00 08/20/24 17:15 10 MG Fludrocortisone Acetate 0.05 mg DAILY PO 08/20/24 10:00 08/20/24 09:59 0.05 MG objective Gen.: Patient lying in bed in no apparent distress. On supplemental oxygen Head: Normocephalic, atraumatic. Eyes: EOMI/PERRLA. Ears: Normal hearing. Normal anatomy. Neck/trachea: Trachea midline, supple. Nose: Normal external anatomy. Mouth: Moist mucous membranes. Chest: Decreased air entry bilaterally. No wheezing or rhonchi. Cardiovascular: Positive S1, positive S2. Regular rate and rhythm. Abdomen: Positive bowel sounds in all 4 quadrants. Soft, non-tender, non- distended. : Deferred. Rectal: Deferred. Skin: Warm, dry. Intact. Extremities: 2+ radial pulses bilaterally. No lower extremity edema. Neuro: Awake, alert, oriented x3. No gross motor or sensory deficits. Cranial nerves II through XII intact. Gait not assessed. laboratory and microbiology Laboratory Tests 08/20/24 03:08 Test 08/20/24 03:08 Range/Units Serum Glucose 98 74-106 mg/dL Assessment/Plan Impression: Acute hypoxic respiratory failure Shock Congestive heart failure Coronary artery disease S/p AICD Prostate cancer with mets Bradycardia Sepsis Acute metabolic encephalopathy Events: On supplemental O2 at 3 LPM NC Taper O2 as tolerated On pressors for hemodynamic support Levophed 5 mcg/min Titrate to keep mean arterial pressure greater than 65 mmHg. HOB elevation Aspiration precautions Oncology eval. Pain control Avoid oversedation Continue antibiotics Tube feeds for nutritional support via NGT Monitor renal function. Monitor electrolytes. Supplement as necessary. Awaiting family meeting to discuss goals of care + hospice. Labs and imaging reviewed. Rest of plan as noted below. Plan: Continue supplemental oxygen Titrate to keep O2 sats above 92%. Cardiology recs appreciated AFib - interrogated AICD On pressors for hemodynamic support Titrate to keep mean arterial pressure greater than 65 mmHg. Monitor respiratory status closely - high risk of requiring mechanical vent. HOB elevation Aspiration precautions Continue antibiotics F/u cultures ESBL in urine Pain control Avoid oversedation Monitor renal function. Monitor electrolytes. Supplement as necessary. Monitor ins and outs. Clinimix for nutritional support DVT prophylaxis. Poor prognosis. Monitor respiratory status closely Patient may require emergent intubation. Prognosis: Poor given patient's multiple co-morbidities. Condition: Critical Rest of plan per hospitalist and other consultants. A total of 35 minutes of critical care time was spent reviewing the patient record, examining the patient, making a diagnostic and therapeutic plan, discussing this plan with the medical personnel, following up on diagnostic studies and following the patient for clinical stability excluding any and all procedures. At least 50% of this time was spent in direct, [id number] contact. Thank you Dr. Freeman for allowing me to participate in this patient's care. Further recommendations will depend on the patient's clinical course. Please do not hesitate to contact me if you have any questions or concerns. This medical document was created using an electronic medical record system with [employer] system. Although these documentations are being carefully reviewed, there may still be some phonetic and typographical changes. The errors are purely typographical, due to imperfection on the software program, and do not reflect any compromise in the patient's medical care. Dietary Evaluation Review Recommendations by RD: Increase Calorie Intake, PPN/TPN Comments: 1. Increase TPN rate to provide at least 75% of daily estimated energy needs. 2. Monitor I&O, weight, and labs. 3. Advance to when CCHO 60g cardiac diet medically feasible, pending [employer] DEVELOPER approval. Expected Outcomes/Goals: 1. Increase TPN rate to provide at least 75% of daily estimated energy needs. 2. Monitor I&O, weight, and labs. 3. Advance to when CCHO 60g cardiac diet medically feasible, pending [employer] DEVELOPER approval. Plan discussed with: Other (CHATO Sorto) Critical Care Time(min): 35 MAYA GÓMEZ MD Aug 20, 2024 21:19
[2024-08-21] VITALS (98 sets, daily range): BP systolic 88–117; BP diastolic 39–76; PULSE 63–86; RESP 12–29; TEMP 97.8–98.5; O2SAT 81–100
[2024-08-21 04:08] LABS: Basophils # (auto) 0 10 ^3/uL (0-0.2); Basophils % (auto) 0.2 % (0.0-2.0); Eosinophils # (auto) 0 10 ^3/uL (0-0.8); Hemoglobin 8.6 g/dL (13.5-17.5); Monocytes # (auto) 0.4 10 ^3/uL (0-1.3); Neutrophils % (auto) 86.9 % (37.0-80.0); Red Cell Distribution Width 19.1 % (11.8-14.3)
[2024-08-21 04:11] LABS: Eosinophils % (auto) 0.4 % (0.0-7.0); Hematocrit 27.3 % (41.0-53.0); Lymphocytes # (auto) 0.8 10 ^3/uL (0.4-5.4); Lymphocytes % (auto) 8.1 % (10.0-50.0); Mean Corpuscular Hemoglobin 24.5 pg (28.0-32.0); Mean Corpuscular Hgb Conc. 31.4 g/dL (32.0-36.0); Monocytes % (auto) 4.4 % (0.0-12.0); Neutrophils # (auto) 8.6 10 ^3/uL (1.6-8.6); Nucleated Red Blood Cells % 0.1 %; Platelet Count (auto) 228 10^3/uL (140-450); Red Blood Cells 3.51 10^6/uL (4.5-5.90); White Blood Cell 9.9 10^3/uL (4.4-10.8)
[2024-08-21 04:29] LABS: Alanine Aminotransferase 10 U/L (7-40); Alkaline Phosphatase 67 U/L (46-116); Anion Gap 8 (5-15); Aspartate Aminotransferase 21 U/L (13-40); BUN/Creatinine Ratio 22.3 (10.0-20.0); Bilirubin, Total 0.6 mg/dL (0.2-1.0); Carbon Dioxide 30 mmol/L (20-31); Glucose 98 mg/dL (74-106); Potassium 3.6 mmol/L (3.5-5.1); Total Protein 5.7 g/dL (5.7-8.2)
[2024-08-21 04:42] LABS: Albumin 2.6 g/dL (3.2-4.8); Blood Urea Nitrogen 41 mg/dL (9-23); Chloride 110 mmol/L (98-107); Sodium 148 mmol/L (136-145)
--- NOTE | 2024-08-21 05:12 | DVH ---
EXAM: XR Chest, 1 View CLINICAL INDICATION: PROTOCOL TECHNIQUE: Frontal view of the chest. COMPARISON: XY CHEST PORTABLE on DOS: 08/20/24, XY CHEST PORTABLE on DOS: 08/19/24, XY CHEST PORTABLE o n DOS: 08/18/24, XY CHEST XRAY 1 VIEW on DOS: 08/17/24, XY CHEST PORTABLE on DOS: 08/16/24 FINDINGS: LUNGS AND PLEURAL SPACES: Congestive heart failure, stable. No consolidation. No pneumothorax. HEART: Unremarkable. No cardiomegaly. MEDIASTINUM: Unremarkable. Normal mediastinal contour. BONES/JOINTS: Unremarkable. No acute fracture. TUBES, LINES AND DEVICES: Stable tubes and lines. Left-sided cardiac pacemaker. OTHER FINDINGS: . . IMPRESSION: Congestive heart failure, stable.
--- NOTE | 2024-08-21 09:23 | DVH ---
CHEST RADIOGRAPH Indication: NGT Placement. Technique: Single frontal view of the chest was obtained COMPARISON: XY CHEST PORTABLE on DOS: 08/21/24, XY CHEST PORTABLE on DOS: 08/20/24, XY CHEST PORTABLE on DOS: 08/19/24, XY CHEST PORTABLE on DOS: 08/18/24, XY CHEST XRAY 1 VIEW on DOS: 08/17/24 FINDINGS: Lines and Tubes: Left chest wall AICD, right PICC in satisfactory position., enteric catheter in sati sfactory position. Lungs: Multifocal airspace disease. Pleura: No effusion. No pneumothorax. Cardiomediastinal contours: Unremarkable Bones: Unremarkable IMPRESSION: Lines and tubes in satisfactory position. No significant interval change.
--- NOTE | 2024-08-21 16:02 | DVHPN2 ---
Progress Note Date Seen: Aug 21, 2024 Medical Necessity Reason Pt with a Central, PICC or Fol: Yes The following are medically ne: PICC Line, Chang Catheter Reason for chang catheter: Strict I&O Subjective Patient reports: Other (No new events patient appears confused) Review of Systems: Deferred Objective vital signs Vital Sign Date Time Temp Pulse Resp B/P (MAP) Pulse Ox O2 Delivery O2 Flow Rate FiO2 08/21/24 15:30 83 28 101/58 (72) 97 08/21/24 14:00 Nasal Cannula* 2 28 08/21/24 12:00 98.2 98.2 Total Intake and Output 08/20/24 08/20/24 08/21/24 15:00 23:00 07:00 Intake Total 167.814 ml 321.688 ml 302 ml Output Total 450 ml 425 ml Balance 167.814 ml -128.312 ml -123 ml medications Current Medications Medications Dose Ordered Sig/Francisco Route Start Time Stop Time Status Last Admin Dose Admin Acetaminophen 650 mg Q6HP PRN PO 08/06/24 01:15 Hold 08/08/24 10:30 650 MG Enoxaparin Sodium 30 mg DAILY SC 08/08/24 10:00 UNV Acetaminophen [address] 08/10/24 09:00 08/12/24 16:17 650 MG Diagnostic Test (Pha) 1 strip Q6HR 08/12/24 18:00 08/21/24 11:25 1 STRIP Insulin Human Regular FOLLOW SLIDING SCALE Q6HR SC 08/12/24 18:00 08/19/24 12:02 2 UNITS Dextrose 50 ml UD IV 08/12/24 18:00 08/12/24 23:40 50 ML Sodium Chloride 10 ml QSHIFT@10,22 IV 08/15/24 22:00 08/21/24 09:30 10 ML Enteral Nutritional Formula 1,000 ml 40ML/HR GT 08/15/24 18:00 Acetaminophen/ Hydrocodone Bitart 1 tab Q6HP PRN PO 08/17/24 09:00 08/21/24 00:50 1 TAB Pantoprazole Sodium 40 mg DAILY@0600 PO 08/18/24 06:00 08/21/24 05:17 40 MG Norepinephrine Bitartrate 32 mg/ Sodium Chloride 250 ml @ 0.938 mls/ hr Q24H IV 08/17/24 12:30 08/21/24 12:43 1.406 MLS/HR Morphine Sulfate 4 mg Q4HPRN PRN IV 08/17/24 12:45 08/17/24 16:23 4 MG Levothyroxine Sodium 200 mcg QAM@0600 PO 08/18/24 06:00 08/21/24 05:17 200 MCG Docusate Sodium 100 mg BID GT 08/18/24 22:00 08/21/24 09:29 100 MG Enoxaparin Sodium 70 mg DAILY SC 08/19/24 10:00 08/21/24 09:30 70 MG Ertapenem 0.5 gm/ Sodium Chloride 50 ml @ 100 mls/hr DAILY IV 08/19/24 10:00 08/21/24 09:30 100 MLS/HR Examination: GENERAL:Abnormal, LUNGS:Abnormal, MSK:Abnormal, SKIN:Abnormal, NEURO:Abnormal laboratory and microbiology Laboratory Tests 08/21/24 03:00 Test 08/21/24 03:00 Range/Units Serum Glucose 98 74-106 mg/dL Microbiology Date/Time Source Procedure Growth Status 08/15/24 16:20 Blood Blood Culture - Final NO GROWTH AFTER 5 DAYS OF INCUBATION. Complete 08/15/24 11:55 Voided Urine Urine Culture - Final Complete 08/13/24 08:10 Nose MRSA Screen - Final Complete Problem List/Assessment/Plan Problem List/Assessment/Plan Acute kidney injury superimposed Chronic Kidney Disease secondary to ATN, FeNa > 2% Acute respiratory failure, on BiPAP Sepsis Urinary tract infection, ESBL Metastatic prostate cancer Congestive heart failure, ejection fraction 20% Right kidney mass, 6.2 cm CVA Hypercalcemia of malignancy Vancomycin toxicity Anemia of chronic kidney disease influenza A Recommendations Stable renal function supportive care kidney ultrasound reported 6 cm mass right kidneyt Urology consult hospice appropriate Plan discussed with: Other Dietary Evaluation Review Recommendations by RD: Increase Calorie Intake, PPN/TPN Comments: 1. Increase TPN rate to provide at least 75% of daily estimated energy needs. 2. Monitor I&O, weight, and labs. 3. Advance to when CCHO 60g cardiac diet medically feasible, pending [employer] approval. Expected Outcomes/Goals: 1. Increase TPN rate to provide at least 75% of daily estimated energy needs. 2. Monitor I&O, weight, and labs. 3. Advance to when CCHO 60g cardiac diet medically feasible, pending [employer] approval. KIKI FELICIANO MD Aug 21, 2024 16:01
[2024-08-21] MEDS ORDERED: CLINIMIX PER PHARMACY 0 ML IV SCH (17:15)
--- NOTE | 2024-08-21 18:44 | DVHPNRES ---
Progress Note Date Seen: Aug 21, 2024 Resident Creating Document: ZELDA ROACH RESIDENT Medical Necessity Reason Pt with a Central, PICC or Fol: Yes The following are medically ne: PICC Line, Chang Catheter Reason for chang catheter: Strict I&O Subjective Review of Systems Patient seen and examined at the bedside. Patient is not fully oriented, reported no new complaints. Continuously monitoring, Patient reports: No new complaints, Feels better Changes from previous H/P or p: No Changes Objective vital signs Vital Sign Date Time Temp Pulse Resp B/P (MAP) Pulse Ox O2 Delivery O2 Flow Rate FiO2 08/21/24 18:15 67 27 89/56 (67) 95 08/21/24 18:00 Nasal Cannula* 2 28 08/21/24 16:00 97.8 97.8 Total Intake and Output 08/20/24 08/20/24 08/21/24 15:00 23:00 07:00 Intake Total 167.814 ml 321.688 ml 302 ml Output Total 450 ml 425 ml Balance 167.814 ml -128.312 ml -123 ml medications Current Medications Medications Dose Ordered Sig/Francisco Route Start Time Stop Time Status Last Admin Dose Admin Acetaminophen 650 mg Q6HP PRN PO 08/06/24 01:15 Hold 08/08/24 10:30 650 MG Enoxaparin Sodium 30 mg DAILY SC 08/08/24 10:00 UNV Acetaminophen 650 mg Q6HP PRN IA 08/10/24 09:00 08/12/24 16:17 650 MG Sodium Chloride 10 ml QSHIFT@ IV 08/15/24 22:00 08/21/24 09:30 10 ML Acetaminophen/ Hydrocodone Bitart 1 tab Q6HP PRN PO 08/17/24 09:00 08/21/24 00:50 1 TAB Pantoprazole Sodium 40 mg DAILY@0600 PO 08/18/24 06:00 08/21/24 05:17 40 MG Norepinephrine Bitartrate 32 mg/ Sodium Chloride 250 ml @ 0.938 mls/ hr Q24H IV 08/17/24 12:30 08/21/24 12:43 1.406 MLS/HR Morphine Sulfate 4 mg Q4HPRN PRN IV 08/17/24 12:45 08/17/24 16:23 4 MG Levothyroxine Sodium 200 mcg QAM@0600 PO 08/18/24 06:00 08/21/24 05:17 200 MCG Docusate Sodium 100 mg BID GT 08/18/24 22:00 08/21/24 09:29 100 MG Enoxaparin Sodium 70 mg DAILY SC 08/19/24 10:00 08/21/24 09:30 70 MG Ertapenem 0.5 gm/ Sodium Chloride 50 ml @ 100 mls/hr DAILY IV 08/19/24 10:00 08/21/24 09:30 100 MLS/HR Amino Acids 0 ml @ 0 mls/hr PER PHARMACY IV 08/21/24 17:15 Diagnostic Test (Pha) 1 strip Q6HR 08/22/24 00:00 Insulin Human Regular FOLLOW SLIDING SCALE Q6HR SC 08/22/24 00:00 Dextrose 50 ml UD IV 08/21/24 22:00 Amino Acids/ Electrolytes/ Dextrose 1,000 ml @ 41 mls/hr DAILY@2200 IV 08/21/24 22:00 Examination Pt is lying on bed General Appearance: Alert, Oriented X2, Cooperative, following commands HEENT: Atraumatic, Mucous membranes dry Respiratory: Clear to auscultation, Normal air movement, on NC 4 L Cardiovascular: Regular rate, Normal S1, Normal S2, Abdominal: Active bowel sounds, Soft, no distention, no tenderness Extremities: 1+ edema BLE, weak pulses BLE, Tenderness in BLE Skin: stage 3 sacral decubitus ulcer. skin discoloration in BLE likely due to vascular disorders Neuro: Normal speech, sensorimotor deficits none Psych/Mental Status: Mental status NL, Mood NL Nurse was there as sharperone during examination laboratory and microbiology Laboratory Tests 08/21/24 03:00 Test 08/21/24 03:00 Range/Units Serum Glucose 98 74-106 mg/dL Microbiology Date/Time Source Procedure Growth Status 08/15/24 16:20 Blood Blood Culture - Final NO GROWTH AFTER 5 DAYS OF INCUBATION. Complete 08/15/24 11:55 Voided Urine Urine Culture - Final Complete 08/13/24 08:10 Nose MRSA Screen - Final Complete Labs and/or images reviewed: Labs reviewed by me, Image(s) reviewed by me Problem List/Assessment/Plan Problem List/Assessment/Plan NEUROLOGY # acute metabolic or toxic encephalopathy # history of CVA - CT showed no acute changes CARDIOLOGY # acute on chronic HFrEF EF less than 20% with AICD NYHA 4 # end-stage cardiomyopathy # Paroxysmal atrial fibrillation, on low-dose Eliquis # Peripheral arterial disease, severe degree # Presence of AICD (Biotronik) # septic shock likely due to UTI # Sustained V-tach - EF showed less than 20% - cardiology on board - currently on Lasix 40 daily - levophed drip on going - amiodarone - hold - on therapeutic Lovenox - monitor continuously - reviewed EKG - go down on vasopressors, add fluids if needed RESPIRATORY # Acute hypoxic respiratory failure likely due to heart failure # possible aspiration pneumonia # multiple pulmonary nodules likely Mets # pleural effusion - currently on oxygen NC 2 L (initially on BiPAP and high-flow) - ordered pancultures - currently on Invanz and doxycycline - continuously monitoring # influenza type A - currently on Tamiflu GI/LIVER # GERD - Protonix /KIDNEY/METABOLIC # COCO on CKD stage 3 A/B - continuously monitoring # acute complicated UTI ESBL - evident on urinalysis - and cultures growing ESBL - currently on Invanz # prostatic cancer with possible metastasis - following up with the Urology # Right kidney mass - evident on CT abdominal pelvis # hypercalcemia likely due to malignancy- resolved # hyponatremia- resolved # Hypokalemia - Repleting - Monitor lab ENDO # uncontrolled type 2 diabetes mellitus - Accu-Cheks and sliding scale # hypothyroidism - currently on levothyroxine MSK # Severe PAD # Severe right knee osteoarthritis - Pain management as needed - No surgical intervention for now - Monitoring # widespread musculoskeletal pain likely due to cancer mets -currently giving Decadron, [place], morphine HEME # Anemia of chronic disease likely due to malignancy - monitor lab ID # acute complicated UTI ESBL # septic shock due to UTI - evident on urinalysis - and cultures growing ESBL - currently on Invanz SKIN # stage III sacral decubitus ulcer - wound consult LINES Right femoral vein catheter DC 08/15 PICC 08/15 Chang catheter DRIPS Levophed NUTRITION Clinimix PUD prophylaxis: Pantoprazole DVT prophylaxis: Therapeutic Lovenox Goals of care has been discussed with the for more than 27 minutes, full code status Critical care time including chart review, discussing with the patient's family excluding procedures: 63 minutes Spoken with daughter in-law on phone, explained patient's situation and all the details, answered all questions, advised son and [id number] to schedule a meeting in hospital to discuss further plan. Case discussed with Dr. Raymond. Plan discussed with: Patient, Son My Orders My Orders Orders - ZELDA ROACH RESIDENT Procedure Category Date Status Time Clinimix Per Pharmacy PHA 08/21/24 In Process 17:15 Complete Blood Count LAB 08/22/24 Verified 04:00 Glucose Blood PHA 08/22/24 In Process (Accu-Chek Comfort 00:00 Insulin R (Human) PHA 08/22/24 In Process (Insulin R) 00:00 Dextrose 50% Syringe PHA 08/21/24 In Process 22:00 Amino Acid Infusion PHA 08/21/24 In Process In D10w (Clinimix 4. 22:00 Comprehensive LAB 08/22/24 Verified Metabolic Panel 04:00 Magnesium LAB 08/22/24 Verified 04:00 Phosphorus LAB 08/22/24 Verified 04:00 Triglycerides LAB 08/22/24 Verified 04:00 Clinimix Per Pharmacy INNA 08/21/24 In Process 22:00 Electrocardigram EKG 08/21/24 Logged 18:30 Electrocardigram EKG 08/21/24 Logged 18:40 Electrocardigram EKG 08/21/24 Logged 18:50 Electrocardigram EKG 08/21/24 Logged 18:55 Electrocardigram EKG 08/21/24 Logged 19:00 Electrocardigram EKG 08/21/24 Logged 18:30 Electrocardigram EKG 08/21/24 Logged 18:30 Electrocardigram EKG 08/21/24 Logged 18:30 Dietary Evaluation Review Recommendations by RD: Increase Calorie Intake, PPN/TPN Comments: 1. Increase TPN rate to provide at least 75% of daily estimated energy needs. 2. Monitor I&O, weight, and labs. 3. Advance to when CCHO 60g cardiac diet medically feasible, pending IMPROVEMENT INTERN approval. Expected Outcomes/Goals: 1. Increase TPN rate to provide at least 75% of daily estimated energy needs. 2. Monitor I&O, weight, and labs. 3. Advance to when CCHO 60g cardiac diet medically feasible, pending IMPROVEMENT INTERN approval. Date of Service: Aug 21, 2024 Billing Provider: PATRICIA RAYMOND MD Common Visit Codes: [id number] CARE 30-74 MIN ZELDA ROACH RESIDENT Aug 21, 2024 18:44 PATRICIA RAYMOND MD Aug 22, 2024 14:45
[2024-08-21] MEDS ORDERED: DEXTROSE (50%) 50ML SYRG IV SCH (22:00)
[2024-08-21] MEDS: AMINO ACID INFUSION IN D10W 1,000 ML IV SCH (22:23)
[2024-08-22] VITALS (97 sets, daily range): BP systolic 74–114; BP diastolic 41–79; PULSE 61–82; RESP 11–32; TEMP 97.5–98.5; O2SAT 90–100
[2024-08-22] MEDS: InsuLIN REG 1unit/0.01ml Soln (100units/ml) SC SCH
[2024-08-22] MEDS: ACCU-CHEK COMFORT CURVE STRIP VI SCH (00:17)
--- NOTE | 2024-08-22 02:12 | DVH ---
CHEST RADIOGRAPH Indication: NG TUBE INSERTION Technique: Single frontal view of the chest was obtained COMPARISON: XY CHEST XRAY 1 VIEW on DOS: 08/21/24, XY CHEST PORTABLE on DOS: 08/21/24, XY CHEST PORTABLE on DOS: 08/20/24, XY CHEST PORTABLE on DOS: 08/19/24, XY CHEST PORTABLE on DOS: 08/18/24 FINDINGS: Lines and Tubes: Enteric catheter extends to the abdomen, tip not imaged. A permanent pacemaker overl ies and obscures lateral chest and axilla on the left with atrial and ventricular wire leads. A right -sided peripherally inserted central catheter is noted with its tip overlying the expected course of the superior vena cava. Lungs: Patchy airspace disease is noted in the lungs. Lung volumes are generally low. Pleura: Can not exclude left pleural effusion. No pneumothorax. Cardiomediastinal contours: Unremarkable Bones: Unremarkable IMPRESSION: 1. Support lines and catheters in place as described. 2. Findings compatible with CHF and/or pneumonia.
[2024-08-22 04:04] LABS: Basophils # (auto) 0 10 ^3/uL (0-0.2); Basophils % (auto) 0.1 % (0.0-2.0); Eosinophils # (auto) 0 10 ^3/uL (0-0.8); Eosinophils % (auto) 0.3 % (0.0-7.0); Hematocrit 26.3 % (41.0-53.0); Hemoglobin 8.4 g/dL (13.5-17.5); Lymphocytes # (auto) 0.7 10 ^3/uL (0.4-5.4); Lymphocytes % (auto) 7.9 % (10.0-50.0); Mean Corpuscular Hemoglobin 24.8 pg (28.0-32.0); Mean Corpuscular Hgb Conc. 31.9 g/dL (32.0-36.0); Mean Corpuscular Volume 77.8 fL (80.0-100.0); Monocytes # (auto) 0.3 10 ^3/uL (0-1.3); Neutrophils # (auto) 7.6 10 ^3/uL (1.6-8.6); Neutrophils % (auto) 88.7 % (37.0-80.0); Nucleated Red Blood Cells % 0.1 %; Platelet Count (auto) 203 10^3/uL (140-450); Red Blood Cells 3.38 10^6/uL (4.5-5.90); Red Cell Distribution Width 19.5 % (11.8-14.3); White Blood Cell 8.6 10^3/uL (4.4-10.8)
[2024-08-22 04:27] LABS: Alkaline Phosphatase 65 U/L (46-116); Anion Gap 9 (5-15); Aspartate Aminotransferase 13 U/L (13-40); BUN/Creatinine Ratio 24.2 (10.0-20.0); Bilirubin, Total 0.7 mg/dL (0.2-1.0); Calcium 8.8 mg/dL (8.7-10.4); Carbon Dioxide 29 mmol/L (20-31); Magnesium 2.4 mg/dL (1.6-2.6)
[2024-08-22 04:40] LABS: Alanine Aminotransferase < 9 U/L (7-40); Albumin 2.4 g/dL (3.2-4.8); Blood Urea Nitrogen 40 mg/dL (9-23); Chloride 112 mmol/L (98-107); Glucose 119 mg/dL (74-106); Potassium 3.2 mmol/L (3.5-5.1); Sodium 150 mmol/L (136-145); Total Protein 5.4 g/dL (5.7-8.2)
[2024-08-22 05:04] LABS: Triglycerides 109 mg/dL (< 150)
--- NOTE | 2024-08-22 05:13 | DVH ---
CHEST RADIOGRAPH Indication: NG TUBE INSERTION Technique: Single frontal view of the chest was obtained Comparison: XY CHEST PORTABLE on DOS: 08/22/24 FINDINGS: Lines and Tubes: The enteric tube terminates in the stomach. AICD / pacemaker noted. Right PICC term inates in the right atrium. Lungs: Patchy left upper lobe consolidation. Improved aeration in the right lung. Pleura: No effusion. No pneumothorax. Cardiomediastinal contours: Cardiomegaly Bones: No acute osseous abnormality. IMPRESSION: 1. Left upper lobe consolidation which may reflect pneumonia in the appropriate clinical setting. Imp roved aeration in the right lung. 2. Cardiomegaly.
[2024-08-22] MEDS: POTASSIUM CHL 20MEQ/100ML 100 ML IV SCH (07:28)
[2024-08-22 09:17] LABS: PSA Free 0.85 ng/mL; Prostate Specific Antigen 10.2 ng/mL (0.0-4.0)
[2024-08-22] MEDS: PANTOPRAZOLE 40 MG/10 ML VIAL INJ IV SCH (09:39)
[2024-08-22] MEDS: FREE WATER GT SCH ×2 (09:39→16:43)
--- NOTE | 2024-08-22 10:34 | ECG ---
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
--- NOTE | 2024-08-22 10:34 | ECG ---
[facility] Test Date: 2024-08-16 Test Time: 13:56:54 Pat Name: RENATA PEREA Department: Room: [address] [place] [address] A Gender: M [employer]: : 1950 Requested By: ZELDA ROACH Order Number: [id number] Reading MD: Florencio Coronado Measurements Intervals [place] Rate: 83 P: 0 [place]: 0 QRS: -86 QRSD: 128 T: 1 QT: 590 QTc: 693 Interpretive Statements Wide QRS rhythm with occasional premature ventricular complexes Left axis deviation Nonspecific intraventricular block Possible Lateral infarct , age undetermined Inferior infarct , age undetermined Electronically Signed On 08-22-2024 17:35:21 PST by Florencio Coronado Please click the below link to view image of tracing.
--- NOTE | 2024-08-22 10:34 | ECG ---
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
--- NOTE | 2024-08-22 10:35 | ECG ---
[facility] Test Date: 2024-08-17 Test Time: 04:15:25 Pat Name: RENATA PEREA Department: Room: [address] [place] [address] A Gender: M Archaeology Professor: SEBASTIEN HEATHB: 1950 Requested By: PATRICIA RAYMOND Order Number: [id number] Reading MD: Florencio Coronado Measurements Intervals [place] Rate: 83 P: 56 [place]: 254 QRS: -84 QRSD: 114 T: 53 QT: 446 QTc: 524 Interpretive Statements Sinus rhythm with 1st degree AV block Left axis deviation Low voltage QRS Inferior infarct , age undetermined Possible Anterolateral infarct , age undetermined Prolonged QT Electronically Signed On 08-22-2024 17:35:57 PST by Florencio Coronado Please click the below link to view image of tracing.
--- NOTE | 2024-08-22 10:35 | ECG ---
[facility] Test Date: 2024-08-17 Test Time: 04:13:21 Pat Name: RENATA PEREA Department: Room: [address] [place] [address] A Gender: M Director Of Regulatory Affairs: SEBASTIEN : 1950 Requested By: ZELDA ROACH Order Number: [id number] Reading MD: Florencio Coronado Measurements Intervals [place] Rate: 82 P: 47 [place]: 272 QRS: 266 QRSD: 114 T: 50 QT: 466 QTc: 544 Interpretive Statements Sinus rhythm with 1st degree AV block Low voltage QRS Inferior infarct , age undetermined Possible Anterolateral infarct , age undetermined Prolonged QT Electronically Signed On 08-22-2024 17:35:52 PST by Florencio Coronado Please click the below link to view image of tracing.
--- NOTE | 2024-08-22 10:36 | ECG ---
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: : 1950 Requested By: ZELDA ROACH Order Number: [id number] Reading MD: Florencio Coronado Measurements Intervals [place] Rate: 70 P: 20 [place]: 222 QRS: -71 QRSD: 112 T: 38 QT: 548 QTc: 591 Interpretive Statements Sinus rhythm with 1st degree AV block with premature atrial complexes and premature ventricular complexes or fusion complexes Left axis deviation Low voltage QRS Inferior infarct , age undetermined Cannot rule out Anteroseptal infarct , age undetermined Prolonged QT Electronically Signed On 08-22-2024 17:36:19 PST by Florencio Coronado Please click the below link to view image of tracing.
--- NOTE | 2024-08-22 10:36 | ECG ---
[facility] Test Date: 2024-08-18 Test Time: 10:47:25 Pat Name: RENATA PEREA Department: Room: [address] [place] [address] A Gender: M Methods And Procedures Analyst: : 1950 Requested By: ZELDA ROACH Order Number: [id number] Reading MD: Florencio Coronado Measurements Intervals [place] Rate: 72 P: 57 [place]: 288 QRS: -75 QRSD: 132 T: 24 QT: 516 QTc: 565 Interpretive Statements Sinus rhythm with 1st degree AV block Left axis deviation Nonspecific intraventricular block Inferior infarct , age undetermined Possible Anterolateral infarct , age undetermined Electronically Signed On 08-22-2024 17:36:10 PST by Florencio Coronado Please click the below link to view image of tracing.
--- NOTE | 2024-08-22 10:36 | ECG ---
[facility] Test Date: 2024-08-18 Test Time: 10:46:44 Pat Name: RENATA PEREA Department: Room: [address] [place] [address] A Gender: M Director Medical Surgical: : 1950 Requested By: PATRICIA RAYMOND Order Number: [id number] Reading MD: Florencio Coronado Measurements Intervals [place] Rate: 71 P: 54 [place]: 264 QRS: -75 QRSD: 130 T: 25 QT: 512 QTc: 556 Interpretive Statements Sinus rhythm with 1st degree AV block Left axis deviation Nonspecific intraventricular block Inferior infarct , age undetermined Possible Anterolateral infarct , age undetermined Electronically Signed On 08-22-2024 17:36:04 PST by Florencio Coronado Please click the below link to view image of tracing.
--- NOTE | 2024-08-22 10:36 | ECG ---
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
--- NOTE | 2024-08-22 10:37 | ECG ---
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
[2024-08-22] MEDS: POTASSIUM PHOSPHATE 22 MEQ in SODIUM CHL 0.9% 100 ML IV ONE (12:49)
--- NOTE | 2024-08-22 16:39 | DVHPN2 ---
Progress Note Date Seen: Aug 22, 2024 Medical Necessity Reason Pt with a Central, PICC or Fol: Yes The following are medically ne: PICC Line, Chang Catheter Reason for chang catheter: Strict I&O Subjective Patient reports: Other (Patient is still in ICU currently on Levophed) Review of Systems: Deferred Objective vital signs Vital Sign Date Time Temp Pulse Resp B/P (MAP) Pulse Ox O2 Delivery O2 Flow Rate FiO2 08/22/24 16:00 61 08/22/24 16:00 25 100 Nasal Cannula* 2 28 08/22/24 15:30 93/49 (64) 08/22/24 12:00 97.8 97.8 Total Intake and Output 08/21/24 08/21/24 08/22/24 15:00 23:00 07:00 Intake Total 168 ml 179.030 ml 275.499 ml Output Total 500 ml 525 ml Balance 168 ml -320.970 ml -249.501 ml medications Current Medications Medications Dose Ordered Sig/Francisco Route Start Time Stop Time Status Last Admin Dose Admin Acetaminophen 650 mg Q6HP PRN PO 08/06/24 01:15 Hold 08/08/24 10:30 650 MG Enoxaparin Sodium 30 mg DAILY SC 08/08/24 10:00 UNV Acetaminophen 650 mg Q6HP PRN TX 08/10/24 09:00 08/12/24 16:17 650 MG Sodium Chloride 10 ml QSHIFT@10,22 IV 08/15/24 22:00 08/22/24 09:39 10 ML Acetaminophen/ Hydrocodone Bitart 1 tab Q6HP PRN PO 08/17/24 09:00 08/22/24 09:42 1 TAB Norepinephrine Bitartrate 32 mg/ Sodium Chloride 250 ml @ 0.938 mls/ hr Q24H IV 08/17/24 12:30 08/21/24 12:43 1.406 MLS/HR Morphine Sulfate 4 mg Q4HPRN PRN IV 08/17/24 12:45 08/17/24 16:23 4 MG Levothyroxine Sodium 200 mcg QAM@0600 PO 08/18/24 06:00 08/22/24 06:06 200 MCG Docusate Sodium 100 mg BID GT 08/18/24 22:00 08/22/24 09:39 100 MG Enoxaparin Sodium 70 mg DAILY SC 08/19/24 10:00 08/22/24 09:40 70 MG Amino Acids 0 ml @ 0 mls/hr PER PHARMACY IV 08/21/24 17:15 Diagnostic Test (Pha) 1 strip Q6HR 08/22/24 00:00 08/22/24 11:52 1 STRIP Insulin Human Regular FOLLOW SLIDING SCALE Q6HR SC 08/22/24 00:00 08/22/24 11:53 2 UNITS Dextrose 50 ml UD IV 08/21/24 22:00 Amino Acids/ Electrolytes/ Dextrose 1,000 ml @ 41 mls/hr DAILY@2200 IV 08/21/24 22:00 08/21/24 22:23 41 MLS/HR Pantoprazole Sodium 40 mg DAILY IV 08/22/24 10:00 08/22/24 09:39 40 MG Purified Water 50 ml Q4HR GT 08/22/24 10:00 08/22/24 09:39 50 ML Ertapenem 1 gm/ Sodium Chloride 50 ml @ 100 mls/hr DAILY IV 08/23/24 10:00 Examination: LUNGS:Abnormal, NEURO:Abnormal laboratory and microbiology Laboratory Tests 08/22/24 03:20 Test 08/22/24 03:20 Range/Units Serum Glucose 119 H 74-106 mg/dL Microbiology Date/Time Source Procedure Growth Status 08/15/24 16:20 Blood Blood Culture - Final NO GROWTH AFTER 5 DAYS OF INCUBATION. Complete 08/15/24 11:55 Voided Urine Urine Culture - Final Complete 08/13/24 08:10 Nose MRSA Screen - Final Complete Problem List/Assessment/Plan Problem List/Assessment/Plan Acute kidney injury superimposed Chronic Kidney Disease secondary to ATN, in the setting of shock Acute respiratory failure, on BiPAP Septic shock Urinary tract infection, ESBL Metastatic prostate cancer Congestive heart failure, ejection fraction 20% Right kidney mass, 6.2 cm CVA Hypercalcemia of malignancy Vancomycin toxicity Anemia of chronic kidney disease influenza A Hypernatremia Hypokalemia Recommendations Increase free water via G-tube for sodium correction K replace p.r.n. Stable renal function supportive care kidney ultrasound reported 6 cm mass right kidney Urology consult hospice appropriate Plan discussed with: Other Dietary Evaluation Review Recommendations by RD: Increase Calorie Intake, PPN/TPN Comments: 1. Increase TPN rate to provide at least 75% of daily estimated energy needs. 2. Monitor I&O, weight, and labs. 3. Advance to when CCHO 60g cardiac diet medically feasible, pending SOFTWARE ENGINEERING MANAGER approval. Expected Outcomes/Goals: 1. Increase TPN rate to provide at least 75% of daily estimated energy needs. 2. Monitor I&O, weight, and labs. 3. Advance to when CCHO 60g cardiac diet medically feasible, pending SOFTWARE ENGINEERING MANAGER approval. KIKI FELICIANO MD Aug 22, 2024 16:39
--- NOTE | 2024-08-22 17:39 | DVHPNRES ---
Progress Note Date Seen: Aug 22, 2024 Resident Creating Document: ZELDA ROACH RESIDENT Medical Necessity Reason Pt with a Central, PICC or Fol: Yes The following are medically ne: PICC Line, Chang Catheter Reason for chang catheter: Strict I&O Subjective Review of Systems Patient seen and examined at the bedside. Patient is not fully oriented, reported no new complaints. Off from the Levophed, continuously monitoring Patient reports: No new complaints Changes from previous H/P or p: No Changes Objective vital signs Vital Sign Date Time Temp Pulse Resp B/P (MAP) Pulse Ox O2 Delivery O2 Flow Rate FiO2 08/22/24 17:15 69 25 107/60 (76) 100 08/22/24 16:00 97.5 97.5 08/22/24 16:00 Nasal Cannula* 2 28 Total Intake and Output 08/21/24 08/21/24 08/22/24 14:59 22:59 06:59 Intake Total 166 ml 138.624 ml 274.905 ml Output Total 500 ml 525 ml Balance 166 ml -361.376 ml -250.095 ml medications Current Medications Medications Dose Ordered Sig/Francisco Route Start Time Stop Time Status Last Admin Dose Admin Acetaminophen 650 mg Q6HP PRN PO 08/06/24 01:15 Hold 08/08/24 10:30 650 MG Enoxaparin Sodium 30 mg DAILY SC 08/08/24 10:00 UNV Acetaminophen 650 mg Q6HP PRN NM 08/10/24 09:00 08/12/24 16:17 650 MG Sodium Chloride 10 ml QSHIFT@10,22 IV 08/15/24 22:00 08/22/24 09:39 10 ML Acetaminophen/ Hydrocodone Bitart 1 tab Q6HP PRN PO 08/17/24 09:00 08/22/24 09:42 1 TAB Norepinephrine Bitartrate 32 mg/ Sodium Chloride 250 ml @ 0.938 mls/ hr Q24H IV 08/17/24 12:30 08/21/24 12:43 1.406 MLS/HR Morphine Sulfate 4 mg Q4HPRN PRN IV 08/17/24 12:45 08/17/24 16:23 4 MG Levothyroxine Sodium 200 mcg QAM@0600 PO 08/18/24 06:00 08/22/24 06:06 200 MCG Docusate Sodium 100 mg BID GT 08/18/24 22:00 08/22/24 09:39 100 MG Enoxaparin Sodium 70 mg DAILY SC 08/19/24 10:00 08/22/24 09:40 70 MG Amino Acids 0 ml @ 0 mls/hr PER PHARMACY IV 08/21/24 17:15 Diagnostic Test (Pha) 1 strip Q6HR 08/22/24 00:00 08/22/24 11:52 1 STRIP Insulin Human Regular FOLLOW SLIDING SCALE Q6HR SC 08/22/24 00:00 08/22/24 11:53 2 UNITS Dextrose 50 ml UD IV 08/21/24 22:00 Amino Acids/ Electrolytes/ Dextrose 1,000 ml @ 41 mls/hr DAILY@2200 IV 08/21/24 22:00 08/21/24 22:23 41 MLS/HR Pantoprazole Sodium 40 mg DAILY IV 08/22/24 10:00 08/22/24 09:39 40 MG Ertapenem 1 gm/ Sodium Chloride 50 ml @ 100 mls/hr DAILY IV 08/23/24 10:00 Purified Water 150 ml Q4HR GT 08/22/24 18:00 Examination Pt is lying on bed General Appearance: Alert, Oriented X2, Cooperative, following commands HEENT: Atraumatic, Mucous membranes dry Respiratory: Clear to auscultation, Normal air movement, on NC 4 L Cardiovascular: Regular rate, Normal S1, Normal S2, Abdominal: Active bowel sounds, Soft, no distention, no tenderness Extremities: 1+ edema BLE, weak pulses BLE, Tenderness in BLE Skin: stage 3 sacral decubitus ulcer. skin discoloration in BLE likely due to vascular disorders Neuro: Normal speech, sensorimotor deficits none Psych/Mental Status: Mental status NL, Mood NL Nurse was there as sharperone during examination laboratory and microbiology Laboratory Tests 08/22/24 03:20 Test 08/22/24 03:20 Range/Units Serum Glucose 119 H 74-106 mg/dL Microbiology Date/Time Source Procedure Growth Status 08/15/24 16:20 Blood Blood Culture - Final NO GROWTH AFTER 5 DAYS OF INCUBATION. Complete 08/15/24 11:55 Voided Urine Urine Culture - Final Complete 08/13/24 08:10 Nose MRSA Screen - Final Complete Labs and/or images reviewed: Labs reviewed by me, Image(s) reviewed by me Problem List/Assessment/Plan Problem List/Assessment/Plan NEUROLOGY # acute metabolic or toxic encephalopathy # history of CVA - CT showed no acute changes CARDIOLOGY # acute on chronic HFrEF EF less than 20% with AICD NYHA 4 # end-stage cardiomyopathy # Paroxysmal atrial fibrillation, lovenox # Peripheral arterial disease, severe degree # Presence of AICD (Biotronik) # septic shock likely due to UTI # Sustained V-tach - EF showed less than 20% - cardiology on board - currently on Lasix 40 daily - levophed drip Dc 08/22 - amiodarone - hold - on therapeutic Lovenox - monitor continuously - reviewed EKG - go down on vasopressors, add fluids if needed RESPIRATORY # Acute hypoxic respiratory failure likely due to heart failure # possible aspiration pneumonia # multiple pulmonary nodules likely Mets # pleural effusion - currently on oxygen NC 2 L (initially on BiPAP and high-flow) - ordered pancultures - currently on Invanz and doxycycline - continuously monitoring # influenza type A - currently on Tamiflu GI/LIVER # GERD - Protonix /KIDNEY/METABOLIC # COCO on CKD stage 3 A/B - continuously monitoring # acute complicated UTI ESBL - evident on urinalysis - and cultures growing ESBL - currently on Invanz # prostatic cancer with possible metastasis - following up with the Urology # Right kidney mass - evident on CT abdominal pelvis # hypercalcemia likely due to malignancy- resolved # hyponatremia- resolved # Hypokalemia - Repleting - Monitor lab ENDO # uncontrolled type 2 diabetes mellitus - Accu-Cheks and sliding scale # hypothyroidism - currently on levothyroxine MSK # Severe PAD # Severe right knee osteoarthritis - Pain management as needed - No surgical intervention for now - Monitoring # widespread musculoskeletal pain likely due to cancer mets -currently giving Decadron, [place], morphine HEME # Anemia of chronic disease likely due to malignancy - monitor lab ID # acute complicated UTI ESBL # septic shock due to UTI - evident on urinalysis - and cultures growing ESBL - currently on Invanz SKIN # stage III sacral decubitus ulcer - wound consult LINES Right femoral vein catheter DC 08/15 PICC 08/15 [place] catheter DRIPS Levophed off 08/22 NUTRITION Clinimix PUD prophylaxis: Pantoprazole DVT prophylaxis: Therapeutic Lovenox Goals of care has been discussed with the for more than 27 minutes, full code status Critical care time including chart review, discussing with the patient's family excluding procedures: 63 minutes Spoken with son on phone, explained patient's situation and all the details, answered all questions, advised son and [id number] to schedule a meeting in hospital to discuss further plan. Case discussed with Dr. Raymond. Plan discussed with: Patient, Son My Orders My Orders Orders - ZELDA ROACH Procedure Category Date Status Time Glucose Blood PHA 08/22/24 In Process (Accu-Chek Comfort 00:00 Insulin R (Human) PHA 08/22/24 In Process (Insulin R) 00:00 Dextrose 50% Syringe PHA 08/21/24 In Process 22:00 Amino Acid Infusion PHA 08/21/24 In Process In D10w (Clinimix 4. 22:00 Clinimix Per [facility] 08/21/24 In Process 22:00 Pantoprazole PHA 08/22/24 In Process (Protonix) 10:00 Comprehensive LAB 08/23/24 Verified Metabolic Panel 04:00 Magnesium LAB 08/23/24 Verified 04:00 Phosphorus LAB 08/23/24 Verified 04:00 Clinimix Per [facility] 08/22/24 In Process 22:00 Chest Xray 1 View XY 08/23/24 Logged 04:00 Complete Blood Count LAB 08/23/24 Verified 04:00 Dietary Evaluation Review Recommendations by RD: Increase Calorie Intake, PPN/TPN Comments: 1. Increase TPN rate to provide at least 75% of daily estimated energy needs. 2. Monitor I&O, weight, and labs. 3. Advance to when CCHO 60g cardiac diet medically feasible, pending ENVIRONMENTAL EDUCATION SPECIALIST approval. Expected Outcomes/Goals: 1. Increase TPN rate to provide at least 75% of daily estimated energy needs. 2. Monitor I&O, weight, and labs. 3. Advance to when CCHO 60g cardiac diet medically feasible, pending ENVIRONMENTAL EDUCATION SPECIALIST approval. Date of Service: Aug 22, 2024 Billing Provider: PATRICIA RAYMOND MD Common Visit Codes: 82002-[id number] CARE 30-74 MIN ZELDA ROACH Aug 22, 2024 17:39 PATRICIA RAYMOND MD Aug 23, 2024 15:40
[2024-08-23] VITALS (91 sets, daily range): BP systolic 86–116; BP diastolic 42–80; PULSE 66–90; RESP 17–33; TEMP 97.5–98.3; O2SAT 48–100
[2024-08-23 03:52] LABS: Eosinophils # (auto) 0 10 ^3/uL (0-0.8); Eosinophils % (auto) 0.3 % (0.0-7.0); Lymphocytes # (auto) 0.7 10 ^3/uL (0.4-5.4); Monocytes # (auto) 0.4 10 ^3/uL (0-1.3); Monocytes % (auto) 2.6 % (0.0-12.0); Neutrophils # (auto) 12.2 10 ^3/uL (1.6-8.6); White Blood Cell 13.4 10^3/uL (4.4-10.8)
[2024-08-23 03:58] LABS: Basophils # (auto) 0 10 ^3/uL (0-0.2); Basophils % (auto) 0.3 % (0.0-2.0); Hematocrit 26.8 % (41.0-53.0); Hemoglobin 8.6 g/dL (13.5-17.5); Lymphocytes % (auto) 5.5 % (10.0-50.0); Mean Corpuscular Hemoglobin 25.2 pg (28.0-32.0); Mean Corpuscular Volume 78.6 fL (80.0-100.0); Neutrophils % (auto) 91.3 % (37.0-80.0); Platelet Count (auto) 216 10^3/uL (140-450); Red Blood Cells 3.41 10^6/uL (4.5-5.90); Red Cell Distribution Width 19.8 % (11.8-14.3)
[2024-08-23 04:07] LABS: Alkaline Phosphatase 75 U/L (46-116); Anion Gap 8 (5-15); BUN/Creatinine Ratio 26.5 (10.0-20.0); Calcium 8.7 mg/dL (8.7-10.4); Carbon Dioxide 28 mmol/L (20-31); Magnesium 2.4 mg/dL (1.6-2.6); Potassium 3.7 mmol/L (3.5-5.1)
[2024-08-23 04:08] LABS: Alanine Aminotransferase < 9 U/L (7-40); Albumin 2.5 g/dL (3.2-4.8); Aspartate Aminotransferase 10 U/L (13-40); Bilirubin, Total 0.6 mg/dL (0.2-1.0); Blood Urea Nitrogen 40 mg/dL (9-23); Chloride 112 mmol/L (98-107); Glucose 146 mg/dL (74-106); Phosphorus 2.3 mg/dL (2.4-5.1); Sodium 148 mmol/L (136-145)
[2024-08-23 04:38] LABS: Total Protein 5.4 g/dL (5.7-8.2)
--- NOTE | 2024-08-23 05:16 | DVH ---
CHEST RADIOGRAPH Indication: pna Technique: Single frontal view of the chest was obtained Comparison: XY CHEST PORTABLE on DOS: 08/22/24 FINDINGS: Lines and Tubes: There is a right PICC with its tip terminating in the right atrium. AICD leads over lie the right atrium and right ventricle. Enteric tube has been removed. Lungs: Left greater than right airspace disease similar to prior study. Pleura: No effusion. No pneumothorax. Cardiomediastinal contours: Cardiomegaly. Bones: No acute osseous abnormality. IMPRESSION: 1. Removal of the enteric tube. 2. No significant change in appearance of the lungs over 1 day.
[2024-08-23] MEDS: ERTAPENEM SOD INJ 1 GM in SODIUM CHL 0.9% 50 ML IV SCH (08:57)
[2024-08-23 09:36] LABS: Rapid Influenza A Negative (Negative); Rapid Influenza B Negative (Negative)
--- NOTE | 2024-08-23 16:47 | DVHPN2 ---
Progress Note Date Seen: Aug 23, 2024 Medical Necessity Reason Pt with a Central, PICC or Fol: Yes The following are medically ne: PICC Line, Chang Catheter Reason for chang catheter: Strict I&O Subjective Patient reports: Other (Remains in ICU family bedside) Review of Systems: Deferred Objective vital signs Vital Sign Date Time Temp Pulse Resp B/P (MAP) Pulse Ox O2 Delivery O2 Flow Rate FiO2 08/23/24 14:45 73 29 103/56 (72) 100 08/23/24 14:00 Nasal Cannula* 2 28 08/23/24 12:00 97.6 97.6 Total Intake and Output 08/22/24 08/22/24 08/23/24 15:00 23:00 07:00 Intake Total 799 ml 951.030 ml 339.248 ml Output Total 440 ml 475 ml Balance 799 ml 511.030 ml -135.752 ml medications Current Medications Medications Dose Ordered Sig/Francisco Route Start Time Stop Time Status Last Admin Dose Admin Acetaminophen 650 mg Q6HP PRN PO 08/06/24 01:15 Hold 08/08/24 10:30 650 MG Enoxaparin Sodium 30 mg DAILY SC 08/08/24 10:00 UNV Acetaminophen 650 mg Q6HP PRN RI 08/10/24 09:00 08/12/24 16:17 650 MG Sodium Chloride 10 ml QSHIFT@10,22 IV 08/15/24 22:00 08/23/24 08:58 10 ML Acetaminophen/ Hydrocodone Bitart 1 tab Q6HP PRN PO 08/17/24 09:00 08/22/24 09:42 1 TAB Norepinephrine Bitartrate 32 mg/ Sodium Chloride 250 ml @ 0.938 mls/ hr Q24H IV 08/17/24 12:30 08/21/24 12:43 1.406 MLS/HR Morphine Sulfate 4 mg Q4HPRN PRN IV 08/17/24 12:45 08/17/24 16:23 4 MG Levothyroxine Sodium 200 mcg QAM@0600 PO 08/18/24 06:00 08/22/24 06:06 200 MCG Docusate Sodium 100 mg BID GT 08/18/24 22:00 08/22/24 09:39 100 MG Enoxaparin Sodium 70 mg DAILY SC 08/19/24 10:00 08/23/24 08:58 70 MG Amino Acids 0 ml @ 0 mls/hr PER PHARMACY IV 08/21/24 17:15 Diagnostic Test (Pha) 1 strip Q6HR 08/22/24 00:00 08/23/24 11:19 1 STRIP Insulin Human Regular FOLLOW SLIDING SCALE Q6HR SC 08/22/24 00:00 08/23/24 11:23 2 UNITS Dextrose 50 ml UD IV 08/21/24 22:00 Amino Acids/ Electrolytes/ Dextrose 1,000 ml @ 41 mls/hr DAILY@2200 IV 08/21/24 22:00 08/22/24 21:34 41 MLS/HR Pantoprazole Sodium 40 mg DAILY IV 08/22/24 10:00 08/23/24 08:57 40 MG Ertapenem 1 gm/ Sodium Chloride 50 ml @ 100 mls/hr DAILY IV 08/23/24 10:00 08/23/24 08:57 100 MLS/HR Purified Water 150 ml Q4HR GT 08/22/24 18:00 Examination: GENERAL:Abnormal, LUNGS:Abnormal, MSK:Abnormal, NEURO:Abnormal laboratory and microbiology Laboratory Tests 08/23/24 03:30 Test 08/23/24 03:30 Range/Units Serum Glucose 146 H 74-106 mg/dL Microbiology Date/Time Source Procedure Growth Status 08/15/24 16:20 Blood Blood Culture - Final NO GROWTH AFTER 5 DAYS OF INCUBATION. Complete 08/15/24 11:55 Voided Urine Urine Culture - Final Complete 08/13/24 08:10 Nose MRSA Screen - Final Complete Problem List/Assessment/Plan Problem List/Assessment/Plan Acute kidney injury superimposed Chronic Kidney Disease secondary to ATN, in the setting of shock Acute respiratory failure, on BiPAP Septic shock Urinary tract infection, ESBL Metastatic prostate cancer Congestive heart failure, ejection fraction 20% Right kidney mass, 6.2 cm CVA Hypercalcemia of malignancy Vancomycin toxicity Anemia of chronic kidney disease influenza A Hypernatremia Hypokalemia Recommendations Increase free water via G-tube for sodium correction K replace p.r.n. Stable renal function supportive care kidney ultrasound reported 6 cm mass right kidney Urology consult hospice appropriate Family meeting today Plan discussed with: Other Dietary Evaluation Review Recommendations by RD: Increase Calorie Intake, PPN/TPN Comments: 1. Increase TPN rate to provide at least 75% of daily estimated energy needs. 2. Monitor I&O, weight, and labs. 3. Advance to when CCHO 60g cardiac diet medically feasible, pending NAVAL AIRCREWMAN OPERATOR approval. Expected Outcomes/Goals: 1. Increase TPN rate to provide at least 75% of daily estimated energy needs. 2. Monitor I&O, weight, and labs. 3. Advance to when CCHO 60g cardiac diet medically feasible, pending NAVAL AIRCREWMAN OPERATOR approval. KIKI FELICIANO MD Aug 23, 2024 16:47
--- NOTE | 2024-08-23 18:43 | DVHPNRES ---
Progress Note Date Seen: Aug 23, 2024 Resident Creating Document: ZELDA ROACH RESIDENT Medical Necessity Reason Pt with a Central, PICC or Fol: Yes The following are medically ne: PICC Line, Chang Catheter Reason for chang catheter: Strict I&O Subjective Review of Systems Patient seen and examined at the bedside. Patient is not fully oriented, reported episodes of diarrhea in morning, monitoring. currently on Levophed. Objective vital signs Vital Sign Date Time Temp Pulse Resp B/P (MAP) Pulse Ox O2 Delivery O2 Flow Rate FiO2 08/23/24 18:30 73 25 110/63 (79) 100 08/23/24 18:00 Nasal Cannula* 4 36 08/23/24 16:00 97.6 97.6 Total Intake and Output 08/22/24 08/22/24 08/23/24 15:00 23:00 07:00 Intake Total 799 ml 951.030 ml 339.248 ml Output Total 440 ml 475 ml Balance 799 ml 511.030 ml -135.752 ml medications Current Medications Medications Dose Ordered Sig/Francisco Route Start Time Stop Time Status Last Admin Dose Admin Acetaminophen 650 mg Q6HP PRN PO 08/06/24 01:15 Hold 08/08/24 10:30 650 MG Enoxaparin Sodium 30 mg DAILY SC 08/08/24 10:00 UNV Acetaminophen 650 mg Q6HP PRN MD 08/10/24 09:00 08/12/24 16:17 650 MG Sodium Chloride 10 ml QSHIFT@10,22 IV 08/15/24 22:00 08/23/24 08:58 10 ML Acetaminophen/ Hydrocodone Bitart 1 tab Q6HP PRN PO 08/17/24 09:00 08/22/24 09:42 1 TAB Norepinephrine Bitartrate 32 mg/ Sodium Chloride 250 ml @ 0.938 mls/ hr Q24H IV 08/17/24 12:30 08/21/24 12:43 1.406 MLS/HR Morphine Sulfate 4 mg Q4HPRN PRN IV 08/17/24 12:45 08/17/24 16:23 4 MG Levothyroxine Sodium 200 mcg QAM@0600 PO 08/18/24 06:00 08/22/24 06:06 200 MCG Docusate Sodium 100 mg BID GT 08/18/24 22:00 08/22/24 09:39 100 MG Enoxaparin Sodium 70 mg DAILY SC 08/19/24 10:00 08/23/24 08:58 70 MG Amino Acids 0 ml @ 0 mls/hr PER PHARMACY IV 08/21/24 17:15 Diagnostic Test (Pha) 1 strip Q6HR 08/22/24 00:00 08/23/24 18:05 1 STRIP Insulin Human Regular FOLLOW SLIDING SCALE Q6HR SC 08/22/24 00:00 08/23/24 11:23 2 UNITS Dextrose 50 ml UD IV 08/21/24 22:00 Amino Acids/ Electrolytes/ Dextrose 1,000 ml @ 41 mls/hr DAILY@2200 IV 08/21/24 22:00 08/22/24 21:34 41 MLS/HR Pantoprazole Sodium 40 mg DAILY IV 08/22/24 10:00 08/23/24 08:57 40 MG Ertapenem 1 gm/ Sodium Chloride 50 ml @ 100 mls/hr DAILY IV 08/23/24 10:00 08/23/24 08:57 100 MLS/HR Purified Water 150 ml Q4HR GT 08/22/24 18:00 Examination Pt is lying on bed General Appearance: Alert, Oriented X2, Cooperative, following commands HEENT: Atraumatic, Mucous membranes dry Respiratory: Clear to auscultation, Normal air movement, on NC 4 L Cardiovascular: Regular rate, Normal S1, Normal S2, Abdominal: Active bowel sounds, Soft, no distention, no tenderness Extremities: 1+ edema BLE, weak pulses BLE, Tenderness in BLE Skin: stage 3 sacral decubitus ulcer. skin discoloration in BLE likely due to vascular disorders Neuro: Normal speech, sensorimotor deficits none Psych/Mental Status: Mental status NL, Mood NL Nurse was there as sharperone during examination laboratory and microbiology Laboratory Tests 08/23/24 03:30 Test 08/23/24 03:30 Range/Units Serum Glucose 146 H 74-106 mg/dL Microbiology Date/Time Source Procedure Growth Status 08/15/24 16:20 Blood Blood Culture - Final NO GROWTH AFTER 5 DAYS OF INCUBATION. Complete 08/15/24 11:55 Voided Urine Urine Culture - Final Complete 08/13/24 08:10 Nose MRSA Screen - Final Complete Labs and/or images reviewed: Labs reviewed by me, Image(s) reviewed by me Problem List/Assessment/Plan Problem List/Assessment/Plan NEUROLOGY # acute metabolic or toxic encephalopathy # history of CVA - CT showed no acute changes CARDIOLOGY # acute on chronic HFrEF EF less than 20% with AICD NYHA 4 # end-stage cardiomyopathy # Paroxysmal atrial fibrillation, on low-dose Eliquis # Peripheral arterial disease, severe degree # Presence of AICD (Biotronik) # septic shock likely due to UTI # Sustained V-tach - EF showed less than 20% - cardiology on board - currently on Lasix 40 daily - levophed drip - amiodarone - hold - on therapeutic Lovenox - monitor continuously - reviewed EKG - go down on vasopressors, add fluids if needed RESPIRATORY # Acute hypoxic respiratory failure likely due to heart failure # possible aspiration pneumonia # multiple pulmonary nodules likely Mets # pleural effusion - currently on oxygen NC 2 L (initially on BiPAP and high-flow) - ordered pancultures - currently on Invanz and doxycycline - continuously monitoring # influenza type A - currently on Tamiflu GI/LIVER # GERD - Protonix /KIDNEY/METABOLIC # COCO on CKD stage 3 A/B - continuously monitoring # acute complicated UTI ESBL - evident on urinalysis - and cultures growing ESBL - currently on Invanz # prostatic cancer with possible metastasis - following up with the Urology # Right kidney mass - evident on CT abdominal pelvis # hypercalcemia likely due to malignancy- resolved # hyponatremia- resolved # Hypokalemia - Repleting - Monitor lab ENDO # uncontrolled type 2 diabetes mellitus - Accu-Cheks and sliding scale # hypothyroidism - currently on levothyroxine MSK # Severe PAD # Severe right knee osteoarthritis - Pain management as needed - No surgical intervention for now - Monitoring # widespread musculoskeletal pain likely due to cancer mets -currently giving Decadron, [place], morphine HEME # Anemia of chronic disease likely due to malignancy - monitor lab ID # acute complicated UTI ESBL # septic shock due to UTI - evident on urinalysis - and cultures growing ESBL - currently on Invanz SKIN # stage III sacral decubitus ulcer - wound consult LINES Right femoral vein catheter DC 08/15 PICC 08/15 Chang catheter DRIPS Levophed NUTRITION Clinimix PUD prophylaxis: Pantoprazole DVT prophylaxis: Therapeutic Lovenox Goals of care has been discussed with the for more than 27 minutes, full code status Critical care time including chart review, discussing with the patient's family excluding procedures: 117 minutes Spoken with son on phone, explained patient's situation and all the details, answered all questions, advised son and [id number] to schedule a meeting in hospital to discuss further plan. Family meeting held today 08/23/2024, addressed all concerns and answered all questions Case discussed with Dr. Raymond. Plan discussed with: Patient, Son, Other ([id number]) My Orders My Orders Orders - ZELDA ROACH Procedure Category Date Status Time Comprehensive LAB 08/24/24 Verified Metabolic Panel 04:00 Magnesium LAB 08/24/24 Verified 04:00 Phosphorus LAB 08/24/24 Verified 04:00 Clinimix Per [facility] 08/23/24 In Process 22:00 Dietary Evaluation Review Recommendations by RD: Increase Calorie Intake, PPN/TPN Comments: 1. Increase TPN rate to provide at least 75% of daily estimated energy needs. 2. Monitor I&O, weight, and labs. 3. Advance to when CCHO 60g cardiac diet medically feasible, pending MEDICAL RECORDS TECH approval. Expected Outcomes/Goals: 1. Increase TPN rate to provide at least 75% of daily estimated energy needs. 2. Monitor I&O, weight, and labs. 3. Advance to when CCHO 60g cardiac diet medically feasible, pending MEDICAL RECORDS TECH approval. Date of Service: Aug 23, 2024 Billing Provider: PATRICIA RAYMOND MD Common Visit Codes: 86024-[id number] CARE 30-74 MIN, [id number] CARE-EACH +30MIN (X2) ZELDA ROACH Aug 23, 2024 18:42 PATRICIA RAYMOND MD Aug 24, 2024 11:30
[2024-08-24] VITALS (89 sets, daily range): BP systolic 88–116; BP diastolic 39–80; PULSE 61–95; RESP 9–31; TEMP 97.6–98.3; O2SAT 79–100
[2024-08-24 04:10] LABS: Eosinophils # (auto) 0.1 10 ^3/uL (0-0.8); Eosinophils % (auto) 0.6 % (0.0-7.0); Red Cell Distribution Width 19.9 % (11.8-14.3)
[2024-08-24 04:15] LABS: Basophils # (auto) 0 10 ^3/uL (0-0.2); Basophils % (auto) 0.3 % (0.0-2.0); Hematocrit 29.4 % (41.0-53.0); Hemoglobin 9.3 g/dL (13.5-17.5); Lymphocytes # (auto) 0.8 10 ^3/uL (0.4-5.4); Lymphocytes % (auto) 5.7 % (10.0-50.0); Mean Corpuscular Hemoglobin 25.3 pg (28.0-32.0); Mean Corpuscular Hgb Conc. 31.7 g/dL (32.0-36.0); Mean Corpuscular Volume 79.8 fL (80.0-100.0); Monocytes # (auto) 0.4 10 ^3/uL (0-1.3); Monocytes % (auto) 3.2 % (0.0-12.0); Neutrophils % (auto) 90.2 % (37.0-80.0); Platelet Count (auto) 206 10^3/uL (140-450); Red Blood Cells 3.69 10^6/uL (4.5-5.90); White Blood Cell 13.3 10^3/uL (4.4-10.8)
[2024-08-24 04:22] LABS: Alkaline Phosphatase 75 U/L (46-116); Anion Gap 7 (5-15); BUN/Creatinine Ratio 25.5 (10.0-20.0); Calcium 9.2 mg/dL (8.7-10.4); Carbon Dioxide 27 mmol/L (20-31); Magnesium 2.5 mg/dL (1.6-2.6); Potassium 3.7 mmol/L (3.5-5.1)
[2024-08-24 04:23] LABS: Bilirubin, Total 0.7 mg/dL (0.2-1.0); Total Protein 5.9 g/dL (5.7-8.2)
[2024-08-24 04:24] LABS: Alanine Aminotransferase < 9 U/L (7-40); Albumin 2.8 g/dL (3.2-4.8); Aspartate Aminotransferase 11 U/L (13-40); Blood Urea Nitrogen 37 mg/dL (9-23); Chloride 114 mmol/L (98-107); Glucose 113 mg/dL (74-106); Phosphorus 1.8 mg/dL (2.4-5.1); Sodium 148 mmol/L (136-145)
--- NOTE | 2024-08-24 05:12 | DVH ---
CHEST RADIOGRAPH Indication: pna Technique: Single frontal view of the chest was obtained Comparison: XY CHEST XRAY 1 VIEW on DOS: 08/23/24 FINDINGS: Lines and Tubes: AICD noted. Right PICC terminates in the superior vena cava. Lungs: Left upper and lower lung zone opacities similar to prior study. Pleura: No effusion. No pneumothorax. Cardiomediastinal contours: Cardiomegaly. Bones: No acute osseous abnormality. IMPRESSION: 1. No significant interval change.
--- NOTE | 2024-08-24 07:06 | ECG ---
[facility] Test Date: 2024-08-12 Test Time: 20:15:22 Pat Name: RENATA PEREA Department: ER Room: [address] [place] [address] A Gender: M [employer] Rep[employer]r: : [id number] Requested By: JO VASQUEZ Order Number: [id number] Reading MD: Florencio Coronado Measurements Intervals [place] Rate: 132 P: 0 WI: 84 QRS: 253 QRSD: 130 T: 71 QT: 353 QTc: 523 Interpretive Statements A-V dual-paced complexes w/ some inhibition No further analysis attempted due to paced rhythm Electronically Signed On 08-24-2024 9:34:32 PST by Florencio Coronado Please click the below link to view image of tracing.
--- NOTE | 2024-08-24 09:54 | DVH ---
Date: 08/24/2024 08:44 AM Examination: XY KUB ABDOMEN SINGLE VIEW History: pain Comparison: None TECHNIQUE: Frontal views of the abdomen was obtained. FINDINGS: Bowel gas pattern is unremarkable. The lung bases are unremarkable. No acute osseous abnormality identified. IMPRESSION: Nonobstructive bowel gas pattern.
[2024-08-24] MEDS ORDERED: LOPERAMIDE 1 mg/7.5ml ORAL soln PO PRN (11:30)
--- NOTE | 2024-08-24 11:44 | DVHPN2 ---
Progress Note Date Seen: Aug 24, 2024 Medical Necessity Reason Pt with a Central, PICC or Fol: Yes The following are medically ne: PICC Line, Chang Catheter Reason for chang catheter: Strict I&O Subjective Patient reports: No new complaints, Feels better (more awake) Review of Systems: Deferred Objective vital signs Vital Sign Date Time Temp Pulse Resp B/P (MAP) Pulse Ox O2 Delivery O2 Flow Rate FiO2 08/24/24 10:31 62 18 108/64 (79) 100 08/24/24 10:00 Nasal Cannula* 4 36 08/24/24 08:16 97.9 97.9 Total Intake and Output 08/23/24 08/23/24 08/24/24 15:00 23:00 07:00 Intake Total 389.248 ml 414.248 ml 296.842 ml Output Total 375 ml 475 ml Balance 389.248 ml 39.248 ml -178.158 ml medications Current Medications Medications Dose Ordered Sig/Francisco Route Start Time Stop Time Status Last Admin Dose Admin Acetaminophen 650 mg Q6HP PRN PO 08/06/24 01:15 Hold 08/08/24 10:30 650 MG Enoxaparin Sodium 30 mg DAILY SC 08/08/24 10:00 UNV Acetaminophen 650 mg Q6HP PRN AL 08/10/24 09:00 08/12/24 16:17 650 MG Sodium Chloride 10 ml QSHIFT@10,22 IV 08/15/24 22:00 08/24/24 09:38 10 ML Acetaminophen/ Hydrocodone Bitart 1 tab Q6HP PRN PO 08/17/24 09:00 08/22/24 09:42 1 TAB Norepinephrine Bitartrate 32 mg/ Sodium Chloride 250 ml @ 0.938 mls/ hr Q24H IV 08/17/24 12:30 08/21/24 12:43 1.406 MLS/HR Morphine Sulfate 4 mg Q4HPRN PRN IV 08/17/24 12:45 08/17/24 16:23 4 MG Levothyroxine Sodium 200 mcg QAM@0600 PO 08/18/24 06:00 08/22/24 06:06 200 MCG Enoxaparin Sodium 70 mg DAILY SC 08/19/24 10:00 08/24/24 09:39 70 MG Amino Acids 0 ml @ 0 mls/hr PER PHARMACY IV 08/21/24 17:15 Diagnostic Test (Pha) 1 strip Q6HR 08/22/24 00:00 08/24/24 06:00 1 STRIP Insulin Human Regular FOLLOW SLIDING SCALE Q6HR SC 08/22/24 00:00 08/23/24 11:23 2 UNITS Dextrose 50 ml UD IV 08/21/24 22:00 Amino Acids/ Electrolytes/ Dextrose 1,000 ml @ 41 mls/hr DAILY@2200 IV 08/21/24 22:00 08/23/24 21:36 41 MLS/HR Pantoprazole Sodium 40 mg DAILY IV 08/22/24 10:00 08/24/24 09:37 40 MG Ertapenem 1 gm/ Sodium Chloride 50 ml @ 100 mls/hr DAILY IV 08/23/24 10:00 08/24/24 09:38 100 MLS/HR Loperamide HCl 2 mg PRN PRN PO 08/24/24 11:30 UNV Examination: GENERAL:Abnormal, LUNGS:Abnormal, MSK:Abnormal, NEURO:Normal laboratory and microbiology Laboratory Tests 08/24/24 03:30 Test 08/24/24 03:30 Range/Units Serum Glucose 113 H 74-106 mg/dL Microbiology Date/Time Source Procedure Growth Status 08/15/24 16:20 Blood Blood Culture - Final NO GROWTH AFTER 5 DAYS OF INCUBATION. Complete 08/15/24 11:55 Voided Urine Urine Culture - Final Complete 08/13/24 08:10 Nose MRSA Screen - Final Complete Problem List/Assessment/Plan Problem List/Assessment/Plan Acute kidney injury superimposed Chronic Kidney Disease secondary to ATN, in the setting of shock Acute respiratory failure, on BiPAP Septic shock Urinary tract infection, ESBL Metastatic prostate cancer Congestive heart failure, ejection fraction 20% Right kidney mass, 6.2 cm CVA Hypercalcemia of malignancy Vancomycin toxicity Anemia of chronic kidney disease influenza A Hypernatremia Hypokalemia Recommendations Increase free water via G-tube for sodium correction K replace p.r.n. Stable renal function supportive care kidney ultrasound reported 6 cm mass right kidney Urology consult hospice appropriate--possible hospice dc still on pressors Plan discussed with: Other Dietary Evaluation Review Recommendations by RD: Increase Calorie Intake, PPN/TPN Comments: 1. Increase TPN rate to provide at least 75% of daily estimated energy needs. 2. Monitor I&O, weight, and labs. 3. Advance to when CCHO 60g cardiac diet medically feasible, pending TITLE VEHICLE SERVICE ATTENDANT approval. Expected Outcomes/Goals: 1. Increase TPN rate to provide at least 75% of daily estimated energy needs. 2. Monitor I&O, weight, and labs. 3. Advance to when CCHO 60g cardiac diet medically feasible, pending TITLE VEHICLE SERVICE ATTENDANT approval. KIKI FELICIANO MD Aug 24, 2024 11:44
[2024-08-24] MEDS: LOPERAMIDE 1 mg/7.5ml ORAL soln PO ONE (13:00)
[2024-08-24] MEDS: POTASSIUM PHOSPHATE 26.4 MEQ in SODIUM CHL 0.9% 100 ML IV ONE (13:48)
--- NOTE | 2024-08-24 16:57 | DVHPNRES ---
Progress Note Date Seen: Aug 24, 2024 Resident Creating Document: ZELDA ROACH RESIDENT Medical Necessity Reason Pt with a Central, PICC or Fol: Yes The following are medically ne: PICC Line, Chang Catheter Reason for chang catheter: Strict I&O Subjective Review of Systems Patient seen and examined at the bedside. Patient is not fully oriented, reported episodes of diarrhea, given loperamide, monitoring, Objective vital signs Vital Sign Date Time Temp Pulse Resp B/P (MAP) Pulse Ox O2 Delivery O2 Flow Rate FiO2 08/24/24 15:15 68 22 107/53 (71) 100 08/24/24 14:00 Nasal Cannula* 4 36 08/24/24 12:00 97.6 97.6 Total Intake and Output 08/23/24 08/23/24 08/24/24 15:00 23:00 07:00 Intake Total 389.248 ml 414.248 ml 296.842 ml Output Total 375 ml 475 ml Balance 389.248 ml 39.248 ml -178.158 ml medications Current Medications Medications Dose Ordered Sig/Francisco Route Start Time Stop Time Status Last Admin Dose Admin Acetaminophen 650 mg Q6HP PRN PO 08/06/24 01:15 Hold 08/08/24 10:30 650 MG Enoxaparin Sodium 30 mg DAILY SC 08/08/24 10:00 UNV Acetaminophen 650 mg Q6HP PRN MS 08/10/24 09:00 08/12/24 16:17 650 MG Sodium Chloride 10 ml QSHIFT@10,22 IV 08/15/24 22:00 08/24/24 09:38 10 ML Acetaminophen/ Hydrocodone Bitart 1 tab Q6HP PRN PO 08/17/24 09:00 08/22/24 09:42 1 TAB Norepinephrine Bitartrate 32 mg/ Sodium Chloride 250 ml @ 0.938 mls/ hr Q24H IV 08/17/24 12:30 08/21/24 12:43 1.406 MLS/HR Morphine Sulfate 4 mg Q4HPRN PRN IV 08/17/24 12:45 08/17/24 16:23 4 MG Levothyroxine Sodium 200 mcg QAM@0600 PO 08/18/24 06:00 08/22/24 06:06 200 MCG Enoxaparin Sodium 70 mg DAILY SC 08/19/24 10:00 08/24/24 09:39 70 MG Amino Acids 0 ml @ 0 mls/hr PER PHARMACY IV 08/21/24 17:15 Diagnostic Test (Pha) 1 strip Q6HR 08/22/24 00:00 08/24/24 12:59 1 STRIP Insulin Human Regular FOLLOW SLIDING SCALE Q6HR SC 08/22/24 00:00 08/23/24 11:23 2 UNITS Dextrose 50 ml UD IV 08/21/24 22:00 Amino Acids/ Electrolytes/ Dextrose 1,000 ml @ 41 mls/hr DAILY@2200 IV 08/21/24 22:00 08/23/24 21:36 41 MLS/HR Pantoprazole Sodium 40 mg DAILY IV 08/22/24 10:00 08/24/24 09:37 40 MG Ertapenem 1 gm/ Sodium Chloride 50 ml @ 100 mls/hr DAILY IV 08/23/24 10:00 08/24/24 09:38 100 MLS/HR Loperamide HCl 2 mg PRN PRN PO 08/24/24 11:30 Examination Pt is lying on bed General Appearance: Alert, Oriented X2, Cooperative, following commands HEENT: Atraumatic, Mucous membranes dry Respiratory: Clear to auscultation, Normal air movement, on NC 4 L Cardiovascular: Regular rate, Normal S1, Normal S2, Abdominal: Active bowel sounds, Soft, no distention, no tenderness Extremities: 1+ edema BLE, weak pulses BLE, Tenderness in BLE Skin: stage 3 sacral decubitus ulcer. skin discoloration in BLE likely due to vascular disorders Neuro: Normal speech, sensorimotor deficits none Psych/Mental Status: Mental status NL, Mood NL Nurse was there as sharperone during examination laboratory and microbiology Laboratory Tests 08/24/24 03:30 Test 08/24/24 03:30 Range/Units Serum Glucose 113 H 74-106 mg/dL Microbiology Date/Time Source Procedure Growth Status 08/15/24 16:20 Blood Blood Culture - Final NO GROWTH AFTER 5 DAYS OF INCUBATION. Complete 08/15/24 11:55 Voided Urine Urine Culture - Final Complete 08/13/24 08:10 Nose MRSA Screen - Final Complete Problem List/Assessment/Plan Problem List/Assessment/Plan NEUROLOGY # acute metabolic or toxic encephalopathy # history of CVA - CT showed no acute changes CARDIOLOGY # acute on chronic HFrEF EF less than 20% with AICD NYHA 4 # end-stage cardiomyopathy # Paroxysmal atrial fibrillation, on low-dose Eliquis # Peripheral arterial disease, severe degree # Presence of AICD (Biotronik) # septic shock likely due to UTI # Sustained V-tach - EF showed less than 20% - cardiology on board - currently on Lasix 40 daily - levophed drip - amiodarone - hold - on therapeutic Lovenox - monitor continuously - reviewed EKG - go down on vasopressors, add fluids if needed RESPIRATORY # Acute hypoxic respiratory failure likely due to heart failure # possible aspiration pneumonia # multiple pulmonary nodules likely Mets # pleural effusion - currently on oxygen NC 2 L (initially on BiPAP and high-flow) - ordered pancultures - currently on Invanz and doxycycline - continuously monitoring # influenza type A - currently on Tamiflu GI/LIVER # GERD - Protonix /KIDNEY/METABOLIC # COCO on CKD stage 3 A/B - continuously monitoring # acute complicated UTI ESBL - evident on urinalysis - and cultures growing ESBL - currently on Invanz # prostatic cancer with possible metastasis - following up with the Urology # Right kidney mass - evident on CT abdominal pelvis # hypercalcemia likely due to malignancy- resolved # hyponatremia- resolved # Hypokalemia - Repleting - Monitor lab ENDO # uncontrolled type 2 diabetes mellitus - Accu-Cheks and sliding scale # hypothyroidism - currently on levothyroxine MSK # Severe PAD # Severe right knee osteoarthritis - Pain management as needed - No surgical intervention for now - Monitoring # widespread musculoskeletal pain likely due to cancer mets -currently giving Decadron, [employer], morphine HEME # Anemia of chronic disease likely due to malignancy - monitor lab ID # acute complicated UTI ESBL # septic shock due to UTI - evident on urinalysis - and cultures growing ESBL - currently on Invanz SKIN # stage III sacral decubitus ulcer - wound consult LINES Right femoral vein catheter DC 08/15 PICC 08/15 Chang catheter DRIPS Levophed NUTRITION Clinimix PUD prophylaxis: Pantoprazole DVT prophylaxis: Therapeutic Lovenox Goals of care has been discussed with the for more than 27 minutes, full code status Critical care time including chart review, discussing with the patient's family excluding procedures: 127 minutes Spoken with son on phone, explained patient's situation and all the details, answered all questions, advised son and [id number] to schedule a meeting in hospital to discuss further plan. Long family meeting held today 08/23/2024, addressed all concerns and answered all questions Spoke with the family today, they are considering hospice. Case discussed with Dr. Raymond. Plan discussed with: Patient, Son My Orders My Orders Orders - ZELDA ROACH RESIDENT Procedure Category Date Status Time Chest Xray 1 View XY 08/24/24 Resulted 04:00 Kub Abdomen Single XY 08/24/24 Resulted View 07:25 Potassium Phosphate PHA 08/24/24 In Process 12:30 Comprehensive LAB 08/25/24 Verified Metabolic Panel 04:00 Magnesium LAB 08/25/24 Verified 04:00 Phosphorus LAB 08/25/24 Verified 04:00 Clinimix Per Pharmacy [facility] 08/24/24 In Process 22:00 Dietary Evaluation Review Recommendations by RD: Increase Calorie Intake, PPN/TPN Comments: 1. Increase TPN rate to provide at least 75% of daily estimated energy needs. 2. Monitor I&O, weight, and labs. 3. Advance to when CCHO 60g cardiac diet medically feasible, pending CUSTOMER SERVICE TELLER approval. Expected Outcomes/Goals: 1. Increase TPN rate to provide at least 75% of daily estimated energy needs. 2. Monitor I&O, weight, and labs. 3. Advance to when CCHO 60g cardiac diet medically feasible, pending CUSTOMER SERVICE TELLER approval. Date of Service: Aug 24, 2024 Billing Provider: PATRICIA RAYMOND MD Common Visit Codes: [id number] CARE 30-74 MIN, [id number] CARE-EACH +30MIN (x2) ZELDA ROACH Aug 24, 2024 16:57 PATRICIA RAYMOND MD Aug 27, 2024 12:55
[2024-08-25] VITALS (68 sets, daily range): BP systolic 88–196; BP diastolic 38–93; PULSE 64–87; RESP 10–32; TEMP 97.6–98; O2SAT 78–100
--- NOTE | 2024-08-25 05:29 | DVH ---
EXAM: XR Chest, 1 View CLINICAL INDICATION: pna TECHNIQUE: Frontal view of the chest. COMPARISON: XY CHEST XRAY 1 VIEW on DOS: 08/24/24, XY CHEST XRAY 1 VIEW on DOS: 08/23/24, XY CHEST PORT ABLE on DOS: 08/22/24, XY CHEST PORTABLE on DOS: 08/22/24, XY CHEST XRAY 1 VIEW on DOS: 08/21/24 FINDINGS: LUNGS AND PLEURAL SPACES: See below. HEART: Cardiomegaly with mild congestion. MEDIASTINUM: Unremarkable. Normal mediastinal contour. BONES/JOINTS: Unremarkable. No acute fracture. TUBES, LINES AND DEVICES: Left-sided cardiac pacemaker. OTHER FINDINGS: . IMPRESSION: Cardiomegaly with mild congestion.
[2024-08-25 09:01] LABS: Basophils # (auto) 0.1 10 ^3/uL (0-0.2); Basophils % (auto) 0.5 % (0.0-2.0); Eosinophils # (auto) 0.2 10 ^3/uL (0-0.8); Eosinophils % (auto) 1.7 % (0.0-7.0); Hematocrit 29.3 % (41.0-53.0); Hemoglobin 9.2 g/dL (13.5-17.5); Lymphocytes # (auto) 0.8 10 ^3/uL (0.4-5.4); Lymphocytes % (auto) 8.3 % (10.0-50.0); Mean Corpuscular Hemoglobin 25.2 pg (28.0-32.0); Mean Corpuscular Hgb Conc. 31.3 g/dL (32.0-36.0); Mean Corpuscular Volume 80.8 fL (80.0-100.0); Monocytes # (auto) 0.5 10 ^3/uL (0-1.3); Monocytes % (auto) 5.1 % (0.0-12.0); Neutrophils # (auto) 8.5 10 ^3/uL (1.6-8.6); Neutrophils % (auto) 84.4 % (37.0-80.0); Nucleated Red Blood Cells % 0.1 %; Platelet Count (auto) 211 10^3/uL (140-450); Red Blood Cells 3.63 10^6/uL (4.5-5.90); Red Cell Distribution Width 20.2 % (11.8-14.3)
[2024-08-25 09:09] LABS: Alkaline Phosphatase 66 U/L (46-116); Anion Gap 8 (5-15); BUN/Creatinine Ratio 24.2 (10.0-20.0); Carbon Dioxide 27 mmol/L (20-31); Glucose 100 mg/dL (74-106); Magnesium 2.4 mg/dL (1.6-2.6); Phosphorus 2.5 mg/dL (2.4-5.1)
[2024-08-25 09:10] LABS: Bilirubin, Total 0.6 mg/dL (0.2-1.0); Total Protein 5.7 g/dL (5.7-8.2)
[2024-08-25 09:13] LABS: Aspartate Aminotransferase 12 U/L (13-40); Blood Urea Nitrogen 36 mg/dL (9-23); Chloride 114 mmol/L (98-107); Potassium 3.5 mmol/L (3.5-5.1); Sodium 149 mmol/L (136-145)
[2024-08-25 09:14] LABS: Alanine Aminotransferase < 9 U/L (7-40); Albumin 2.8 g/dL (3.2-4.8)
--- NOTE | 2024-08-25 12:54 | DVHPN2 ---
Progress Note Date Seen: Aug 25, 2024 Medical Necessity Reason Pt with a Central, PICC or Fol: Yes The following are medically ne: PICC Line, Chang Catheter Reason for chang catheter: Strict I&O Subjective Patient reports: Other (No events patient is still on Levophed ) Review of Systems: Deferred Objective vital signs Vital Sign Date Time Temp Pulse Resp B/P (MAP) Pulse Ox O2 Delivery O2 Flow Rate FiO2 08/25/24 12:30 68 27 94/55 (68) 97 08/25/24 12:00 97.6 97.6 08/25/24 12:00 Nasal Cannula* 4 36 Total Intake and Output 08/24/24 08/24/24 08/25/24 15:00 23:00 07:00 Intake Total 1743.842 ml 495.248 ml 339.248 ml Output Total 450 ml 450 ml Balance 1743.842 ml 45.248 ml -110.752 ml medications Current Medications Medications Dose Ordered Sig/Francisco Route Start Time Stop Time Status Last Admin Dose Admin Acetaminophen 650 mg Q6HP PRN PO 08/06/24 01:15 Hold 08/08/24 10:30 650 MG Enoxaparin Sodium 30 mg DAILY SC 08/08/24 10:00 UNV Acetaminophen 650 mg Q6HP PRN NC 08/10/24 09:00 08/12/24 16:17 650 MG Sodium Chloride 10 ml QSHIFT@10,22 IV 08/15/24 22:00 08/25/24 08:41 10 ML Acetaminophen/ Hydrocodone Bitart 1 tab Q6HP PRN PO 08/17/24 09:00 08/22/24 09:42 1 TAB Norepinephrine Bitartrate 32 mg/ Sodium Chloride 250 ml @ 0.938 mls/ hr Q24H IV 08/17/24 12:30 08/21/24 12:43 1.406 MLS/HR Morphine Sulfate 4 mg Q4HPRN PRN IV 08/17/24 12:45 08/17/24 16:23 4 MG Levothyroxine Sodium 200 mcg QAM@0600 PO 08/18/24 06:00 08/22/24 06:06 200 MCG Enoxaparin Sodium 70 mg DAILY SC 08/19/24 10:00 08/25/24 07:31 70 MG Amino Acids 0 ml @ 0 mls/hr PER PHARMACY IV 08/21/24 17:15 Diagnostic Test (Pha) 1 strip Q6HR 08/22/24 00:00 08/25/24 11:59 1 STRIP Insulin Human Regular FOLLOW SLIDING SCALE Q6HR SC 08/22/24 00:00 08/23/24 11:23 2 UNITS Dextrose 50 ml UD IV 08/21/24 22:00 Amino Acids/ Electrolytes/ Dextrose 1,000 ml @ 41 mls/hr DAILY@2200 IV 08/21/24 22:00 08/24/24 22:22 41 MLS/HR Pantoprazole Sodium 40 mg DAILY IV 08/22/24 10:00 08/25/24 07:31 40 MG Ertapenem 1 gm/ Sodium Chloride 50 ml @ 100 mls/hr DAILY IV 08/23/24 10:00 08/25/24 07:31 100 MLS/HR Loperamide HCl 2 mg PRN PRN PO 08/24/24 11:30 Examination: GENERAL:Abnormal, LUNGS:Abnormal laboratory and microbiology Laboratory Tests 08/25/24 08:30 Test 08/25/24 08:30 Range/Units Serum Glucose 100 74-106 mg/dL Microbiology Date/Time Source Procedure Growth Status 08/15/24 16:20 Blood Blood Culture - Final NO GROWTH AFTER 5 DAYS OF INCUBATION. Complete 08/15/24 11:55 Voided Urine Urine Culture - Final Complete 08/13/24 08:10 Nose MRSA Screen - Final Complete Problem List/Assessment/Plan Problem List/Assessment/Plan Acute kidney injury superimposed Chronic Kidney Disease secondary to ATN, in the setting of shock Acute respiratory failure, on BiPAP Septic shock Urinary tract infection, ESBL Metastatic prostate cancer Congestive heart failure, ejection fraction 20% Right kidney mass, 6.2 cm CVA Hypercalcemia of malignancy Vancomycin toxicity Anemia of chronic kidney disease influenza A Hypernatremia Hypokalemia Recommendations Stable renal function supportive care kidney ultrasound reported 6 cm mass right kidney Urology consult still on pressors Patient's family decided to go on hospice Plan discussed with: Other Dietary Evaluation Review Recommendations by RD: Increase Calorie Intake, PPN/TPN Comments: 1. Increase TPN rate to provide at least 75% of daily estimated energy needs. 2. Monitor I&O, weight, and labs. 3. Advance to when CCHO 60g cardiac diet medically feasible, pending THEATER COMPANY PRODUCER approval. Expected Outcomes/Goals: 1. Increase TPN rate to provide at least 75% of daily estimated energy needs. 2. Monitor I&O, weight, and labs. 3. Advance to when CCHO 60g cardiac diet medically feasible, pending THEATER COMPANY PRODUCER approval. KIKI FELICIANO MD Aug 25, 2024 12:54
[2024-08-25] MEDS: ALBUMIN 25% 100 ML IV ONE (13:00)
[2024-08-25] MEDS: SODIUM CHLORIDE 0.9% 250 ML IV ONE (13:00)
--- NOTE | 2024-08-25 18:23 | DVHPNRES ---
Progress Note Date Seen: Aug 25, 2024 Resident Creating Document: ZELDA ROACH RESIDENT Medical Necessity Reason Pt with a Central, PICC or Fol: Yes The following are medically ne: PICC Line, Chang Catheter Reason for chang catheter: Strict I&O Subjective Review of Systems Patient seen and examined at the bedside. Patient is not fully oriented, reported no new complaints, overnight events reviewed. Possible transfer to home hospice. Patient reports: No new complaints Objective vital signs Vital Sign Date Time Temp Pulse Resp B/P (MAP) Pulse Ox O2 Delivery O2 Flow Rate FiO2 08/25/24 14:45 74 25 111/61 (78) 100 08/25/24 14:00 Nasal Cannula* 4 36 08/25/24 12:00 97.6 97.6 Total Intake and Output 08/24/24 08/24/24 08/25/24 15:00 23:00 07:00 Intake Total 1743.842 ml 495.248 ml 339.248 ml Output Total 450 ml 450 ml Balance 1743.842 ml 45.248 ml -110.752 ml medications Current Medications Medications Dose Ordered Sig/Francisco Route Start Time Stop Time Status Last Admin Dose Admin Enoxaparin Sodium 30 mg DAILY SC 08/08/24 10:00 UNV Examination Pt is lying on bed General Appearance: Alert, Oriented X2, Cooperative, following commands HEENT: Atraumatic, Mucous membranes dry Respiratory: Clear to auscultation, Normal air movement, on NC 4 L Cardiovascular: Regular rate, Normal S1, Normal S2, Abdominal: Active bowel sounds, Soft, no distention, no tenderness Extremities: 1+ edema BLE, weak pulses BLE, Tenderness in BLE Skin: stage 3 sacral decubitus ulcer. skin discoloration in BLE likely due to vascular disorders Neuro: Normal speech, sensorimotor deficits none Psych/Mental Status: Mental status NL, Mood NL Nurse was there as sharperone during examination laboratory and microbiology Laboratory Tests 08/25/24 08:30 Test 08/25/24 08:30 Range/Units Serum Glucose 100 74-106 mg/dL Microbiology Date/Time Source Procedure Growth Status 08/15/24 16:20 Blood Blood Culture - Final NO GROWTH AFTER 5 DAYS OF INCUBATION. Complete 08/15/24 11:55 Voided Urine Urine Culture - Final Complete 08/13/24 08:10 Nose MRSA Screen - Final Complete Labs and/or images reviewed: Labs reviewed by me, Image(s) reviewed by me Problem List/Assessment/Plan Problem List/Assessment/Plan NEUROLOGY # acute metabolic or toxic encephalopathy # history of CVA - CT showed no acute changes CARDIOLOGY # acute on chronic HFrEF EF less than 20% with AICD NYHA 4 # end-stage cardiomyopathy # Paroxysmal atrial fibrillation, on low-dose Eliquis # Peripheral arterial disease, severe degree # Presence of AICD (Biotronik) # septic shock likely due to UTI # Sustained V-tach - EF showed less than 20% - cardiology on board - currently on Lasix 40 daily - levophed drip - amiodarone - hold - on therapeutic Lovenox - monitor continuously - reviewed EKG - go down on vasopressors, add fluids if needed RESPIRATORY # Acute hypoxic respiratory failure likely due to heart failure # possible aspiration pneumonia # multiple pulmonary nodules likely Mets # pleural effusion - currently on oxygen NC 2 L (initially on BiPAP and high-flow) - ordered pancultures - currently on Invanz and doxycycline - continuously monitoring # influenza type A - currently on Tamiflu GI/LIVER # GERD - Protonix /KIDNEY/METABOLIC # COCO on CKD stage 3 A/B - continuously monitoring # acute complicated UTI ESBL - evident on urinalysis - and cultures growing ESBL - currently on Invanz # prostatic cancer with possible metastasis - following up with the Urology # Right kidney mass - evident on CT abdominal pelvis # hypercalcemia likely due to malignancy- resolved # hyponatremia- resolved # Hypokalemia - Repleting - Monitor lab ENDO # uncontrolled type 2 diabetes mellitus - Accu-Cheks and sliding scale # hypothyroidism - currently on levothyroxine MSK # Severe PAD # Severe right knee osteoarthritis - Pain management as needed - No surgical intervention for now - Monitoring # widespread musculoskeletal pain likely due to cancer mets -currently giving Decadron, [place], morphine HEME # Anemia of chronic disease likely due to malignancy - monitor lab ID # acute complicated UTI ESBL # septic shock due to UTI - evident on urinalysis - and cultures growing ESBL - currently on Invanz SKIN # stage III sacral decubitus ulcer - wound consult LINES Right femoral vein catheter DC 08/15 PICC 08/15 Chang catheter DRIPS Levophed NUTRITION Clinimix PUD prophylaxis: Pantoprazole DVT prophylaxis: Therapeutic Lovenox Goals of care has been discussed with the for more than 27 minutes, full code status Critical care time including chart review, discussing with the patient's family excluding procedures: 92 minutes Spoken with son on phone, explained patient's situation and all the details, answered all questions, advised son and [id number] to schedule a meeting in hospital to discuss further plan. Family meeting held today 08/23/2024, addressed all concerns and answered all questions Spoke with the family today, they are considering hospice. Case discussed with Dr. Raymond. Plan discussed with: Patient, Son, Other ([id number]) My Orders My Orders Orders - ZELDA ROACH Procedure Category Date Status Time * Pmo Project Manager CONS 08/25/24 Transmitted Consult Dietary Evaluation Review Recommendations by RD: Increase Calorie Intake, PPN/TPN Comments: 1. Increase TPN rate to provide at least 75% of daily estimated energy needs. 2. Monitor I&O, weight, and labs. 3. Advance to when CCHO 60g cardiac diet medically feasible, pending ANGULAR DEVELOPER approval. Expected Outcomes/Goals: 1. Increase TPN rate to provide at least 75% of daily estimated energy needs. 2. Monitor I&O, weight, and labs. 3. Advance to when CCHO 60g cardiac diet medically feasible, pending ANGULAR DEVELOPER approval. Date of Service: Aug 24, 2024 Billing Provider: PATRICIA RAYMOND MD Common Visit Codes: [id number] CARE 30-74 MIN, [id number] CARE-EACH +30MIN ZELDA ROACH Aug 25, 2024 18:23 PATRICIA RAYMOND MD Aug 27, 2024 13:13
--- NOTE | 2024-08-25 18:34 | DVHDSRES ---
Discharge Summary Date of Admission Resident Creating Document: ZELDA ROACH RESIDENT Aug 06, 2024 at 04:56 Date of Discharge: Aug 25, 2024 Admitting Diagnosis Septic shock due to UTI ESBL Labs/Diagnostic Data: Laboratory Results Test 08/25/24 11:37 08/25/24 08:30 08/23/24 09:15 08/22/24 03:20 POC Glucose 103 mg/dl (70-106) White Blood Count 10.0 10^3/uL (4.4-10.8) Red Blood Count 3.63 10^6/uL (4.5-5.90) Hemoglobin 9.2 g/dL (13.5-17.5) Hematocrit 29.3 % (41.0-53.0) Mean Corpuscular Volume 80.8 fL (80.0-100.0) Mean Corpuscular Hemoglobin 25.2 pg (28.0-32.0) Mean Corpuscular Hemoglobin Concent 31.3 g/dL (32.0-36.0) Red Cell Distribution Width 20.2 % (11.8-14.3) Platelet Count 211 10^3/uL (140-450) Mean Platelet Volume 9.5 fL (6.9-10.8) Neutrophils (%) (Auto) 84.4 % (37.0-80.0) Lymphocytes (%) (Auto) 8.3 % (10.0-50.0) Monocytes (%) (Auto) 5.1 % (0.0-12.0) Eosinophils (%) (Auto) 1.7 % (0.0-7.0) Basophils (%) (Auto) 0.5 % (0.0-2.0) Neutrophils # (Auto) 8.5 10 ^3/uL (1.6-8.6) Lymphocytes # (Auto) 0.8 10 ^3/uL (0.4-5.4) Monocytes # (Auto) 0.5 10 ^3/uL (0-1.3) Eosinophils # (Auto) 0.2 10 ^3/uL (0-0.8) Basophils # (Auto) 0.1 10 ^3/uL (0-0.2) Nucleated Red Blood Cells 0.1 % Sodium Level 149 mmol/L (136-145) Potassium Level 3.5 mmol/L (3.5-5.1) Chloride Level 114 mmol/L (98-107) Carbon Dioxide Level 27 mmol/L (20-31) Anion Gap 8 (5-15) Blood Urea Nitrogen 36 mg/dL (9-23) Creatinine 1.49 mg/dL (0.700-1.30) Glomerular Filtration Rate Calc 50 mL/min (>90) BUN/Creatinine Ratio 24.2 (10.0-20.0) Serum Glucose 100 mg/dL (74-106) Calcium Level 9.0 mg/dL (8.7-10.4) Phosphorus Level 2.5 mg/dL (2.4-5.1) Magnesium Level 2.4 mg/dL (1.6-2.6) Total Bilirubin 0.6 mg/dL (0.2-1.0) Aspartate Amino Transferase (AST) 12 U/L (13-40) Alanine Aminotransferase (ALT) < 9 U/L (7-40) Alkaline Phosphatase 66 U/L (46-116) Total Protein 5.7 g/dL (5.7-8.2) Albumin 2.8 g/dL (3.2-4.8) Influenza Type A Antigen Negative (Negative) Influenza Type B Antigen Negative (Negative) Triglycerides Level 109 mg/dL (< 150) Test 08/20/24 13:14 08/17/24 12:05 08/16/24 03:00 08/15/24 13:53 Free Prostate Specific Antigen 0.85 ng/mL (N/A) Percent Free Prostate Specific Ag 8.3 % (.) Prostate Specific Antigen Total 10.2 ng/mL (0.0-4.0) Blood Gas Specimen Type Arterial Blood Gas Sample Site Right radial Blood Gas Patient Temperature 37.0 Arterial Blood Date Drawn [id number] Arterial Blood pH 7.478 (7.350-7.450) Arterial Blood Partial Pressure CO2 35.3 mmHg (35.0-48.0) Arterial Blood Partial Pressure O2 72.7 mmHg (83.0-108.0) Arterial Blood HCO3 25.6 mmol/L (21.0-28.0) Arterial Blood Oxygen Saturation 93.8 % (94.0-98.0) Arterial Blood Base Excess 2.2 mmol/L (-2.0-3.0) Arterial Blood Oxyhemoglobin 93.2 % (94.0-98.0) Arterial Blood Carboxyhemoglobin 0.3 % (0.5-1.5) Arterial Blood Methemoglobin 0.3 % (0.0-1.5) Phu Test Positive Blood Gas Total Hemoglobin 10.90 g/dL (13.5-17.5) Blood Gas Liter Flow 2.00 Blood Gas Modality Nasal cannula FiO2 % 28.0 Thyroid Stimulating Hormone (TSH) 19.41 uIU/mL (0.55-4.78) Prothrombin Time 12.3 sec (9.3-11.8) Prothrombin Time INR 1.18 (0.9-1.15) Activated Partial Thromboplast Time 44.4 SEC (24.5-34.5) Lactic Acid Level 2.9 mmol/L (0.4-2.0) Test 08/15/24 11:55 08/15/24 11:07 08/15/24 03:00 08/14/24 07:50 Urine Color Colorless (Yellow) Urine Clarity Clear (Clear) Urine pH 6.5 (5.0-9.0) Urine Specific [place] 1.009 (1.001-1.035) Urine Protein Negative (Negative) Urine Ketones Negative (Negative) Urine Blood Negative /uL (Negative) Urine Nitrite Negative (Negative) Urine Bilirubin Negative (Negative) Urine Urobilinogen Normal mg/dL (Negative) Urine Leukocyte Esterase Trace /uL (Negative) Urine RBC 3 /hpf (0 - 3) Urine Microscopic WBC 10 /HPF (0-3) Urine Squamous Epithelial Cells None seen /hpf (<5) Urine Bacteria Few /hpf (None Seen) Urine Glucose Normal mg/dL (Normal) SARS-CoV-2 Antigen (Rapid) Negative (NEGATIVE) Iron Level 24 ug/dL (65-175) Total Iron Binding Capacity 146 ug/dL (250-425) Percent Iron Saturation 16.4 % (20-55) Vitamin B12 Level 1565 pg/mL (211-911) Folic Acid 19.67 ng/mL (>5.38) Free Thyroxine (T4) Calculated 0.30 ng/dL (0.89-1.76) Total Triiodothyronine (TT3) 0.29 ng/mL (0.60-1.81) Hemoglobin A1c 6.0 % A1C (<5.7) Blood Gas Set Respiration Rate 12.0 Blood Gas Spontaneous Rate 20 Blood Gas Spontaneous Tidal Volume 400 Blood Gas EPAP 5 Blood Gas IPAP 12 Test 08/13/24 05:37 08/12/24 19:52 08/10/24 16:00 08/10/24 05:58 Differential Total Cells Counted 100.0 (100) Neutrophils % (Manual) 96 (37.0-80.0) Band Neutrophils % (Manual) 0 Lymphocytes % (Manual) 3 (10.0-50.0) Monocytes % (Manual) 1 (0-12) Eosinophils % (Manual) 0 (0-7) Basophils % (Manual) 0 (0.0-2.0) Metamyelocytes % (manual) 0 Myelocytes % (Manual) 0 Promyelocytes % (Manual) 0 Blast Cells % (Manual) 0 Reactive Lymphocytes 0 Platelet Estimate Adequate Specimen Drawn By Kera ward rt Urine Creatinine 93.06 mg/dL (30.0-125.0) Urine Protein/Creatinine Ratio 0.79 Urine Sodium 46 mmol/L (40-220) Urine Total Protein 73.7 mg/dL (1-14) Vitamin D 25-Hydroxy 209.8 ng/mL (30.0-100) Parathyroid Hormone (Intact) 7.7 pg/mL (18.4-80.1) Random Vancomycin Level 22.4 ug/mL (5-10) Test 08/09/24 05:10 08/09/24 02:03 08/07/24 21:55 08/05/24 21:08 Ovalocytes Few Vancomycin Level Trough 19.2 ug/mL (5-10) Troponin I High Sensitivity 27 ng/L (</=54) Urine WBC 32 /hpf (0 - 3) Urine Amorphous Crystals Few /hpf (None Seen) Urine Mucus Few (None Seen) Test 08/05/24 19:15 B-Type Natriuretic Peptide 1251.30 pg/mL (0-100) Plasma/Serum Blood Alcohol 4.5 mg/dL (<10) Other Laboratory Tests 08/25/24 08:30 Brief Hx & Hospital Course: RENATA PEREA is a 74-year-old man With a PMH of paroxysmal atrial fibrillation on low-dose Eliquis and amiodarone, congestive heart failure, status post automatic implantable cardioverter-defibrillator (Biotronik), unspecified metastatic disease with current hospice care, peripheral arterial disease, hypothyroidism, and GERD, who presented to the emergency room via EMS with a chief complaint of an altered level of consciousness. The patient is somewhat a poor historian. Information mostly obtained from records in childhood friend at bedside. It appears the patient was found with generalized weakness and an altered level of consciousness for an family to call 911. He was recently diagnosed with a UTI. He has been on hospice care for unspecified metastatic disease for the past eight months. EN route to the hospital the patient was found to be bradycardic and with transient nonsustained ventricular tachycardia events. Patient was acute toxic and metabolic encephalopathy, CT showed no acute changes. Patient is continuously requiring pressor support chronic continuously on Levophed so ICU status.Patient was initially on BiPAP, switched to high-flow and currently on 2 L NC Patient is in septic shock due to ESBL UTI, patient was giving Invanz. For Acute on chronic HFrEF EF less than 20% with AICD NYHA 4 with end-stage cardiomyopathy and paroxysmal AFib and severe peripheral arterial disease. Ejection fraction is less than 20% initially given Lasix, discontinued due to patient's clinical status. Currently on therapeutic Lovenox. Patient was positive for influenza type a, given Tamiflu for 1 week and then it tested back negative. CT abdominal pelvis showed mass in bilateral kidneys, spleen, bilateral upper lobe pulmonary nodules, cardiomegaly with pericardial effusion, moderate pleural effusion, large lobulated mass lesions and neck right side of trachea, extending posterior to the trachea with a thickened right-sided strap muscles. Patient had bad sacral ulcer, wound care continuously monitoring and managing the wound. Goals of care discussed with the family and family opted for hospice care due to terminal illness. Today patient was discharged to home hospice. Pt is lying on bed General Appearance: Alert, Oriented X2, Cooperative, following commands HEENT: Atraumatic, Mucous membranes dry Respiratory: Clear to auscultation, Normal air movement, on NC 4 L Cardiovascular: Regular rate, Normal S1, Normal S2, Abdominal: Active bowel sounds, Soft, no distention, no tenderness Extremities: 1+ edema BLE, weak pulses BLE, Tenderness in BLE Skin: stage 3 sacral decubitus ulcer. 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 CT scan done according to ALARA (As Low as Reasonably Achievable). Multiplanar reconstructions were obtained. IMPRESSION: 1. Complex mass lesions along the upper polar regions of of bilateral kidneys. Postcontrast study is recommended to rule out neoplastic etiology. 2. A small hyperdense lesion in the upper polar region of spleen, likely splenic cyst/metastatic deposit. 3. Bilateral upper lobe pulmonary nodules. Further evaluation with contrast. PET CT is recommended. 4. Right lower lobe collapse with consolidation. 5. Moderate left pleural effusion with partial passive collapse of left lower lobe. 6. Cardiomegaly with mild pericardial effusion. 7. Large lobulated mass lesion in the neck along right side of trachea and extending posterior to the trachea with thickened right-sided strap muscles. Further evaluation with contrast-enhanced CT of neck is recommended to rule out neoplastic etiology. Electronically Signed 08/06/2024 02:51 Elias Ware EXAM: CT HEAD WITHOUT CONTRAST IMPRESSION: 1. No acute intracranial hemorrhage. 2. No CT findings of territorial ischemia. RENAL ULTRASOUND IMPRESSION: 1. 6.2 x 5.8 cm complex cystic structure with nodular mural wall thickening in the midpole of the right kidney. Further evaluation with multiphase CT or MRI abdomen with contrast is recommended. 2. There are small benign-appearing left renal cysts measuring up to 2.1 cm. 3. Incidentally noted is a 9.5 by 6.2 cm complex cystic structure in the posterior right hepatic lobe. This can also be further assessed on postcontrast CT / MRI. HS:Y EXAM: XR Chest, 1 View OTHER FINDINGS: . . IMPRESSION: Cardiomegaly with pulmonary congestion and edema. Superimposed pneumonia cannot be excluded. Condition at Discharge: Stable (stable to transfer home hospice) Final Diagnosis/Problems List # septic shock likely due to UTI # acute metabolic or toxic encephalopathy # acute on chronic HFrEF EF less than 20% with AICD NYHA 4 # end-stage cardiomyopathy # Paroxysmal atrial fibrillation, on low-dose Eliquis # Peripheral arterial disease, severe degree # Presence of AICD (Biotronik) # Sustained V-tach # Acute hypoxic respiratory failure likely due to heart failure # possible aspiration pneumonia # multiple pulmonary nodules likely Mets # pleural effusion # influenza type A # GERD # COCO on CKD stage 3 A/B # acute complicated UTI ESBL # prostatic cancer with possible metastasis # Right kidney mass # hypercalcemia likely due to malignancy- resolved # hyponatremia- resolved # Hypokalemia # uncontrolled type 2 diabetes mellitus # hypothyroidism # Severe PAD # Severe right knee osteoarthritis # widespread musculoskeletal pain likely due to cancer mets # Anemia of chronic disease likely due to malignancy # stage III sacral decubitus ulcer # history of CVA Discharge Disposition: Hospice - Home Discharge Instruct/Medications Diet: Cardiac 2g Na,low cholest Activity: No Restrictions, As Tolerated Follow Up/Referral: f/u with pcp within 1 week Discharge Statement: "Patient was advised to return to the ER or call 911 if any headaches, dizziness, shortness of breath, chest pain, abdominal pain, bleeding, fevers, or worsening of medical condition. Patient was counseled about treatment plan, medications, possible side effects, patientverbalized understanding. All questions were answered to the best of my ability. This discharge took greater then 30 minutes in planning, reviewing documentation, counseling the patient, and discussing with other team members." ASSESSMENT ASSESSMENT Assessment Home Hospice Date of Service: Aug 25, 2024 Billing Provider: PATRICIA RAYMOND MD Common Visit Codes: 43520-[id number] CARE 30-74 MIN, [id number] CARE-EACH +30MIN ZELDA ROACH Aug 25, 2024 18:34 PATRICIA RAYMOND MD Aug 27, 2024 13:14
--- NOTE | 2024-08-30 12:39 | ECG ---
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
== END 2024-08-25 16:04 | disposition hospice, home (50) | DRG 871 ==
LOC: EDBD 18:44 → ER 18:44 → TELE 08-06 04:56 → ICU WEST 08-13 08:04
PROVIDERS: ADMIT Internal Medicine Pulmonary Disease; ATTEND Emergency Medicine
PROC: 06HY33Z Insertion of Infusion Device into Lower Vein, Percutaneous Approach (ICD-10-PCS; principal; 2024-08-08)
PROC: 5A09357 Assistance with Respiratory Ventilation, Less than 24 Consecutive Hours, Continuous Positive Airway Pressure (ICD-10-PCS; 2024-08-12)
PROC: 5A09357 Assistance with Respiratory Ventilation, Less than 24 Consecutive Hours, Continuous Positive Airway Pressure (ICD-10-PCS; 2024-08-13)
PROC: 5A09357 Assistance with Respiratory Ventilation, Less than 24 Consecutive Hours, Continuous Positive Airway Pressure (ICD-10-PCS; 2024-08-14)
PROC: 02HV33Z Insertion of Infusion Device into Superior Vena Cava, Percutaneous Approach (ICD-10-PCS; 2024-08-15)
PROC: B548ZZA Ultrasonography of Superior Vena Cava, Guidance (ICD-10-PCS; 2024-08-15)
DX: A41.9 Sepsis, unspecified organism (principal); G92.8 Other toxic encephalopathy; L89.153 Pressure ulcer of sacral region, stage 3; I50.23 Acute on chronic systolic (congestive) heart failure; R65.21 Severe sepsis with septic shock; J69.0 Pneumonitis due to inhalation of food and vomit; J96.01 Acute respiratory failure with hypoxia; I13.0 Hypertensive heart and chronic kidney disease with heart failure and stage 1 through stage 4 chronic kidney disease, or unspecified chronic kidney disease; I42.9 Cardiomyopathy, unspecified; I47.20 Ventricular tachycardia, unspecified; N17.9 Acute kidney failure, unspecified; N39.0 Urinary tract infection, site not specified; I24.9 Acute ischemic heart disease, unspecified; E87.1 Hypo-osmolality and hyponatremia; I31.39 Other pericardial effusion (noninflammatory); C61 Malignant neoplasm of prostate; E03.9 Hypothyroidism, unspecified; E11.22 Type 2 diabetes mellitus with diabetic chronic kidney disease; E11.51 Type 2 diabetes mellitus with diabetic peripheral angiopathy without gangrene; E78.5 Hyperlipidemia, unspecified; E87.6 Hypokalemia; I48.0 Paroxysmal atrial fibrillation; I49.3 Ventricular premature depolarization; K21.9 Gastro-esophageal reflux disease without esophagitis; Z51.5 Encounter for palliative care; D63.1 Anemia in chronic kidney disease; Z20.822 Contact with and (suspected) exposure to COVID-19; E11.65 Type 2 diabetes mellitus with hyperglycemia; E83.52 Hypercalcemia; N28.89 Other specified disorders of kidney and ureter; J10.1 Influenza due to other identified influenza virus with other respiratory manifestations; I25.10 Atherosclerotic heart disease of native coronary artery without angina pectoris; N18.32 Chronic kidney disease, stage 3b; T36.8X5A Adverse effect of other systemic antibiotics, initial encounter; M17.11 Unilateral primary osteoarthritis, right knee; N28.1 Cyst of kidney, acquired; Z95.810 Presence of automatic (implantable) cardiac defibrillator; Z79.899 Other long term (current) drug therapy; Z80.6 Family history of leukemia; Z86.73 Personal history of transient ischemic attack (TIA), and cerebral infarction without residual deficits; Y92.89 Other specified places as the place of occurrence of the external cause; Z79.84 Long term (current) use of oral hypoglycemic drugs; Z79.01 Long term (current) use of anticoagulants
CPT/HCPCS: 36415; 36556; 36569; 36600; 70450; 71045; 71250; 74018; 74176; 76775; 76937; 80048; 80053; 80202; 80320; 81001; 82306; 82570; 82607; 82746; 82805; 82962; 83036; 83540; 83550; 83605; 83735; 83880; 83970; 84100; 84132; 84154; 84156; 84300; 84439; 84443; 84478; 84480; 84484; 85007; 85025; 85027; 85610; 85730; 87040; 87081; 87086; 87088; 87186; 87426; 87804; 92507; 92610; 93005; 93306; 94660; 96365; 99291; A4565; G0378; G9035; J1100; J1335; J1815; J2405; J2470; J3480; P9047